=== PATIENT | male | born 1955 | race Caucasian/White ===

== ENCOUNTER 2016-08-22 00:25 | Inpatient (IN) | payer MEDICARE, OTHER, MEDICAID ==
[2016-08-22] VITALS (20 sets, daily range): BP systolic 90–149; BP diastolic 41–96; PULSE 66–118; RESP 14–16; TEMP 97.7–98.7; O2SAT 94–100
[2016-08-22] MEDS ORDERED: ETOMIDATE 20 MG/10 ML VIAL ONE (00:28)
[2016-08-22] MEDS ORDERED: PROPOFOL 1000 MG/100 ML INJ 100 ML ONE (00:33)
[2016-08-22] MEDS ORDERED: ceFAZolin 2 GM PREMIX 50 ML ONE (00:43)
--- NOTE | 2016-08-22 00:55 | RADRPT ---
EXAM DATE/TIME: 08/22/2016 00:24 [place] COMPARISON: No previous studies available for comparison. INDICATIONS : Trauma alert. Laceration to the neck. MEDICAL HISTORY : Non-responsive SURGICAL HISTORY : Non-responsive ENCOUNTER: Initial ACUITY: 1 day PAIN SCORE: Non-responsive. LOCATION: Bilateral chest FINDINGS: A single portable frontal view of the chest shows an endotracheal tube with the tip within the right mainstem bronchus. Nasogastric tube courses off the inferior margin of the film. Heart is normal in s ize. Lungs are clear. No effusions or pneumothoraces. Musculoskeletal structures are unremarkable. CONCLUSION: 1. Tip of the endotracheal tube within the right mainstem bronchus. Suggest retracting it approximate ly 2 cm. 2. Clear lungs. Juma Putnam Jr., MD on August 22, 2016 at 0:53 Board Certified Radiologist. This report was verified electronically.
[2016-08-22 01:07] LABS: AUTOMATED NEUTROPHIL # 3.2 TH/MM3 (1.8-7.7); BASOPHIL # 0.1 TH/MM3 (0-0.2); BASOPHIL % 1.4 % (0.0-2.0); EOSINOPHIL # 0.6 TH/MM3 (0-0.4); EOSINOPHIL % 10.1 % (0.0-4.0); HEMATOCRIT 39.1 % (39.0-51.0); HEMO FLAGS DIFF FINAL; I-STAT SODIUM 134 MMOL/L (138-146); LYMPH % 26.7 % (9.0-44.0); LYMPHOCYTE # 1.7 TH/MM3 (1.0-4.8); MEAN CELL VOLUME 101.9 FL (80.0-100.0); MEAN CORPUSCULAR HEMOGLOBIN 34.9 PG (27.0-34.0); MEAN CORPUSCULAR HGB CONC 34.3 % (32.0-36.0); MONO % 9.6 % (0.0-8.0); NEUT % 52.2 % (16.0-70.0); PLATELET COUNT 140 TH/MM3 (150-450); RED BLOOD COUNT 3.84 MIL/MM3 (4.50-5.90); RED CELL DISTRIBUTION WIDTH 14.5 % (11.6-17.2); WHITE BLOOD COUNT 6.2 TH/MM3 (4.0-11.0)
[2016-08-22 01:13] LABS: I-STAT POTASSIUM 7.1 MMOL/L (3.5-4.9)
[2016-08-22 01:19] LABS: APTT (PATIENT) 26.9 SEC (24.3-30.1)
[2016-08-22 01:29] LABS: BLOOD GAS BASE EXCESS -6.9 mmol/L (-2-2); BLOOD GAS CARBOXYHEMOGLOBIN 6.1 % (0-4); BLOOD GAS HCO3 19 mmol/L (22-26); BLOOD GAS METHEMOGLOBIN 1.2 % (0-2); BLOOD GAS O2 HGB SATURATION 92 % (90-100); BLOOD GAS OXYGEN CONTENT 18.6 Vol % (12.0-20.0); BLOOD GAS PCO2 49 mmHg (38-42); BLOOD GAS PO2 385 mmHg (61-120); BLOOD GAS TOTAL HGB 13.6 G/DL (12.0-16.0); TEMP CORR TO 98.6
[2016-08-22 01:30] LABS: CRITICAL VALUE YES
[2016-08-22 01:31] LABS: FIO2 100 %; STAT YES
[2016-08-22 01:32] LABS: AUTOMATED NEUTROPHIL # 3.2 TH/MM3 (1.8-7.7); BASOPHIL # 0.1 TH/MM3 (0-0.2); BASOPHIL % 0.9 % (0.0-2.0); EOSINOPHIL # 0.6 TH/MM3 (0-0.4); EOSINOPHIL % 9.5 % (0.0-4.0); HEMATOCRIT 39.2 % (39.0-51.0); HEMO FLAGS DIFF FINAL; LYMPH % 32.9 % (9.0-44.0); LYMPHOCYTE # 2.2 TH/MM3 (1.0-4.8); MEAN CELL VOLUME 99.9 FL (80.0-100.0); MEAN CORPUSCULAR HEMOGLOBIN 34.4 PG (27.0-34.0); MEAN CORPUSCULAR HGB CONC 34.4 % (32.0-36.0); MONO % 8.3 % (0.0-8.0); NEUT % 48.4 % (16.0-70.0); PLATELET COUNT 113 TH/MM3 (150-450); RED BLOOD COUNT 3.93 MIL/MM3 (4.50-5.90); RED CELL DISTRIBUTION WIDTH 16.4 % (11.6-17.2); WHITE BLOOD COUNT 6.6 TH/MM3 (4.0-11.0)
[2016-08-22 01:43] LABS: PROTHROMBIN TIME - PATIENT 11.2 SEC (9.8-11.6)
[2016-08-22 01:55] LABS: BICARBONATE 22.3 MEQ/L (21.0-32.0); POTASSIUM 3.4 MEQ/L (3.5-5.1)
[2016-08-22 02:09] LABS: CALCIUM-PROTEIN CORRECTED 7.3 MG/DL (8.5-10.1)
[2016-08-22 02:15] LABS: AUTOMATED NEUTROPHIL # 5.4 TH/MM3 (1.8-7.7); BASOPHIL # 0.1 TH/MM3 (0-0.2); BASOPHIL % 1.2 % (0.0-2.0); EOSINOPHIL # 0.5 TH/MM3 (0-0.4); EOSINOPHIL % 6.3 % (0.0-4.0); LYMPH % 14.4 % (9.0-44.0); LYMPHOCYTE # 1.1 TH/MM3 (1.0-4.8); MEAN CELL VOLUME 97.8 FL (80.0-100.0); MEAN CORPUSCULAR HGB CONC 34.7 % (32.0-36.0); MONO % 5.3 % (0.0-8.0); NEUT % 72.8 % (16.0-70.0); PLATELET COUNT 92 TH/MM3 (150-450); RED BLOOD COUNT 3.38 MIL/MM3 (4.50-5.90); RED CELL DISTRIBUTION WIDTH 17.2 % (11.6-17.2); WHITE BLOOD COUNT 7.3 TH/MM3 (4.0-11.0)
[2016-08-22 02:17] LABS: HEMO FLAGS AUTO DIFF
[2016-08-22 02:18] LABS: BLOOD GAS BASE EXCESS -6.3 mmol/L (-2-2); BLOOD GAS CARBOXYHEMOGLOBIN 5.1 % (0-4); BLOOD GAS HCO3 19 mmol/L (22-26); BLOOD GAS METHEMOGLOBIN 1.2 % (0-2); BLOOD GAS O2 HGB SATURATION 93 % (90-100); BLOOD GAS OXYGEN CONTENT 15.9 Vol % (12.0-20.0); BLOOD GAS PCO2 43 mmHg (38-42); BLOOD GAS PO2 180 mmHg (61-120); BLOOD GAS TOTAL HGB 11.9 G/DL (12.0-16.0); TEMP CORR TO 98.6
[2016-08-22 02:19] LABS: CRITICAL VALUE YES; DRAW SITE ART LINE; FIO2 77 %; OXYGEN DEVICE VENTILATOR; VENT SETTINGS OR SETTING
[2016-08-22 02:20] LABS: STAT YES
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
[2016-08-22] MEDS: SODIUM CHLOR 0.9% 1000 ML INJ 1,000 ML IV SCH ×3 (02:47→20:08)
[2016-08-22 02:52] LABS: PLATELET ESTIMATE SMEAR LOW (NORMAL); PLATELET MORPHOLOGY NORMAL (NORMAL); SCAN/DIFF AUTO DIFF CONFIRMED
[2016-08-22] MEDS ORDERED: MISCELLANEOUS NURSING INFORMATION XX SCH (03:00)
[2016-08-22] MEDS ORDERED: CHLORHEXIDINE GLUCONATE 2 % 1 PACK (2 CLOTHS) TOP PRN (03:00)
[2016-08-22] MEDS ORDERED: SODIUM CHLORIDE 0.9% FLUSH 10 ML FLUSH IV FLUSH PRN (03:00)
[2016-08-22] MEDS ORDERED: PROPOFOL 1000 MG/100 ML INJ 100 ML IV SCH (03:00)
[2016-08-22] MEDS ORDERED: fentaNYL DRIP 250 ML IV SCH (03:00)
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
[2016-08-22] MEDS: PROPOFOL 1000 MG/100 ML INJ 100 ML IV SCH ×2 (03:19→06:39)
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
[2016-08-22] MEDS ORDERED: MIDAZOLAM HCL 2 MG/2 ML VIAL ONE (03:35)
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
[2016-08-22] MEDS: CHLORHEXIDINE GLUCONATE 2 % 1 PACK (2 CLOTHS) TOP SCH (04:00)
[2016-08-22 04:10] LABS: AUTOMATED NEUTROPHIL # 7.5 TH/MM3 (1.8-7.7); BASOPHIL % 0.5 % (0.0-2.0); EOSINOPHIL # 0.1 TH/MM3 (0-0.4); EOSINOPHIL % 0.8 % (0.0-4.0); HEMATOCRIT 33.7 % (39.0-51.0); LYMPH % 8.4 % (9.0-44.0); LYMPHOCYTE # 0.7 TH/MM3 (1.0-4.8); MEAN CELL VOLUME 96.6 FL (80.0-100.0); MEAN CORPUSCULAR HEMOGLOBIN 33.7 PG (27.0-34.0); MEAN CORPUSCULAR HGB CONC 34.9 % (32.0-36.0); MONO % 4.9 % (0.0-8.0); NEUT % 85.4 % (16.0-70.0); PLATELET COUNT 84 TH/MM3 (150-450); RED BLOOD COUNT 3.49 MIL/MM3 (4.50-5.90); RED CELL DISTRIBUTION WIDTH 18.5 % (11.6-17.2); WHITE BLOOD COUNT 8.8 TH/MM3 (4.0-11.0)
[2016-08-22 04:13] LABS: HEMO FLAGS AUTO DIFF
[2016-08-22 04:35] LABS: BICARBONATE 24.8 MEQ/L (21.0-32.0); POTASSIUM 3.3 MEQ/L (3.5-5.1)
[2016-08-22 04:45] LABS: BANDS 4 % (0-6); EOSINOPHILS 1 % (0-4); NEUTROPHIL # MANUAL DIFF 7.9 TH/MM3 (1.8-7.7); PLATELET ESTIMATE SMEAR LOW (NORMAL); PLATELET MORPHOLOGY NORMAL (NORMAL); POLYS (SEG NEUTROPHILS) 86 % (16-70); SCAN/DIFF FINAL DIFF MANUAL; WBC DIFF SAMPLE 100
[2016-08-22 05:19] LABS: BLOOD GAS BASE EXCESS -2.7 mmol/L (-2-2); BLOOD GAS CARBOXYHEMOGLOBIN 2.1 % (0-4); BLOOD GAS HCO3 24 mmol/L (22-26); BLOOD GAS METHEMOGLOBIN 1.3 % (0-2); BLOOD GAS O2 HGB SATURATION 96 % (90-100); BLOOD GAS OXYGEN CONTENT 15.3 Vol % (12.0-20.0); BLOOD GAS PCO2 65 mmHg (38-42); BLOOD GAS PO2 236 mmHg (61-120); TEMP CORR TO 98.6
[2016-08-22 05:20] LABS: CRITICAL VALUE YES; DRAW SITE ART LINE; FIO2 100 %; OXYGEN DEVICE VENTILATOR; STAT NO
[2016-08-22] MEDS ORDERED: SODIUM BICARBONATE 8.4% INJ 50 ML ONE (05:57)
--- NOTE | 2016-08-22 06:12 | RADRPT ---
EXAM DATE/TIME: 08/22/2016 05:06 [facility] COMPARISON: CHEST SINGLE AP, August 22, 2016, 0:24. INDICATIONS : Shortness of breath. MEDICAL HISTORY : None. SURGICAL HISTORY : None. ENCOUNTER: Initial ACUITY: 1 day PAIN SCORE: Non-responsive. LOCATION: Bilateral chest FINDINGS: The tip of the endotracheal tube has been pulled back into the trachea. It is now 1.5 cm cephalad to the polina. Nasogastric tube courses off the inferior margin of the film. A new basilar consolidation is seen bilaterally more pronounced on the right. Small effusions. Heart is normal in size. No pneum othorax. CONCLUSION: 1. Endotracheal tube has been repositioned. 2. New bibasilar infiltrates and small effusions. Juma Putnam Jr., MD on August 22, 2016 at 6:10 Board Certified Radiologist. This report was verified electronically.
[2016-08-22] MEDS ORDERED: LACTATED RINGER'S 1000 ML INJ 1,000 ML IV ONE ×3 (06:15→12:00)
[2016-08-22] MEDS ORDERED: SODIUM BICARBONATE 8.4% INJ 50 MEQ/50 ML SYR IV ONE (06:30)
[2016-08-22] MEDS ORDERED: NOREPINEPHRINE-DEXTROSE DRIP 250 ML IV ONE (07:29)
[2016-08-22] MEDS ORDERED: POTASSIUM PHOSPHATE MONOBASIC 500 MG TAB PO PRN (07:45)
[2016-08-22] MEDS ORDERED: MAGNESIUM OXIDE 400 MG TAB PO PRN (07:45)
[2016-08-22] MEDS ORDERED: MAGNESIUM SULFATE INJ 4 GM in SODIUM CHLORIDE 0.9% INJ 92 ML IV PRN (07:45)
[2016-08-22] MEDS ORDERED: POTASSIUM PHOSPHATE MONOBASIC 500 MG TAB PO/TUBE PRN (07:45)
[2016-08-22] MEDS ORDERED: SODIUM PHOSPHATE INJ 30 MMOL in SODIUM CHLOR 0.9% 250 ML INJ 240 ML IV PRN (07:45)
[2016-08-22] MEDS ORDERED: POTASSIUM CHLOR 40 MEQ PREMIX 100 ML IV PRN (07:45)
[2016-08-22] MEDS ORDERED: POTASSIUM PHOSPHATE INJ 30 MMOL in SODIUM CHLOR 0.9% 250 ML INJ 250 ML IV PRN (07:45)
[2016-08-22] MEDS ORDERED: POTASSIUM CHLOR 20 MEQ PREMIX 100 ML IV PRN ×2 (07:45)
[2016-08-22] MEDS ORDERED: MAGNESIUM SULFATE INJ 2 GM in SODIUM CHLORIDE 0.9% INJ 96 ML IV PRN (07:45)
[2016-08-22] MEDS ORDERED: RESP: ALBUTEROL 2.5 MG/IPRATROPIUM 0.5 MG NEB (PRN) NEB (08:00)
[2016-08-22 09:01] LABS: BLOOD, URINE MOD (NEG); GLUCOSE,URINE NEG (NEG); GRANULAR CAST, URINE 1 /lpf; HYALINE CAST, URINE 5 /lpf (RARE); KETONE, URINE NEG (NEG); MUCUS URINE FEW /lpf (OCC); NITRITE,URINE NEG (NEG); PH, URINE 5.5 (5.0-8.5); SQUAMOUS EPITHELIAL CELL URINE <1 /hpf (0-5); URINE COLOR YELLOW (YELLW/STRAW)
[2016-08-22 09:03] LABS: COMMENT (UR) CATH-CULT NOT IND; CULTURE IF INDICATED CATH CULTURE NOT IND
[2016-08-22] MEDS: LACTULOSE SYRUP 20 GM/30 ML CUP PO SCH (09:20)
[2016-08-22] MEDS: FAMOTIDINE 20 MG/2 ML VIAL IV PUSH SCH ×2 (09:21→20:07)
[2016-08-22] MEDS: SODIUM CHLORIDE 0.9% FLUSH 10 ML FLUSH IV FLUSH SCH ×2 (09:21→20:08)
[2016-08-22] MEDS: CHLORHEXIDINE 0.12% (ORAL KIT) 15 ML CUP MT SCH ×2 (09:21→20:08)
[2016-08-22] MEDS ORDERED: TERBUTALINE INJ 1 MG/ML AMP SQ PRN (09:45)
[2016-08-22] MEDS: MIDAZOLAM 100 MG/NS 100 ML DRIP Premix IV SCH ×2 (11:13→20:09)
[2016-08-22] MEDS ORDERED: NORMOSOL R INJ 3,000 ML IV ONE (12:00)
[2016-08-22] MEDS ORDERED: PROPOFOL 200 MG/20 ML AMP IV ONE (12:00)
[2016-08-22] MEDS ORDERED: PHENYLEPH/NS 1000 MCG/10 ML SYR IV ONE (12:00)
[2016-08-22] MEDS: RESP: ALBUTEROL 2.5 MG/IPRATROPIUM 0.5 MG NEB (SCH) NEB ×3 (12:20→19:29)
[2016-08-22] MEDS ORDERED: EPINEPHrine HCL (1:10,000) 1 MG/10 ML SYRINGE ONE (12:49)
[2016-08-22] MEDS ORDERED: LIDOCAINE HCL 2% 100 MG/5 ML SYRINGE ONE (12:49)
[2016-08-22] MEDS ORDERED: ATROPINE SULFATE 1 MG/10 ML SYRINGE ONE (12:50)
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
[2016-08-22] MEDS: POTASSIUM CHLOR 40 MEQ PREMIX 100 ML IV PRN ×2 (16:46→18:48)
[2016-08-22] MEDS: NOREPINEPHRINE-DEXTROSE DRIP 250 ML IV SCH ×2 (18:49→23:17)
[2016-08-23] VITALS (16 sets, daily range): BP systolic 92–140; BP diastolic 59–88; PULSE 65–111; RESP 12–29; TEMP 97.7–98.9; O2SAT 92–100
[2016-08-23] MEDS: RESP: ALBUTEROL 2.5 MG/IPRATROPIUM 0.5 MG NEB (SCH) NEB ×4 (03:02→20:00)
[2016-08-23] MEDS: CHLORHEXIDINE GLUCONATE 2 % 1 PACK (2 CLOTHS) TOP SCH (04:00)
--- NOTE | 2016-08-23 04:02 | RADRPT ---
EXAM DATE/TIME: 08/23/2016 03:42 [facility] COMPARISON: CHEST SINGLE AP, August 22, 2016, 5:06. INDICATIONS : Shortness of breath MEDICAL HISTORY : None. SURGICAL HISTORY : None. ENCOUNTER: Subsequent ACUITY: 2 days PAIN SCORE: Non-responsive. LOCATION: Bilateral chest FINDINGS: A single view of the chest demonstrates the lungs to be symmetrically aerated without evidence of mas s, infiltrate or effusion. The cardiomediastinal contours are unremarkable. Osseous structures are intact. Tip of the endotracheal tube tip is 2 cm cephalad to polina. Nasogastric tube courses off the inferior margin of the film. Surgical clips at the base of the neck. CONCLUSION: No acute disease. Juma Putnam Jr., MD on August 23, 2016 at 4:01 Board Certified Radiologist. This report was verified electronically.
[2016-08-23 04:08] LABS: AUTOMATED NEUTROPHIL # 6.5 TH/MM3 (1.8-7.7); BASOPHIL % 0.5 % (0.0-2.0); EOSINOPHIL # 0.4 TH/MM3 (0-0.4); EOSINOPHIL % 4.6 % (0.0-4.0); HEMATOCRIT 33.3 % (39.0-51.0); LYMPH % 12.1 % (9.0-44.0); MEAN CELL VOLUME 96.4 FL (80.0-100.0); MEAN CORPUSCULAR HEMOGLOBIN 33.7 PG (27.0-34.0); MEAN CORPUSCULAR HGB CONC 34.9 % (32.0-36.0); MONO % 7.5 % (0.0-8.0); NEUT % 75.3 % (16.0-70.0); PLATELET COUNT 85 TH/MM3 (150-450); RED BLOOD COUNT 3.46 MIL/MM3 (4.50-5.90); RED CELL DISTRIBUTION WIDTH 18.5 % (11.6-17.2); WHITE BLOOD COUNT 8.6 TH/MM3 (4.0-11.0)
[2016-08-23 04:10] LABS: HEMO FLAGS AUTO DIFF
[2016-08-23 04:50] LABS: POTASSIUM 3.7 MEQ/L (3.5-5.1)
[2016-08-23 05:30] LABS: BLOOD GAS BASE EXCESS 3.1 mmol/L (-2-2); BLOOD GAS CARBOXYHEMOGLOBIN 1.2 % (0-4); BLOOD GAS HCO3 27 mmol/L (22-26); BLOOD GAS METHEMOGLOBIN 0.8 % (0-2); BLOOD GAS O2 HGB SATURATION 96 % (90-100); BLOOD GAS OXYGEN CONTENT 14.8 Vol % (12.0-20.0); BLOOD GAS PCO2 37 mmHg (38-42); BLOOD GAS PO2 112 mmHg (61-120); BLOOD GAS TOTAL HGB 10.8 G/DL (12.0-16.0); CRITICAL VALUE NO; DRAW SITE ART LINE; FIO2 40 %; OXYGEN DEVICE VENTILATOR; STAT NO; TEMP CORR TO 98.6; VENT SETTINGS AC 14/700/5PEEP
[2016-08-23] MEDS: MIDAZOLAM 100 MG/NS 100 ML DRIP Premix IV SCH (05:59)
[2016-08-23 06:00] LABS: SCAN/DIFF AUTO DIFF CONFIRMED
[2016-08-23 06:01] LABS: PLATELET ESTIMATE SMEAR LOW (NORMAL); PLATELET MORPHOLOGY NORMAL (NORMAL)
[2016-08-23] MEDS: LACTULOSE SYRUP 20 GM/30 ML CUP PO SCH (08:31)
[2016-08-23] MEDS: SODIUM CHLORIDE 0.9% FLUSH 10 ML FLUSH IV FLUSH SCH ×2 (08:32→19:18)
[2016-08-23] MEDS: FAMOTIDINE 20 MG/2 ML VIAL IV PUSH SCH ×2 (08:32→19:18)
[2016-08-23] MEDS: CHLORHEXIDINE 0.12% (ORAL KIT) 15 ML CUP MT SCH ×2 (08:33→19:17)
[2016-08-23] MEDS ORDERED: HALOPERIDOL LACTATE 5 MG/ML AMP IV PRN (09:30)
[2016-08-23] MEDS: BACITRACIN TOP OINT 15 GM TUBE TOPICAL SCH ×2 (09:30→19:18)
[2016-08-23] MEDS: THIAMINE HCL 100 MG TAB PO SCH (10:03)
[2016-08-23] MEDS: FOLIC ACID 1 MG TAB PO SCH (10:03)
[2016-08-23] MEDS: MULTIVITAMINS/MINERALS THERAPEUTIC TAB PO SCH (10:03)
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
[2016-08-23] MEDS: SODIUM CHLOR 0.9% 1000 ML INJ 1,000 ML IV SCH ×2 (17:00→18:47)
[2016-08-23] MEDS ORDERED: ACETAMINOPHEN 325 MG TAB PO PRN (17:45)
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
[2016-08-23] MEDS ORDERED: ACETAMINOPHEN/HYDROcodone 325 MG/5 MG TAB PO PRN (20:15)
[2016-08-23] MEDS ORDERED: ONDANSETRON HCL 4 MG/2 ML VIAL IV PUSH PRN (20:15)
[2016-08-24] VITALS (9 sets, daily range): BP systolic 101–120; BP diastolic 60–69; PULSE 64–80; RESP 12–28; TEMP 97.1–98.7; O2SAT 92–97
[2016-08-24] MEDS: CHLORHEXIDINE GLUCONATE 2 % 1 PACK (2 CLOTHS) TOP SCH (03:42)
[2016-08-24] MEDS: SODIUM CHLOR 0.9% 1000 ML INJ 1,000 ML IV SCH (03:43)
[2016-08-24] MEDS: RESP: ALBUTEROL 2.5 MG/IPRATROPIUM 0.5 MG NEB (SCH) NEB ×2 (04:00→09:30)
[2016-08-24 04:19] LABS: AUTOMATED NEUTROPHIL # 4.8 TH/MM3 (1.8-7.7); BASOPHIL % 0.4 % (0.0-2.0); EOSINOPHIL # 0.3 TH/MM3 (0-0.4); EOSINOPHIL % 4.2 % (0.0-4.0); HEMATOCRIT 29.2 % (39.0-51.0); LYMPHOCYTE # 0.7 TH/MM3 (1.0-4.8); MEAN CELL VOLUME 96.1 FL (80.0-100.0); MEAN CORPUSCULAR HEMOGLOBIN 33.7 PG (27.0-34.0); MEAN CORPUSCULAR HGB CONC 35.1 % (32.0-36.0); MONO % 6.3 % (0.0-8.0); NEUT % 77.1 % (16.0-70.0); PLATELET COUNT 70 TH/MM3 (150-450); RED BLOOD COUNT 3.03 MIL/MM3 (4.50-5.90); RED CELL DISTRIBUTION WIDTH 17.5 % (11.6-17.2); WHITE BLOOD COUNT 6.2 TH/MM3 (4.0-11.0)
[2016-08-24 04:24] LABS: HEMO FLAGS AUTO DIFF
[2016-08-24 04:45] LABS: ALT (GPT) 15 U/L (12-78); ANION GAP 7 MEQ/L (5-15); AST (GOT) 29 U/L (15-37); BLOOD UREA NITROGEN 3 MG/DL (7-18); CHLORIDE 102 MEQ/L (98-107); GLOMERULAR FILTRATION RATE 150 ML/MIN (>89); POTASSIUM 3.6 MEQ/L (3.5-5.1); SODIUM (NA) 138 MEQ/L (136-145)
[2016-08-24 04:47] LABS: ALKALINE PHOSPHATASE 76 U/L (45-117); TOTAL BILIRUBIN ADULT 0.5 MG/DL (0.2-1.0)
[2016-08-24 05:00] LABS: PLATELET ESTIMATE SMEAR LOW (NORMAL); PLATELET MORPHOLOGY NORMAL (NORMAL); SCAN/DIFF AUTO DIFF CONFIRMED
[2016-08-24] MEDS: CHLORHEXIDINE 0.12% (ORAL KIT) 15 ML CUP MT SCH (08:00)
[2016-08-24] MEDS: SODIUM CHLORIDE 0.9% FLUSH 10 ML FLUSH IV FLUSH SCH (08:02)
[2016-08-24] MEDS: FAMOTIDINE 20 MG/2 ML VIAL IV PUSH SCH (08:02)
[2016-08-24] MEDS: FOLIC ACID 1 MG TAB PO SCH (08:02)
[2016-08-24] MEDS: THIAMINE HCL 100 MG TAB PO SCH (08:02)
[2016-08-24] MEDS: MULTIVITAMINS/MINERALS THERAPEUTIC TAB PO SCH (08:02)
[2016-08-24] MEDS: BACITRACIN TOP OINT 15 GM TUBE TOPICAL SCH (08:03)
[2016-08-24] MEDS: LACTULOSE SYRUP 20 GM/30 ML CUP PO SCH (08:03)
[2016-08-24] MEDS ORDERED: QUEtiapine FUMARATE 25 MG TAB PO SCH (10:15)
[2016-08-24] MEDS ORDERED: ENOXAPARIN SODIUM 30 MG/0.3 ML SYRINGE SQ SCH (11:00)
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
[2016-08-24] MEDS ORDERED: FAMOTIDINE 20 MG TAB PO SCH (21:00)
== END 2016-08-24 15:49 | DRG 579 ==
LOC: EDBD → NEPI 00:25 → NEDA 01:50 → N03B 03:02 → N07B 08-24 12:51
PROVIDERS: ADMIT Surgery Trauma Surgery; ATTEND Surgery Trauma Surgery
PROC: 30233N1 Transfusion of Nonautologous Red Blood Cells into Peripheral Vein, Percutaneous Approach (ICD-10-PCS; 2016-08-22)
PROC: 30233K1 Transfusion of Nonautologous Frozen Plasma into Peripheral Vein, Percutaneous Approach (ICD-10-PCS; 2016-08-22)
PROC: 0BH17EZ Insertion of Endotracheal Airway into Trachea, Via Natural or Artificial Opening (ICD-10-PCS; 2016-08-22)
PROC: 0KQ30ZZ Repair Left Neck Muscle, Open Approach (ICD-10-PCS; principal; 2016-08-22 01:01)
DX: S11.81XA Laceration without foreign body of other specified part of neck, initial encounter (principal); T79.4XXA Traumatic shock, initial encounter; J96.90 Respiratory failure, unspecified, unspecified whether with hypoxia or hypercapnia; D68.9 Coagulation defect, unspecified; S11.021A Laceration without foreign body of trachea, initial encounter; C85.90 Non-Hodgkin lymphoma, unspecified, unspecified site; F10.14 Alcohol abuse with alcohol-induced mood disorder; I10 Essential (primary) hypertension; J45.909 Unspecified asthma, uncomplicated; X78.1XXA Intentional self-harm by knife, initial encounter; Y93.89 Activity, other specified; Y92.89 Other specified places as the place of occurrence of the external cause; Y99.9 Unspecified external cause status; M19.90 Unspecified osteoarthritis, unspecified site; B19.20 Unspecified viral hepatitis C without hepatic coma; F32.9 Major depressive disorder, single episode, unspecified; Z92.3 Personal history of irradiation; Z87.11 Personal history of peptic ulcer disease; Z92.21 Personal history of antineoplastic chemotherapy; Z86.73 Personal history of transient ischemic attack (TIA), and cerebral infarction without residual deficits; Z72.0 Tobacco use; M32.9 Systemic lupus erythematosus, unspecified; F41.9 Anxiety disorder, unspecified; Z59.0 Homelessness; Y90.8 Blood alcohol level of 240 mg/100 ml or more; Z21 Asymptomatic human immunodeficiency virus [HIV] infection status
CPT/HCPCS: 31500; 36430; 51702; 70450; 71010; 80048; 80053; 80307; 81001; 82435; 82565; 82805; 82947; 83735; 84100; 84132; 84155; 84295; 84520; 85007; 85025; 85027; 85384; 85610; 85730; 86850; 86900; 86901; 86920; 86927; 87641; 90471; 94002; 94003; 94640; 94664; 96374; 96375; 99291; G0390; J0171; J0461; J0690; J1650; J2250; J2370; J2405; J3010; J3480; J7030; J7120; P9016; P9017

== ENCOUNTER 2016-08-24 16:52 | Inpatient (IN) | payer MEDICARE, MEDICAID ==
[~2016-08-24] VITALS: Ht 177.8 cm; Wt 72.3 kg
[2016-08-24] MEDS ORDERED: LORazepam 2 MG TAB PO PRN (17:00)
[2016-08-24] MEDS ORDERED: MAGNESIUM HYDROXIDE SUSP 30 ML CUP PO PRN (17:00)
[2016-08-24] MEDS ORDERED: FLUMAZENIL 0.5 MG/5 ML VIAL IV PUSH PRN (17:00)
[2016-08-24] MEDS ORDERED: LORazepam 2 MG/ML VIAL IV PUSH PRN ×4 (17:00)
[2016-08-24] MEDS ORDERED: ALUMINUM/MAGNESIUM/SIMETH 30 ML CUP PO PRN (17:00)
[2016-08-24] MEDS ORDERED: ACETAMINOPHEN 325 MG TAB PO PRN (17:00)
[2016-08-24] MEDS: hydrOXYzine HCL 50 MG TAB PO PRN (18:00)
[2016-08-24 18:21] VITALS: BP 101/70; PULSE 90; RESP 18; TEMP 98.2
[2016-08-24] MEDS: QUEtiapine FUMARATE 25 MG TAB PO SCH (21:22)
[2016-08-25 05:49] VITALS: BP 100/64; PULSE 95; RESP 17; TEMP 97.4; O2SAT 98
[2016-08-25] MEDS: MULTIVITAMIN TAB PO SCH (09:00)
[2016-08-25] MEDS: QUEtiapine FUMARATE 25 MG TAB PO SCH ×2 (09:00→21:55)
[2016-08-25] MEDS: THIAMINE HCL 100 MG TAB PO SCH (09:00)
[2016-08-25] MEDS: FOLIC ACID 1 MG TAB PO SCH (09:00)
[2016-08-25] MEDS ORDERED: NICOTINE 21 MG/24 HR PATCH T-DERMAL SCH (09:00)
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
[2016-08-25] MEDS ORDERED: ALUMINUM/MAGNESIUM/SIMETH 30 ML CUP PO PRN (15:30)
[2016-08-25] MEDS ORDERED: MAGNESIUM HYDROXIDE SUSP 30 ML CUP PO PRN (15:30)
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
[2016-08-25] MEDS: FERROUS SULFATE 325 MG (65 MG ELEMENTAL IRON) TAB PO SCH (15:56)
[2016-08-25] MEDS: LORazepam 1 MG TAB PO PRN (15:56)
[2016-08-25 17:00] VITALS: BP 108/63; PULSE 98; RESP 18; TEMP 99.9
[2016-08-25] MEDS ORDERED: REMOVE OLD NICODERM (NICOTINE) PATCH T-DERMAL SCH (21:00)
[2016-08-25] MEDS: REMOVE OLD NICODERM (NICOTINE) PATCH T-DERMAL SCH (21:00)
[2016-08-25] MEDS: ACETAMINOPHEN 325 MG TAB PO PRN (22:02)
[2016-08-26 05:46] VITALS: BP 108/64; PULSE 104; RESP 17; TEMP 97.4; O2SAT 97
[2016-08-26 08:22] LABS: AUTOMATED NEUTROPHIL # 6.7 TH/MM3 (1.8-7.7); BASOPHIL # 0.1 TH/MM3 (0-0.2); BASOPHIL % 0.6 % (0.0-2.0); EOSINOPHIL # 0.3 TH/MM3 (0-0.4); EOSINOPHIL % 3.7 % (0.0-4.0); HEMATOCRIT 30.8 % (39.0-51.0); HEMO FLAGS DIFF FINAL; LYMPH % 10.1 % (9.0-44.0); LYMPHOCYTE # 0.9 TH/MM3 (1.0-4.8); MEAN CELL VOLUME 98.7 FL (80.0-100.0); MEAN CORPUSCULAR HEMOGLOBIN 33.1 PG (27.0-34.0); MEAN CORPUSCULAR HGB CONC 33.6 % (32.0-36.0); MONO % 12.4 % (0.0-8.0); NEUT % 73.2 % (16.0-70.0); PLATELET COUNT 116 TH/MM3 (150-450); RED BLOOD COUNT 3.12 MIL/MM3 (4.50-5.90); RED CELL DISTRIBUTION WIDTH 17.9 % (11.6-17.2); WHITE BLOOD COUNT 9.1 TH/MM3 (4.0-11.0)
[2016-08-26 08:46] LABS: BICARBONATE 29.4 MEQ/L (21.0-32.0)
[2016-08-26] MEDS: QUEtiapine FUMARATE 25 MG TAB PO SCH ×2 (09:07→21:16)
[2016-08-26] MEDS: FOLIC ACID 1 MG TAB PO SCH (09:07)
[2016-08-26] MEDS: THIAMINE HCL 100 MG TAB PO SCH (09:07)
[2016-08-26] MEDS: MULTIVITAMIN TAB PO SCH (09:07)
[2016-08-26] MEDS: NICOTINE 21 MG/24 HR PATCH T-DERMAL SCH (09:08)
[2016-08-26] MEDS: ONDANSETRON ODT 4 MG TAB PO PRN ×2 (09:09→15:56)
[2016-08-26] MEDS: ACETAMINOPHEN 325 MG TAB PO PRN ×2 (09:09→21:16)
[2016-08-26] MEDS: LORazepam 1 MG TAB PO PRN ×3 (09:11→21:16)
[2016-08-26] MEDS ORDERED: ACETAMINOPHEN 325 MG TAB PO PRN (10:45)
[2016-08-26] MEDS: FERROUS SULFATE 325 MG (65 MG ELEMENTAL IRON) TAB PO SCH ×2 (12:02→17:34)
[2016-08-26] MEDS: CALCIUM CARBONATE 500 MG CHEWABLE TAB CHEW SCH ×2 (12:02→21:15)
[2016-08-26] MEDS: ACETAMINOPHEN/HYDROcodone 325 MG/5 MG TAB PO PRN ×2 (15:56→23:18)
--- NOTE | 2016-08-26 18:51 | HHI.PYPN ---
Subjective Remarks Patient was seen and case discussed with nursing. Patient is pleasant and cooperative with exam. He is on the sea was scale and gets intermittent Ativan. For this interview no tremors are noted, is alert and oriented 4, no nausea or vomiting, no auditory visual hallucinations. Says he was quite drunk during his attempt. Says he is depressed and feeling hopeless and helpless and worthless. Says people he cared about it did he has nothing to live for. He does deny suicidal intent or plan. Also denies suicidal ideation. Patient was asked to speak to a staff member suicidal ideation recurs. Objective Alert: Yes [place]: Person, Place, Date, Situation Mood: Depressed Affect: Restricted Memory Intact: Immediate (intact) Hallucinations: Auditory (denies) Delusions: No Delusion Type: Other Suicidal: Ideation (denies) Homicidal: Ideation (denies) Insight/Judgment Poor Labs Test 08/26/16 07:51 White Blood Count 9.1 TH/MM3 Red Blood Count 3.12 MIL/MM3 Hemoglobin 10.3 GM/DL Hematocrit 30.8 % Mean Corpuscular Volume 98.7 FL Mean Corpuscular Hemoglobin 33.1 PG Mean Corpuscular Hemoglobin 33.6 % Concent Red Cell Distribution Width 17.9 % Platelet Count 116 TH/MM3 Mean Platelet Volume 8.0 FL Neutrophils (%) (Auto) 73.2 % Lymphocytes (%) (Auto) 10.1 % Monocytes (%) (Auto) 12.4 % Eosinophils (%) (Auto) 3.7 % Basophils (%) (Auto) 0.6 % Neutrophils # (Auto) 6.7 TH/MM3 Lymphocytes # (Auto) 0.9 TH/MM3 Monocytes # (Auto) 1.1 TH/MM3 Eosinophils # (Auto) 0.3 TH/MM3 Basophils # (Auto) 0.1 TH/MM3 CBC Comment DIFF FINAL Differential Comment Sodium Level 139 MEQ/L Potassium Level 4.0 MEQ/L Chloride Level 105 MEQ/L Carbon Dioxide Level 29.4 MEQ/L Anion Gap 5 MEQ/L Blood Urea Nitrogen 5 MG/DL Creatinine 0.52 MG/DL Estimat Glomerular Filtration 163 ML/MIN Rate Random Glucose 89 MG/DL Calcium Level 8.2 MG/DL Vitals/IOs Vital Signs Date Time Temp Pulse Resp B/P Pulse Ox O2 Delivery O2 Flow Rate FiO2 08/26/16 05:46 97.4 104 17 108/64 97 Assessment & Plan Problem List: (1) Alcohol abuse with alcohol-induced mood disorder ICD Code: F10.14 (2) Major depressive disorder, recurrent severe without psychotic features ICD Code: F33.2 Assessment & Plan Continue current treatment plan Justification for Cont. Inpt. Patient will decompensate in a less restrictive setting Request HC Surrog/Guard Advoc?: No Aston Mo DO Aug 26, 2016 18:51
[2016-08-26] MEDS: REMOVE OLD NICODERM (NICOTINE) PATCH T-DERMAL SCH (21:00)
[2016-08-26] MEDS: diphenhydrAMINE HCL 50 MG CAP PO PRN (21:16)
[2016-08-26] MEDS: hydrOXYzine HCL 50 MG TAB PO PRN (23:18)
[2016-08-27 06:15] VITALS: BP 104/72; PULSE 82; RESP 18; TEMP 99.3; O2SAT 96
[2016-08-27] MEDS: hydrOXYzine HCL 50 MG TAB PO PRN (07:02)
[2016-08-27] MEDS: ACETAMINOPHEN/HYDROcodone 325 MG/5 MG TAB PO PRN ×2 (07:02→14:36)
[2016-08-27] MEDS: FOLIC ACID 1 MG TAB PO SCH (08:33)
[2016-08-27] MEDS: MULTIVITAMIN TAB PO SCH (08:33)
[2016-08-27] MEDS: THIAMINE HCL 100 MG TAB PO SCH (08:33)
[2016-08-27] MEDS: NICOTINE 21 MG/24 HR PATCH T-DERMAL SCH (08:34)
[2016-08-27] MEDS: CALCIUM CARBONATE 500 MG CHEWABLE TAB CHEW SCH ×2 (08:34→21:01)
[2016-08-27] MEDS: QUEtiapine FUMARATE 25 MG TAB PO SCH ×2 (08:34→21:00)
[2016-08-27] MEDS: ACETAMINOPHEN 325 MG TAB PO PRN ×2 (10:15→14:36)
--- NOTE | 2016-08-27 10:44 | HHI.PYPN ---
Subjective Remarks Patient seen and examined with counselor nurse. Chart reviewed. Case discussed with nursing staff reports patient has been medication seeking for opiates. On my examination today, the patient continues to actively seek for opiate medications. Antisocial traits/manipulativeness noted. He says that he has been experiencing several psychosocial stressors including the loss of his and best friend as well as being homeless. He endorses ongoing suicidal ideation without specific plan or intent at this time and says "I wish I could' ve succeeded" in his presenting suicide attempt. The patient denies a history of psychiatric diagnosis but admits that he cut his wrists 10 or 11 years ago while he was sober. Affect is quite dysphoric. Denies side effects from medications. No other issues noted. Review of Systems Except as stated in HPI: all other systems reviewed are Neg Objective Alert: Yes [place]: Person, Place, Date, Situation Mood: Other (dysphoric) Affect: Restricted Memory Intact: Comment (seems intact on clinical exam) Hallucinations: Other (no AVH) Delusions: No Delusion Type: Other (no delusions elicited) Suicidal: Ideation (reports ongoing SI. No reported urge to hurt himself on the inpatient psychiatric unit.) Homicidal: Ideation (no homicidal ideation) Insight/Judgment Poor, particularly I suspect with respect to the substance use Remarks No hand tremor, no diaphoresis, no mydriasis, no other signs of GABAergic withdrawal noted. It appears patient has received 2 mg of oral Ativan in the last 24 hours. Thought process linear. No evidence of delirium. Speech within normal limits for rate, tone and volume. Labs Labs reviewed. Platelet count improved versus initial admission. Anemia stable. Vitals/IOs Vital Signs Date Time Temp Pulse Resp B/P Pulse Ox O2 Delivery O2 Flow Rate FiO2 08/27/16 06:15 99.3 82 18 104/72 96 Assessment & Plan Problem List: (1) Adjustment disorder Assessment & Plan: Rule out component of drug-induced mood disorder ICD Code: F43.20 (2) Alcohol abuse Assessment & Plan: Rule out dependence ICD Code: F10.10 Assessment & Plan I concur with Dr. Douglas the patient's presenting suicidal gesture was likely mediated chiefly by alcohol use and personality problems but likewise agree that psychiatric observation is warranted given the nature of the gesture. I will add Remeron for dysphoria. Continue other psychotropics as ordered. Continue CIWA with Ativan for now. Continue to monitor on the inpatient unit. Continue other medications and care as ordered. Justification for Cont. Inpt. Monitoring for impairments in safety Discharge Planning Pending outcome of observation. I anticipate discharge Saturday or perhaps . Request HC Surrog/Guard Advoc?: No Problem Qualifiers (1) Adjustment disorder: Qualified Code: F43.25 - Adjustment disorder with mixed disturbance of emotions and conduct Solitario Magana MD Aug 27, 2016 10:44
[2016-08-27] MEDS: FERROUS SULFATE 325 MG (65 MG ELEMENTAL IRON) TAB PO SCH ×2 (12:00→17:00)
[2016-08-27 17:40] VITALS: BP 81/55; PULSE 90; RESP 18; TEMP 98.5; O2SAT 97
[2016-08-27] MEDS: REMOVE OLD NICODERM (NICOTINE) PATCH T-DERMAL SCH (21:00)
[2016-08-27] MEDS: MIRTAZAPINE 15 MG TAB PO SCH (21:00)
[2016-08-28] MEDS: ACETAMINOPHEN/HYDROcodone 325 MG/5 MG TAB PO PRN ×2 (01:00→13:12)
[2016-08-28 06:13] VITALS: BP 117/69; PULSE 77; RESP 18; TEMP 97.1; O2SAT 97
[2016-08-28] MEDS: NICOTINE 21 MG/24 HR PATCH T-DERMAL SCH (09:00)
[2016-08-28] MEDS: QUEtiapine FUMARATE 25 MG TAB PO SCH (09:04)
[2016-08-28] MEDS: THIAMINE HCL 100 MG TAB PO SCH (09:04)
[2016-08-28] MEDS: CALCIUM CARBONATE 500 MG CHEWABLE TAB CHEW SCH ×2 (09:04→21:13)
[2016-08-28] MEDS: FOLIC ACID 1 MG TAB PO SCH (09:04)
[2016-08-28] MEDS: MULTIVITAMIN TAB PO SCH (09:04)
[2016-08-28] MEDS: FERROUS SULFATE 325 MG (65 MG ELEMENTAL IRON) TAB PO SCH ×2 (11:47→17:48)
--- NOTE | 2016-08-28 11:52 | HHI.PYPN ---
Subjective Remarks Patient seen and examined. Chart reviewed. Case discussed in treatment team with nurse, counselor and occupational therapist. No behavioral problems noted per nursing staff. Counselor reports that financial team from the hospital is working with patient to apply for benefits. Occupational therapist reports that the patient is attending groups. On my examination today, patient remains fairly dysphoric. He complains of poor sleep but does note that he took Remeron for many years and that it helped him with sleep in the past. He does not verbalize any suicidal ideation today. Denies side effects from medications. Review of Systems Except as stated in HPI: all other systems reviewed are Neg Objective Alert: Yes [place]: Person, Place, Date, Situation Mood: Other (remains dysphoric) Affect: Restricted Memory Intact: Comment (intact) Hallucinations: Other (no AVH) Delusions: No Delusion Type: Other (no delusions) Suicidal: Ideation (no SI voiced) Homicidal: Ideation (no HI) Insight/Judgment Fair Remarks No motor abnormalities noted. Thought process linear. Grooming and hygiene fair. No signs of withdrawal noted. Labs Labs reviewed. Vitals/IOs Vital Signs Date Time Temp Pulse Resp B/P Pulse Ox O2 Delivery O2 Flow Rate FiO2 08/28/16 06:13 97.1 77 18 117/69 97 Assessment & Plan Problem List: (1) Adjustment disorder ICD Code: F43.20 (2) Alcohol abuse ICD Code: F10.10 Assessment & Plan Consolidate Seroquel to HS to try to assist with sleep. Could consider further titration of this medication. Continue Remeron for mood/dysphoria. Discontinue CIWA as patient has no signs of withdrawal. Check an H&H in the morning as recommended by hospitalist. Continue to monitor on the inpatient unit. Continue other medications and care as ordered. Justification for Cont. Inpt. Monitoring for impairments in safety. None noted so far. Medication changes and process. Discharge Planning Pending outcome of observation. Anticipate discharge by the end of the week. Request HC Surrog/Guard Advoc?: No Problem Qualifiers (1) Adjustment disorder: Qualified Code: F43.25 - Adjustment disorder with mixed disturbance of emotions and conduct Solitario Magana MD Aug 28, 2016 11:52
[2016-08-28 18:14] VITALS: BP 102/63; PULSE 84; RESP 18; TEMP 98; O2SAT 18
[2016-08-28] MEDS: REMOVE OLD NICODERM (NICOTINE) PATCH T-DERMAL SCH (21:00)
[2016-08-28] MEDS ORDERED: QUEtiapine FUMARATE 100 MG TAB PO SCH (21:00)
[2016-08-28] MEDS: diphenhydrAMINE HCL 50 MG CAP PO PRN (21:13)
[2016-08-28] MEDS: hydrOXYzine HCL 50 MG TAB PO PRN (21:13)
[2016-08-28] MEDS: MIRTAZAPINE 15 MG TAB PO SCH (21:13)
[2016-08-28] MEDS: ACETAMINOPHEN 325 MG TAB PO PRN (21:14)
[2016-08-29 06:12] VITALS: BP 108/67; PULSE 76; RESP 18; TEMP 97.9; O2SAT 95
[2016-08-29] MEDS: MULTIVITAMIN TAB PO SCH (08:27)
[2016-08-29] MEDS: CALCIUM CARBONATE 500 MG CHEWABLE TAB CHEW SCH (08:27)
[2016-08-29] MEDS: THIAMINE HCL 100 MG TAB PO SCH (08:27)
[2016-08-29] MEDS: FOLIC ACID 1 MG TAB PO SCH (08:27)
[2016-08-29] MEDS: NICOTINE 21 MG/24 HR PATCH T-DERMAL SCH (08:28)
[2016-08-29] MEDS: ACETAMINOPHEN/HYDROcodone 325 MG/5 MG TAB PO PRN (08:28)
[2016-08-29 08:55] LABS: HEMATOCRIT 28.1 % (39.0-51.0)
[2016-08-29 08:58] LABS: REVIEW FLAG FINAL
[2016-08-29] MEDS: FERROUS SULFATE 325 MG (65 MG ELEMENTAL IRON) TAB PO SCH ×2 (12:00→17:00)
--- NOTE | 2016-08-29 12:09 | HHI.PYPN ---
Subjective Remarks Patient seen and examined with nurse. Chart reviewed. Case discussed with nursing staff. On my examination today, patient complains of poor sleep. Mood remains dysphoric. He does not describe any active suicidal or homicidal ideation but reports that he remains disappointed that his self-injurious behavior did not succeeding killing him. Denies any audiovisual hallucinations. No evidence of psychosis. Complains of some nausea but denies side effects from medications. Review of Systems Except as stated in HPI: all other systems reviewed are Neg Objective Alert: Yes [place]: Person, Place, Date, Situation Mood: Other (again dysphoric) Affect: Restricted Memory Intact: Comment (intact) Hallucinations: Other (no AVH) Delusions: No Delusion Type: Other (none elicited) Suicidal: Ideation (no active SI) Homicidal: Ideation (no HI) Insight/Judgment Fair Remarks No motor abnormalities noted. Thought process linear. Labs Test 08/29/16 07:47 Hemoglobin 9.7 GM/DL Hematocrit 28.1 % Labs reviewed. Interval worsening in patient's anemia. Vitals/IOs Vital Signs Date Time Temp Pulse Resp B/P Pulse Ox O2 Delivery O2 Flow Rate FiO2 08/29/16 06:12 97.9 76 18 108/67 95 Intake and Output 08/28/16 08/28/16 08/29/16 08:00 16:00 00:00 Intake Total 720 ml Balance 720 ml Assessment & Plan Problem List: (1) Adjustment disorder Assessment & Plan: Rule out drug-induced mood disorder ICD Code: F43.20 (2) Alcohol abuse ICD Code: F10.10 Assessment & Plan Titrate Seroquel for sleep and mood stabilization. Continue Remeron as ordered , although we could consider titrating this agent as well for mood in the next day or 2. Check iron studies given patient's anemia and consult the hospitalist for further evaluation of this problem. Continue to monitor on the inpatient psychiatric unit. Continue other medications and care as ordered. Justification for Cont. Inpt. Monitoring for impairments in safety. Medication changes and process. Risk for decompensation pending psychiatric stabilization. Discharge Planning Pending psychiatric stabilization. Given patient's progress on the unit, revised estimated discharge date probably after the weekend. Request HC Surrog/Guard Advoc?: No Problem Qualifiers (1) Adjustment disorder: Qualified Code: F43.25 - Adjustment disorder with mixed disturbance of emotions and conduct Solitario Magana MD Aug 29, 2016 12:09
[2016-08-29] MEDS ORDERED: PILL SPLITTER OTHER PRN (15:00)
[2016-08-29] MEDS: ACETAMINOPHEN 325 MG TAB PO PRN (19:46)
[2016-08-29] MEDS: QUEtiapine FUMARATE 100 MG TAB PO SCH (20:19)
[2016-08-29] MEDS: MIRTAZAPINE 15 MG TAB PO SCH (20:19)
[2016-08-29] MEDS: hydrOXYzine HCL 50 MG TAB PO PRN (20:20)
[2016-08-29] MEDS: diphenhydrAMINE HCL 50 MG CAP PO PRN (20:20)
[2016-08-29 20:24] LABS: FERRITIN 147 NG/ML (26-388); TRANSFERRIN IRON PROFILE 134 MG/DL (200-360)
[2016-08-29] MEDS: REMOVE OLD NICODERM (NICOTINE) PATCH T-DERMAL SCH (21:00)
[2016-08-29 21:52] VITALS: BP 106/56; PULSE 81; RESP 18; TEMP 98; O2SAT 98
[2016-08-30] MEDS: ACETAMINOPHEN/HYDROcodone 325 MG/5 MG TAB PO PRN ×3 (00:49→21:34)
[2016-08-30 06:16] VITALS: BP 106/63; PULSE 81; RESP 16; TEMP 97.8
[2016-08-30 08:20] LABS: HEMATOCRIT 29.5 % (39.0-51.0); MEAN CELL VOLUME 97.5 FL (80.0-100.0); MEAN CORPUSCULAR HEMOGLOBIN 33.8 PG (27.0-34.0); MEAN CORPUSCULAR HGB CONC 34.7 % (32.0-36.0); PLATELET COUNT 337 TH/MM3 (150-450); RED BLOOD COUNT 3.03 MIL/MM3 (4.50-5.90); RED CELL DISTRIBUTION WIDTH 17.8 % (11.6-17.2); REVIEW FLAG FINAL; WHITE BLOOD COUNT 6.3 TH/MM3 (4.0-11.0)
[2016-08-30] MEDS: NICOTINE 21 MG/24 HR PATCH T-DERMAL SCH (08:50)
[2016-08-30] MEDS: THIAMINE HCL 100 MG TAB PO SCH (08:50)
[2016-08-30] MEDS: FOLIC ACID 1 MG TAB PO SCH (08:50)
[2016-08-30] MEDS: MULTIVITAMIN TAB PO SCH (08:50)
--- NOTE | 2016-08-30 10:40 | HHI.PYPN ---
Subjective Remarks Patient seen and examined. Chart reviewed. Case discussed with nursing staff who reports that the patient remains somewhat angry at his situation in life. On my examination today, patient's affect actually seems a little brighter, and he seems less pessimistic. Patient feels mood is slowly improving, and he denies SI today. Patient does some bargaining for additional hospital days. He denies side effects from medications. Review of Systems Except as stated in HPI: all other systems reviewed are Neg Objective Alert: Yes [place]: Person, Place, Date, Situation Mood: Other (mood improving) Affect: Other (brighter, more reactive) Memory Intact: Comment (intact) Hallucinations: Other (None) Delusions: No Delusion Type: Other (No delusions) Suicidal: Ideation (Denies SI) Homicidal: Ideation (No HI) Insight/Judgment Fair Remarks No abnormal motor movements noted. Thought process linear. Grooming and hygiene fair. Labs Test 08/30/16 08:01 White Blood Count 6.3 TH/MM3 Red Blood Count 3.03 MIL/MM3 Hemoglobin 10.3 GM/DL Hematocrit 29.5 % Mean Corpuscular Volume 97.5 FL Mean Corpuscular Hemoglobin 33.8 PG Mean Corpuscular Hemoglobin 34.7 % Concent Red Cell Distribution Width 17.8 % Platelet Count 337 TH/MM3 Mean Platelet Volume 6.9 FL Labs reviewed. Hemoglobin improved today. Vitals/IOs Vital Signs Date Time Temp Pulse Resp B/P Pulse Ox O2 Delivery O2 Flow Rate FiO2 08/30/16 06:16 97.8 81 16 106/63 08/29/16 21:52 98 Assessment & Plan Problem List: (1) Adjustment disorder ICD Code: F43.20 (2) Alcohol abuse ICD Code: F10.10 Assessment & Plan Titrate Remeron to 30 mg at bedtime for mood. Continue Seroquel as ordered. Awaiting hospitalist fundraising consultant input, although I do note that the hemoglobin is improved today. Continue to monitor on the inpatient unit. Continue other medications and care as ordered. Counselor to help with social issues as able; I have written an Rx for a new wheelchair as he reports he now has none. Justification for Cont. Inpt. Medication changes in process. Discharge Planning Anticipate discharge Saturday barring some clinical worsening Request HC Surrog/Guard Advoc?: No Problem Qualifiers (1) Adjustment disorder: Qualified Code: F43.25 - Adjustment disorder with mixed disturbance of emotions and conduct Solitario Magana MD Aug 30, 2016 10:40
[2016-08-30] MEDS: FERROUS SULFATE 325 MG (65 MG ELEMENTAL IRON) TAB PO SCH ×2 (12:00→16:36)
[2016-08-30] MEDS ORDERED: WHEEMIS3 (13:09)
[2016-08-30] MEDS: ACETAMINOPHEN 325 MG TAB PO PRN ×2 (16:36→18:25)
[2016-08-30] MEDS: REMOVE OLD NICODERM (NICOTINE) PATCH T-DERMAL SCH (18:25)
[2016-08-30 18:44] VITALS: BP 110/53; PULSE 77; RESP 16; TEMP 98.2; O2SAT 98
[2016-08-30] MEDS: hydrOXYzine HCL 50 MG TAB PO PRN (21:35)
[2016-08-30] MEDS: MIRTAZAPINE 15 MG TAB PO SCH (21:35)
[2016-08-30] MEDS: QUEtiapine FUMARATE 100 MG TAB PO SCH (21:35)
[2016-08-31 05:54] VITALS: BP 109/57; PULSE 88; RESP 16; TEMP 98.1; O2SAT 96
[2016-08-31] MEDS: FOLIC ACID 1 MG TAB PO SCH (08:36)
[2016-08-31] MEDS: THIAMINE HCL 100 MG TAB PO SCH (08:36)
[2016-08-31] MEDS: MULTIVITAMIN TAB PO SCH (08:36)
[2016-08-31] MEDS: NICOTINE 21 MG/24 HR PATCH T-DERMAL SCH (08:37)
[2016-08-31] MEDS: ACETAMINOPHEN/HYDROcodone 325 MG/5 MG TAB PO PRN (08:37)
[2016-08-31] MEDS: REMOVE OLD NICODERM (NICOTINE) PATCH T-DERMAL SCH (08:37)
--- NOTE | 2016-08-31 11:00 | HHI.PYPN ---
Subjective Remarks Patient seen and examined with counselor and nursing staff. Chart reviewed. Case discussed with nurse who reports that the patient is somewhat rude but otherwise no real behavioral problem. On my examination today, the patient's affect seems more reactive. He says that he slept better last night. Mood is still reportedly somewhat depressed. No SI or HI. Denies side effects from medications. Review of Systems Except as stated in HPI: all other systems reviewed are Neg Objective Alert: Yes [place]: Person, Place, Date, Situation Mood: Other (mood continues to improve) Affect: Other (fairly full and reactive today) Memory Intact: Comment (intact) Hallucinations: Other (no AVH) Delusions: No Delusion Type: Other (no delusional material) Suicidal: Ideation (no SI) Homicidal: Ideation (no HI) Insight/Judgment Fair Remarks No motor abnormalities noted. Labs Labs reviewed. No new labs. Iron studies seem most consistent with anemia of chronic disease. Anemia is improved. Vitals/IOs Vital Signs Date Time Temp Pulse Resp B/P Pulse Ox O2 Delivery O2 Flow Rate FiO2 08/31/16 05:54 98.1 88 16 109/57 96 Assessment & Plan Problem List: (1) Adjustment disorder ICD Code: F43.20 (2) Alcohol abuse ICD Code: F10.10 Assessment & Plan Continue Remeron and Seroquel as ordered. Still awaiting hospitalist consult, but anemia improved. I'll cancel consult for now and check H&H in morning. Continue to monitor on inpatient unit. Justification for Cont. Inpt. Monitoring for impairments in safety. So far none noted. Discharge Planning Monitor over the weekend. Anticipate discharge Saturday. Request HC Surrog/Guard Advoc?: No Problem Qualifiers (1) Adjustment disorder: Qualified Code: F43.25 - Adjustment disorder with mixed disturbance of emotions and conduct Solitario Magana MD Aug 31, 2016 10:59
[2016-08-31] MEDS: FERROUS SULFATE 325 MG (65 MG ELEMENTAL IRON) TAB PO SCH ×2 (12:00→16:56)
[2016-08-31] MEDS: ACETAMINOPHEN 325 MG TAB PO PRN ×2 (12:21→17:41)
[2016-08-31 18:06] VITALS: BP 110/60; PULSE 72; RESP 17; TEMP 98.4; O2SAT 98
[2016-08-31] MEDS: QUEtiapine FUMARATE 100 MG TAB PO SCH (21:47)
[2016-08-31] MEDS: MIRTAZAPINE 15 MG TAB PO SCH (21:47)
[2016-09-01 06:03] VITALS: BP 108/69; PULSE 76; RESP 18; TEMP 97.9; O2SAT 97
[2016-09-01] MEDS: THIAMINE HCL 100 MG TAB PO SCH (08:30)
[2016-09-01] MEDS: FOLIC ACID 1 MG TAB PO SCH (08:30)
[2016-09-01] MEDS: MULTIVITAMIN TAB PO SCH (08:30)
[2016-09-01] MEDS: NICOTINE 21 MG/24 HR PATCH T-DERMAL SCH (08:31)
[2016-09-01] MEDS: REMOVE OLD NICODERM (NICOTINE) PATCH T-DERMAL SCH (08:31)
[2016-09-01] MEDS: ACETAMINOPHEN/HYDROcodone 325 MG/5 MG TAB PO PRN ×2 (08:34→22:05)
[2016-09-01 08:57] LABS: REVIEW FLAG FINAL
[2016-09-01] MEDS: FERROUS SULFATE 325 MG (65 MG ELEMENTAL IRON) TAB PO SCH ×2 (11:58→17:04)
[2016-09-01 20:22] VITALS: BP 107/58; PULSE 70; RESP 18; TEMP 98.5; O2SAT 97
[2016-09-01] MEDS: QUEtiapine FUMARATE 100 MG TAB PO SCH (22:04)
[2016-09-01] MEDS: MIRTAZAPINE 15 MG TAB PO SCH (22:04)
--- NOTE | 2016-09-01 22:06 | HHI.PYPN ---
Subjective Remarks Pt seen and discussed with staff. He remains depressed and expresses disappointment that suicide attempt did not work. "I hate to fail." He is compliant with medications and denies side effects. Objective Alert: Yes [place]: Person, Place, Date, Situation Mood: Depressed Affect: Restricted, Other (fairly full and reactive today) Memory Intact: Comment (intact) Hallucinations: Other (no AVH) Delusions: No Delusion Type: Other (no delusional material) Suicidal: Ideation (expresses disappointment that suicide was not completed. Denies current plan) Homicidal: Ideation (no HI) Insight/Judgment limited Labs Test 09/01/16 08:45 Hemoglobin 9.6 GM/DL Hematocrit 29.0 % Vitals/IOs Vital Signs Date Time Temp Pulse Resp B/P Pulse Ox O2 Delivery O2 Flow Rate FiO2 09/01/16 20:22 98.5 70 18 107/58 97 Assessment & Plan Problem List: (1) Adjustment disorder ICD Code: F43.20 (2) Alcohol abuse ICD Code: F10.10 Assessment & Plan Continue current tx plan. Estimated LOS: days Justification for Cont. Inpt. impairments in safety Request HC Surrog/Guard Advoc?: No Problem Qualifiers (1) Adjustment disorder: Qualified Code: F43.25 - Adjustment disorder with mixed disturbance of emotions and conduct Marie Orta MD Sep 01, 2016 22:06
[2016-09-02 06:28] VITALS: BP 107/66; PULSE 74; RESP 20; TEMP 98; O2SAT 100
[2016-09-02] MEDS: ACETAMINOPHEN/HYDROcodone 325 MG/5 MG TAB PO PRN ×2 (06:56→17:13)
[2016-09-02] MEDS: THIAMINE HCL 100 MG TAB PO SCH (08:40)
[2016-09-02] MEDS: NICOTINE 21 MG/24 HR PATCH T-DERMAL SCH (08:40)
[2016-09-02] MEDS: FOLIC ACID 1 MG TAB PO SCH (08:40)
[2016-09-02] MEDS: MULTIVITAMIN TAB PO SCH (08:40)
[2016-09-02] MEDS: FERROUS SULFATE 325 MG (65 MG ELEMENTAL IRON) TAB PO SCH ×2 (13:08→17:15)
[2016-09-02] MEDS: ACETAMINOPHEN 325 MG TAB PO PRN ×2 (13:13→21:05)
[2016-09-02] MEDS: hydrOXYzine HCL 50 MG TAB PO PRN ×2 (13:14→20:20)
--- NOTE | 2016-09-02 14:01 | HHI.PYPN ---
Subjective Remarks Pt seen and discussed with staff. He reports that mood is "terrible" and he is upset over an incident but will not divulge source of irritation. He continues to ruminate on failed suicide attempt. No medication side effects. No HI. No psychosis. He is compliant with medications. Objective Alert: Yes [place]: Person, Place, Date, Situation Mood: Depressed, Other (irritable) Affect: Restricted Memory Intact: Comment (intact) Hallucinations: Other (no AVH) Delusions: No Delusion Type: Other (no delusional material) Suicidal: Ideation (Continues to expresses disappointment that suicide was not completed. Denies current plan) Homicidal: Ideation (no HI) Insight/Judgment poor Vitals/IOs Vital Signs Date Time Temp Pulse Resp B/P Pulse Ox O2 Delivery O2 Flow Rate FiO2 09/02/16 06:28 98.0 74 20 107/66 100 Assessment & Plan Problem List: (1) Adjustment disorder ICD Code: F43.20 (2) Alcohol abuse ICD Code: F10.10 Assessment & Plan continue current tx plan. Estimated LOS: days Justification for Cont. Inpt. impairments in safety Request HC Surrog/Guard Advoc?: No Problem Qualifiers (1) Adjustment disorder: Qualified Code: F43.25 - Adjustment disorder with mixed disturbance of emotions and conduct Marie Orta MD Sep 02, 2016 14:01
[2016-09-02 15:40] VITALS: BP 98/61; PULSE 74; RESP 18; TEMP 97.8; O2SAT 98
[2016-09-02] MEDS: REMOVE OLD NICODERM (NICOTINE) PATCH T-DERMAL SCH (21:00)
[2016-09-02] MEDS: MIRTAZAPINE 15 MG TAB PO SCH (21:00)
[2016-09-02] MEDS: QUEtiapine FUMARATE 100 MG TAB PO SCH (21:01)
[2016-09-03] MEDS: ACETAMINOPHEN/HYDROcodone 325 MG/5 MG TAB PO PRN ×2 (00:16→15:07)
[2016-09-03 05:25] VITALS: BP 113/61; PULSE 83; RESP 18; TEMP 97.9; O2SAT 95
[2016-09-03] MEDS: THIAMINE HCL 100 MG TAB PO SCH (09:00)
[2016-09-03] MEDS: NICOTINE 21 MG/24 HR PATCH T-DERMAL SCH (09:00)
[2016-09-03] MEDS: FOLIC ACID 1 MG TAB PO SCH (09:00)
[2016-09-03] MEDS: MULTIVITAMIN TAB PO SCH (09:00)
[2016-09-03] MEDS: REMOVE OLD NICODERM (NICOTINE) PATCH T-DERMAL SCH (09:11)
[2016-09-03] MEDS: FERROUS SULFATE 325 MG (65 MG ELEMENTAL IRON) TAB PO SCH ×2 (11:55→17:00)
--- NOTE | 2016-09-03 12:21 | HHI.PYPN ---
Subjective Remarks Patient seen and examined with counselor. Chart reviewed. Case discussed with nursing staff who reports patient was denying suicidal ideation to nursing this morning. On my examination today, the patient presents as extremely manipulative and antisocial. He threatens suicide to me in the context of a discharge discussion. "I hope I have better luck [with his suicide attempt] next time." Affect is a little dysphoric but there is no evidence of severe mood disorder or psychosis. When observed surreptitiously from the nursing station, he appears quite calm and comfortable on the unit. He intimates that he wants us to hold him until he gets approved for disability and then place him in an [facility]. He denies side effects from medications. Review of Systems Except as stated in HPI: all other systems reviewed are Neg Objective Alert: Yes [place]: Person, Place, Date, Situation Mood: Other (Dyphoric but not severely depressed) Affect: Restricted Memory Intact: Comment (Remains intact) Hallucinations: Other (No AVH) Delusions: No Delusion Type: Other (No delusions) Suicidal: Ideation (Threatens suicide in context of discharge discussion.) Homicidal: Ideation (No HI) Insight/Judgment Fair Remarks No abnormal motor movements noted. Thought process linear. Speech within normal limits for rate, tone and volume. Grooming and hygiene fair. Labs Labs reviewed. No new labs. Hemoglobin seems to be oscillating around the high 9s/low 10s. Vitals/IOs Vital Signs Date Time Temp Pulse Resp B/P Pulse Ox O2 Delivery O2 Flow Rate FiO2 09/03/16 05:25 97.9 83 18 113/61 95 Assessment & Plan Problem List: (1) Adjustment disorder Assessment & Plan: Antisocial personality traits. Suspect malingering for fdc as he is otherwise homeless. ICD Code: F43.20 (2) Alcohol abuse ICD Code: F10.10 Assessment & Plan Patient manipulatively threatening suicide in the context of discharge discussion. It would be counter-therapeutic in my estimation to reinforce these manipulations by retaining him on the unit as he asks. We have no reasonable estimate on when patient's disability will be activated (I have asked counselor to check on this), and there is no psychiatric condition necessitating [facility] placement in this patient. I will monitor patient overnight for safety, continuing current medications as ordered, and anticipate discharge tomorrow as I do not think there are ongoing risk factors for suicide that can be ameliorated by a longer inpatient hospital stay. Justification for Cont. Inpt. We have monitored patient for safety x 10 days with no evidence of ongoing suicidality or violence. Discharge Planning Anticipate discharge tomorrow. Request HC Surrog/Guard Advoc?: No Problem Qualifiers (1) Adjustment disorder: Qualified Code: F43.25 - Adjustment disorder with mixed disturbance of emotions and conduct Solitario Magnaa MD Sep 03, 2016 12:21
[2016-09-03 16:41] VITALS: BP 100/60; PULSE 75; RESP 18; TEMP 99.4; O2SAT 98
[2016-09-03] MEDS: MIRTAZAPINE 15 MG TAB PO SCH (20:31)
[2016-09-03] MEDS: QUEtiapine FUMARATE 100 MG TAB PO SCH (20:32)
[2016-09-04] MEDS: ACETAMINOPHEN/HYDROcodone 325 MG/5 MG TAB PO PRN ×2 (07:48→16:40)
[2016-09-04] MEDS: hydrOXYzine HCL 50 MG TAB PO PRN ×2 (07:48→16:41)
[2016-09-04] MEDS: THIAMINE HCL 100 MG TAB PO SCH (09:00)
[2016-09-04] MEDS: NICOTINE 21 MG/24 HR PATCH T-DERMAL SCH (09:04)
[2016-09-04] MEDS: MULTIVITAMIN TAB PO SCH (09:04)
[2016-09-04] MEDS: FOLIC ACID 1 MG TAB PO SCH (09:04)
[2016-09-04] MEDS: FERROUS SULFATE 325 MG (65 MG ELEMENTAL IRON) TAB PO SCH ×2 (12:56→16:40)
[2016-09-04] MEDS: ACETAMINOPHEN 325 MG TAB PO PRN (13:08)
--- NOTE | 2016-09-04 16:26 | HHI.PYPN ---
Subjective Remarks Patient seen and examined. Chart reviewed. Case discussed in treatment team with nurse, counselor. Per nursing staff, patient is somewhat medication seeking but denying suicidal ideation. Nurse does note that her previous experiences with the patient, he tends to present as much more symptomatic for the doctor than for the nursing staff. On my examination today, the patient presents as somewhat dysphoric. Whereas before he was saying that his sleep was poor, now he is complaining that he is sleeping too much. He denies any active suicidal ideation but once again threatens suicide if discharged. He again relates that he expects us to hold him for the weeks or months until his disability is restarted and he can arrange senior living. Denies AVH. No evidence of psychosis. No other side effects from meds besides possibly some sedation as noted above. Review of Systems Except as stated in HPI: all other systems reviewed are Neg Objective Alert: Yes [place]: Person, Place, Date, Situation Mood: Other (Again dysphoric) Affect: Restricted Memory Intact: Comment (Intact) Hallucinations: Other (Denies AVH) Delusions: No Delusion Type: Other (No delusional material) Suicidal: Ideation (Manipulatively threatens suicide in context of a discharge discussion. Otherwise denies active SI at this time.) Homicidal: Ideation (No HI) Insight/Judgment Fair Remarks No motor abnormalities noted. Grooming and hygiene fair. Labs Labs reviewed. Vitals/IOs Vital Signs Date Time Temp Pulse Resp B/P Pulse Ox O2 Delivery O2 Flow Rate FiO2 09/03/16 16:41 99.4 75 18 100/60 98 Assessment & Plan Problem List: (1) Adjustment disorder Assessment & Plan: Antisocial personality traits. Malingering for senior living. ICD Code: F43.20 (2) Alcohol abuse ICD Code: F10.10 Assessment & Plan Patient continues to manipulatively threaten suicide if discharged but is future - and goal-oriented and denies SI now. Taper Seroquel 100 mg at bedtime in response to patient's complaints of sleeping too much. Continue Remeron as ordered. Continue other medications and care as ordered. Discharge once barriers to discharge resolved, hopefully tomorrow. Justification for Cont. Inpt. Discharge planning. Discharge Planning Main barrier to discharge at this point is that patient needs a wheelchair as he reports his other wheelchair is gone. Counselor and now counselor supervisor denture department are working on getting pt a wheelchair. Once this is done, I will plan to discharge patient. Request HC Surrog/Guard Advoc?: No Problem Qualifiers (1) Adjustment disorder: Qualified Code: F43.25 - Adjustment disorder with mixed disturbance of emotions and conduct Solitario Magana MD Sep 04, 2016 16:26
[2016-09-04 18:08] VITALS: BP 101/57; PULSE 69; RESP 18; TEMP 99; O2SAT 98
[2016-09-04] MEDS: MIRTAZAPINE 15 MG TAB PO SCH (20:42)
[2016-09-04] MEDS ORDERED: QUEtiapine FUMARATE 100 MG TAB PO SCH (21:00)
[2016-09-04] MEDS: REMOVE OLD NICODERM (NICOTINE) PATCH T-DERMAL SCH (21:00)
[2016-09-05] MEDS: ACETAMINOPHEN/HYDROcodone 325 MG/5 MG TAB PO PRN ×2 (05:16→16:34)
[2016-09-05 06:08] VITALS: BP 128/74; PULSE 83; RESP 18; TEMP 97.3; O2SAT 97
[2016-09-05] MEDS: FOLIC ACID 1 MG TAB PO SCH (09:07)
[2016-09-05] MEDS: MULTIVITAMIN TAB PO SCH (09:07)
[2016-09-05] MEDS: THIAMINE HCL 100 MG TAB PO SCH (09:07)
[2016-09-05] MEDS: NICOTINE 21 MG/24 HR PATCH T-DERMAL SCH (09:08)
--- NOTE | 2016-09-05 11:14 | HHI.PYPN ---
Objective Alert: Yes [place]: Person, Place, Date, Situation Mood: Other (Again dysphoric) Affect: Restricted Memory Intact: Comment (Intact) Hallucinations: Other (Denies AVH) Delusions: No Delusion Type: Other (No delusional material) Suicidal: Ideation (Manipulatively threatens suicide in context of a discharge discussion. Otherwise denies active SI at this time.) Homicidal: Ideation (No HI) Vitals/IOs Vital Signs Date Time Temp Pulse Resp B/P Pulse Ox O2 Delivery O2 Flow Rate FiO2 09/05/16 06:08 97.3 83 18 128/74 97 Assessment & Plan Problem List: (1) Adjustment disorder ICD Code: F43.20 (2) Alcohol abuse ICD Code: F10.10 Assessment & Plan Estimated LOS: days Request HC Surrog/Guard Advoc?: No Problem Qualifiers (1) Adjustment disorder: Qualified Code: F43.25 - Adjustment disorder with mixed disturbance of emotions and conduct Solitario Magana MD Sep 05, 2016 11:13
[2016-09-05] MEDS: FERROUS SULFATE 325 MG (65 MG ELEMENTAL IRON) TAB PO SCH ×2 (11:37→16:33)
[2016-09-05] MEDS ORDERED: QUET1TAB8 PO (13:09)
[2016-09-05] MEDS ORDERED: THERTAB15 PO (13:09)
[2016-09-05] MEDS ORDERED: VITA100T2 PO (13:09)
[2016-09-05] MEDS ORDERED: MIRTA15 PO (13:09)
[2016-09-05] MEDS ORDERED: FERR325T PO (13:09)
[2016-09-05] MEDS ORDERED: FOLI1TAB4 PO (13:09)
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
[2016-09-05] MEDS ORDERED: Vancomycin Consult Pharmacy 1 EA OTHER SCH (14:15)
--- NOTE | 2016-09-05 14:37 | HHI.PR ---
Subjective Remarks Patient seen today around noon. He states that severe constant sharp pain in the right knee has been going on since admission. Today began draining white fluid just distal to knee anteriorly, and this has been confirmed by nursing.. Patient reports fevers and chills earlier during admission, however these have improved. He feels that these were secondary to alcohol withdrawal. He denies any chest pain or shortness of breath. Neck wound healing well. Objective Vital Signs Date Time Temp Pulse Resp B/P Pulse Ox O2 Delivery O2 Flow Rate FiO2 09/05/16 06:08 97.3 83 18 128/74 97 09/04/16 18:08 99.0 69 18 101/57 98 Result Diagram: 09/01/16 0845 Objective Remarks GENERAL: Patient sitting up in wheelchair. Appears comfortable. Alert and oriented 3. SKIN: Warm and dry. HEAD: Normocephalic. EYES: No scleral icterus. No injection or drainage. NECK: Supple, trachea midline. No JVD or lymphadenopathy. Neck wound healing well. CARDIOVASCULAR: Regular rate and rhythm without murmurs, gallops, or rubs. RESPIRATORY: Breath sounds equal bilaterally. No accessory muscle use. GASTROINTESTINAL: Abdomen soft, non-tender, nondistended. MUSCULOSKELETAL: No cyanosis, or edema. Right knee with effusion. Patient states this is tender, however does not appear to be uncomfortable with palpation. Patient does have a small punctate lesion without any surrounding erythema over the right tibial tuberosity. No drainage noted at the time of exam, however this has been described by nursing as being white and voluminous. BACK: Nontender without obvious deformity. No CVA tenderness. A/P Assessment and Plan //Suspected septic arthritis right knee. -Stat blood cultures. Wound culture. -Sedimentation rate. -Orthopedic consultation. -Vancomycin. //Anemia -Thought likely secondary to bleeding from self induced neck laceration -Iron studies suggest anemia of chronic inflammation. Possibly secondary to right knee infection. No signs of bleeding. Continue to monitor. //Chronic alcoholism. -She reports withdrawal symptoms earlier during this admission, however have resolved. Continue to monitor. Patient will need safe alcohol discharge. //History of suicidal attempt. -Patient will be transferred to med psych floor. //Self-induced laceration. Suicide attempt. Appears to be healing well. Continue to monitor. //Tobaccoism. Cessation counseling provided. Cessation strongly advised. Prophylaxis. As per surgical service. Discharge Planning Transferred to med psych floor Manpreet Betancourt MD Sep 05, 2016 14:37
[2016-09-05 15:57] LABS: AUTOMATED NEUTROPHIL # 5.7 TH/MM3 (1.8-7.7); BASOPHIL # 0.1 TH/MM3 (0-0.2); BASOPHIL % 0.6 % (0.0-2.0); EOSINOPHIL # 1.7 TH/MM3 (0-0.4); EOSINOPHIL % 16.7 % (0.0-4.0); HEMO FLAGS DIFF FINAL; LYMPH % 15.7 % (9.0-44.0); LYMPHOCYTE # 1.6 TH/MM3 (1.0-4.8); MEAN CELL VOLUME 98.2 FL (80.0-100.0); MEAN CORPUSCULAR HEMOGLOBIN 32.1 PG (27.0-34.0); MEAN CORPUSCULAR HGB CONC 32.7 % (32.0-36.0); MONO % 9.4 % (0.0-8.0); NEUT % 57.6 % (16.0-70.0); PLATELET COUNT 589 TH/MM3 (150-450); RED BLOOD COUNT 2.95 MIL/MM3 (4.50-5.90); RED CELL DISTRIBUTION WIDTH 16.8 % (11.6-17.2)
[2016-09-05] MEDS ORDERED: VANCOMYCIN INJ 1,000 MG in SODIUM CHLOR 0.9% 250 ML INJ 250 ML IV SCH (16:00)
[2016-09-05 16:17] LABS: ALT (GPT) 15 U/L (12-78); ANION GAP 7 MEQ/L (5-15); AST (GOT) 16 U/L (15-37); BICARBONATE 27.6 MEQ/L (21.0-32.0); BLOOD UREA NITROGEN 19 MG/DL (7-18); CHLORIDE 102 MEQ/L (98-107); GLOMERULAR FILTRATION RATE 117 ML/MIN (>89); POTASSIUM 4.3 MEQ/L (3.5-5.1); SODIUM (NA) 137 MEQ/L (136-145)
[2016-09-05 16:19] LABS: ALKALINE PHOSPHATASE 85 U/L (45-117); TOTAL BILIRUBIN ADULT 0.2 MG/DL (0.2-1.0)
[2016-09-05] MEDS: hydrOXYzine HCL 50 MG TAB PO PRN (16:33)
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
[2016-09-05 17:02] VITALS: BP 114/66; RESP 18; TEMP 98.7; O2SAT 95
[2016-09-05 17:03] VITALS: BP 114/66; PULSE 73; RESP 18; TEMP 99; O2SAT 95
[2016-09-05 17:31] LABS: HEMOGLOBIN A1a 1.3 %; HEMOGLOBIN A1b 1.4 %; HEMOGLOBIN Ao 86.4 %; HEMOGLOBIN LA1C 1.9 %; HEMOGLOBIN P3 3.4 %
== END 2016-09-05 18:25 | disposition short-term general hospital (02) | DRG 880 ==
LOC: EDBD 16:52 → H270 16:52
PROVIDERS: ADMIT Psychiatry & Neurology Psychiatry; ATTEND Psychiatry & Neurology Psychiatry
DX: Z72.811 Adult antisocial behavior (principal); F33.2 Major depressive disorder, recurrent severe without psychotic features; F10.14 Alcohol abuse with alcohol-induced mood disorder; M25.861 Other specified joint disorders, right knee; F17.210 Nicotine dependence, cigarettes, uncomplicated; D50.0 Iron deficiency anemia secondary to blood loss (chronic); Z85.72 Personal history of non-Hodgkin lymphomas; Z59.0 Homelessness; Z91.410 Personal history of adult physical and sexual abuse; Z92.21 Personal history of antineoplastic chemotherapy; S11.91XD Laceration without foreign body of unspecified part of neck, subsequent encounter
CPT/HCPCS: 73564; 80048; 80053; 82728; 83036; 83540; 83550; 85014; 85018; 85025; 85027; 85652; 87040; 87070; 87205; Q0163

== ENCOUNTER 2016-09-05 19:50 | Inpatient (IN) | payer MEDICARE, MEDICAID ==
[~2016-09-05 19:50] MED LIST: FERR325T PO; FOLI1TAB4 PO; MIRTA15 PO; QUET1TAB8 PO; THERTAB15 PO; VITA100T2 PO; WHEEMIS3
[2016-09-05 20:30] VITALS: BP 126/70; PULSE 72; RESP 16; TEMP 98.6; O2SAT 99
[2016-09-05] MEDS ORDERED: ACETAMINOPHEN 325 MG TAB PO PRN (20:45)
[2016-09-05] MEDS ORDERED: SODIUM CHLORIDE 0.9% FLUSH 10 ML FLUSH IV FLUSH PRN (20:45)
[2016-09-05] MEDS ORDERED: ONDANSETRON HCL 4 MG/2 ML VIAL IVP PRN (20:45)
[2016-09-05] MEDS ORDERED: NALOXONE HCL 0.4 MG/ML AMP IV PRN (20:45)
[2016-09-05] MEDS ORDERED: hydrOXYzine HCL 50 MG TAB PO PRN (21:45)
[2016-09-05] MEDS: ACETAMINOPHEN/HYDROcodone 325 MG/5 MG TAB PO PRN (22:21)
[2016-09-05] MEDS: MIRTAZAPINE 15 MG TAB PO SCH (22:45)
[2016-09-05] MEDS: SODIUM CHLORIDE 0.9% FLUSH 10 ML FLUSH IV FLUSH SCH (22:45)
[2016-09-05] MEDS: VANCOMYCIN INJ 1,000 MG in SODIUM CHLOR 0.9% 250 ML INJ 250 ML IV SCH (22:45)
[2016-09-05] MEDS: QUEtiapine FUMARATE 100 MG TAB PO SCH (22:45)
[2016-09-06] MEDS ORDERED: ACETAMINOPHEN 325 MG TAB PO PRN
[2016-09-06 00:15] VITALS: BP 103/59; PULSE 82; RESP 18; TEMP 98; O2SAT 96
[2016-09-06 04:30] VITALS: BP 118/70; PULSE 69; RESP 18; TEMP 97; O2SAT 97
[2016-09-06] MEDS: ACETAMINOPHEN/HYDROcodone 325 MG/5 MG TAB PO PRN ×3 (06:25→21:17)
[2016-09-06 07:56] VITALS: BP 107/74; PULSE 75; RESP 16; TEMP 96.9; O2SAT 96
[2016-09-06 08:08] LABS: AUTOMATED NEUTROPHIL # 6.2 TH/MM3 (1.8-7.7); BASOPHIL # 0.1 TH/MM3 (0-0.2); BASOPHIL % 0.8 % (0.0-2.0); EOSINOPHIL # 1.5 TH/MM3 (0-0.4); EOSINOPHIL % 14.9 % (0.0-4.0); HEMATOCRIT 29.8 % (39.0-51.0); HEMO FLAGS DIFF FINAL; LYMPH % 13.7 % (9.0-44.0); LYMPHOCYTE # 1.4 TH/MM3 (1.0-4.8); MEAN CELL VOLUME 97.9 FL (80.0-100.0); MEAN CORPUSCULAR HEMOGLOBIN 32.5 PG (27.0-34.0); MEAN CORPUSCULAR HGB CONC 33.2 % (32.0-36.0); MONO % 10.1 % (0.0-8.0); NEUT % 60.5 % (16.0-70.0); PLATELET COUNT 608 TH/MM3 (150-450); RED BLOOD COUNT 3.04 MIL/MM3 (4.50-5.90); WHITE BLOOD COUNT 10.2 TH/MM3 (4.0-11.0)
[2016-09-06 08:32] LABS: ALKALINE PHOSPHATASE 85 U/L (45-117); ALT (GPT) 15 U/L (12-78); ANION GAP 6 MEQ/L (5-15); AST (GOT) 16 U/L (15-37); BICARBONATE 29.8 MEQ/L (21.0-32.0); BLOOD UREA NITROGEN 16 MG/DL (7-18); CHLORIDE 102 MEQ/L (98-107); GLOMERULAR FILTRATION RATE 121 ML/MIN (>89); SODIUM (NA) 138 MEQ/L (136-145); TOTAL BILIRUBIN ADULT 0.2 MG/DL (0.2-1.0)
[2016-09-06] MEDS: SODIUM CHLORIDE 0.9% FLUSH 10 ML FLUSH IV FLUSH SCH (09:00)
[2016-09-06] MEDS: HEPARIN SODIUM - SQ 10,000 UNITS/ML VIAL SQ SCH ×2 (09:00→21:18)
[2016-09-06] MEDS ORDERED: MULTIVITAMIN TAB PO SCH (09:00)
[2016-09-06] MEDS: REMOVE OLD PATCH T-DERMAL SCH (09:00)
[2016-09-06] MEDS: NICOTINE 21 MG/24 HR PATCH T-DERMAL SCH (10:14)
[2016-09-06] MEDS: FOLIC ACID 1 MG TAB PO SCH (10:15)
[2016-09-06] MEDS: THIAMINE HCL 100 MG TAB PO SCH (10:16)
[2016-09-06] MEDS: VANCOMYCIN INJ 1,000 MG in SODIUM CHLOR 0.9% 250 ML INJ 250 ML IV SCH ×2 (10:16→21:19)
[2016-09-06] MEDS: FERROUS SULFATE 325 MG (65 MG ELEMENTAL IRON) TAB PO SCH ×2 (10:16→21:17)
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
[2016-09-06 11:55] VITALS: BP 99/66; PULSE 74; RESP 20; TEMP 97.8; O2SAT 97
[2016-09-06] MEDS ORDERED: PHENYLEPH/NS 1000 MCG/10 ML SYR IV ONE (12:00)
[2016-09-06] MEDS ORDERED: PROPOFOL 200 MG/20 ML AMP IV ONE (12:00)
[2016-09-06] MEDS ORDERED: ePHEDrine/NS 25 MG/5 ML SYR IV ONE (12:00)
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
[2016-09-06] MEDS ORDERED: GENTAMICIN SULFATE 80 MG/2 ML VIAL ONE (13:38)
[2016-09-06] MEDS ORDERED: FAMOTIDINE 20 MG/2 ML VIAL ONE (14:19)
[2016-09-06] MEDS ORDERED: MIDAZOLAM HCL 5 MG/5 ML VIAL ONE (14:19)
[2016-09-06] MEDS ORDERED: fentaNYL CITRATE 250 MCG/5 ML AMP ONE (14:19)
[2016-09-06] MEDS ORDERED: DEXAMETHASONE SOD PHOS 4 MG/ML VIAL ONE (14:19)
[2016-09-06] MEDS ORDERED: Vancomycin Consult Pharmacy 1 EA OTHER SCH (15:00)
[2016-09-06] MEDS: LACTATED RINGER'S 1000 ML INJ 1,000 ML IV SCH (15:35)
[2016-09-06] MEDS ORDERED: SODIUM CHLORIDE 0.9% FLUSH 5 ML FLUSH IVF PRN (15:45)
[2016-09-06] MEDS ORDERED: ONDANSETRON HCL 4 MG/2 ML VIAL IVP PRN (15:45)
[2016-09-06] MEDS ORDERED: MAGNESIUM HYDROXIDE SUSP 30 ML CUP PO PRN (15:45)
[2016-09-06] MEDS ORDERED: *morphine SULFATE 8 MG/ML PERIprocedure ONLY ONE (16:04)
[2016-09-06] MEDS ORDERED: DO NOT ADM ANY ANTICOAGULANT DRUGS PRN (16:15)
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
[2016-09-06] MEDS: CALCIUM/VITAMIN D 250 MG/125 U TAB PO SCH (17:09)
[2016-09-06 17:17] VITALS: BP 122/77; PULSE 88; RESP 18; TEMP 96.3; O2SAT 95
[2016-09-06 20:00] VITALS: BP 95/58; PULSE 86; RESP 20; TEMP 98.4; O2SAT 96
[2016-09-06 20:56] LABS: APTT (PATIENT) 28.4 SEC (24.3-30.1); PROTHROMBIN TIME - PATIENT 11.5 SEC (9.8-11.6)
[2016-09-06] MEDS: SODIUM CHLORIDE 0.9% FLUSH 5 ML FLUSH IVF SCH (21:00)
[2016-09-06] MEDS: DOCUSATE SODIUM 50 MG/SENNA 8.6 MG TAB PO SCH (21:17)
[2016-09-06] MEDS: QUEtiapine FUMARATE 100 MG TAB PO SCH (21:18)
[2016-09-06] MEDS: MIRTAZAPINE 15 MG TAB PO SCH (21:18)
[2016-09-07] VITALS (8 sets, daily range): BP systolic 96–129; BP diastolic 59–75; PULSE 68–85; RESP 16–20; TEMP 96.7–98.7; O2SAT 94–97
[2016-09-07] MEDS: LACTATED RINGER'S 1000 ML INJ 1,000 ML IV SCH ×2 (01:35→20:03)
[2016-09-07] MEDS: ACETAMINOPHEN/HYDROcodone 325 MG/5 MG TAB PO PRN ×4 (02:41→22:13)
--- NOTE | 2016-09-07 07:50 | PD.ORT.PN ---
Subjective Subjective Remarks No complaints. Pain under control. Wound VAC in place. No drainage from intra-articular drain Objective Vitals Vital Signs Date Time Temp Pulse Resp B/P Pulse Ox O2 Delivery O2 Flow Rate FiO2 09/07/16 04:00 96.8 76 20 129/70 96 09/07/16 00:00 97.3 85 20 96/59 95 09/06/16 20:00 98.4 86 20 95/58 96 09/06/16 17:17 96.3 88 18 122/77 95 09/06/16 16:50 98.3 71 16 118/74 95 Nasal Cannula 2 09/06/16 16:45 71 16 118/74 95 Nasal Cannula 2 09/06/16 16:30 71 16 116/70 95 Nasal Cannula 2 09/06/16 16:15 71 16 109/69 92 Nasal Cannula 2 09/06/16 15:54 98.3 73 16 111/72 91 Nasal Cannula 2 09/06/16 11:55 97.8 74 20 99/66 97 09/06/16 07:56 96.9 75 16 107/74 96 I/O 09/06/16 09/06/16 09/06/16 09/07/16 09/07/16 09/07/16 07:00 15:00 23:00 07:00 15:00 23:00 Intake Total 850 ml 1810 ml 960 ml Output Total 805 ml 1315 ml Balance 850 ml 1005 ml -355 ml Intake Oral 850 ml 360 ml 960 ml IV Total 50 ml Other 1400 ml Output Urine Total 800 ml 1300 ml Drainage Total 15 ml Estimated Blood Loss 5 ml # Voids 3 2 # Bowel Movements 0 1 0 Result Diagram: 09/06/16 0643 09/06/16 0643 Other Results Laboratory Tests Test 09/06/16 20:20 Prothrombin Time 11.5 SEC (9.8-11.6) Prothromb Time International 1.0 RATIO Ratio Objective Remarks Dressing in place. Wound VAC and drain intact. No abnormal swelling Assessment & Plan Assessment and Plan Rheumatoid/inflammatory arthropathy right knee, chronic (not infected). Pes Anserene bursitis, infected, right knee. Arthrotomy of right knee with irrigation and drain (not infected), POD #1. Irrigation and debridement has and screen bursitis, infected with debridement of skin subcutaneous tissue muscle and bone, POD #1 PLAN: IV antibiotics per infection sensitivity. Continue wound VAC Pulled drain of the This did not appear to be an infected knee joint or hardware but appears to have been an infected bursitis that was likely acute on early chronic We debrided down to bone but there was no clear evidence of deep bony in involvement Thanh Rodriguez MD Sep 07, 2016 07:50
[2016-09-07] MEDS: SODIUM CHLORIDE 0.9% FLUSH 5 ML FLUSH IVF SCH ×2 (09:00→20:54)
[2016-09-07] MEDS: NICOTINE 21 MG/24 HR PATCH T-DERMAL SCH (09:36)
[2016-09-07] MEDS: MULTIVITAMINS/MINERALS THERAPEUTIC TAB PO SCH (09:36)
[2016-09-07] MEDS: THIAMINE HCL 100 MG TAB PO SCH (09:37)
[2016-09-07] MEDS: DOCUSATE SODIUM 50 MG/SENNA 8.6 MG TAB PO SCH ×2 (09:37→20:53)
[2016-09-07] MEDS: FERROUS SULFATE 325 MG (65 MG ELEMENTAL IRON) TAB PO SCH ×2 (09:37→20:53)
[2016-09-07] MEDS: CALCIUM/VITAMIN D 250 MG/125 U TAB PO SCH ×3 (09:37→17:51)
[2016-09-07] MEDS: FOLIC ACID 1 MG TAB PO SCH (09:37)
[2016-09-07] MEDS: VANCOMYCIN INJ 1,000 MG in SODIUM CHLOR 0.9% 250 ML INJ 250 ML IV SCH ×2 (09:39→20:53)
[2016-09-07] MEDS: REMOVE OLD PATCH T-DERMAL SCH (09:41)
[2016-09-07] MEDS: HEPARIN SODIUM - SQ 10,000 UNITS/ML VIAL SQ SCH ×2 (09:41→20:53)
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
--- NOTE | 2016-09-07 18:40 | EKG ---
Date Performed: 09/06/2016 Time Performed: 14:08:32 PTAGE: 61 years EKG: Sinus rhythm WITH SINUS ARRHYTHMIA NORMAL ECG NO PREVIOUS TRACING DOCTOR: Kory Hollis Interpretating Date/Time 09/07/2016 18:39:34
[2016-09-07] MEDS ORDERED: PHARMACY ORDERED LAB ONE (20:45)
[2016-09-07] MEDS: MIRTAZAPINE 15 MG TAB PO SCH (20:53)
[2016-09-07] MEDS: QUEtiapine FUMARATE 100 MG TAB PO SCH (20:54)
[2016-09-08] VITALS: BP_SYST 115; BP_SYST 143; BP_DIAS 56; BP_DIAS 68; PULSE 66; PULSE 75; RESP 18; TEMP 95.6; TEMP 97.1; O2SAT 100; O2SAT 95
[2016-09-08 04:00] VITALS: BP 108/67; PULSE 69; RESP 20; TEMP 96.4; O2SAT 95
[2016-09-08] MEDS: ACETAMINOPHEN/HYDROcodone 325 MG/5 MG TAB PO PRN ×3 (06:41→22:01)
[2016-09-08] MEDS: VANCOMYCIN INJ 1,000 MG in SODIUM CHLOR 0.9% 250 ML INJ 250 ML IV SCH ×3 (06:42→22:01)
[2016-09-08] MEDS: LACTATED RINGER'S 1000 ML INJ 1,000 ML IV SCH ×2 (06:42→17:35)
[2016-09-08 08:09] VITALS: BP 106/62; PULSE 76; RESP 19; TEMP 97.5; O2SAT 95
[2016-09-08] MEDS: SODIUM CHLORIDE 0.9% FLUSH 5 ML FLUSH IVF SCH ×2 (08:19→21:00)
--- NOTE | 2016-09-08 08:20 | PD.ORT.PN ---
Subjective Subjective Remarks No complaints. Pain under control. Wound VAC in place. Objective Vitals Vital Signs Date Time Temp Pulse Resp B/P Pulse Ox O2 Delivery O2 Flow Rate FiO2 09/08/16 08:09 97.5 76 19 106/62 95 09/08/16 04:00 96.4 69 20 108/67 95 09/08/16 00:00 97.1 66 18 143/68 100 09/07/16 20:00 98.7 80 18 114/75 95 09/07/16 18:08 97 21 09/07/16 16:14 97.4 75 16 101/65 97 09/07/16 13:27 94 09/07/16 12:44 96.7 77 17 103/59 94 I/O 09/07/16 09/07/16 09/07/16 09/08/16 09/08/16 09/08/16 07:00 15:00 23:00 07:00 15:00 23:00 Intake Total 960 ml 1240 ml 260 ml 240 ml Output Total 1315 ml 1100 ml 750 ml Balance -355 ml 140 ml -490 ml 240 ml Intake Oral 960 ml 1240 ml 240 ml IV Total 260 ml Output Urine Total 1300 ml 1100 ml 750 ml Drainage Total 15 ml # Voids 1 # Bowel Movements 0 1 0 Result Diagram: 09/06/16 0643 09/06/16 0643 Objective Remarks Dressing in place. Wound VAC and drain intact. No abnormal swelling No drainage Assessment & Plan Ortho Post Op Day #: 2 Problem List: Assessment and Plan Rheumatoid/inflammatory arthropathy right knee, chronic (not infected). Pes Anserene bursitis, infected, right knee. Arthrotomy of right knee with irrigation and drain (not infected), POD #2. Irrigation and debridement has and screen bursitis, infected with debridement of skin subcutaneous tissue muscle and bone, POD #2 PLAN: IV antibiotics per infection sensitivity. Continue wound VAC This did not appear to be an infected knee joint or hardware but appears to have been an infected bursitis that was likely acute on early chronic We debrided down to bone but there was no clear evidence of deep bony in involvement Stable orthopedically Thanh Rodriguez MD Sep 08, 2016 08:20
[2016-09-08] MEDS: MULTIVITAMINS/MINERALS THERAPEUTIC TAB PO SCH (08:22)
[2016-09-08] MEDS: THIAMINE HCL 100 MG TAB PO SCH (08:22)
[2016-09-08] MEDS: CALCIUM/VITAMIN D 250 MG/125 U TAB PO SCH ×3 (08:22→18:22)
[2016-09-08] MEDS: DOCUSATE SODIUM 50 MG/SENNA 8.6 MG TAB PO SCH ×2 (08:22→22:01)
[2016-09-08] MEDS: FERROUS SULFATE 325 MG (65 MG ELEMENTAL IRON) TAB PO SCH ×2 (08:22→22:01)
[2016-09-08] MEDS: FOLIC ACID 1 MG TAB PO SCH (08:22)
[2016-09-08] MEDS: REMOVE OLD PATCH T-DERMAL SCH (08:23)
[2016-09-08] MEDS: HEPARIN SODIUM - SQ 10,000 UNITS/ML VIAL SQ SCH ×2 (08:23→22:02)
[2016-09-08] MEDS: NICOTINE 21 MG/24 HR PATCH T-DERMAL SCH (08:23)
--- NOTE | 2016-09-08 08:48 | HHI.PR ---
Subjective Remarks Pt encountered sitting up in bed, eating breakfast and reported having no pain. Bowel movement reported last evening "at 9 o'clock". Pt stated he has requested stool softener. Pt noted his bandage was to be changed today "and they say it will hurt." Pt stated he was to be given "Dilaudid for the pain." Pt denied fever, chills, nausea, vomiting, diarrhea, cough, and shortness of breath. No other issues noted or reported. Objective Vitals Vital Signs Date Time Temp Pulse Resp B/P Pulse Ox O2 Delivery O2 Flow Rate FiO2 09/08/16 08:09 97.5 76 19 106/62 95 09/08/16 04:00 96.4 69 20 108/67 95 09/08/16 00:00 97.1 66 18 143/68 100 09/07/16 20:00 98.7 80 18 114/75 95 09/07/16 18:08 97 21 09/07/16 16:14 97.4 75 16 101/65 97 09/07/16 13:27 94 09/07/16 12:44 96.7 77 17 103/59 94 I/O 09/07/16 09/07/16 09/07/16 09/08/16 09/08/16 09/08/16 07:00 15:00 23:00 07:00 15:00 23:00 Intake Total 960 ml 1240 ml 260 ml 240 ml Output Total 1315 ml 1100 ml 750 ml Balance -355 ml 140 ml -490 ml 240 ml Intake Oral 960 ml 1240 ml 240 ml IV Total 260 ml Output Urine Total 1300 ml 1100 ml 750 ml Drainage Total 15 ml # Voids 1 # Bowel Movements 0 1 0 Result Diagram: 09/06/16 0643 09/06/16 0643 Other Results Microbiology Date/Time Procedure Status Source Growth 09/06/16 13:30 Aerobic Blood Culture Received Blood Peripheral Pending 09/06/16 13:30 Anaerobic Blood Culture Received Blood Peripheral Pending 09/06/16 15:02 Gram Stain - Final Resulted Fluid Other 09/06/16 15:02 Body Fluid Culture - Preliminary Resulted Gram Negative Raudel 09/06/16 15:02 Acid Fast Stain - Final Resulted Fluid Other NO ACID FAST BACILLI SEEN 09/06/16 15:02 Mycobacterial Culture Resulted Fluid Other Pending 09/06/16 15:02 Fungal Smear - Final Resulted Fluid Other NO FUNGAL ELEMENTS SEEN. 09/06/16 15:02 Fungal Culture Resulted Fluid Other Pending 09/06/16 20:20 Aerobic Blood Culture - Preliminary Resulted Blood Peripheral NO GROWTH IN 1 DAY 09/06/16 20:20 Anaerobic Blood Culture - Preliminary Resulted Blood Peripheral NO GROWTH IN 1 DAY 09/06/16 20:25 Aerobic Blood Culture - Preliminary Resulted Blood Peripheral NO GROWTH IN 1 DAY 09/06/16 20:25 Anaerobic Blood Culture - Preliminary Resulted Blood Peripheral NO GROWTH IN 1 DAY Imaging No imaging results within the past 24 hours. Objective Remarks GENERAL: SKIN: Warm and dry. Silas bandage wrapped around right knee. HEAD: Normocephalic. EYES: No scleral icterus. No injection or drainage. NECK: Supple, trachea midline. No JVD or lymphadenopathy. CARDIOVASCULAR: Regular rate and rhythm without murmurs, gallops, or rubs. RESPIRATORY: Breath sounds equal bilaterally. No accessory muscle use. GASTROINTESTINAL: Abdomen soft, non-tender, nondistended. MUSCULOSKELETAL: No cyanosis, or edema. Wound vac attached to right knee, blood noted in wound vac. BACK: Nontender without obvious deformity. Procedures Rheumatoid/inflammatory arthropathy right knee, chronic (not infected). Pes Anserene bursitis, infected, right knee. Arthrotomy of right knee with irrigation and drain (not infected) The above performed on 09/06/2016 Medications and IVs Current Medications Medications (Trade) Dose Ordered Sig/Arnel Route Start Time Stop Time Status Last Admin (Heparin Inj) 5,000 units Q12H SQ 09/06/16 09:00 09/08/16 08:23 (Narcan Inj) 0.4 mg UNSCH PRN IV 09/05/16 20:45 ([place] 5-325 Mg) 1 tab Q6H PRN PO 09/05/16 21:00 09/08/16 06:41 (Dilaudid Pf Inj) 1 mg Q4H PRN IV PUSH 09/05/16 21:00 (Tylenol) 650 mg Q6HR PRN PO 09/06/16 00:00 (SEROquel) 100 mg HS PO 09/05/16 21:45 09/07/16 20:54 (Remeron) 30 mg HS PO 09/05/16 21:45 09/07/16 20:53 (Habitrol 21 Mg Patch.24 Hr) 1 patch DAILY T-DERMAL 09/06/16 09:00 09/08/16 08:23 Miscellaneous Information 1 DAILY T-DERMAL 09/06/16 09:00 09/08/16 08:23 (Ferrous Sulfate) 325 mg BID PO 09/06/16 09:00 09/08/16 08:22 (Folate) 1 mg DAILY PO 09/06/16 09:00 09/08/16 08:22 (Vitamin B1) 100 mg DAILY PO 09/06/16 09:00 09/08/16 08:22 (Benadryl) 50 mg HS PRN PO 09/05/16 21:45 Hydroxyzine HCl 50 mg 50 mg Q6H PRN PO 09/05/16 21:45 Pharmacy Profile Note ml @ 0 mls/hr UNSCH OTHER 09/06/16 15:00 (Lr 1000 ml Inj) 1,000 ml @ 100 mls/hr Q10H IV 09/06/16 15:35 (NS Flush) 2 ml UNSCH PRN IVF 09/06/16 15:45 (NS Flush) 2 ml BID IVF 09/06/16 21:00 09/08/16 08:19 (Lashell-Colace) 1 tab BID PO 09/06/16 21:00 09/08/16 08:22 (Milk Of Magnesia Liq) 10 ml Q12H PRN PO 09/06/16 15:45 (Zofran Inj) 4 mg Q4H PRN IVP 09/06/16 15:45 (Oscal-D 250-125) 250 mg TID PO 09/06/16 18:00 09/08/16 08:22 (Theragran M Tab) 1 tab DAILY PO 09/07/16 09:00 09/08/16 08:22 Diphenhydramine HCl 25 mg 25 mg Q6H PRN PO 09/06/16 15:45 (Vancomycin Inj/ NS 250 ml Inj) 250 ml @ 250 mls/hr Q8H IV 09/08/16 05:00 09/08/16 06:42 Miscellaneous Information SPECIFIC LAB TO BE DRAWN:VANCO TROUGH DATE TO... ONCE ONCE .XX 09/09/16 04:45 09/09/16 04:46 Urinary Catheter: No Vascular Central Line Catheter: No A/P Assessment and Plan Right knee swelling: Likely septic joint but not systemically based on vitals and WBC. Orthopedics has been consulted, plan for surgery today PT/OT Pain control On Vancomycin IV ID consulted, appreciate recommendations 09/07/16 Per orthopedics report pt with rheumatoid/inflammatory arthroplasty of right knee as well as Pes Anserene bursitis of the right knee. Cultures were obtained and results pending. Pt received IV vancomycin before the procedure and gentamicin afterwards. Pain to be managed PRN 09/08/16 Bandage to changed today, per pt and attending. Pt is being followed by infectious disease; Vancomycin 1000 mg IV @ 250 ml/hr continues q 8H pain to be managed PRN Nicotine abuse: Pt with nicotine patch in place. He has been inpt for two weeks and has been prescribed patch while on that service. Discussed with the patient risk of slow healing/nonhealing with use of nicotine Pt stating he would like to stop smoking. 09/07/16 Unchanged. 09/08/16 Unchanged Written by Fredy Mims, acting as scribe for Dr. Rodriguez on 09/08/16 at 08:44. This note was transcribed by scribRanjan ROSALES. I, Dr. Sanjuana Rodriguez personally performed the history, physical exam, and medical decision making; and confirmed the accuracy of the information in the transcribed note. Authenticated by Dr. Sanjuana Rodriguez on 09/08/16 at 08:44. Fredy Mims Jr. Sep 08, 2016 08:48 Sanjuana Rodriguez MD Sep 08, 2016 09:12
[2016-09-08 12:24] VITALS: BP 104/55; PULSE 71; RESP 18; TEMP 98.2; O2SAT 97
[2016-09-08] MEDS: HYDROmorphone HCL PF 1 MG/ML VIAL IV PUSH PRN (12:27)
[2016-09-08 16:20] VITALS: BP 101/61; PULSE 74; RESP 17; TEMP 98.9; O2SAT 96
[2016-09-08 20:00] VITALS: BP 118/71; PULSE 77; RESP 18; TEMP 97.7; O2SAT 97
[2016-09-08] MEDS: QUEtiapine FUMARATE 100 MG TAB PO SCH (22:01)
[2016-09-08] MEDS: MIRTAZAPINE 15 MG TAB PO SCH (22:01)
[2016-09-08] MEDS: diphenhydrAMINE HCL 50 MG CAP PO PRN (22:05)
[2016-09-09] VITALS (7 sets, daily range): BP systolic 102–119; BP diastolic 63–73; PULSE 63–79; RESP 18–28; TEMP 96.9–98.5; O2SAT 93–99
[2016-09-09] MEDS: LACTATED RINGER'S 1000 ML INJ 1,000 ML IV SCH ×2 (03:35→21:58)
[2016-09-09] MEDS: ACETAMINOPHEN/HYDROcodone 325 MG/5 MG TAB PO PRN ×3 (04:10→20:19)
[2016-09-09] MEDS: diphenhydrAMINE HCL 25 MG CAP PO PRN (04:10)
[2016-09-09] MEDS ORDERED: PHARMACY ORDERED LAB ONE (04:45)
[2016-09-09] MEDS: VANCOMYCIN INJ 1,000 MG in SODIUM CHLOR 0.9% 250 ML INJ 250 ML IV SCH ×2 (05:00→13:42)
--- NOTE | 2016-09-09 08:28 | PD.ORT.PN ---
Subjective Subjective Remarks No complaints. Pain under control. Wound VAC in place. Objective Vitals Vital Signs Date Time Temp Pulse Resp B/P Pulse Ox O2 Delivery O2 Flow Rate FiO2 09/09/16 04:00 97.1 74 18 107/66 99 09/09/16 00:00 97.2 72 18 114/69 97 09/08/16 20:00 97.7 77 18 118/71 97 09/08/16 16:20 98.9 74 17 101/61 96 09/08/16 12:24 98.2 71 18 104/55 97 I/O 09/08/16 09/08/16 09/08/16 09/09/16 09/09/16 09/09/16 07:00 15:00 23:00 07:00 15:00 23:00 Intake Total 240 ml 260 ml 650 ml Balance 240 ml 260 ml 650 ml Intake Oral 240 ml 650 ml IV Total 260 ml # Voids 1 2 5 # Bowel Movements 0 Result Diagram: 09/06/16 0643 09/06/16 0643 Objective Remarks Dressing in place. Wound VAC and drain intact. No abnormal swelling No drainage Assessment & Plan Assessment and Plan Rheumatoid/inflammatory arthropathy right knee, chronic (not infected). Pes Anserene bursitis, infected, right knee. Arthrotomy of right knee with irrigation and drain (not infected), POD #3. Irrigation and debridement has and screen bursitis, infected with debridement of skin subcutaneous tissue muscle and bone, POD #3 PLAN: IV antibiotics per infection sensitivity. Culture growing Escherichia coli Continue wound VAC This did not appear to be an infected knee joint or hardware but appears to have been an infected bursitis that was likely acute on early chronic We debrided down to bone but there was no clear evidence of deep bony in involvement Stable orthopedically Thanh Rodriguez MD Sep 09, 2016 08:28
[2016-09-09] MEDS: SODIUM CHLORIDE 0.9% FLUSH 5 ML FLUSH IVF SCH ×2 (09:00→20:19)
[2016-09-09] MEDS: REMOVE OLD PATCH T-DERMAL SCH (09:00)
[2016-09-09] MEDS: HEPARIN SODIUM - SQ 10,000 UNITS/ML VIAL SQ SCH ×2 (09:52→20:18)
[2016-09-09] MEDS: NICOTINE 21 MG/24 HR PATCH T-DERMAL SCH (09:52)
[2016-09-09] MEDS: THIAMINE HCL 100 MG TAB PO SCH (09:53)
[2016-09-09] MEDS: MULTIVITAMINS/MINERALS THERAPEUTIC TAB PO SCH (09:53)
[2016-09-09] MEDS: DOCUSATE SODIUM 50 MG/SENNA 8.6 MG TAB PO SCH ×2 (09:53→20:19)
[2016-09-09] MEDS: FERROUS SULFATE 325 MG (65 MG ELEMENTAL IRON) TAB PO SCH ×2 (09:54→20:19)
[2016-09-09] MEDS: CALCIUM/VITAMIN D 250 MG/125 U TAB PO SCH ×3 (09:54→17:26)
[2016-09-09] MEDS: FOLIC ACID 1 MG TAB PO SCH (09:54)
--- NOTE | 2016-09-09 10:36 | HHI.PR ---
Subjective Remarks "my (right) knee and leg feels tingly". Pt encoutnered sitting up and on the side of his bed. Pt denied N/V/C/D, cough, shortness of breath. Pt spoke about trying to "get up and walk" and said he was told to stay abed and ask for help. Wound vac noted to be present with bloody contents noted. No issues noted or reported. Objective Vitals Vital Signs Date Time Temp Pulse Resp B/P Pulse Ox O2 Delivery O2 Flow Rate FiO2 09/09/16 09:31 97 21 09/09/16 08:39 97.8 63 18 119/73 97 09/09/16 04:00 97.1 74 18 107/66 99 09/09/16 00:00 97.2 72 18 114/69 97 09/08/16 20:00 97.7 77 18 118/71 97 09/08/16 16:20 98.9 74 17 101/61 96 09/08/16 12:24 98.2 71 18 104/55 97 I/O 09/08/16 09/08/16 09/08/16 09/09/16 09/09/16 09/09/16 07:00 15:00 23:00 07:00 15:00 23:00 Intake Total 240 ml 260 ml 650 ml Balance 240 ml 260 ml 650 ml Intake Oral 240 ml 650 ml IV Total 260 ml # Voids 1 2 5 # Bowel Movements 0 Result Diagram: 09/06/16 0643 09/06/16 0643 Other Results None Imaging No imaging studies within the past 24 hours. Objective Remarks GENERAL: 61 yo male, appearing older than the stated age, in bed, appears in nad. SKIN: Warm and dry. Silas bandage wrapped around lower right leg with small gauze bandage noted above right knee. Wound site was clean and without redness or streaking. Wound vac in place. HEAD: Normocephalic. EYES: No scleral icterus. No injection or drainage. NECK: Supple, trachea midline. No JVD or lymphadenopathy. CARDIOVASCULAR: Regular rate and rhythm without murmurs, gallops, or rubs. RESPIRATORY: Breath sounds equal bilaterally. No accessory muscle use. GASTROINTESTINAL: Abdomen soft, non-tender, nondistended. MUSCULOSKELETAL: No cyanosis, or edema. Wound vac attached to right knee, blood noted in wound vac. BACK: Nontender without obvious deformity. Procedures S/P Arthrotomy of right knee with irrigation and drain (not infected). Irrigation and debridement has and screen bursitis, infected with debridement of skin subcutaneous tissue muscle and bone on 09/06/[address] Rodriguez, ortho Medications and IVs Current Medications Medications (Trade) Dose Ordered Sig/Arnel Route Start Time Stop Time Status Last Admin (Heparin Inj) 5,000 units Q12H SQ 09/06/16 09:00 09/09/16 09:52 (Narcan Inj) 0.4 mg UNSCH PRN IV 09/05/16 20:45 ([place] 5-325 Mg) 1 tab Q6H PRN PO 09/05/16 21:00 09/09/16 10:20 (Dilaudid Pf Inj) 1 mg Q4H PRN IV PUSH 09/05/16 21:00 09/08/16 12:27 (Tylenol) 650 mg Q6HR PRN PO 09/06/16 00:00 (SEROquel) 100 mg HS PO 09/05/16 21:45 09/08/16 22:01 (Remeron) 30 mg HS PO 09/05/16 21:45 09/08/16 22:01 (Habitrol 21 Mg Patch.24 Hr) 1 patch DAILY T-DERMAL 09/06/16 09:00 09/09/16 09:52 Miscellaneous Information 1 DAILY T-DERMAL 09/06/16 09:00 09/08/16 08:23 (Ferrous Sulfate) 325 mg BID PO 09/06/16 09:00 09/09/16 09:54 (Folate) 1 mg DAILY PO 09/06/16 09:00 09/09/16 09:54 (Vitamin B1) 100 mg DAILY PO 09/06/16 09:00 09/09/16 09:53 (Benadryl) 50 mg HS PRN PO 09/05/16 21:45 09/08/16 22:05 Hydroxyzine HCl 50 mg 50 mg Q6H PRN PO 09/05/16 21:45 Pharmacy Profile Note ml @ 0 mls/hr UNSCH OTHER 09/06/16 15:00 (Lr 1000 ml Inj) 1,000 ml @ 100 mls/hr Q10H IV 09/06/16 15:35 (NS Flush) 2 ml UNSCH PRN IVF 09/06/16 15:45 (NS Flush) 2 ml BID IVF 09/06/16 21:00 09/09/16 09:00 (Lashell-Colace) 1 tab BID PO 09/06/16 21:00 09/09/16 09:53 (Milk Of Magndwaine Liq) 10 ml Q12H PRN PO 09/06/16 15:45 (Zofran Inj) 4 mg Q4H PRN IVP 09/06/16 15:45 (Oscal-D 250-125) 250 mg TID PO 09/06/16 18:00 09/09/16 09:54 (Theragran M Tab) 1 tab DAILY PO 09/07/16 09:00 09/09/16 09:53 Diphenhydramine HCl 25 mg 25 mg Q6H PRN PO 09/06/16 15:45 09/09/16 04:10 (Vancomycin Inj/ NS 250 ml Inj) 250 ml @ 250 mls/hr Q8H IV 09/08/16 05:00 09/09/16 05:00 Miscellaneous Information SPECIFIC LAB TO BE LOUIE... ONCE ONCE .XX 09/10/16 04:45 09/10/16 04:46 Urinary Catheter: No Vascular Central Line Catheter: No A/P Assessment and Plan Rheumatoid/inflammatory arthropathy right knee, chronic (not infected). Pes Anserene bursitis, infected, right knee. Cultures with E Coli. S/P Arthrotomy of right knee with irrigation and drain (not infected). Irrigation and debridement has and screen bursitis, infected with debridement of skin subcutaneous tissue muscle and bone on 09/07/[address] Rodriguez, ortho Orthopedics continues to follow, note reviewed. PT/OT Pain control Microbiology final report still pending. Continue Vancomycin IV ID following, appreciate recommendations Nicotine abuse: Pt with nicotine patch in place. Written by Fredy Mims, acting as scribe for Dr. Rodriguez on 09/09/16 at 10:31. This note was transcribed by scribRanjan ROSALES. I, Dr. Sanjuana Rodriguez personally performed the history, physical exam, and medical decision making; and confirmed the accuracy of the information in the transcribed note. Authenticated by Dr. Sanjuana Rodriguez on 09/09/16 at 10:31. Fredy Mims Jr. Sep 09, 2016 10:36 Sanjuana Rodriguez MD Sep 09, 2016 14:40
--- NOTE | 2016-09-09 14:42 | HHI.IDPN ---
Subjective Subjective Remarks ID COVERAGE Mr. Jimenez is a 61-year-old male who was admitted on August 22, 2016 for a penetrating injury to his left neck with injury to his truck muscles and superficial injury to the trachea. 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 Patient was found to have infrequent amounts of alcohol in his system on admission. On August 22, 2016 patient underwent exploration of the neck with repair and received 2 units PRBC' s as well as 2 units of FFP. Patient was evaluated and admitted to inpatient psych. While in the inpatient psych mora patient reported increased pain, swelling and discharge from the right knee. Xray with some chronic changes, screws, distal end fracture, osteoarthritis. Ortho consulted patient on schedule for OR. Patient started on Vanco IV. ID consulted for evaluation and M'ment of right knee septic arthritis/bursitis Notes reviewed Op notes reviewed Infection not in bone Has (+) C/S from OR with E coli C/O pain in his R knee Temps ok No rash No diarrhea Has wound vac in place, changed today Antibiotics Vanco IV Lines Line sites with no e.o infection Past Medical History reviewed Allergies: Coded Allergies: Cultivated Oat Pollen (Verified Allergy, Mild, 09/06/16) Objective . Vital Signs Date Time Temp Pulse Resp B/P Pulse Ox O2 Delivery O2 Flow Rate FiO2 09/09/16 12:11 97.2 78 18 108/63 93 09/09/16 09:31 97 21 09/09/16 08:39 97.8 63 18 119/73 97 09/09/16 04:00 97.1 74 18 107/66 99 09/09/16 00:00 97.2 72 18 114/69 97 09/08/16 20:00 97.7 77 18 118/71 97 09/08/16 16:20 98.9 74 17 101/61 96 09/08/16 09/08/16 09/09/16 15:00 23:00 07:00 Intake Total 260 ml 650 ml Balance 260 ml 650 ml Intake Oral 650 ml IV Total 260 ml # Voids 2 5 . Microbiology Date/Time Procedure Status Source Growth 09/06/16 15:02 Gram Stain - Final Complete Fluid Other 09/06/16 15:02 Body Fluid Culture - Final Complete Escherichia Coli 09/06/16 15:02 Acid Fast Stain - Final Resulted Fluid Other NO ACID FAST BACILLI SEEN 09/06/16 15:02 Mycobacterial Culture Resulted Fluid Other Pending 09/06/16 15:02 Fungal Smear - Final Resulted Fluid Other NO FUNGAL ELEMENTS SEEN. 09/06/16 15:02 Fungal Culture Resulted Fluid Other Pending 09/06/16 20:20 Aerobic Blood Culture - Preliminary Resulted Blood Peripheral NO GROWTH IN 3 DAYS 09/06/16 20:20 Anaerobic Blood Culture - Preliminary Resulted Blood Peripheral NO GROWTH IN 3 DAYS 09/06/16 20:25 Aerobic Blood Culture - Preliminary Resulted Blood Peripheral NO GROWTH IN 3 DAYS 09/06/16 20:25 Anaerobic Blood Culture - Preliminary Resulted Blood Peripheral NO GROWTH IN 3 DAYS Imaging none Physical Exam GENERAL: This is a well-nourished, well-developed patient, in no apparent distress. SKIN: No rashes, ecchymoses or lesions. Cool and dry. HEAD: Atraumatic. Normocephalic. No temporal or scalp tenderness. EYES: Pupils equal round and reactive. No scleral icterus. No injection or drainage. ENT: Nose without bleeding, purulent drainage. Throat without erythema, or exudate. NECK: Trachea midline.Supple, nontender, no meningeal signs. CARDIOVASCULAR: RRR RESPIRATORY: Clear to auscultation. Breath sounds equal bilaterally. No wheezes , rales, or rhonchi. GASTROINTESTINAL: Abdomen soft, non-tender, nondistended. MUSCULOSKELETAL: Right knee swollen, has wound vac in place, no redness, limited ROM. NEUROLOGICAL: Awake and alert. Grossly non focal Psych: cooperative IV line sites with no e.o infection. Assessment & Plan Remarks Right knee septic bursitis - S/P surgery - C/S E coli Per ortho no evidence of septic joint Positive Hep C. H/o RA Recs: Stop Vanco IV Start Rocephin Follow cultures Monitor progress Adriana Potter MD Sep 09, 2016 14:42
[2016-09-09] MEDS: cefTRIAXone INJ 2,000 MG in SODIUM CHLORIDE 0.9% INJ 100 ML IV SCH (15:08)
[2016-09-09] MEDS: MIRTAZAPINE 15 MG TAB PO SCH (20:18)
[2016-09-09] MEDS: QUEtiapine FUMARATE 100 MG TAB PO SCH (20:18)
[2016-09-09] MEDS: diphenhydrAMINE HCL 50 MG CAP PO PRN (20:18)
--- NOTE | 2016-09-09 20:30 | MP ---
cc: HUGO WISE DATE OF SURGERY September 06, 2016 PREOPERATIVE DIAGNOSES 1. Pyogenic arthritis of the right knee. 2. Abscess of the right leg. POSTOPERATIVE DIAGNOSES 1. Abscess of the right leg. 2. Synovitis of the right knee. SURGEON Hugo Wise MD COMMUNICATION EQUIPMENT MECHANIC LUCIEN Junior PROCEDURE 1. Arthrotomy of the right knee with irrigation, debridement and placement of drain. 2. Irrigation and debridement of skin, subcutaneous tissue, muscle and bone of the right lower leg. 3. Placement of a small wound VAC, 7 x 3 cm. INDICATION This patient is a 61-year-old male with swelling of his right leg of uncertain clinical length of time. The patient is not a very good historian. He notes that over the last week or so he has had drainage of the right leg. He denies any previous infection. He states he has rheumatoid arthritis. He had a previous fixation of right leg years ago and had done fairly well although he apparently had three or four surgeries. He presents for surgical treatment. LUCIEN Junior was present during the entire surgical procedure as my welder first class. In my medical opinion her skill and care were necessary for the proper management of this patient. PROCEDURE DETAILS The patient was brought to the operating room and anesthetized in the supine position. The right leg was scrubbed with alcohol followed by Hibiclens followed by Chloraprep and draped sterilely. The right leg was evaluated. There was a significant bogginess and synovitis. After elevation, the tourniquet inflated to 250 mmHg. An anterior medial incision was made in line with a previous incision. This was carried down to the skin and subcutaneous tissue and carried down to the joint. A small amount of fluid in the joint was seen. It had clear fluid to it. There was significant synovitis. This was irrigated copiously and then a separate drain brought out through a separate stab incision. The arthrotomy was repaired with interrupted 3-0 nylon sutures. Went down to the area where it was draining below the leg. This was opened and excised. Marked amount of purulent material was seen in the and bursa but did not appear to communicate with the joint. This was a surprise because of the significant synovitis around the knee itself and there appeared to be no communication. This was opened. Necrotic tissue was excised. Deep tissue was excised with a rongeur. This was irrigated with copious amount of antibiotic irrigation and then a wound VAC was placed. The previous other incision was closed sterilely and closed with Tegaderm to keep the two incisions . The patient was awakened and taken to recovery in satisfactory condition. Hugo MD ANGIE Alicia/KK /3:47 PM /8:12 PM
[2016-09-10] MEDS: ACETAMINOPHEN/HYDROcodone 325 MG/5 MG TAB PO PRN ×4 (03:18→21:22)
[2016-09-10] MEDS: diphenhydrAMINE HCL 25 MG CAP PO PRN (03:19)
[2016-09-10 04:00] VITALS: BP 95/60; PULSE 66; RESP 18; TEMP 96.6; O2SAT 94
[2016-09-10] MEDS ORDERED: PHARMACY ORDERED LAB ONE (04:45)
[2016-09-10 08:30] VITALS: BP 113/61; PULSE 68; RESP 20; TEMP 97.4; O2SAT 96
[2016-09-10] MEDS: REMOVE OLD PATCH T-DERMAL SCH (09:00)
[2016-09-10] MEDS: SODIUM CHLORIDE 0.9% FLUSH 5 ML FLUSH IVF SCH ×2 (09:00→21:00)
[2016-09-10] MEDS: MULTIVITAMINS/MINERALS THERAPEUTIC TAB PO SCH (09:51)
[2016-09-10] MEDS: DOCUSATE SODIUM 50 MG/SENNA 8.6 MG TAB PO SCH ×2 (09:51→21:21)
[2016-09-10] MEDS: THIAMINE HCL 100 MG TAB PO SCH (09:51)
[2016-09-10] MEDS: FOLIC ACID 1 MG TAB PO SCH (09:51)
[2016-09-10] MEDS: CALCIUM/VITAMIN D 250 MG/125 U TAB PO SCH ×2 (09:52→13:53)
[2016-09-10] MEDS: FERROUS SULFATE 325 MG (65 MG ELEMENTAL IRON) TAB PO SCH ×2 (09:52→21:21)
[2016-09-10] MEDS: NICOTINE 21 MG/24 HR PATCH T-DERMAL SCH (09:53)
[2016-09-10] MEDS: HEPARIN SODIUM - SQ 10,000 UNITS/ML VIAL SQ SCH ×2 (09:54→21:23)
[2016-09-10 12:00] VITALS: BP 95/59; PULSE 74; RESP 20; TEMP 97.8; O2SAT 97
[2016-09-10] MEDS: cefTRIAXone INJ 2,000 MG in SODIUM CHLORIDE 0.9% INJ 100 ML IV SCH (14:03)
--- NOTE | 2016-09-10 15:55 | HHI.PR ---
Subjective Remarks Pain is better controlled by meds. No fever or chills overnight. Wound vac in place. No n/v/d/c. Eating good. Objective Vitals Vital Signs Date Time Temp Pulse Resp B/P Pulse Ox O2 Delivery O2 Flow Rate FiO2 09/10/16 12:00 97.8 74 20 95/59 97 09/10/16 08:30 97.4 68 20 113/61 96 09/10/16 04:00 96.6 66 18 95/60 94 09/09/16 20:00 96.9 79 28 114/69 96 09/09/16 16:32 98.5 73 19 102/64 96 I/O 09/09/16 09/09/16 09/09/16 09/10/16 09/10/16 09/10/16 07:00 15:00 23:00 07:00 15:00 23:00 Intake Total 650 ml 480 ml Output Total 2200 ml 1000 ml Balance 650 ml 480 ml -2200 ml -1000 ml Intake Oral 650 ml 480 ml Output Urine Total 2200 ml 1000 ml # Voids 5 Result Diagram: 09/06/16 0643 09/10/16 1115 Objective Remarks GENERAL: 61 yo male, appearing older than the stated age, in bed, appears in nad. SKIN: Warm and dry. Silas bandage wrapped around lower right leg with small gauze bandage noted above right knee. Wound site was clean and without redness or streaking. Wound vac in place. HEAD: Normocephalic. EYES: No scleral icterus. No injection or drainage. NECK: Supple, trachea midline. No JVD or lymphadenopathy. CARDIOVASCULAR: Regular rate and rhythm without murmurs, gallops, or rubs. RESPIRATORY: Breath sounds equal bilaterally. No accessory muscle use. GASTROINTESTINAL: Abdomen soft, non-tender, nondistended. MUSCULOSKELETAL: No cyanosis, or edema. Wound vac attached to right knee, blood noted in wound vac. BACK: Nontender without obvious deformity. Procedures S/P Arthrotomy of right knee with irrigation and drain (not infected). Irrigation and debridement has and screen bursitis, infected with debridement of skin subcutaneous tissue muscle and bone on 09/06/[address] Rodriguez, ortho A/P Assessment and Plan Rheumatoid/inflammatory arthropathy right knee, chronic (not infected). Pes Anserene bursitis, infected, right knee. Cultures with E Coli. S/P Arthrotomy of right knee with irrigation and drain (not infected). Irrigation and debridement has and screen bursitis, infected with debridement of skin subcutaneous tissue muscle and bone on 09/07/[address] Rodriguez, ortho Orthopedics continues to follow, note reviewed. PT/OT Pain control Microbiology final report still pending. Continue Vancomycin IV ID following, appreciate recommendations Nicotine abuse: Pt with nicotine patch in place. Discussed with the patient. nurse Sanjuana Rodriguez MD Sep 10, 2016 15:54
[2016-09-10 17:02] VITALS: BP 113/71; PULSE 78; RESP 20; TEMP 99.6; O2SAT 96
[2016-09-10] MEDS: LACTATED RINGER'S 1000 ML INJ 1,000 ML IV SCH (19:35)
[2016-09-10 20:21] VITALS: BP 107/70; PULSE 75; RESP 20; TEMP 98.4; O2SAT 100
[2016-09-10] MEDS: MIRTAZAPINE 15 MG TAB PO SCH (21:21)
[2016-09-10] MEDS: QUEtiapine FUMARATE 100 MG TAB PO SCH (21:21)
[2016-09-11 01:04] VITALS: BP 115/61; PULSE 94; RESP 16; TEMP 97; O2SAT 95
[2016-09-11] MEDS: ACETAMINOPHEN/HYDROcodone 325 MG/5 MG TAB PO PRN ×4 (03:47→21:52)
[2016-09-11] MEDS: LACTATED RINGER'S 1000 ML INJ 1,000 ML IV SCH ×2 (04:52→15:20)
[2016-09-11 05:12] VITALS: BP 112/69; PULSE 76; RESP 18; TEMP 96.2; O2SAT 95
[2016-09-11 08:47] VITALS: BP_SYST 118; BP_SYST 136; BP_DIAS 71; BP_DIAS 76; PULSE 70; PULSE 74; RESP 20; TEMP 97.4; TEMP 97.7; O2SAT 96
[2016-09-11] MEDS: MULTIVITAMINS/MINERALS THERAPEUTIC TAB PO SCH (08:47)
[2016-09-11] MEDS: FOLIC ACID 1 MG TAB PO SCH (08:48)
[2016-09-11] MEDS: FERROUS SULFATE 325 MG (65 MG ELEMENTAL IRON) TAB PO SCH ×2 (08:48→21:53)
[2016-09-11] MEDS: DOCUSATE SODIUM 50 MG/SENNA 8.6 MG TAB PO SCH ×2 (08:48→21:53)
[2016-09-11] MEDS: THIAMINE HCL 100 MG TAB PO SCH (08:48)
[2016-09-11] MEDS: HEPARIN SODIUM - SQ 10,000 UNITS/ML VIAL SQ SCH ×2 (08:50→21:54)
[2016-09-11] MEDS: SODIUM CHLORIDE 0.9% FLUSH 5 ML FLUSH IVF SCH ×2 (08:51→21:00)
[2016-09-11] MEDS: CALCIUM/VITAMIN D 250 MG/125 U TAB PO SCH ×3 (08:51→18:41)
[2016-09-11] MEDS: NICOTINE 21 MG/24 HR PATCH T-DERMAL SCH (08:54)
[2016-09-11] MEDS: REMOVE OLD PATCH T-DERMAL SCH (08:54)
--- NOTE | 2016-09-11 11:18 | HHI.PR ---
Subjective Remarks Pain is controlled by meds. Says he has more pain when wound vac is changed. No fevers or chills. overnight. Says left knee is still swollen. No erythema. Otherwise no n/v/d/c/ No chest pain or sob. Objective Vitals Vital Signs Date Time Temp Pulse Resp B/P Pulse Ox O2 Delivery O2 Flow Rate FiO2 09/11/16 08:47 97.4 70 20 118/71 96 09/11/16 05:12 96.2 76 18 112/69 95 09/11/16 01:04 97.0 94 16 115/61 95 09/10/16 20:21 98.4 75 20 107/70 100 09/10/16 17:02 99.6 78 20 113/71 96 09/10/16 12:00 97.8 74 20 95/59 97 I/O 09/10/16 09/10/16 09/10/16 09/11/16 09/11/16 09/11/16 07:00 15:00 23:00 07:00 15:00 23:00 Intake Total 96 ml Output Total 1000 ml 2500 ml 1300 ml Balance -1000 ml -2404 ml -1300 ml Intake Oral 96 ml Output Urine Total 1000 ml 2500 ml 1300 ml # Bowel Movements 0 0 Result Diagram: 09/10/16 1115 Objective Remarks GENERAL: 61 yo male, appearing older than the stated age, in bed, appears in nad. SKIN: Warm and dry. Silas bandage wrapped around lower right leg with small gauze bandage noted above right knee. Wound site was clean and without redness or streaking. Wound vac in place. HEAD: Normocephalic. EYES: No scleral icterus. No injection or drainage. NECK: Supple, trachea midline. No JVD or lymphadenopathy. CARDIOVASCULAR: Regular rate and rhythm without murmurs, gallops, or rubs. RESPIRATORY: Breath sounds equal bilaterally. No accessory muscle use. GASTROINTESTINAL: Abdomen soft, non-tender, nondistended. MUSCULOSKELETAL: No cyanosis, or edema. Wound vac attached to right knee, blood noted in wound vac. BACK: Nontender without obvious deformity. Procedures S/P Arthrotomy of right knee with irrigation and drain (not infected). Irrigation and debridement has and screen bursitis, infected with debridement of skin subcutaneous tissue muscle and bone on 09/06/[address] Rodriguez, ortho A/P Assessment and Plan Rheumatoid/inflammatory arthropathy right knee, chronic (not infected). Pes Anserene bursitis, infected, right knee. Cultures with E Coli. S/P Arthrotomy of right knee with irrigation and drain (not infected). Irrigation and debridement has and screen bursitis, infected with debridement of skin subcutaneous tissue muscle and bone on 09/07/[address] Rodriguez, ortho Orthopedics continues to follow, note reviewed. PT/OT Pain control Microbiology final report still pending. Continue Vancomycin IV ID following, appreciate recommendations Nicotine abuse: Pt with nicotine patch in place. Discussed with the patient. nurse Discharge when improved and cleared by consultants. Patient with wound vac, difficult discharge. Case management consulted for DC plan. Sanjuana Rodriguez MD Sep 11, 2016 11:18
[2016-09-11 13:12] VITALS: BP 101/60; PULSE 78; RESP 20; TEMP 98.3; O2SAT 95
--- NOTE | 2016-09-11 14:41 | HHI.IDPN ---
Subjective Subjective Remarks Mr. Jimenez is a 61-year-old male who was admitted on August 22, 2016 for a penetrating injury to his left neck with injury to his truck muscles and superficial injury to the trachea. 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 Patient was found to have infrequent amounts of alcohol in his system on admission. On August 22, 2016 patient underwent exploration of the neck with repair and received 2 units PRBC' s as well as 2 units of FFP. Patient was evaluated and admitted to inpatient psych. While in the inpatient psych mora patient reported increased pain, swelling and discharge from the right knee. Xray with some chronic changes, screws, distal end fracture, osteoarthritis. Ortho consulted patient on schedule for OR. Patient started on Vanco IV. ID consulted for evaluation and M'ment of right knee septic arthritis/bursitis Notes reviewed Op notes reviewed Infection not in bone Has (+) C/S from OR with E coli C/O pain in his R knee Temps ok No rash No diarrhea Antibiotics Vanco IV Lines Line sites with no e.o infection Past Medical History reviewed Allergies: Coded Allergies: Cultivated Oat Pollen (Verified Allergy, Mild, 09/06/16) Objective . Vital Signs Date Time Temp Pulse Resp B/P Pulse Ox O2 Delivery O2 Flow Rate FiO2 09/11/16 13:12 98.3 78 20 101/60 95 09/11/16 08:47 97.4 70 20 118/71 96 09/11/16 05:12 96.2 76 18 112/69 95 09/11/16 01:04 97.0 94 16 115/61 95 09/10/16 20:21 98.4 75 20 107/70 100 09/10/16 17:02 99.6 78 20 113/71 96 09/10/16 09/10/16 09/11/16 15:00 23:00 07:00 Intake Total 96 ml Output Total 2500 ml 1300 ml Balance -2404 ml -1300 ml Intake Oral 96 ml Output Urine Total 2500 ml 1300 ml # Bowel Movements 0 0 . Laboratory Tests Test 09/10/16 11:15 Creatinine 0.65 MG/DL Estimat Glomerular Filtration 126 ML/MIN Rate Imaging none Physical Exam GENERAL: This is a well-nourished, well-developed patient, in no apparent distress. SKIN: No rashes, ecchymoses or lesions. Cool and dry. HEAD: Atraumatic. Normocephalic. No temporal or scalp tenderness. EYES: Pupils equal round and reactive. No scleral icterus. No injection or drainage. ENT: Nose without bleeding, purulent drainage. Throat without erythema, or exudate. NECK: Trachea midline.Supple, nontender, no meningeal signs. CARDIOVASCULAR: RRR RESPIRATORY: Clear to auscultation. Breath sounds equal bilaterally. No wheezes , rales, or rhonchi. GASTROINTESTINAL: Abdomen soft, non-tender, nondistended. MUSCULOSKELETAL: Right knee swollen, has wound vac in place, no redness, limited ROM. NEUROLOGICAL: Awake and alert. Grossly non focal Psych: cooperative IV line sites with no e.o infection. Assessment & Plan Remarks Right knee septic bursitis - S/P surgery - C/S E coli Per ortho no evidence of septic joint Positive Hep C. H/o RA Recs: Restart Vanco IV (Corynebacterium from intra op specimen) will treat for 2 weeks with IV Vanco. Continue Rocephin IV (2 weeks tentative) Will reassess based on clinical response. Follow cultures Monitor progress Marlee Avery MD Sep 11, 2016 14:41
[2016-09-11] MEDS ORDERED: Vancomycin Consult Pharmacy 1 EA OTHER SCH (14:45)
[2016-09-11] MEDS: cefTRIAXone INJ 2,000 MG in SODIUM CHLORIDE 0.9% INJ 100 ML IV SCH (15:19)
[2016-09-11 17:53] VITALS: BP 115/71; PULSE 75; RESP 20; TEMP 97.9; O2SAT 96
[2016-09-11] MEDS: VANCOMYCIN INJ 1,500 MG in SODIUM CHLORID 0.9% 500 ML INJ 500 ML IV SCH (18:42)
[2016-09-11 21:27] VITALS: BP 121/74; PULSE 77; RESP 20; TEMP 97.9; O2SAT 98
[2016-09-11] MEDS: MIRTAZAPINE 15 MG TAB PO SCH (21:51)
[2016-09-11] MEDS: QUEtiapine FUMARATE 100 MG TAB PO SCH (21:51)
[2016-09-12] VITALS: BP 119/82; PULSE 79; RESP 20; TEMP 96.4; O2SAT 94
[2016-09-12] MEDS: LACTATED RINGER'S 1000 ML INJ 1,000 ML IV SCH ×3 (01:35→20:35)
[2016-09-12] MEDS: ACETAMINOPHEN/HYDROcodone 325 MG/5 MG TAB PO PRN ×4 (03:55→22:07)
[2016-09-12 04:01] VITALS: BP 127/69; PULSE 72; RESP 20; TEMP 95.9; O2SAT 94
[2016-09-12] MEDS: VANCOMYCIN INJ 1,500 MG in SODIUM CHLORID 0.9% 500 ML INJ 500 ML IV SCH ×2 (05:00→17:18)
[2016-09-12 07:06] VITALS: BP 125/75; PULSE 67; RESP 18; TEMP 97.1; O2SAT 96
[2016-09-12] MEDS: REMOVE OLD PATCH T-DERMAL SCH (09:00)
[2016-09-12] MEDS: SODIUM CHLORIDE 0.9% FLUSH 5 ML FLUSH IVF SCH ×2 (09:00→20:28)
[2016-09-12] MEDS: FERROUS SULFATE 325 MG (65 MG ELEMENTAL IRON) TAB PO SCH ×2 (09:34→20:31)
[2016-09-12] MEDS: DOCUSATE SODIUM 50 MG/SENNA 8.6 MG TAB PO SCH ×2 (09:34→20:31)
[2016-09-12] MEDS: MULTIVITAMINS/MINERALS THERAPEUTIC TAB PO SCH (09:34)
[2016-09-12] MEDS: HEPARIN SODIUM - SQ 10,000 UNITS/ML VIAL SQ SCH ×2 (09:34→20:34)
[2016-09-12] MEDS: CALCIUM/VITAMIN D 250 MG/125 U TAB PO SCH ×3 (09:35→17:18)
[2016-09-12] MEDS: THIAMINE HCL 100 MG TAB PO SCH (09:35)
[2016-09-12] MEDS: FOLIC ACID 1 MG TAB PO SCH (09:35)
[2016-09-12] MEDS: NICOTINE 21 MG/24 HR PATCH T-DERMAL SCH (09:36)
--- NOTE | 2016-09-12 10:04 | HHI.PR ---
Subjective Remarks Patient in nad. Pain is controlled by meds. Denies any fevers or chills. He is eating well. No cp, sob. Discussed with the CM for DC plan. Objective Vitals Vital Signs Date Time Temp Pulse Resp B/P Pulse Ox O2 Delivery O2 Flow Rate FiO2 09/12/16 07:06 97.1 67 18 125/75 96 09/12/16 04:55 19 09/12/16 04:01 95.9 72 20 127/69 94 09/12/16 00:00 96.4 79 20 119/82 94 09/11/16 21:27 97.9 77 20 121/74 98 09/11/16 17:53 97.9 75 20 115/71 96 09/11/16 13:12 98.3 78 20 101/60 95 I/O 09/11/16 09/11/16 09/11/16 09/12/16 09/12/16 09/12/16 07:00 15:00 23:00 07:00 15:00 23:00 Intake Total 960 ml 960 ml 986 ml Output Total 1300 ml 2100 ml 1300 ml Balance -1300 ml 960 ml -1140 ml -314 ml Intake Oral 960 ml 960 ml IV Total 986 ml Output Urine Total 1300 ml 2100 ml 1300 ml # Bowel Movements 0 1 1 Result Diagram: 09/10/16 1115 Objective Remarks GENERAL: 61 yo male, appearing older than the stated age, in bed, appears in nad. SKIN: Warm and dry. Silas bandage wrapped around lower right leg with small gauze bandage noted above right knee. Wound site was clean and without redness or streaking. Wound vac in place. HEAD: Normocephalic. EYES: No scleral icterus. No injection or drainage. NECK: Supple, trachea midline. No JVD or lymphadenopathy. CARDIOVASCULAR: Regular rate and rhythm without murmurs, gallops, or rubs. RESPIRATORY: Breath sounds equal bilaterally. No accessory muscle use. GASTROINTESTINAL: Abdomen soft, non-tender, nondistended. MUSCULOSKELETAL: No cyanosis, or edema. Wound vac attached to right knee, blood noted in wound vac. BACK: Nontender without obvious deformity. Procedures S/P Arthrotomy of right knee with irrigation and drain (not infected). Irrigation and debridement has and screen bursitis, infected with debridement of skin subcutaneous tissue muscle and bone on 09/06/[address] Rodriguez, ortho A/P Assessment and Plan Rheumatoid/inflammatory arthropathy right knee, chronic (not infected). Pes Anserene bursitis, infected, right knee. Cultures with E Coli. S/P Arthrotomy of right knee with irrigation and drain (not infected). Irrigation and debridement has and screen bursitis, infected with debridement of skin subcutaneous tissue muscle and bone on 09/07/[address] Rodriguez, ortho Orthopedics continues to follow, note reviewed. PT/OT Pain control Microbiology final report still pending. Continue Vancomycin IV ID following, appreciate recommendations Nicotine abuse: Pt with nicotine patch in place. Discussed with the patient. nurse Discharge when improved and cleared by consultants. Patient with wound vac, difficult discharge. Case management consulted for DC plan. Sanjuana Rodriguez MD Sep 12, 2016 10:04
[2016-09-12] MEDS ORDERED: FERR325T PO (11:45)
[2016-09-12] MEDS ORDERED: OYST250T4 PO (11:45)
[2016-09-12] MEDS ORDERED: VITA100T2 PO (11:45)
[2016-09-12] MEDS ORDERED: NORC5TAB PO (11:45)
[2016-09-12] MEDS ORDERED: FOLI1TAB4 PO (11:45)
--- NOTE | 2016-09-12 11:49 | HHI.DCPOC ---
Discharge Care Plan Goals to Promote Your Health * To prevent worsening of your condition and complications * To maintain your health at the optimal level Directions to Meet Your Goals Take your medications as prescribed Follow your dietary instruction Follow activity as directed Keep your appointments as scheduled Take your immunizations and boosters as scheduled If your symptoms worsen call your PCP, if no PCP go to Urgent Care Center or Emergency Room Smoking is Dangerous to Your Health. Avoid second hand smoke Call the 24-hour hour crisis hotline for domestic abuse at Sanjuana Rodriguez MD Sep 12, 2016 11:49
[2016-09-12 11:53] VITALS: BP 106/69; PULSE 70; RESP 18; TEMP 96.6; O2SAT 96
[2016-09-12] MEDS: cefTRIAXone INJ 2,000 MG in SODIUM CHLORIDE 0.9% INJ 100 ML IV SCH (15:35)
[2016-09-12 15:40] VITALS: BP 106/70; PULSE 74; RESP 18; TEMP 97.7; O2SAT 97
[2016-09-12 20:29] VITALS: BP 111/70; PULSE 77; RESP 20; TEMP 98.4; O2SAT 95
[2016-09-12] MEDS: MIRTAZAPINE 15 MG TAB PO SCH (20:31)
[2016-09-12] MEDS: QUEtiapine FUMARATE 100 MG TAB PO SCH (20:31)
[2016-09-13 00:44] VITALS: BP 111/74; PULSE 78; RESP 20; TEMP 98.2; O2SAT 93
[2016-09-13] MEDS: ACETAMINOPHEN/HYDROcodone 325 MG/5 MG TAB PO PRN ×3 (04:32→17:41)
[2016-09-13] MEDS ORDERED: PHARMACY ORDERED LAB ONE (04:45)
[2016-09-13] MEDS: VANCOMYCIN INJ 1,500 MG in SODIUM CHLORID 0.9% 500 ML INJ 500 ML IV SCH (04:57)
[2016-09-13 05:11] VITALS: BP 121/70; PULSE 74; RESP 22; TEMP 97.9; O2SAT 94
[2016-09-13] MEDS: LACTATED RINGER'S 1000 ML INJ 1,000 ML IV SCH ×2 (07:35→13:50)
[2016-09-13 08:00] VITALS: BP 110/68; PULSE 70; RESP 18; TEMP 96.9; O2SAT 95
[2016-09-13] MEDS: NICOTINE 21 MG/24 HR PATCH T-DERMAL SCH (08:09)
[2016-09-13] MEDS: CALCIUM/VITAMIN D 250 MG/125 U TAB PO SCH ×3 (08:10→17:41)
[2016-09-13] MEDS: FERROUS SULFATE 325 MG (65 MG ELEMENTAL IRON) TAB PO SCH ×2 (08:10→22:09)
[2016-09-13] MEDS: SODIUM CHLORIDE 0.9% FLUSH 5 ML FLUSH IVF SCH ×2 (08:10→22:09)
[2016-09-13] MEDS: THIAMINE HCL 100 MG TAB PO SCH (08:10)
[2016-09-13] MEDS: HEPARIN SODIUM - SQ 10,000 UNITS/ML VIAL SQ SCH ×2 (08:10→22:04)
[2016-09-13] MEDS: DOCUSATE SODIUM 50 MG/SENNA 8.6 MG TAB PO SCH ×2 (08:10→22:04)
[2016-09-13] MEDS: MULTIVITAMINS/MINERALS THERAPEUTIC TAB PO SCH (08:10)
[2016-09-13] MEDS: FOLIC ACID 1 MG TAB PO SCH (08:11)
[2016-09-13] MEDS: REMOVE OLD PATCH T-DERMAL SCH (08:11)
[2016-09-13 12:01] VITALS: BP 120/72; PULSE 70; RESP 18; TEMP 95.8; O2SAT 94
[2016-09-13] MEDS: cefTRIAXone INJ 2,000 MG in SODIUM CHLORIDE 0.9% INJ 100 ML IV SCH (13:50)
--- NOTE | 2016-09-13 13:50 | HHI.PR ---
Subjective Remarks Patient appears in nad. No fevers or chills. He is eating well. Pain is controlled by meds. Wound vac in place with drainage. No n/v/d/c. Denies chest pair or sob. Objective Vitals Vital Signs Date Time Temp Pulse Resp B/P Pulse Ox O2 Delivery O2 Flow Rate FiO2 09/13/16 12:01 95.8 70 18 120/72 94 09/13/16 08:00 96.9 70 18 110/68 95 09/13/16 05:11 97.9 74 22 121/70 94 09/13/16 00:44 98.2 78 20 111/74 93 09/12/16 20:29 98.4 77 20 111/70 95 09/12/16 15:40 97.7 74 18 106/70 97 I/O 09/12/16 09/12/16 09/12/16 09/13/16 09/13/16 09/13/16 07:00 15:00 23:00 07:00 15:00 23:00 Intake Total 986 ml 1950 ml Output Total 1300 ml 2000 ml 2000 ml Balance -314 ml -2000 ml -50 ml Intake Oral 1200 ml IV Total 986 ml 750 ml Output Urine Total 1300 ml 2000 ml 2000 ml # Voids 2 # Bowel Movements 1 2 Result Diagram: 09/12/16 0835 Objective Remarks GENERAL: 61 yo male, appearing older than the stated age, in bed, appears in nad. SKIN: Warm and dry. Silas bandage wrapped around lower right leg with small gauze bandage noted above right knee. Wound site was clean and without redness or streaking. Wound vac in place. HEAD: Normocephalic. EYES: No scleral icterus. No injection or drainage. NECK: Supple, trachea midline. No JVD or lymphadenopathy. CARDIOVASCULAR: Regular rate and rhythm without murmurs, gallops, or rubs. RESPIRATORY: Breath sounds equal bilaterally. No accessory muscle use. GASTROINTESTINAL: Abdomen soft, non-tender, nondistended. MUSCULOSKELETAL: No cyanosis, or edema. Wound vac attached to right knee, blood noted in wound vac. BACK: Nontender without obvious deformity. Procedures S/P Arthrotomy of right knee with irrigation and drain (not infected). Irrigation and debridement has and screen bursitis, infected with debridement of skin subcutaneous tissue muscle and bone on 09/06/[address] Rodriguez, ortho A/P Assessment and Plan Rheumatoid/inflammatory arthropathy right knee, chronic (not infected). Pes Anserene bursitis, infected, right knee. Cultures with E Coli. S/P Arthrotomy of right knee with irrigation and drain (not infected). Irrigation and debridement has and screen bursitis, infected with debridement of skin subcutaneous tissue muscle and bone on 09/07/[address] Rodriguez, ortho Orthopedics continues to follow, note reviewed. PT/OT Pain control Blood cx NTD Continue Vancomycin IV ID following, appreciate recommendations Nicotine abuse: Pt with nicotine patch in place. Discussed with the patient. nurse Discharge when improved and cleared by consultants. ID for abx at DC. Patient with wound vac, difficult discharge... Case management following, looking for SNF placement. Case management consulted for DC plan. Sanjuana Rodriguez MD Sep 13, 2016 13:49
[2016-09-13 15:52] VITALS: BP 107/65; PULSE 71; RESP 18; TEMP 99; O2SAT 96
[2016-09-13 19:57] VITALS: BP 105/62; PULSE 76; RESP 16; TEMP 97.1; O2SAT 96
[2016-09-13] MEDS: MIRTAZAPINE 15 MG TAB PO SCH (22:03)
[2016-09-13] MEDS: QUEtiapine FUMARATE 100 MG TAB PO SCH (22:04)
[2016-09-14 00:21] VITALS: BP 118/61; PULSE 86; RESP 18; TEMP 97.9; O2SAT 95
[2016-09-14] MEDS: VANCOMYCIN INJ 1,500 MG in SODIUM CHLORID 0.9% 500 ML INJ 500 ML IV SCH ×2 (01:08→17:36)
[2016-09-14 04:00] VITALS: BP 105/69; PULSE 76; RESP 18; TEMP 97.8; O2SAT 96
[2016-09-14 07:40] VITALS: BP 119/69; PULSE 66; RESP 18; TEMP 96.7; O2SAT 96
[2016-09-14] MEDS: FOLIC ACID 1 MG TAB PO SCH (09:07)
[2016-09-14] MEDS: CALCIUM/VITAMIN D 250 MG/125 U TAB PO SCH ×3 (09:07→17:35)
[2016-09-14] MEDS: ACETAMINOPHEN/HYDROcodone 325 MG/5 MG TAB PO PRN ×2 (09:08→17:35)
[2016-09-14] MEDS: THIAMINE HCL 100 MG TAB PO SCH (09:08)
[2016-09-14] MEDS: FERROUS SULFATE 325 MG (65 MG ELEMENTAL IRON) TAB PO SCH ×2 (09:08→21:14)
[2016-09-14] MEDS: DOCUSATE SODIUM 50 MG/SENNA 8.6 MG TAB PO SCH ×2 (09:08→21:14)
[2016-09-14] MEDS: MULTIVITAMINS/MINERALS THERAPEUTIC TAB PO SCH (09:08)
[2016-09-14] MEDS: HEPARIN SODIUM - SQ 10,000 UNITS/ML VIAL SQ SCH ×2 (09:09→21:14)
[2016-09-14] MEDS: NICOTINE 21 MG/24 HR PATCH T-DERMAL SCH (09:10)
[2016-09-14] MEDS: SODIUM CHLORIDE 0.9% FLUSH 5 ML FLUSH IVF SCH ×2 (09:14→21:00)
[2016-09-14] MEDS: REMOVE OLD PATCH T-DERMAL SCH (09:15)
[2016-09-14 11:47] VITALS: BP 104/73; PULSE 74; RESP 18; TEMP 95.9; O2SAT 97
--- NOTE | 2016-09-14 11:52 | HHI.PR ---
Subjective Remarks Eating . Says she had more pain in the morning. No n/v/d/c. Denies fevers or chills. Objective Vitals Vital Signs Date Time Temp Pulse Resp B/P Pulse Ox O2 Delivery O2 Flow Rate FiO2 09/14/16 11:47 95.9 74 18 104/73 97 09/14/16 07:40 96.7 66 18 119/69 96 09/14/16 04:00 97.8 76 18 105/69 96 09/14/16 00:21 97.9 86 18 118/61 95 09/13/16 19:57 97.1 76 16 105/62 96 09/13/16 15:52 99.0 71 18 107/65 96 09/13/16 12:01 95.8 70 18 120/72 94 I/O 09/13/16 09/13/16 09/13/16 09/14/16 09/14/16 09/14/16 07:00 15:00 23:00 07:00 15:00 23:00 Intake Total 1320 ml Output Total 800 ml 1500 ml 1000 ml Balance 1320 ml -800 ml -1500 ml -1000 ml Intake Oral 1320 ml Output Urine Total 800 ml 1500 ml 1000 ml # Voids 2 # Bowel Movements 1 0 1 Result Diagram: 09/14/16 0614 Objective Remarks GENERAL: 61 yo male, appearing older than the stated age, in bed, appears in nad. SKIN: Warm and dry. Silas bandage wrapped around lower right leg with small gauze bandage noted above right knee. Wound site was clean and without redness or streaking. Wound vac in place. HEAD: Normocephalic. EYES: No scleral icterus. No injection or drainage. NECK: Supple, trachea midline. No JVD or lymphadenopathy. CARDIOVASCULAR: Regular rate and rhythm without murmurs, gallops, or rubs. RESPIRATORY: Breath sounds equal bilaterally. No accessory muscle use. GASTROINTESTINAL: Abdomen soft, non-tender, nondistended. MUSCULOSKELETAL: No cyanosis, or edema. Wound vac attached to right knee, blood noted in wound vac. BACK: Nontender without obvious deformity. Procedures S/P Arthrotomy of right knee with irrigation and drain (not infected). Irrigation and debridement has and screen bursitis, infected with debridement of skin subcutaneous tissue muscle and bone on 09/06/[address] Rodriguez, ortho A/P Assessment and Plan Rheumatoid/inflammatory arthropathy right knee, chronic (not infected). Pes Anserene bursitis, infected, right knee. Cultures with E Coli. S/P Arthrotomy of right knee with irrigation and drain (not infected). Irrigation and debridement has and screen bursitis, infected with debridement of skin subcutaneous tissue muscle and bone on 09/07/[address] Rodriguez, ortho Orthopedics continues to follow, note reviewed. PT/OT Pain control Blood cx NTD Continue Vancomycin IV ID following, appreciate recommendations Nicotine abuse: Pt with nicotine patch in place. Discussed with the patient. nurse Discharge when improved and cleared by consultants. ID for abx at DC. Patient with wound vac, difficult discharge... Case management following, looking for SNF placement. Case management consulted for DC plan. Sanjuana Rodriguez MD Sep 14, 2016 11:52
[2016-09-14] MEDS: cefTRIAXone INJ 2,000 MG in SODIUM CHLORIDE 0.9% INJ 100 ML IV SCH (14:14)
[2016-09-14 16:00] VITALS: BP 111/64; PULSE 74; RESP 18; TEMP 97.5; O2SAT 97
--- NOTE | 2016-09-14 19:08 | HHI.PR ---
Addendum to Inpatient Note Addendum Reason: Additional Documentation Additional Information mohit Aviles about DC planning issues. Patient is homeless and DME such as wound vac needed on dc. If wound vac removed or placement arranged please call me so I can help with DC planning. While in hospital please continue IV antibiotics as prescribed. Will follow next week with case management re: follow up on DC planning. Marlee Avery MD Sep 14, 2016 19:08
[2016-09-14 20:00] VITALS: BP 113/69; PULSE 75; RESP 20; TEMP 97.8; O2SAT 94
[2016-09-14] MEDS: MIRTAZAPINE 15 MG TAB PO SCH (21:14)
[2016-09-14] MEDS: QUEtiapine FUMARATE 100 MG TAB PO SCH (21:14)
[2016-09-14] MEDS: diphenhydrAMINE HCL 50 MG CAP PO PRN (21:15)
[2016-09-14] MEDS: LACTATED RINGER'S 1000 ML INJ 1,000 ML IV SCH (23:35)
[2016-09-15] VITALS: BP 118/61; PULSE 82; RESP 20; TEMP 97.1; O2SAT 94
[2016-09-15 04:00] VITALS: BP 117/63; PULSE 77; RESP 20; TEMP 97.5; O2SAT 95
[2016-09-15] MEDS: ACETAMINOPHEN/HYDROcodone 325 MG/5 MG TAB PO PRN ×3 (07:17→20:04)
[2016-09-15 07:35] VITALS: BP 111/70; PULSE 76; RESP 20; TEMP 96.2; O2SAT 96
[2016-09-15] MEDS: DOCUSATE SODIUM 50 MG/SENNA 8.6 MG TAB PO SCH ×2 (09:00→22:19)
[2016-09-15] MEDS: FOLIC ACID 1 MG TAB PO SCH (09:00)
[2016-09-15] MEDS: FERROUS SULFATE 325 MG (65 MG ELEMENTAL IRON) TAB PO SCH ×2 (09:00→22:20)
[2016-09-15] MEDS: REMOVE OLD PATCH T-DERMAL SCH (09:00)
[2016-09-15] MEDS: CALCIUM/VITAMIN D 250 MG/125 U TAB PO SCH ×3 (09:00→17:13)
[2016-09-15] MEDS: THIAMINE HCL 100 MG TAB PO SCH (09:00)
[2016-09-15] MEDS: SODIUM CHLORIDE 0.9% FLUSH 5 ML FLUSH IVF SCH ×2 (09:01→21:00)
[2016-09-15] MEDS: HEPARIN SODIUM - SQ 10,000 UNITS/ML VIAL SQ SCH ×2 (09:01→22:22)
[2016-09-15] MEDS: MULTIVITAMINS/MINERALS THERAPEUTIC TAB PO SCH (09:01)
[2016-09-15] MEDS: NICOTINE 21 MG/24 HR PATCH T-DERMAL SCH (09:01)
[2016-09-15] MEDS: VANCOMYCIN INJ 1,500 MG in SODIUM CHLORID 0.9% 500 ML INJ 500 ML IV SCH (11:29)
[2016-09-15] MEDS: LACTATED RINGER'S 1000 ML INJ 1,000 ML IV SCH ×2 (11:29→19:35)
[2016-09-15 11:55] VITALS: BP 104/61; PULSE 77; RESP 20; TEMP 97; O2SAT 94
[2016-09-15 16:01] VITALS: BP 104/67; PULSE 72; RESP 20; TEMP 96.9; O2SAT 95
[2016-09-15] MEDS: cefTRIAXone INJ 2,000 MG in SODIUM CHLORIDE 0.9% INJ 100 ML IV SCH (16:07)
[2016-09-15 20:00] VITALS: BP 118/67; PULSE 75; RESP 20; TEMP 97.8; O2SAT 97
[2016-09-15] MEDS: diphenhydrAMINE HCL 50 MG CAP PO PRN (22:20)
[2016-09-15] MEDS: MIRTAZAPINE 15 MG TAB PO SCH (22:20)
[2016-09-15] MEDS: QUEtiapine FUMARATE 100 MG TAB PO SCH (22:21)
[2016-09-15] MEDS: HYDROmorphone HCL PF 1 MG/ML VIAL IV PUSH PRN (22:23)
--- NOTE | 2016-09-15 23:51 | HHI.PR ---
Subjective Remarks Patient seen this morning. Denies any chest pain or shortness of breath. Reports that knee pain continues, currently controlled. Objective Vital Signs Date Time Temp Pulse Resp B/P Pulse Ox O2 Delivery O2 Flow Rate FiO2 09/15/16 20:00 97.8 75 20 118/67 97 09/15/16 16:01 96.9 72 20 104/67 95 09/15/16 11:55 97.0 77 20 104/61 94 09/15/16 07:35 96.2 76 20 111/70 96 09/15/16 04:00 97.5 77 20 117/63 95 09/15/16 00:00 97.1 82 20 118/61 94 I/O 09/14/16 09/14/16 09/14/16 09/15/16 09/15/16 09/15/16 07:00 15:00 23:00 07:00 15:00 23:00 Intake Total 960 ml 240 ml 1507 ml 1040 ml Output Total 1500 ml 1000 ml 1725 ml 700 ml 1350 ml 1000 ml Balance -1500 ml -1000 ml -765 ml -460 ml 157 ml 40 ml Intake Oral 960 ml 240 ml 1200 ml 1040 ml IV Total 307 ml Output Urine Total 1500 ml 1000 ml 1400 ml 700 ml 1300 ml 1000 ml Drainage Total 325 ml 50 ml # Bowel Movements 0 1 1 0 1 0 Result Diagram: 09/14/16 0614 Objective Remarks GENERAL: patient sitting up in bed. Appears comfortable. SKIN: Warm and dry. HEAD: Normocephalic. EYES: No scleral icterus. No injection or drainage. NECK: Supple, trachea midline. No JVD or lymphadenopathy. CARDIOVASCULAR: Regular rate and rhythm without murmurs, gallops, or rubs. RESPIRATORY: Breath sounds equal bilaterally. No accessory muscle use. GASTROINTESTINAL: Abdomen soft, non-tender, nondistended. MUSCULOSKELETAL: No cyanosis, or edema. right knee with slight effusion, no erythema. Wound VAC in place medial aspect of knee. BACK: Nontender without obvious deformity. No CVA tenderness. A/P Assessment and Plan //Rheumatoid/inflammatory arthropathy right knee, chronic (not infected). //Pes Anserene bursitis, infected, right knee. Cultures with E Coli. S/P Arthrotomy of right knee with irrigation and drain (not infected). Irrigation and debridement has and screen bursitis, infected with debridement of skin subcutaneous tissue muscle and bone on 09/07/[address] Rodriguez, ortho Orthopedics continues to follow, appreciate assistance. PT/OT Pain control Blood cx NTD Continue Vancomycin IV -continues with wound VAC. ID following, appreciate recommendations //Nicotine abuse: Pt with nicotine patch in place. Discharge Planning Discharge when improved and cleared by consultants. ID for abx at DC. Patient with wound vac, difficult discharge. -Case management following, looking for SNF placement. Manpreet Betancourt MD Sep 15, 2016 23:51
[2016-09-16] VITALS: BP 108/63; PULSE 77; RESP 20; TEMP 96.8; O2SAT 94
[2016-09-16] MEDS: ACETAMINOPHEN/HYDROcodone 325 MG/5 MG TAB PO PRN ×4 (02:36→22:23)
[2016-09-16 04:00] VITALS: BP 113/65; PULSE 74; RESP 20; TEMP 97.6; O2SAT 95
[2016-09-16] MEDS: LACTATED RINGER'S 1000 ML INJ 1,000 ML IV SCH ×2 (05:35→15:05)
[2016-09-16] MEDS ORDERED: PHARMACY ORDERED LAB ONE (05:45)
[2016-09-16] MEDS: VANCOMYCIN INJ 1,500 MG in SODIUM CHLORID 0.9% 500 ML INJ 500 ML IV SCH ×2 (05:46→18:15)
[2016-09-16 07:34] VITALS: BP 104/67; PULSE 68; RESP 20; TEMP 95.8; O2SAT 95
[2016-09-16] MEDS: CALCIUM/VITAMIN D 250 MG/125 U TAB PO SCH ×3 (08:25→18:15)
[2016-09-16] MEDS: MULTIVITAMINS/MINERALS THERAPEUTIC TAB PO SCH (08:25)
[2016-09-16] MEDS: DOCUSATE SODIUM 50 MG/SENNA 8.6 MG TAB PO SCH ×2 (08:25→22:17)
[2016-09-16] MEDS: FOLIC ACID 1 MG TAB PO SCH (08:25)
[2016-09-16] MEDS: THIAMINE HCL 100 MG TAB PO SCH (08:25)
[2016-09-16] MEDS: FERROUS SULFATE 325 MG (65 MG ELEMENTAL IRON) TAB PO SCH ×2 (08:25→22:17)
[2016-09-16] MEDS: REMOVE OLD PATCH T-DERMAL SCH (08:26)
[2016-09-16] MEDS: HEPARIN SODIUM - SQ 10,000 UNITS/ML VIAL SQ SCH ×2 (08:26→22:18)
[2016-09-16] MEDS: NICOTINE 21 MG/24 HR PATCH T-DERMAL SCH (08:26)
[2016-09-16] MEDS: SODIUM CHLORIDE 0.9% FLUSH 5 ML FLUSH IVF SCH ×2 (08:27→21:00)
[2016-09-16] MEDS: HYDROmorphone HCL PF 1 MG/ML VIAL IV PUSH PRN ×2 (10:28→18:15)
[2016-09-16 12:10] VITALS: BP 109/69; PULSE 74; RESP 20; TEMP 96.7; O2SAT 94
[2016-09-16] MEDS ORDERED: MORPHINE SULFATE 4 MG/ML INJ IV PUSH ONE (13:45)
[2016-09-16] MEDS ORDERED: DOCUSATE SODIUM 50 MG/SENNA 8.6 MG TAB PO ONE (13:45)
[2016-09-16] MEDS: cefTRIAXone INJ 2,000 MG in SODIUM CHLORIDE 0.9% INJ 100 ML IV SCH (14:38)
[2016-09-16 15:08] VITALS: BP 104/69; PULSE 104; RESP 20; TEMP 98.7; O2SAT 94
[2016-09-16 20:00] VITALS: BP_SYST 108; BP_SYST 143; BP_DIAS 69; BP_DIAS 70; PULSE 79; PULSE 80; RESP 20; TEMP 96.6; TEMP 96.7; O2SAT 93; O2SAT 96
[2016-09-16] MEDS: QUEtiapine FUMARATE 100 MG TAB PO SCH (22:17)
[2016-09-16] MEDS: MIRTAZAPINE 15 MG TAB PO SCH (22:17)
[2016-09-16] MEDS: DOCUSATE SODIUM 100 MG CAP PO SCH (22:17)
[2016-09-16] MEDS: diphenhydrAMINE HCL 50 MG CAP PO PRN (22:23)
--- NOTE | 2016-09-16 23:33 | HHI.PR ---
Subjective Remarks patient seen this afternoon. Reports that knee pain slightly worse. Denies any chest pain or shortness of breath patient reports effusion in right knee slightly worse than yesterday.Discussed with nursing. Nursing will notify orthopedics. Objective Vital Signs Date Time Temp Pulse Resp B/P Pulse Ox O2 Delivery O2 Flow Rate FiO2 09/16/16 20:00 96.6 80 20 108/70 93 09/16/16 15:08 98.7 104 20 104/69 94 09/16/16 12:10 96.7 74 20 109/69 94 09/16/16 07:34 95.8 68 20 104/67 95 09/16/16 04:00 97.6 74 20 113/65 95 09/16/16 00:00 96.8 77 20 108/63 94 I/O 09/15/16 09/15/16 09/15/16 09/16/16 09/16/16 09/16/16 07:00 15:00 23:00 07:00 15:00 23:00 Intake Total 240 ml 1507 ml 1040 ml 480 ml 720 ml Output Total 700 ml 1350 ml 1000 ml 1000 ml 1050 ml Balance -460 ml 157 ml 40 ml -520 ml -330 ml Intake Oral 240 ml 1200 ml 1040 ml 480 ml 720 ml IV Total 307 ml Output Urine Total 700 ml 1300 ml 1000 ml 1000 ml 1050 ml Drainage Total 50 ml # Bowel Movements 0 1 0 0 1 Result Diagram: 09/16/16 0545 A/P Assessment and Plan 09/16. patient seen and examined. Patient requesting increased pain meds. Very slight increase in right knee effusion, without any redness.. Nursing will notify orthopedics. //Rheumatoid/inflammatory arthropathy right knee, chronic (not infected). //Pes Anserene bursitis, infected, right knee. Cultures with E Coli. S/P Arthrotomy of right knee with irrigation and drain (not infected). Irrigation and debridement has and screen bursitis, infected with debridement of skin subcutaneous tissue muscle and bone on 09/07/[address] Rodriguez, ortho Orthopedics continues to follow, appreciate assistance. PT/OT Pain control Blood cx NTD Continue Vancomycin IV -continues with wound VAC. ID following, appreciate recommendations //Nicotine abuse: Pt with nicotine patch in place. Discharge Planning Discharge when improved and cleared by consultants. ID for abx at [place]. Patient with wound vac, difficult discharge. -Case management following, looking for SNF placement. Manpreet Betancourt MD Sep 16, 2016 23:33
[2016-09-17] VITALS: BP 114/73; PULSE 77; RESP 20; TEMP 96.6; O2SAT 94
[2016-09-17] MEDS: LACTATED RINGER'S 1000 ML INJ 1,000 ML IV SCH ×3 (01:35→22:37)
[2016-09-17 04:00] VITALS: BP 132/73; PULSE 82; RESP 20; TEMP 96.5; O2SAT 95
[2016-09-17] MEDS: VANCOMYCIN INJ 1,500 MG in SODIUM CHLORID 0.9% 500 ML INJ 500 ML IV SCH ×2 (05:44→16:58)
[2016-09-17] MEDS: ACETAMINOPHEN/HYDROcodone 325 MG/5 MG TAB PO PRN (05:58)
[2016-09-17 07:58] VITALS: BP 108/69; PULSE 73; RESP 20; TEMP 96.6; O2SAT 93
[2016-09-17] MEDS: NICOTINE 21 MG/24 HR PATCH T-DERMAL SCH (08:58)
[2016-09-17] MEDS: MULTIVITAMINS/MINERALS THERAPEUTIC TAB PO SCH (08:58)
[2016-09-17] MEDS: DOCUSATE SODIUM 50 MG/SENNA 8.6 MG TAB PO SCH ×2 (08:58→22:32)
[2016-09-17] MEDS: HEPARIN SODIUM - SQ 10,000 UNITS/ML VIAL SQ SCH ×2 (08:58→22:33)
[2016-09-17] MEDS: DOCUSATE SODIUM 100 MG CAP PO SCH ×2 (08:58→22:33)
[2016-09-17] MEDS: FERROUS SULFATE 325 MG (65 MG ELEMENTAL IRON) TAB PO SCH ×2 (08:58→22:33)
[2016-09-17] MEDS: THIAMINE HCL 100 MG TAB PO SCH (08:58)
[2016-09-17] MEDS: SODIUM CHLORIDE 0.9% FLUSH 5 ML FLUSH IVF SCH ×2 (08:58→21:00)
[2016-09-17] MEDS: FOLIC ACID 1 MG TAB PO SCH (08:58)
[2016-09-17] MEDS: CALCIUM/VITAMIN D 250 MG/125 U TAB PO SCH ×3 (08:58→16:58)
[2016-09-17] MEDS: REMOVE OLD PATCH T-DERMAL SCH (08:59)
[2016-09-17] MEDS: HYDROmorphone HCL PF 1 MG/ML VIAL IV PUSH PRN ×3 (09:05→22:33)
[2016-09-17 10:33] LABS: AUTOMATED NEUTROPHIL # 4.8 TH/MM3 (1.8-7.7); BASOPHIL # 0.3 TH/MM3 (0-0.2); BASOPHIL % 2.6 % (0.0-2.0); EOSINOPHIL # 3.1 TH/MM3 (0-0.4); EOSINOPHIL % 28.5 % (0.0-4.0); HEMATOCRIT 32.7 % (39.0-51.0); HEMO FLAGS DIFF FINAL; LYMPH % 14.7 % (9.0-44.0); LYMPHOCYTE # 1.6 TH/MM3 (1.0-4.8); MEAN CELL VOLUME 96.8 FL (80.0-100.0); MEAN CORPUSCULAR HEMOGLOBIN 31.5 PG (27.0-34.0); MEAN CORPUSCULAR HGB CONC 32.6 % (32.0-36.0); MONO % 10.6 % (0.0-8.0); NEUT % 43.6 % (16.0-70.0); PLATELET COUNT 391 TH/MM3 (150-450); RED BLOOD COUNT 3.38 MIL/MM3 (4.50-5.90); RED CELL DISTRIBUTION WIDTH 16.4 % (11.6-17.2)
[2016-09-17 10:52] LABS: BICARBONATE 29.4 MEQ/L (21.0-32.0); MAGNESIUM 2.1 MG/DL (1.5-2.5); POTASSIUM 4.2 MEQ/L (3.5-5.1)
[2016-09-17 11:55] VITALS: BP 122/80; PULSE 77; RESP 20; TEMP 98.4; O2SAT 96
[2016-09-17] MEDS: cefTRIAXone INJ 2,000 MG in SODIUM CHLORIDE 0.9% INJ 100 ML IV SCH (14:15)
[2016-09-17 15:47] VITALS: BP 107/70; PULSE 76; RESP 20; TEMP 96.4; O2SAT 96
--- NOTE | 2016-09-17 19:18 | HHI.PR ---
Subjective Remarks patient seen this afternoon. sleeping, wakes up for exam. says that right knee pain slightly worse again today. Denies any fevers or chills. Denies any chest pain or shortness of breath. Objective Vital Signs Date Time Temp Pulse Resp B/P Pulse Ox O2 Delivery O2 Flow Rate FiO2 09/17/16 15:47 96.4 76 20 107/70 96 09/17/16 11:55 98.4 77 20 122/80 96 09/17/16 07:58 96.6 73 20 108/69 93 09/17/16 04:00 96.5 82 20 132/73 95 09/17/16 00:00 96.6 77 20 114/73 94 09/16/16 20:00 96.6 80 20 108/70 93 I/O 09/16/16 09/16/16 09/16/16 09/17/16 09/17/16 09/17/16 07:00 15:00 23:00 07:00 15:00 23:00 Intake Total 480 ml 720 ml 960 ml 240 ml 1210 ml Output Total 1000 ml 1050 ml 1000 ml 600 ml 375 ml Balance -520 ml -330 ml -40 ml -360 ml 835 ml Intake Oral 480 ml 720 ml 960 ml 240 ml 960 ml IV Total 250 ml Output Urine Total 1000 ml 1050 ml 1000 ml 600 ml 375 ml # Voids 1 # Bowel Movements 0 1 0 0 1 Result Diagram: 09/17/16 1001 09/17/16 1001 Objective Remarks GENERAL: patient sitting up in bed. Appears comfortable. SKIN: Warm and dry. HEAD: Normocephalic. EYES: No scleral icterus. No injection or drainage. NECK: Supple, trachea midline. No JVD or lymphadenopathy. CARDIOVASCULAR: Regular rate and rhythm without murmurs, gallops, or rubs. RESPIRATORY: Breath sounds equal bilaterally. No accessory muscle use. GASTROINTESTINAL: Abdomen soft, non-tender, nondistended. MUSCULOSKELETAL: No cyanosis, or edema. right knee with slight effusion, no appreciable change.no erythema. Wound VAC in place medial aspect of knee. BACK: Nontender without obvious deformity. No CVA tenderness. A/P Assessment and Plan 09/17. Patient seen and examined. pain appears be controlled. we'll seek orthopedic input regarding need for continued wound VAC. //Rheumatoid/inflammatory arthropathy right knee, chronic (not infected). //Pes Anserene bursitis, infected, right knee. Cultures with E Coli. S/P Arthrotomy of right knee with irrigation and drain (not infected). Irrigation and debridement has and screen bursitis, infected with debridement of skin subcutaneous tissue muscle and bone on 09/07/[address] Rodriguez, ortho Orthopedics continues to follow, appreciate assistance. PT/OT Pain control Blood cx NTD Continue Vancomycin IV -continues with wound VAC. ID following, appreciate recommendations //Nicotine abuse: Pt with nicotine patch in place. Discharge Planning Discharge when improved and cleared by consultants. ID for abx at [place]. Patient with wound vac, difficult discharge. -Case management following, looking for SNF placement. Manpreet Betancourt MD September 17, 2016 19:18
[2016-09-17 19:30] VITALS: BP 123/77; PULSE 76; RESP 18; TEMP 98; O2SAT 96
[2016-09-17] MEDS: MIRTAZAPINE 15 MG TAB PO SCH (22:32)
[2016-09-17] MEDS: QUEtiapine FUMARATE 100 MG TAB PO SCH (22:33)
[2016-09-17] MEDS: diphenhydrAMINE HCL 50 MG CAP PO PRN (22:33)
[2016-09-18] VITALS: BP 107/67; PULSE 79; RESP 20; TEMP 96; O2SAT 97
[2016-09-18 04:00] VITALS: BP 134/72; PULSE 90; RESP 18; TEMP 97; O2SAT 97
[2016-09-18] MEDS: HYDROmorphone HCL PF 1 MG/ML VIAL IV PUSH PRN ×3 (04:24→19:55)
[2016-09-18] MEDS: VANCOMYCIN INJ 1,500 MG in SODIUM CHLORID 0.9% 500 ML INJ 500 ML IV SCH (05:42)
[2016-09-18] MEDS ORDERED: PHARMACY ORDERED LAB ONE (05:45)
--- NOTE | 2016-09-18 07:20 | PD.ORT.PN ---
Subjective Subjective Remarks No complaints. Pain under control. Wound VAC in place. I was asked to reevaluate for his right knee. Patient complains of increasing swelling in the region of the knee joint. Patient with known history of rheumatoid arthritis Objective Vitals Vital Signs Date Time Temp Pulse Resp B/P Pulse Ox O2 Delivery O2 Flow Rate FiO2 09/18/16 04:00 97.0 90 18 134/72 97 09/18/16 00:00 96.0 79 20 107/67 97 09/17/16 19:30 98.0 76 18 123/77 96 09/17/16 15:47 96.4 76 20 107/70 96 09/17/16 11:55 98.4 77 20 122/80 96 09/17/16 07:58 96.6 73 20 108/69 93 I/O 09/17/16 09/17/16 09/17/16 09/18/16 09/18/16 09/18/16 07:00 15:00 23:00 07:00 15:00 23:00 Intake Total 240 ml 1210 ml Output Total 600 ml 375 ml Balance -360 ml 835 ml Intake Oral 240 ml 960 ml IV Total 250 ml Output Urine Total 600 ml 375 ml # Voids 1 # Bowel Movements 0 1 Result Diagram: 09/17/16 1001 09/17/16 1001 Objective Remarks Dressing in place. Wound VAC in place. Wound VAC was taken down her Granulation tissue at base of the wound. This measures approximately 2 x 1.5 cm in a maximum depth of approximately 0.7 cm. Moderate effusion of the right knee. Not substantially change compared to previous evaluation. No redness, no warmth. Sutures 4 arthrotomy ready to be removed. They appear benign. Assessment & Plan Assessment and Plan Rheumatoid/inflammatory arthropathy right knee, chronic (not infected). Pes Anserene bursitis, infected, right knee. Arthrotomy of right knee with irrigation and drain (not infected), . Irrigation and debridement has and screen bursitis, infected with debridement of skin subcutaneous tissue muscle and bone, PLAN: IV antibiotics per ID discontinue wound VAC Moist to dry dressing change daily. There is no evidence of an intra-articular infection. This patient has very advanced rheumatoid arthritis. Likely that is causing his present effusion of the right knee which has been shown surgically to be noninfected. Consider treatment for rheumatoid arthritis per rheumatology recommendation Stable orthopedically Follow-up in 3-4 weeks. Thanh Rodriguez MD September 18, 2016 07:20
[2016-09-18 08:00] VITALS: BP 104/61; PULSE 77; RESP 20; TEMP 97.3; O2SAT 95
[2016-09-18] MEDS: SODIUM CHLORIDE 0.9% FLUSH 5 ML FLUSH IVF SCH (09:00)
[2016-09-18] MEDS: REMOVE OLD PATCH T-DERMAL SCH (09:00)
[2016-09-18] MEDS: CALCIUM/VITAMIN D 250 MG/125 U TAB PO SCH ×2 (09:03→12:38)
[2016-09-18] MEDS: FERROUS SULFATE 325 MG (65 MG ELEMENTAL IRON) TAB PO SCH ×2 (09:03→19:54)
[2016-09-18] MEDS: DOCUSATE SODIUM 50 MG/SENNA 8.6 MG TAB PO SCH (09:03)
[2016-09-18] MEDS: FOLIC ACID 1 MG TAB PO SCH (09:03)
[2016-09-18] MEDS: DOCUSATE SODIUM 100 MG CAP PO SCH ×2 (09:03→19:54)
[2016-09-18] MEDS: THIAMINE HCL 100 MG TAB PO SCH (09:03)
[2016-09-18] MEDS: HEPARIN SODIUM - SQ 10,000 UNITS/ML VIAL SQ SCH ×2 (09:04→19:54)
[2016-09-18] MEDS: MULTIVITAMINS/MINERALS THERAPEUTIC TAB PO SCH (09:07)
[2016-09-18 12:07] VITALS: BP 121/71; PULSE 85; RESP 20; TEMP 97; O2SAT 97
[2016-09-18] MEDS: cefTRIAXone INJ 2,000 MG in SODIUM CHLORIDE 0.9% INJ 100 ML IV SCH (15:06)
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
[2016-09-18 15:57] VITALS: BP 117/80; PULSE 79; RESP 20; TEMP 98.3; O2SAT 96
[2016-09-18] MEDS: QUEtiapine FUMARATE 100 MG TAB PO SCH (19:54)
[2016-09-18] MEDS: MIRTAZAPINE 15 MG TAB PO SCH (20:00)
[2016-09-18 20:24] VITALS: BP 111/69; PULSE 75; RESP 17; TEMP 97.6; O2SAT 98
--- NOTE | 2016-09-18 22:58 | HHI.PR ---
Subjective Remarks patient seen this afternoon around 1 PM. Patient says he is feeling all right. Denies any chest pain or shortness of breath. Reports pain controlled. Objective Vital Signs Date Time Temp Pulse Resp B/P Pulse Ox O2 Delivery O2 Flow Rate FiO2 09/18/16 20:24 97.6 75 17 111/69 98 09/18/16 15:57 98.3 79 20 117/80 96 09/18/16 12:07 97.0 85 20 121/71 97 09/18/16 08:00 97.3 77 20 104/61 95 09/18/16 04:00 97.0 90 18 134/72 97 09/18/16 00:00 96.0 79 20 107/67 97 I/O 09/17/16 09/17/16 09/17/16 09/18/16 09/18/16 09/18/16 07:00 15:00 23:00 07:00 15:00 23:00 Intake Total 240 ml 1210 ml 1200 ml 240 ml Output Total 600 ml 375 ml 1750 ml 500 ml Balance -360 ml 835 ml -550 ml -260 ml Intake Oral 240 ml 960 ml 1200 ml 240 ml IV Total 250 ml Output Urine Total 600 ml 375 ml 1750 ml 500 ml # Voids 1 3 # Bowel Movements 0 1 3 1 Result Diagram: 09/17/16 1001 09/18/16 1014 Objective Remarks GENERAL: patient sitting up in bed. Appears comfortable.alert and oriented 3. SKIN: Warm and dry. HEAD: Normocephalic. EYES: No scleral icterus. No injection or drainage. NECK: Supple, trachea midline. No JVD or lymphadenopathy. CARDIOVASCULAR: Regular rate and rhythm without murmurs, gallops, or rubs. RESPIRATORY: Breath sounds equal bilaterally. No accessory muscle use. GASTROINTESTINAL: Abdomen soft, non-tender, nondistended. MUSCULOSKELETAL: No cyanosis, or edema. right knee with slight effusion, no appreciable change.no erythema. Wound VAC has been removed. BACK: Nontender without obvious deformity. No CVA tenderness. A/P Assessment and Plan 09/18. Patient seen and examined. orthopedics has removed wound VAC. Discussed with infectious disease. Patient may be able to go home on by mouth antibiotics. Discussed with case management. he'll need wound care at home.He is homeless, and case management will be assisting placement. //Rheumatoid/inflammatory arthropathy right knee, chronic (not infected). //Pes Anserene bursitis, infected, right knee. Cultures with E Coli. S/P Arthrotomy of right knee with irrigation and drain (not infected). Irrigation and debridement has and screen bursitis, infected with debridement of skin subcutaneous tissue muscle and bone on 09/07/[address] Rodriguez, ortho Orthopedics continues to follow, appreciate assistance. PT/OT Pain control Blood cx NTD Continue Vancomycin IV -continues with wound VAC. ID following, appreciate recommendations //Nicotine abuse: Pt with nicotine patch in place. Discharge Planning patient will be able to go home on by mouth Cipro. We'll need to follow-up with or without as outpatient. Appreciate case management assistance. Needs safe discharge. Manpreet Betancourt MD September 18, 2016 22:58
[2016-09-19] MEDS ORDERED: VANCOMYCIN INJ 1,500 MG in SODIUM CHLORID 0.9% 500 ML INJ 500 ML IV SCH ×2
[2016-09-19 00:51] VITALS: BP 107/64; PULSE 84; RESP 16; TEMP 97.2; O2SAT 96
[2016-09-19] MEDS: HYDROmorphone HCL PF 1 MG/ML VIAL IV PUSH PRN ×3 (00:52→11:32)
[2016-09-19 05:18] VITALS: BP 103/58; PULSE 79; RESP 16; TEMP 98.2; O2SAT 96
[2016-09-19 08:00] VITALS: BP 111/63; PULSE 75; RESP 20; TEMP 97.2; O2SAT 93
[2016-09-19 08:22] LABS: AUTOMATED NEUTROPHIL # 4.2 TH/MM3 (1.8-7.7); BASOPHIL # 0.1 TH/MM3 (0-0.2); BASOPHIL % 1.2 % (0.0-2.0); EOSINOPHIL # 3.1 TH/MM3 (0-0.4); EOSINOPHIL % 29.5 % (0.0-4.0); HEMATOCRIT 29.8 % (39.0-51.0); HEMO FLAGS DIFF FINAL; LYMPH % 15.5 % (9.0-44.0); LYMPHOCYTE # 1.6 TH/MM3 (1.0-4.8); MEAN CORPUSCULAR HEMOGLOBIN 32.2 PG (27.0-34.0); MEAN CORPUSCULAR HGB CONC 33.9 % (32.0-36.0); MONO % 14.2 % (0.0-8.0); NEUT % 39.6 % (16.0-70.0); PLATELET COUNT 346 TH/MM3 (150-450); RED BLOOD COUNT 3.14 MIL/MM3 (4.50-5.90); RED CELL DISTRIBUTION WIDTH 16.3 % (11.6-17.2); WHITE BLOOD COUNT 10.6 TH/MM3 (4.0-11.0)
[2016-09-19 08:51] LABS: MAGNESIUM 2.1 MG/DL (1.5-2.5); POTASSIUM 4.2 MEQ/L (3.5-5.1)
[2016-09-19] MEDS: SODIUM CHLORIDE 0.9% FLUSH 5 ML FLUSH IVF SCH (09:00)
[2016-09-19] MEDS: REMOVE OLD PATCH T-DERMAL SCH (09:00)
[2016-09-19] MEDS: NICOTINE 21 MG/24 HR PATCH T-DERMAL SCH ×2 (09:00→09:03)
[2016-09-19] MEDS: FERROUS SULFATE 325 MG (65 MG ELEMENTAL IRON) TAB PO SCH (09:02)
[2016-09-19] MEDS: CALCIUM/VITAMIN D 250 MG/125 U TAB PO SCH ×2 (09:03→13:00)
[2016-09-19] MEDS: THIAMINE HCL 100 MG TAB PO SCH (09:03)
[2016-09-19] MEDS: DOCUSATE SODIUM 50 MG/SENNA 8.6 MG TAB PO SCH (09:04)
[2016-09-19] MEDS: DOCUSATE SODIUM 100 MG CAP PO SCH (09:04)
[2016-09-19] MEDS: FOLIC ACID 1 MG TAB PO SCH (09:05)
[2016-09-19] MEDS: MULTIVITAMINS/MINERALS THERAPEUTIC TAB PO SCH (09:05)
[2016-09-19] MEDS: HEPARIN SODIUM - SQ 10,000 UNITS/ML VIAL SQ SCH (09:06)
[2016-09-19] MEDS ORDERED: CIPR500T2 PO (09:42)
[2016-09-19 11:59] VITALS: BP 111/69; PULSE 73; RESP 19; TEMP 97; O2SAT 95
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
== END 2016-09-19 15:30 | disposition home health service (06) | DRG 581 ==
LOC: N05B 19:50
PROVIDERS: ADMIT Internal Medicine; ATTEND Internal Medicine
PROC: 3E1U38Z Irrigation of Joints using Irrigating Substance, Percutaneous Approach (ICD-10-PCS; 2016-09-06)
PROC: 0JDN0ZZ Extraction of Right Lower Leg Subcutaneous Tissue and Fascia, Open Approach (ICD-10-PCS; principal; 2016-09-06 14:37)
DX: L02.415 Cutaneous abscess of right lower limb (principal); I10 Essential (primary) hypertension; M65.9 Synovitis and tenosynovitis, unspecified; M06.9 Rheumatoid arthritis, unspecified; M17.11 Unilateral primary osteoarthritis, right knee; B19.20 Unspecified viral hepatitis C without hepatic coma; G40.909 Epilepsy, unspecified, not intractable, without status epilepticus; Z72.89 Other problems related to lifestyle; J45.909 Unspecified asthma, uncomplicated; Z85.72 Personal history of non-Hodgkin lymphomas; Z59.0 Homelessness; Z86.73 Personal history of transient ischemic attack (TIA), and cerebral infarction without residual deficits; Z87.11 Personal history of peptic ulcer disease; Z87.891 Personal history of nicotine dependence; Z92.21 Personal history of antineoplastic chemotherapy; Z92.3 Personal history of irradiation; M71.161 Other infective bursitis, right knee
CPT/HCPCS: 76937; 80053; 80069; 80074; 80202; 82565; 83735; 85025; 85610; 85730; 86140; 86703; 87015; 87040; 87070; 87077; 87102; 87116; 87186; 87205; 87206; 93005; 94150; J0696; J1100; J1170; J1580; J1644; J2250; J2270; J2370; J2405; J3010; J3370; J7040; J7050; J7120; Q0163

== ENCOUNTER 2016-09-25 12:15 | Emergency (ER) | payer MEDICARE, MEDICAID, OTHER ==
[~2016-09-25] VITALS: Ht 180.3 cm; Wt 78.0 kg
[~2016-09-25 12:15] MED LIST changes: +CIPR500T2 PO; +NORC5TAB PO; +OYST250T4 PO
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
[2016-09-25 12:52] VITALS: BP 115/70; PULSE 78; RESP 20; TEMP 98.6; O2SAT 98
[2016-09-25 12:58] VITALS: BP 115/70; PULSE 78; RESP 20; TEMP 98.6; O2SAT 98
[2016-09-25] MEDS ORDERED: SODIUM CHLOR 0.9% 1000 ML INJ 1,000 ML IV ONE (13:00)
[2016-09-25 13:40] VITALS: O2SAT 98
--- NOTE | 2016-09-25 13:43 | RADRPT ---
EXAM DATE/TIME: 09/25/2016 13:24 [place] COMPARISON: CHEST SINGLE AP, August 23, 2016, 3:42. INDICATIONS : Cough. Evaluate lung status, medical clearance. MEDICAL HISTORY : Hepatitis C. HIV. Asthma. Liver cancer. Non [place] Lymphoma. SURGICAL HISTORY : Appendectomy. Right distal femur ORIF. ENCOUNTER: Initial ACUITY: 1 day PAIN SCORE: 0/10 LOCATION: Bilateral chest FINDINGS: Single AP view of the chest. The lungs are clear. Cardiomediastinal silhouette within normal limits. No evidence of pleural effusion or pneumothorax. CONCLUSION: No acute cardiopulmonary disease identified. Shane Brooke MD on September 25, 2016 at 13:38 Board Certified Radiologist. This report was verified electronically.
--- NOTE | 2016-09-25 13:48 | RADRPT ---
EXAM DATE/TIME: 09/25/2016 13:26 [facility] COMPARISON: KNEE RIGHT COMPLETE (4VWS), September 05, 2016, 14:47. INDICATIONS : Right knee swelling for weeks. MEDICAL HISTORY : Hepatitis C. HIV. Asthma. Liver cancer. Non Hodgekins Lymphoma. SURGICAL HISTORY : Appendectomy. Right distal femur ORIF. ENCOUNTER: Initial ACUITY: 3 weeks PAIN SCORE: 7/10 LOCATION: Right anterior knee. FINDINGS: 4 views right knee. Lateral distal femoral plate and multiple transfixing screws again seen. Hardware intact. No change alignment. No new fracture. Moderate-sized osteophytes and moderate severity narro wing at the medial and lateral compartments. Moderate severity patellofemoral compartment narrowing. Moderate-sized joint effusion unchanged. CONCLUSION: 1. No significant interval change. 2. Distal femoral hardware an old fracture again seen. 3. Moderate severity osteoarthritic findings of the knee again seen. 4. Joint effusion. Shane Brooke MD on September 25, 2016 at 13:43 Board Certified Radiologist. This report was verified electronically.
[2016-09-25 14:03] LABS: AUTOMATED NEUTROPHIL # 5.2 TH/MM3 (1.8-7.7); BASOPHIL # 0.1 TH/MM3 (0-0.2); BASOPHIL % 0.9 % (0.0-2.0); EOSINOPHIL # 1.5 TH/MM3 (0-0.4); EOSINOPHIL % 16.2 % (0.0-4.0); HEMATOCRIT 32.2 % (39.0-51.0); HEMO FLAGS DIFF FINAL; LYMPH % 17.9 % (9.0-44.0); LYMPHOCYTE # 1.7 TH/MM3 (1.0-4.8); MEAN CELL VOLUME 94.9 FL (80.0-100.0); MEAN CORPUSCULAR HEMOGLOBIN 32.7 PG (27.0-34.0); MEAN CORPUSCULAR HGB CONC 34.5 % (32.0-36.0); MONO % 10.3 % (0.0-8.0); NEUT % 54.7 % (16.0-70.0); PLATELET COUNT 347 TH/MM3 (150-450); RED BLOOD COUNT 3.39 MIL/MM3 (4.50-5.90); RED CELL DISTRIBUTION WIDTH 16.1 % (11.6-17.2); WHITE BLOOD COUNT 9.5 TH/MM3 (4.0-11.0)
[2016-09-25 14:21] LABS: ANION GAP 10 MEQ/L (5-15); AST (GOT) 21 U/L (15-37); BICARBONATE 22.4 MEQ/L (21.0-32.0); BLOOD UREA NITROGEN 5 MG/DL (7-18); CHLORIDE 104 MEQ/L (98-107); GLOMERULAR FILTRATION RATE 143 ML/MIN (>89); POTASSIUM 4.1 MEQ/L (3.5-5.1); SODIUM (NA) 136 MEQ/L (136-145)
[2016-09-25 14:25] LABS: ALKALINE PHOSPHATASE 79 U/L (45-117); ALT (GPT) 19 U/L (12-78); TOTAL BILIRUBIN ADULT 0.3 MG/DL (0.2-1.0)
[2016-09-25 14:39] LABS: BLOOD, URINE NEG (NEG); COMMENT (UR) CATH-CULT NOT IND; CULTURE IF INDICATED CATH CULTURE NOT IND; GLUCOSE,URINE NEG (NEG); HYALINE CAST, URINE 3 /lpf (RARE); KETONE, URINE NEG (NEG); MUCUS URINE FEW /lpf (OCC); NITRITE,URINE NEG (NEG); PH, URINE 5.5 (5.0-8.5); SQUAMOUS EPITHELIAL CELL URINE <1 /hpf (0-5); URINE COLOR YELLOW (YELLW/STRAW)
[2016-09-25] MEDS ORDERED: BACT800T5 PO (14:57)
[2016-09-25] MEDS ORDERED: SULFAMETHOXAZOLE-TRIMETHOPRIM DS 800-160 MG TAB PO ONE (15:00)
[2016-09-25 15:33] VITALS: BP 118/72
== END 2016-09-25 15:38 | disposition home or self-care (01) ==
LOC: NEPD 12:15
DX: L97.912 Non-pressure chronic ulcer of unspecified part of right lower leg with fat layer exposed (principal); M17.9 Osteoarthritis of knee, unspecified; J45.909 Unspecified asthma, uncomplicated; B96.89 Other specified bacterial agents as the cause of diseases classified elsewhere; Z72.0 Tobacco use; Z59.0 Homelessness
CPT/HCPCS: 71010; 73564; 80053; 81001; 85025; 85652; 86140; 86403; 87040; 87070; 87077; 87186; 96360; 99284; J7030

== ENCOUNTER 2016-10-22 11:31 | Emergency (ER) | payer MEDICARE, OTHER ==
[~2016-10-22] VITALS: Ht 180.3 cm; Wt 75.0 kg
[~2016-10-22 11:31] MED LIST changes: +BACT800T5 PO; -WHEEMIS3
[2016-10-22 11:38] VITALS: BP 129/76; PULSE 98; RESP 16; TEMP 98.2; O2SAT 98
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
== END 2016-10-22 13:29 | disposition left against medical advice (07) ==
LOC: NEPK 11:31
DX: S49.92XA Unspecified injury of left shoulder and upper arm, initial encounter (principal); X58.XXXA Exposure to other specified factors, initial encounter; Z53.21 Procedure and treatment not carried out due to patient leaving prior to being seen by health care provider
CPT/HCPCS: 99281

== ENCOUNTER 2016-10-28 20:28 | Emergency (ER) | payer MEDICARE, OTHER ==
[~2016-10-28] VITALS: Ht 180.3 cm; Wt 73.0 kg
[2016-10-28 20:42] VITALS: BP 103/70; PULSE 92; RESP 16; TEMP 98.3; O2SAT 95
[2016-10-28] MEDS ORDERED: SODIUM CHLORIDE 0.9% FLUSH 10 ML FLUSH IVF PRN (21:00)
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
[2016-10-28 21:13] VITALS: RESP 16; O2SAT 97
[2016-10-28] MEDS ORDERED: MORPHINE SULFATE 4 MG/ML INJ IV PUSH ONE ×2 (21:15→22:15)
[2016-10-28 21:22] LABS: AUTOMATED NEUTROPHIL # 3.6 TH/MM3 (1.8-7.7); BASOPHIL % 0.5 % (0.0-2.0); EOSINOPHIL # 0.6 TH/MM3 (0-0.4); EOSINOPHIL % 10.1 % (0.0-4.0); HEMATOCRIT 32.6 % (39.0-51.0); HEMO FLAGS DIFF FINAL; LYMPH % 21.7 % (9.0-44.0); LYMPHOCYTE # 1.4 TH/MM3 (1.0-4.8); MEAN CELL VOLUME 90.2 FL (80.0-100.0); MEAN CORPUSCULAR HEMOGLOBIN 29.4 PG (27.0-34.0); MEAN CORPUSCULAR HGB CONC 32.7 % (32.0-36.0); MONO % 10.4 % (0.0-8.0); NEUT % 57.3 % (16.0-70.0); PLATELET COUNT 120 TH/MM3 (150-450); RED BLOOD COUNT 3.62 MIL/MM3 (4.50-5.90); RED CELL DISTRIBUTION WIDTH 16.8 % (11.6-17.2); WHITE BLOOD COUNT 6.2 TH/MM3 (4.0-11.0)
[2016-10-28 21:30] LABS: APTT (PATIENT) 26.4 SEC (24.3-30.1); PROTHROMBIN TIME - PATIENT 10.7 SEC (9.8-11.6)
[2016-10-28 21:41] LABS: POTASSIUM 3.5 MEQ/L (3.5-5.1)
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
[2016-10-28] MEDS ORDERED: IOHEXOL 350 MG/ML 10 ML VIAL (for RAD DIAG) IV ONE (21:46)
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
--- NOTE | 2016-10-28 21:49 | RADRPT ---
EXAM DATE/TIME: 10/28/2016 21:07 [facility] COMPARISON: KNEE RIGHT COMPLETE (4VWS), September 25, 2016, 13:26. INDICATIONS : Right knee pain. MEDICAL HISTORY : HIV Hepatitis C. SURGICAL HISTORY : Appendectomy. ORIF Rt Femur ENCOUNTER: Initial ACUITY: 1 day PAIN SCORE: 10/10 LOCATION: Right knee FINDINGS: There is a lateral femoral plate with multiple screws, similar appearance to prior examination 09/25/16 . The screws appear grossly intact. There is abnormal appearance to the medial and lateral joint sp chantale with multiple subchondral cysts, sclerosis, and loss of joint space height; these features are ve ry similar to the prior examination. There is distention of the suprapatellar soft tissues character istic of knee effusion, similar to prior. CONCLUSION: Overall, the appearance is very similar to 09/25/16 with intact hardware, severe joint space deformity and knee effusion. Juma Ruiz MD on October 28, 2016 at 21:45 Board Certified Radiologist. This report was verified electronically.
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
[2016-10-28] MEDS ORDERED: LIDOCAINE HCL 1% 50 ML VIAL INFIL ONE (22:00)
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
--- NOTE | 2016-10-28 22:28 | PD ---
Physical Exam Narrative I was asked by Dr. Brower to repair patient's lacerations. Please see his documentation for full H&P. Data Data Last Documented VS Vital Signs Date Time Temp Pulse Resp B/P Pulse Ox O2 Delivery O2 Flow Rate FiO2 10/28/16 21:13 97 Room Air 10/28/16 21:13 84 16 10/28/16 20:42 98.3 103/70 Orders Apply Cervical Collar (10/28/16 21:00) Ct Brain W/O Iv Contrast(Rout) (10/28/16 ) Ct Cerv Spine W/O Contrast (10/28/16 ) Cta Runoff W Iv Contrast W 3d (10/28/16 ) Ct Facial Bones W/O Iv Cont (10/28/16 ) Basic Metabolic Panel (Bmp) (10/28/16 21:00) Complete Blood Count With Diff (10/28/16 21:00) Prothrombin Time / Inr (Pt) (10/28/16 21:00) Act Partial Throm Time (Ptt) (10/28/16 21:00) Chest, Single Ap (10/28/16 21:00) Ecg Monitoring (10/28/16 21:00) Iv Access Insert/Monitor (10/28/16 21:00) Oximetry (10/28/16 21:00) Oxygen Administration (10/28/16 21:00) Sodium Chloride 0.9% Flush (Ns Flush) (10/28/16 21:00) Knee, Complete (4vws) (10/28/16 ) Pelvis, Ap Only (Routine) (10/28/16 ) Morphine Inj (Morphine Inj) (10/28/16 21:15) Collar [place] (10/28/16 ) Iohexol 350 Inj (Omnipaque 350 Inj) (10/28/16 21:46) Lidocaine 1% Inj (50 Ml) (Xylocaine 1% I (10/28/16 22:00) Morphine Inj (Morphine Inj) (10/28/16 22:15) Labs Laboratory Tests Test 10/28/16 20:45 White Blood Count 6.2 TH/MM3 Red Blood Count 3.62 MIL/MM3 Hemoglobin 10.7 GM/DL Hematocrit 32.6 % Mean Corpuscular Volume 90.2 FL Mean Corpuscular Hemoglobin 29.4 PG Mean Corpuscular Hemoglobin 32.7 % Concent Red Cell Distribution Width 16.8 % Platelet Count 120 TH/MM3 Mean Platelet Volume 8.1 FL Neutrophils (%) (Auto) 57.3 % Lymphocytes (%) (Auto) 21.7 % Monocytes (%) (Auto) 10.4 % Eosinophils (%) (Auto) 10.1 % Basophils (%) (Auto) 0.5 % Neutrophils # (Auto) 3.6 TH/MM3 Lymphocytes # (Auto) 1.4 TH/MM3 Monocytes # (Auto) 0.6 TH/MM3 Eosinophils # (Auto) 0.6 TH/MM3 Basophils # (Auto) 0.0 TH/MM3 CBC Comment DIFF FINAL Differential Comment Prothrombin Time 10.7 SEC Prothromb Time International 1.0 RATIO Ratio Activated Partial 26.4 SEC Thromboplast Time Sodium Level 135 MEQ/L Potassium Level 3.5 MEQ/L Chloride Level 101 MEQ/L Carbon Dioxide Level 20.0 MEQ/L Anion Gap 14 MEQ/L Blood Urea Nitrogen 5 MG/DL Creatinine 0.62 MG/DL Estimat Glomerular Filtration 133 ML/MIN Rate Random Glucose 74 MG/DL Calcium Level 7.5 MG/DL MDM Supervised Visit with CARLOS: No Narrative Course There was no evidence to suggest foreign bodies by history and exam. Visual and tactile exams were unremarkable. There was no evidence of neurovascular injury. The patient had a normal distal vascular exam, and had full normal motor and sensory exams. There was also no evidence or tendon injury, with normal distal full range of motions, flexion, extension, abduction, adduction and opponens. There was no evidence of local joint space involvement at this time. The patient was irrigated with copious sterile normal saline and primary repair was performed. Please see procedure note. The patient was given signs and symptom warnings for infection, such as increasing pain, redness, swelling, associated heat, pus or fever. The patient was warned of possible unseen foreign body and instructed to return immediately if signs or symptoms develop. The patient was given instructions for timely follow up and for removal. The patient agreed with plan of care. Procedures Procedure Narrative LACERATION REPAIR LOCATION: Left medial thigh LENGTH: Approximately 2.5 cm in total length NUMBER OF STITCHES/DAMIR: 4 Damir REPAIR: Verbal consent was obtained. The area of the laceration was cleaned and prepped. The laceration was infiltrated with lidocaine without epi. The wound was copiously irrigated and explored without evidence of foreign body, bony involvement, ligament injury, tendon injury, or neurovascular injury. The wound was closed using damir. This was a single layer repair. A sterile dressing was applied by nurse. The patient was advised to keep the affected area as clean and dry as possible using soap and water. There were no complications. Patient tolerated the procedure well. LACERATION REPAIR LOCATION: Left lower leg anterior medial aspect LENGTH: Approximately 7 cm in total length NUMBER OF STITCHES/DAMIR: 10 Damir REPAIR: Verbal consent was obtained. The area of the laceration was cleaned and prepped. The laceration was infiltrated with lidocaine without epi. The wound was copiously irrigated and explored without evidence of foreign body, bony involvement, ligament injury, tendon injury, or neurovascular injury. The wound was closed using damir. This was a single layer repair. A sterile dressing was applied by nurse. The patient was advised to keep the affected area as clean and dry as possible using soap and water. There were no complications. Patient tolerated the procedure well. Additional Instruction: Keep wound dry and clean as possible using soap and water. Do not soak or submerge wounds. Have damir removed in 14 days. Jose Francisco Stubbs Oct 28, 2016 22:28
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
[2016-10-28] MEDS ORDERED: DIPHTH/TETANUS/ACEL PERTUSSIS (BOOSTER) 0.5 ML VIAL/PFS IM ONE (23:15)
[2016-10-28] MEDS ORDERED: BACT800T5 PO (23:18)
[2016-10-29] MEDS ORDERED: ACETAMINOPHEN 325 MG TAB PO ONE (02:30)
== END 2016-10-29 07:00 | disposition home or self-care (01) ==
LOC: NEPC 20:28 → NEPD 10-29 07:00
DX: S02.2XXA Fracture of nasal bones, initial encounter for closed fracture (principal); S81.812A Laceration without foreign body, left lower leg, initial encounter; X99.1XXA Assault by knife, initial encounter; Y00.XXXA Assault by blunt object, initial encounter; Z72.0 Tobacco use; Z23 Encounter for immunization
CPT/HCPCS: 12004; 70450; 70486; 71010; 72125; 72170; 73564; 75635; 80048; 85025; 85610; 85730; 90471; 90715; 96374; 96376; 99285; J2270; L0150; Q9967

== ENCOUNTER 2016-11-02 10:22 | Inpatient (IN) | payer MEDICARE, OTHER ==
[2016-11-02] VITALS (11 sets, daily range): BP systolic 78–121; BP diastolic 50–69; PULSE 90–113; RESP 16–24; TEMP 96.1–99.7; O2SAT 96–100
[~2016-11-02] VITALS: Ht 180.3 cm; Wt 81.3 kg
[~2016-11-02 10:22] MED LIST changes: -CIPR500T2 PO; -FERR325T PO; -FOLI1TAB4 PO; -MIRTA15 PO; -NORC5TAB PO; -OYST250T4 PO; -QUET1TAB8 PO; -THERTAB15 PO; -VITA100T2 PO
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
[2016-11-02] MEDS ORDERED: SODIUM CHLOR 0.9% 1000 ML INJ 1,000 ML IV ONE ×3 (11:09→22:00)
[2016-11-02] MEDS ORDERED: SODIUM CHLOR 0.9% 1000 ML INJ 400 ML IV ONE (11:09)
[2016-11-02] MEDS ORDERED: PIPERACIL-TAZO 4.5 GM PREMIX 100 ML IV STA (11:09)
[2016-11-02] MEDS ORDERED: VANCOMYCIN INJ 1 MG in SODIUM CHLOR 0.9% 250 ML INJ 250 ML IV STA (11:09)
[2016-11-02 11:38] LABS: MEAN CELL VOLUME 87.6 FL (80.0-100.0); MEAN CORPUSCULAR HEMOGLOBIN 29.2 PG (27.0-34.0); MEAN CORPUSCULAR HGB CONC 33.3 % (32.0-36.0); PLATELET COUNT 279 TH/MM3 (150-450); RED BLOOD COUNT 2.63 MIL/MM3 (4.50-5.90); RED CELL DISTRIBUTION WIDTH 17.1 % (11.6-17.2); WHITE BLOOD COUNT 16.8 TH/MM3 (4.0-11.0)
[2016-11-02 11:40] LABS: HEMO FLAGS AUTO DIFF
[2016-11-02 11:44] LABS: BLOOD, URINE NEG (NEG); GLUCOSE,URINE NEG (NEG); HYALINE CAST, URINE 1 /lpf (RARE); KETONE, URINE NEG (NEG); NITRITE,URINE NEG (NEG); PH, URINE 5.5 (5.0-8.5); URINE COLOR YELLOW (YELLW/STRAW)
[2016-11-02 11:45] LABS: COMMENT (UR) CATH-CULT NOT IND; CULTURE IF INDICATED CATH CULTURE NOT IND
[2016-11-02 11:57] LABS: ALKALINE PHOSPHATASE 92 U/L (45-117); ALT (GPT) 19 U/L (12-78); ANION GAP 10 MEQ/L (5-15); AST (GOT) 36 U/L (15-37); BLOOD UREA NITROGEN 19 MG/DL (7-18); CHLORIDE 83 MEQ/L (98-107); GLOMERULAR FILTRATION RATE 98 ML/MIN (>89); POTASSIUM 3.4 MEQ/L (3.5-5.1); TOTAL BILIRUBIN ADULT 0.9 MG/DL (0.2-1.0)
[2016-11-02] MEDS ORDERED: PHENYLEPH/NS 1000 MCG/10 ML SYR IV ONE (12:00)
[2016-11-02] MEDS ORDERED: PROPOFOL 200 MG/20 ML AMP IV ONE (12:00)
[2016-11-02] MEDS ORDERED: SODIUM CHLOR 0.9% 250 ML INJ 250 ML IV ONE ×2 (12:00)
[2016-11-02] MEDS ORDERED: LACTATED RINGER'S 1000 ML INJ 1,000 ML IV ONE (12:00)
[2016-11-02] MEDS ORDERED: MORPHINE SULFATE 4 MG/ML INJ IV PUSH ONE (12:00)
[2016-11-02 12:05] LABS: SODIUM (NA) 120 MEQ/L (136-145)
[2016-11-02 12:21] LABS: BANDS 28 % (0-6); CORRECTED NUCLEATED RBC 1 /100 WBC (0-0); METAMYELOCYTES 1 % (0-1); NEUTROPHIL # MANUAL DIFF 15.1 TH/MM3 (1.8-7.7); POLYS (SEG NEUTROPHILS) 61 % (16-70); WBC DIFF SAMPLE 100
[2016-11-02 12:25] LABS: TOXIC GRANULATION 1+ (NORMAL); TOXIC VACUOLATION PRESENT (NONE SEEN)
[2016-11-02 12:26] LABS: SCAN/DIFF FINAL DIFF MANUAL
[2016-11-02] MEDS ORDERED: IOHEXOL 350 MG/ML 10 ML VIAL (for RAD DIAG) IV ONE (13:07)
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
[2016-11-02 13:29] LABS: LACTIC ACID GHOST NOT REPORTABLE
[2016-11-02] MEDS ORDERED: LIDOCAINE HCL 1% 50 ML VIAL ONE (13:52)
[2016-11-02] MEDS ORDERED: fentaNYL CITRATE 250 MCG/5 ML AMP ONE ×2 (14:06→15:49)
--- NOTE | 2016-11-02 14:39 | RADRPT ---
EXAM DATE/TIME: 11/02/2016 12:36 [facility] COMPARISON: No previous studies available for comparison. INDICATIONS : Evaluate for infection. IV CONTRAST: 93 cc Omnipaque 350 (iohexol) IV RADIATION DOSE: 8.42 CTDIvol (mGy) ; Combined studies MEDICAL HISTORY : Hepatitis C. Cardiovascular disease SURGICAL HISTORY : None. ENCOUNTER: Subsequent ACUITY: 4 - 6 days PAIN SCALE: 3/10 LOCATION: Left TECHNIQUE: Volumetric scanning of the tibia and fibula was performed. Using automated exposure control and adju stment of the mA and/or kV according to patient size, radiation dose was kept as low as reasonably ac hievable to obtain optimal diagnostic quality images. FINDINGS: There is a large open wound in the region of the left anterior tibial muscle. No underlying focal fl uid collection to suggest abscess is identified on this limited unenhanced CT scan. Diffuse cellulit is is noted throughout the entire left lower leg. There is a suprapatellar knee joint effusion. No bony abnormality is identified. CONCLUSION: 1. Large open wound in the region of the left anterior tibial muscle without definite focal fluid col lection to suggest abscess. 2. Diffuse cellulitis involving the left lower leg. 3. No focal bony abnormality identified. 4. Suprapatellar knee joint effusion. Tony Ortez MD on November 02, 2016 at 14:15 Board Certified Radiologist. This report was verified electronically.
[2016-11-02] MEDS ORDERED: GENTAMICIN SULFATE 80 MG/2 ML VIAL IRRIGATION ONE (15:40)
[2016-11-02] MEDS ORDERED: DO NOT ADM ANY ANTICOAGULANT DRUGS PRN (17:15)
--- NOTE | 2016-11-02 17:25 | HHI.PR ---
cc: Geovany Jackson MD Immediate Post Op Note Procedure Date: Nov 02, 2016 Pre Op Diagnosis: Necrotizing fasciitis LEFT thigh and lower leg Post Op Diagnosis: Same Surgeon: Geovany Jackson Police Records Clerk(s): Karen Lynn CFA Procedure: Incision and drainage with debridement 100cm 2 skin, subcutaneous tissue and muscle Complications: None Specimen(s) removed: Gram stain, C&S to microbiology Estimated blood loss: 250 ml Anesthesia: LMA Drains: None IVF (2000 ml) Patient to: PACU Patient Condition: Good Date/Time of Procedure: SEE SURGICAL CARE RECORD Geovany Jackson MD Nov 02, 2016 17:25
[2016-11-02] MEDS ORDERED: diphenhydrAMINE HCL 50 MG/ML VIAL IVP PRN (17:30)
[2016-11-02] MEDS ORDERED: ACETAMINOPHEN/HYDROcodone 325 MG/5 MG TAB PO PRN (17:30)
[2016-11-02] MEDS ORDERED: NALOXONE HCL 0.4 MG/ML AMP IV PRN (17:30)
[2016-11-02] MEDS ORDERED: Post-op Orders (for Pharmacy) MISC XX ONE (17:30)
[2016-11-02] MEDS ORDERED: SODIUM CHLORIDE 0.9% FLUSH 5 ML FLUSH IVF PRN (17:30)
[2016-11-02] MEDS: D5-NS + KCL 20 MEQ INJ 1,000 ML IV SCH ×2 (17:50→23:34)
[2016-11-02 18:10] LABS: AUTOMATED NEUTROPHIL # 13.6 TH/MM3 (1.8-7.7); BASOPHIL % 0.1 % (0.0-2.0); EOSINOPHIL # 0.1 TH/MM3 (0-0.4); EOSINOPHIL % 0.3 % (0.0-4.0); HEMATOCRIT 28.4 % (39.0-51.0); LYMPH % 1.9 % (9.0-44.0); LYMPHOCYTE # 0.3 TH/MM3 (1.0-4.8); MEAN CELL VOLUME 88.2 FL (80.0-100.0); MEAN CORPUSCULAR HEMOGLOBIN 29.5 PG (27.0-34.0); MEAN CORPUSCULAR HGB CONC 33.4 % (32.0-36.0); MONO % 4.5 % (0.0-8.0); NEUT % 93.2 % (16.0-70.0); PLATELET COUNT 208 TH/MM3 (150-450); RED BLOOD COUNT 3.22 MIL/MM3 (4.50-5.90); WHITE BLOOD COUNT 14.6 TH/MM3 (4.0-11.0)
[2016-11-02 18:12] LABS: HEMO FLAGS AUTO DIFF
[2016-11-02 19:57] LABS: BANDS 26 % (0-6); EOSINOPHILS 1 % (0-4); NEUTROPHIL # MANUAL DIFF 13.1 TH/MM3 (1.8-7.7); POLYS (SEG NEUTROPHILS) 64 % (16-70); WBC DIFF SAMPLE 100
[2016-11-02 19:58] LABS: SCAN/DIFF FINAL DIFF MANUAL
[2016-11-02 19:59] LABS: PLATELET ESTIMATE SMEAR NORMAL (NORMAL); PLATELET MORPHOLOGY CLUMPED (NORMAL)
[2016-11-02] MEDS: SODIUM CHLORIDE 0.9% FLUSH 5 ML FLUSH IVF SCH (21:00)
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
[2016-11-02] MEDS: PCA - TOTAL MG MORPHINE DELIVERED PER SHIFT SCH (22:00)
[2016-11-02] MEDS: CLINDAMYCIN INJ 600 MG in SODIUM CHLORIDE 0.9% INJ 100 ML IV SCH (22:26)
[2016-11-02] MEDS: ACETAMINOPHEN/HYDROcodone 325 MG/5 MG TAB PO PRN (23:33)
[2016-11-03] VITALS (8 sets, daily range): BP systolic 72–141; BP diastolic 42–96; PULSE 56–88; RESP 16–21; TEMP 96.5–99; O2SAT 92–100
[2016-11-03] MEDS: D5-NS + KCL 20 MEQ INJ 1,000 ML IV SCH ×4 (00:06→20:06)
[2016-11-03] MEDS ORDERED: VANCOMYCIN INJ 1,000 MG in SODIUM CHLOR 0.9% 250 ML INJ 250 ML IV SCH (01:00)
[2016-11-03] MEDS ORDERED: MIDAZOLAM HCL 5 MG/ML VIAL (1 ML) ONE (01:16)
[2016-11-03] MEDS ORDERED: LIDOCAINE HCL 1% 50 ML VIAL ONE (01:21)
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
[2016-11-03] MEDS ORDERED: SODIUM CHLOR 0.9% 1000 ML INJ 3,000 ML IV ONE (02:25)
[2016-11-03] MEDS: SODIUM CHLOR 0.9% 1000 ML INJ 1,000 ML IV SCH ×3 (02:40→04:01)
--- NOTE | 2016-11-03 02:48 | RADRPT ---
EXAM DATE/TIME: 11/03/2016 02:00 [facility] COMPARISON: CHEST SINGLE AP, October 28, 2016, 21:01. INDICATIONS : Central Line Placement. MEDICAL HISTORY : Hepatitis C. SURGICAL HISTORY : Appendectomy. ENCOUNTER: Initial ACUITY: 1 day PAIN SCORE: Non-responsive. LOCATION: Bilateral chest FINDINGS: Left central line tip is in the superior vena cava. No focal consolidation or significant effusion. N o pneumothorax. Heart size within normal limits. Minimal basal atelectasis. CONCLUSION: 1. Left central line in superior vena cava without pneumothorax. Michael Lane MD on November 03, 2016 at 2:46 Board Certified Radiologist. This report was verified electronically.
[2016-11-03] MEDS: PCA - TOTAL MG MORPHINE DELIVERED PER SHIFT SCH ×3 (03:51→22:00)
[2016-11-03] MEDS: CLINDAMYCIN INJ 600 MG in SODIUM CHLORIDE 0.9% INJ 100 ML IV SCH ×3 (03:59→20:34)
[2016-11-03] MEDS ORDERED: MIDAZOLAM HCL 2 MG/2 ML VIAL IV ONE (04:00)
[2016-11-03] MEDS ORDERED: SODIUM CHLOR 0.9% 1000 ML INJ 1,000 ML IV ONE (04:00)
[2016-11-03 04:59] LABS: HEMATOCRIT 21.4 % (39.0-51.0); MEAN CELL VOLUME 87.4 FL (80.0-100.0); MEAN CORPUSCULAR HEMOGLOBIN 28.2 PG (27.0-34.0); MEAN CORPUSCULAR HGB CONC 32.3 % (32.0-36.0); PLATELET COUNT 182 TH/MM3 (150-450); RED BLOOD COUNT 2.45 MIL/MM3 (4.50-5.90); RED CELL DISTRIBUTION WIDTH 16.6 % (11.6-17.2); WHITE BLOOD COUNT 11.5 TH/MM3 (4.0-11.0)
[2016-11-03 05:17] LABS: HEMO FLAGS AUTO DIFF
[2016-11-03 05:23] LABS: BICARBONATE 21.2 MEQ/L (21.0-32.0)
[2016-11-03 05:27] LABS: POTASSIUM 2.8 MEQ/L (3.5-5.1)
[2016-11-03] MEDS ORDERED: MAGNESIUM SULFATE INJ 4 GM in SODIUM CHLORIDE 0.9% INJ 92 ML IV PRN (05:30)
[2016-11-03] MEDS ORDERED: MAGNESIUM SULFATE INJ 2 GM in SODIUM CHLORIDE 0.9% INJ 96 ML IV PRN (05:30)
[2016-11-03] MEDS ORDERED: MAGNESIUM OXIDE 400 MG TAB PO PRN (05:30)
[2016-11-03] MEDS ORDERED: POTASSIUM PHOSPHATE MONOBASIC 500 MG TAB PO/TUBE PRN (05:30)
[2016-11-03] MEDS ORDERED: POTASSIUM CHLOR 40 MEQ PREMIX 100 ML IV PRN (05:30)
[2016-11-03] MEDS ORDERED: POTASSIUM CHLOR 20 MEQ PREMIX 100 ML IV PRN (05:30)
[2016-11-03] MEDS ORDERED: Vancomycin Consult Pharmacy 1 EA OTHER SCH (05:30)
[2016-11-03] MEDS ORDERED: POTASSIUM PHOSPHATE MONOBASIC 500 MG TAB PO PRN (05:30)
[2016-11-03] MEDS ORDERED: POTASSIUM PHOSPHATE INJ 30 MMOL in SODIUM CHLOR 0.9% 250 ML INJ 250 ML IV PRN (05:30)
[2016-11-03] MEDS ORDERED: SODIUM PHOSPHATE INJ 30 MMOL in SODIUM CHLOR 0.9% 250 ML INJ 240 ML IV PRN (05:30)
[2016-11-03] MEDS ORDERED: POTASSIUM CHLORIDE 25 MEQ EFFERVESCENT TAB PO PRN (05:30)
[2016-11-03] MEDS ORDERED: CALCIUM GLUCONATE INJ 2 GM in SODIUM CHLORIDE 0.9% INJ 100 ML IV ONE (05:45)
[2016-11-03] MEDS: POTASSIUM CHLOR 40 MEQ PREMIX 100 ML IV PRN ×2 (05:46→05:50)
[2016-11-03] MEDS: PIPERACIL-TAZO 4.5 GM PREMIX 100 ML IV SCH ×3 (05:46→17:50)
[2016-11-03 06:06] LABS: CALCIUM-PROTEIN CORRECTED 7.3 MG/DL (8.5-10.1)
[2016-11-03] MEDS: ACETAMINOPHEN/HYDROcodone 325 MG/5 MG TAB PO PRN ×3 (06:22→16:37)
[2016-11-03] MEDS ORDERED: SODIUM CHLOR 0.9% 250 ML INJ 250 ML IV ONE (06:30)
[2016-11-03 07:44] LABS: BANDS 22 % (0-6); EOSINOPHILS 4 % (0-4); METAMYELOCYTES 1 % (0-1); NEUTROPHIL # MANUAL DIFF 10.6 TH/MM3 (1.8-7.7); POLYS (SEG NEUTROPHILS) 69 % (16-70); TOXIC GRANULATION 1+ (NORMAL); TOXIC VACUOLATION PRESENT (NONE SEEN); WBC DIFF SAMPLE 100
[2016-11-03 07:45] LABS: SCAN/DIFF FINAL DIFF MANUAL
[2016-11-03] MEDS: NOREPINEPHRINE 4 MG/D5W 250 ML IV SCH ×3 (08:43→20:34)
[2016-11-03] MEDS: VASOPRESSIN INJ 40 UNITS in DEXTROSE 5% IN WATER 100ML INJ 98 ML IV SCH ×2 (09:41)
[2016-11-03] MEDS: SODIUM CHLORIDE 0.9% FLUSH 5 ML FLUSH IVF SCH ×2 (09:42→21:00)
[2016-11-03 10:50] LABS: PROTHROMBIN TIME - PATIENT 11.1 SEC (9.8-11.6)
[2016-11-03 11:05] LABS: CREATINE KINASE 55 U/L (39-308)
[2016-11-03] MEDS: VANCOMYCIN INJ 1,250 MG in SODIUM CHLOR 0.9% 250 ML INJ 250 ML IV SCH (12:06)
--- NOTE | 2016-11-03 13:01 | EKG ---
Date Performed: 11/03/2016 Time Performed: 08:52:53 PTAGE: 61 years EKG: Sinus rhythm MODERATE INTRAVENTRICULAR CONDUCTION DELAY BORDERLINE ECG PREVIOUS TRACING : 09/06/2016 14.08 Compared to prior tracing no significant change DOCTOR: Omar Isaac Interpretating Date/Time 11/03/2016 12:59:28
[2016-11-03] MEDS: MORPHINE SULFATE 8 MG/ML INJ IV PUSH PRN ×2 (13:10→22:38)
[2016-11-03 13:43] LABS: HEMATOCRIT 30.7 % (39.0-51.0); MEAN CELL VOLUME 88.1 FL (80.0-100.0); MEAN CORPUSCULAR HEMOGLOBIN 28.3 PG (27.0-34.0); MEAN CORPUSCULAR HGB CONC 32.1 % (32.0-36.0); PLATELET COUNT 214 TH/MM3 (150-450); RED BLOOD COUNT 3.49 MIL/MM3 (4.50-5.90); RED CELL DISTRIBUTION WIDTH 16.5 % (11.6-17.2); WHITE BLOOD COUNT 20.6 TH/MM3 (4.0-11.0)
[2016-11-03 13:49] LABS: REVIEW FLAG FINAL
[2016-11-03] MEDS ORDERED: LORazepam 2 MG/ML VIAL IV PUSH PRN (14:00)
[2016-11-03] MEDS ORDERED: LORazepam 1 MG TAB PO PRN (14:00)
[2016-11-03] MEDS ORDERED: FLUMAZENIL 0.5 MG/5 ML VIAL IV PUSH PRN (14:00)
[2016-11-03] MEDS ORDERED: LORazepam 2 MG TAB PO PRN (14:00)
[2016-11-03 14:09] LABS: BICARBONATE 17.7 MEQ/L (21.0-32.0); CALCIUM-PROTEIN CORRECTED 7.9 MG/DL (8.5-10.1); MAGNESIUM 1.7 MG/DL (1.5-2.5); POTASSIUM 3.6 MEQ/L (3.5-5.1); TOTAL BILIRUBIN ADULT 0.6 MG/DL (0.2-1.0)
[2016-11-03] MEDS ORDERED: CHLORHEXIDINE GLUCONATE 2 % 1 PACK (2 CLOTHS)(extra cloths) TOPICAL PRN (17:00)
[2016-11-03] MEDS: MUPIROCIN 2% OINT 1 APPLIC/GM SYR NASAL SCH (21:00)
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
[2016-11-04] VITALS (7 sets, daily range): BP systolic 91–152; BP diastolic 60–94; PULSE 74–96; RESP 14–21; TEMP 97.4–99; O2SAT 93–100
[2016-11-04] MEDS: AMPICILLIN-SULBACTAM INJ 3 GM in SODIUM CHLORIDE 0.9% INJ 100 ML IV SCH ×4 (00:30→13:02)
[2016-11-04] MEDS: MORPHINE SULFATE 8 MG/ML INJ IV PUSH PRN (01:35)
[2016-11-04] MEDS: VANCOMYCIN INJ 1,250 MG in SODIUM CHLOR 0.9% 250 ML INJ 250 ML IV SCH ×2 (01:35→13:00)
[2016-11-04] MEDS: ACETAMINOPHEN/HYDROcodone 325 MG/5 MG TAB PO PRN ×2 (01:35→21:58)
[2016-11-04] MEDS: VASOPRESSIN INJ 40 UNITS in DEXTROSE 5% IN WATER 100ML INJ 98 ML IV SCH ×6 (02:17→21:59)
[2016-11-04] MEDS: D5-NS + KCL 20 MEQ INJ 1,000 ML IV SCH ×2 (02:46→17:13)
[2016-11-04] MEDS: NOREPINEPHRINE 4 MG/D5W 250 ML IV SCH ×3 (02:50→21:15)
[2016-11-04] MEDS: CHLORHEXIDINE GLUCONATE 2 % 1 PACK (2 CLOTHS)(taper/protocol) TOPICAL SCH (04:00)
[2016-11-04] MEDS: CLINDAMYCIN INJ 900 MG in SODIUM CHLORIDE 0.9% INJ 100 ML IV SCH ×3 (05:00→21:15)
[2016-11-04] MEDS: PCA - TOTAL MG MORPHINE DELIVERED PER SHIFT SCH ×3 (05:17→20:58)
[2016-11-04 05:52] LABS: AUTOMATED NEUTROPHIL # 24.7 TH/MM3 (1.8-7.7); BASOPHIL # 0.2 TH/MM3 (0-0.2); BASOPHIL % 0.9 % (0.0-2.0); EOSINOPHIL # 0.7 TH/MM3 (0-0.4); EOSINOPHIL % 2.6 % (0.0-4.0); HEMATOCRIT 28.3 % (39.0-51.0); LYMPH % 2.4 % (9.0-44.0); LYMPHOCYTE # 0.6 TH/MM3 (1.0-4.8); MEAN CELL VOLUME 87.7 FL (80.0-100.0); MEAN CORPUSCULAR HEMOGLOBIN 28.6 PG (27.0-34.0); MEAN CORPUSCULAR HGB CONC 32.6 % (32.0-36.0); MONO % 2.9 % (0.0-8.0); NEUT % 91.2 % (16.0-70.0); PLATELET COUNT 204 TH/MM3 (150-450); RED BLOOD COUNT 3.22 MIL/MM3 (4.50-5.90); RED CELL DISTRIBUTION WIDTH 16.4 % (11.6-17.2)
[2016-11-04 05:59] LABS: HEMO FLAGS AUTO DIFF
[2016-11-04 06:34] LABS: BICARBONATE 19.9 MEQ/L (21.0-32.0); CALCIUM-PROTEIN CORRECTED 8.6 MG/DL (8.5-10.1); POTASSIUM 3.5 MEQ/L (3.5-5.1); TOTAL BILIRUBIN ADULT 0.4 MG/DL (0.2-1.0)
[2016-11-04] MEDS ORDERED: ceFAZolin INJ 1,000 MG VIAL ONE (07:13)
[2016-11-04] MEDS ORDERED: LIDOCAINE HCL 1% 50 ML VIAL ONE (07:14)
[2016-11-04 07:43] LABS: BANDS 28 % (0-6); METAMYELOCYTES 1 % (0-1); NEUTROPHIL # MANUAL DIFF 25.4 TH/MM3 (1.8-7.7); PLATELET ESTIMATE SMEAR NORMAL (NORMAL); PLATELET MORPHOLOGY NORMAL (NORMAL); POLYS (SEG NEUTROPHILS) 65 % (16-70); SCAN/DIFF FINAL DIFF MANUAL; WBC DIFF SAMPLE 100
[2016-11-04 07:44] LABS: TOXIC GRANULATION 1+ (NORMAL); TOXIC VACUOLATION PRESENT (NONE SEEN)
[2016-11-04] MEDS: FOLIC ACID 1 MG TAB PO SCH (09:00)
[2016-11-04] MEDS: MULTIVITAMINS/MINERALS THERAPEUTIC TAB PO SCH (09:00)
[2016-11-04] MEDS: THIAMINE HCL 100 MG TAB PO SCH (09:00)
[2016-11-04] MEDS: SODIUM CHLORIDE 0.9% FLUSH 5 ML FLUSH IVF SCH ×2 (09:46→20:58)
[2016-11-04] MEDS: MUPIROCIN 2% OINT 1 APPLIC/GM SYR NASAL SCH ×2 (09:46→20:58)
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
[2016-11-04] MEDS ORDERED: NEOSTIGMINE 3 MG/3 ML SYR IV ONE (12:00)
[2016-11-04] MEDS ORDERED: ONDANSETRON HCL 4 MG/2 ML VIAL IV PUSH ONE (12:00)
[2016-11-04] MEDS ORDERED: VASOPRESSIN INJ 20 UNITS/ML VIAL IV ONE (12:00)
[2016-11-04] MEDS ORDERED: LACTATED RINGER'S 1000 ML INJ 1,000 ML IV ONE (12:00)
[2016-11-04] MEDS ORDERED: NOREPINEPHRINE-DEXTROSE DRIP 4 MG/250 ML BAG IV ONE (12:00)
[2016-11-04] MEDS ORDERED: PHENYLEPHRINE HCL 10 MG/ML VIAL IV ONE (12:00)
[2016-11-04] MEDS ORDERED: PROPOFOL 200 MG/20 ML AMP IV ONE (12:00)
[2016-11-04] MEDS ORDERED: SUGAMMADEX SODIUM 200 MG/2 ML VIAL IV PUSH ONE ×2 (12:00)
[2016-11-04] MEDS ORDERED: PHARMACY ORDERED LAB ONE (12:45)
[2016-11-04] MEDS ORDERED: VANCOMYCIN HCL 1000 MG VIAL ONE (13:18)
[2016-11-04] MEDS ORDERED: CLINDAMYCIN PHOS 900 MG/6 ML VIAL ONE (13:19)
[2016-11-04] MEDS ORDERED: VANCOMYCIN 500 MG VIAL ONE (13:19)
--- NOTE | 2016-11-04 15:01 | HHI.PR ---
cc: Geovany Jackson MD Immediate Post Op Note Procedure Date: Nov 04, 2016 Pre Op Diagnosis: Necrotizing Fasciitis LEFT leg Post Op Diagnosis: Same Surgeon: Geovany Jackson Rn Clinical Review(s): Miri Cárdenas MS3 Procedure: Irrigation and debridement LEFT leg with 50 cm 2 excision skin, subcutaneous tissue and muscle VAC placement Complications: None Specimen(s) removed: None Estimated blood loss: Less than 20 ml Anesthesia: General Drains: None IVF (600 ml) Patient to: PACU Patient Condition: Fair Date/Time of Procedure: SEE SURGICAL CARE RECORD Geovany Jackson MD Nov 04, 2016 15:01
[2016-11-04] MEDS: LORazepam 2 MG/ML VIAL IV PUSH PRN ×2 (16:35→21:58)
--- NOTE | 2016-11-04 18:01 | HHI.IDPN ---
Subjective Subjective Remarks sp another debridement Less pressors , Levaphewd 6 No fever Antibiotics Unasyn, vanco, clinda Allergies: Coded Allergies: Cultivated Oat Pollen (Verified Allergy, Mild, 11/02/16) Objective . Vital Signs Date Time Temp Pulse Resp B/P Pulse Ox O2 Delivery O2 Flow Rate FiO2 11/04/16 15:15 98.1 104 15 144/79 95 Blow By Simple Mask 11/04/16 08:00 98.6 76 14 109/69 93 Arterial Line 11/04/16 07:46 95 21 11/04/16 07:00 95 Room Air 21 11/04/16 04:00 99.0 86 14 106/60 95 11/04/16 00:00 99.0 80 21 118/68 94 11/03/16 20:51 94 21 11/03/16 20:00 99.0 88 21 118/96 95 11/03/16 19:00 96 Room Air 11/03/16 11/03/16 11/04/16 15:00 23:00 07:00 Intake Total 3744 ml 2227 ml 1868 ml Output Total 800 ml 575 ml 700 ml Balance 2944 ml 1652 ml 1168 ml Intake Oral 1400 ml 650 ml 400 ml IV Total 1844 ml 1577 ml 1468 ml Packed Cells 500 ml Output Urine Total 500 ml 375 ml 425 ml Drainage Total 300 ml 200 ml 275 ml # Bowel Movements 0 0 0 . Laboratory Tests Test 11/03/16 11/03/16 11/04/16 04:40 13:30 05:30 White Blood Count 11.5 TH/MM3 20.6 TH/MM3 27.0 TH/MM3 Red Blood Count 2.45 MIL/MM3 3.49 MIL/MM3 3.22 MIL/MM3 Hemoglobin 6.9 GM/DL 9.9 GM/DL 9.2 GM/DL Hematocrit 21.4 % 30.7 % 28.3 % Mean Corpuscular Volume 87.4 FL 88.1 FL 87.7 FL Mean Corpuscular Hemoglobin 28.2 PG 28.3 PG 28.6 PG Mean Corpuscular Hemoglobin 32.3 % 32.1 % 32.6 % Concent Red Cell Distribution Width 16.6 % 16.5 % 16.4 % Platelet Count 182 TH/MM3 214 TH/MM3 204 TH/MM3 Mean Platelet Volume 7.4 FL 7.2 FL 7.2 FL Neutrophils (%) (Auto) % 91.2 % Lymphocytes (%) (Auto) % 2.4 % Monocytes (%) (Auto) % 2.9 % Eosinophils (%) (Auto) % 2.6 % Basophils (%) (Auto) % 0.9 % Neutrophils # (Auto) TH/MM3 24.7 TH/MM3 Lymphocytes # (Auto) TH/MM3 0.6 TH/MM3 Monocytes # (Auto) TH/MM3 0.8 TH/MM3 Eosinophils # (Auto) TH/MM3 0.7 TH/MM3 Basophils # (Auto) TH/MM3 0.2 TH/MM3 CBC Comment AUTO DIFF AUTO DIFF Differential Total Cells 100 100 Counted Neutrophils % (Manual) 69 % 65 % Band Neutrophils % 22 % 28 % Lymphocytes % 1 % 1 % Monocytes % 3 % 5 % Eosinophils % 4 % Neutrophils # (Manual) 10.6 TH/MM3 25.4 TH/MM3 Metamyelocytes 1 % 1 % Differential Comment FINAL DIFF FINAL DIFF MANUAL MANUAL Toxic Granulation 1+ 1+ Toxic Vacuolation PRESENT PRESENT Platelet Estimate NORMAL Platelet Morphology Comment NORMAL Laboratory Tests Test 11/02/16 11/03/16 11/03/16 11/03/16 21:40 04:40 10:13 13:30 Lactic Acid Level 1.7 mmol/L Sodium Level 134 MEQ/L 133 MEQ/L Potassium Level 2.8 MEQ/L 3.6 MEQ/L Chloride Level 105 MEQ/L 104 MEQ/L Carbon Dioxide Level 21.2 MEQ/L 17.7 MEQ/L Anion Gap 8 MEQ/L 11 MEQ/L Blood Urea Nitrogen 9 MG/DL 8 MG/DL Creatinine 0.46 MG/DL 0.54 MG/DL Estimat Glomerular Filtration 187 ML/MIN 156 ML/MIN Rate Random Glucose 119 MG/DL 183 MG/DL Calcium Level 5.8 MG/DL 6.7 MG/DL Protein Corrected Calcium 7.3 MG/DL 7.9 MG/DL Phosphorus Level 2.4 MG/DL Total Protein 4.0 GM/DL 4.8 GM/DL Total Creatine Kinase 55 U/L Troponin I LESS THAN 0.02 NG/ML Magnesium Level 1.7 MG/DL Total Bilirubin 0.6 MG/DL Aspartate Amino Transf 33 U/L (AST/SGOT) Alanine Aminotransferase 16 U/L (ALT/SGPT) Alkaline Phosphatase 76 U/L Albumin 1.2 GM/DL Test 11/04/16 05:30 Sodium Level 133 MEQ/L Potassium Level 3.5 MEQ/L Chloride Level 104 MEQ/L Carbon Dioxide Level 19.9 MEQ/L Anion Gap 9 MEQ/L Blood Urea Nitrogen 5 MG/DL Creatinine 0.56 MG/DL Estimat Glomerular Filtration 149 ML/MIN Rate Random Glucose 129 MG/DL Calcium Level 7.4 MG/DL Protein Corrected Calcium 8.6 MG/DL Total Bilirubin 0.4 MG/DL Aspartate Amino Transf 39 U/L (AST/SGOT) Alanine Aminotransferase 18 U/L (ALT/SGPT) Alkaline Phosphatase 101 U/L Total Protein 5.0 GM/DL Albumin 1.4 GM/DL Microbiology Date/Time Procedure Status Source Growth 11/02/16 00:00 Gram Stain - Final Complete Wound Thigh 11/02/16 00:00 Wound Culture - Final Complete Group A Beta Strep S. Aureus Mrsa 11/02/16 11:15 Aerobic Blood Culture - Preliminary Resulted Blood Peripheral NO GROWTH IN 2 DAYS 11/02/16 11:15 Anaerobic Blood Culture - Preliminary Resulted Blood Peripheral NO GROWTH IN 2 DAYS 11/02/16 11:20 Aerobic Blood Culture - Preliminary Resulted Blood Peripheral NO GROWTH IN 2 DAYS 11/02/16 11:20 Anaerobic Blood Culture - Preliminary Resulted Blood Peripheral NO GROWTH IN 2 DAYS 11/02/16 11:30 Gram Stain - Final Resulted Wound Leg 11/02/16 11:30 Wound Culture - Preliminary Resulted Group A Beta Strep S. Aureus Mrsa 11/03/16 10:13 Aerobic Blood Culture - Preliminary Resulted Blood Peripheral NO GROWTH IN 1 DAY 11/03/16 10:13 Anaerobic Blood Culture - Preliminary Resulted Blood Peripheral NO GROWTH IN 1 DAY 11/03/16 10:17 Aerobic Blood Culture - Preliminary Resulted Blood Peripheral NO GROWTH IN 1 DAY 11/03/16 10:17 Anaerobic Blood Culture - Preliminary Resulted Blood Peripheral NO GROWTH IN 1 DAY Imaging Last Impressions Chest X-Ray 11/03/16 0000 Signed Impressions: Service Date/Time: Thursday, November 03, 2016 02:00 - CONCLUSION: 1. Left central line in superior vena cava without pneumothorax. Michael Lane MD Lower Extremity CT 11/02/16 0000 Signed Impressions: Service Date/Time: Wednesday, November 02, 2016 12:36 - CONCLUSION: Cellulitis without defined abscess. Small joint effusion. Doug Palmer MD FACR Physical Exam CONSTITUTIONAL/GENERAL: This is an adequately nourished patient, in no apparent distress. TUBES/LINES/DRAINS: SKIN: No jaundice, rashes, or lesions. Skin temperature appropriate. Not diaphoretic. Multiple scars on b/l upper extremieties CARDIOVASCULAR: Regular rate and rhythm without murmurs, gallops, or rubs. RESPIRATORY/CHEST: Symmetric, unlabored respirations. Clear to auscultation. Breath sounds equal bilaterally. No wheezes, rales, or rhonchi. GASTROINTESTINAL: Abdomen soft, non-tender, nondistended. No hepato-splenomegaly , or palpable masses. No guarding. Bowel sounds present. GENITOURINARY: Without palpable bladder distension. Martin catheter in place. MUSCULOSKELETAL: Extremities without clubbing, cyanosis, LLE with non pitting edema from foot to the thigh VACin place x 2 on thigh and lower leg with serosang d/c LLE is tender to palpation + dusky discoloration and erythema present on calf, lateral aspect; clear fluid fille dblister present on the medial aspec of the thigh L inner thigh is erythemaout, edemaous LYMPHATICS: No palpable cervical or supraclavicular adenopathy. NEUROLOGICAL: Groggy. Arousable, noon focal. Speech incoherent (just after gen anesthesiA) Assessment & Plan Remarks LLE nec fasc, GAS sp debridment, fascitomies, VAC placemnet - prelim clx with group A strep and MRSA Hemodynamically unstable, on pressors: more stable today, improving Leukocytosis; worse today -leukemoid reaction ETOH abuse, withdrawl risk - cont vancomycin - change unasyn to ampicillin - cont clindamycin - fu clx untill final anticipate eventual transition to oral abx Maria Teresa Greenwood MD Nov 04, 2016 18:01
[2016-11-04] MEDS ORDERED: AMPICILLIN INJ 2,000 MG in SODIUM CHLORIDE 0.9% INJ 100 ML IV SCH (20:00)
[2016-11-04] MEDS: AMPICILLIN 2 GM/NS 100 ML IV SCH ×4 (20:58→23:45)
[2016-11-05] VITALS: BP 98/66; PULSE 76; RESP 20; TEMP 98; O2SAT 96
[2016-11-05] MEDS: VANCOMYCIN INJ 1,250 MG in SODIUM CHLOR 0.9% 250 ML INJ 250 ML IV SCH ×2 (01:05→14:06)
[2016-11-05] MEDS: LORazepam 2 MG/ML VIAL IV PUSH PRN ×4 (02:33→13:53)
[2016-11-05] MEDS: NOREPINEPHRINE 4 MG/D5W 250 ML IV SCH ×2 (02:43→17:35)
[2016-11-05] MEDS: D5-NS + KCL 20 MEQ INJ 1,000 ML IV SCH ×3 (02:52→18:32)
--- NOTE | 2016-11-05 03:44 | RADRPT ---
EXAM DATE/TIME: 11/05/2016 02:59 [facility] COMPARISON: No previous studies available for comparison. INDICATIONS : Short of breath. MEDICAL HISTORY : Hepatitis C. SURGICAL HISTORY : Appendectomy. ENCOUNTER: Subsequent ACUITY: 2 weeks PAIN SCORE: 0/10 LOCATION: Bilateral chest FINDINGS: Mild, mainly interstitial opacities are again seen in both lungs. No lobar consolidation. No pleural effusion or pneumothorax. Heart size stable, within normal limits. Again seen is a left internal jugular central venous catheter with tip in the superior vena cava. CONCLUSION: No significant change. Cesario Rodriguez MD on November 05, 2016 at 3:41 Board Certified Radiologist. This report was verified electronically.
[2016-11-05 04:00] VITALS: BP 111/66; PULSE 84; RESP 20; TEMP 97.9; O2SAT 100
[2016-11-05] MEDS: CHLORHEXIDINE GLUCONATE 2 % 1 PACK (2 CLOTHS)(taper/protocol) TOPICAL SCH (04:00)
[2016-11-05] MEDS: AMPICILLIN 2 GM/NS 100 ML IV SCH ×8 (04:31→19:54)
[2016-11-05 05:13] LABS: AUTOMATED NEUTROPHIL # 23.4 TH/MM3 (1.8-7.7); BASOPHIL % 0.1 % (0.0-2.0); EOSINOPHIL # 0.3 TH/MM3 (0-0.4); EOSINOPHIL % 1.4 % (0.0-4.0); HEMATOCRIT 29.3 % (39.0-51.0); LYMPHOCYTE # 0.8 TH/MM3 (1.0-4.8); MEAN CORPUSCULAR HGB CONC 31.4 % (32.0-36.0); MONO % 4.5 % (0.0-8.0); PLATELET COUNT 253 TH/MM3 (150-450); RED CELL DISTRIBUTION WIDTH 16.6 % (11.6-17.2); WHITE BLOOD COUNT 25.7 TH/MM3 (4.0-11.0)
[2016-11-05 05:46] LABS: BICARBONATE 23.3 MEQ/L (21.0-32.0); CALCIUM-PROTEIN CORRECTED 7.8 MG/DL (8.5-10.1); POTASSIUM 3.4 MEQ/L (3.5-5.1); TOTAL BILIRUBIN ADULT 0.3 MG/DL (0.2-1.0)
[2016-11-05 05:53] LABS: HEMO FLAGS AUTO DIFF
[2016-11-05] MEDS: PCA - TOTAL MG MORPHINE DELIVERED PER SHIFT SCH (06:00)
[2016-11-05] MEDS: CLINDAMYCIN INJ 900 MG in SODIUM CHLORIDE 0.9% INJ 100 ML IV SCH ×3 (06:36→19:55)
[2016-11-05 07:40] LABS: BANDS 7 % (0-6); METAMYELOCYTES 2 % (0-1); NEUTROPHIL # MANUAL DIFF 24.7 TH/MM3 (1.8-7.7); PLATELET ESTIMATE SMEAR NORMAL (NORMAL); PLATELET MORPHOLOGY NORMAL (NORMAL); POLYS (SEG NEUTROPHILS) 87 % (16-70); SCAN/DIFF FINAL DIFF MANUAL; WBC DIFF SAMPLE 100
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
[2016-11-05 08:00] VITALS: BP 118/81; PULSE 78; RESP 16; TEMP 98.6; O2SAT 95
[2016-11-05] MEDS: THIAMINE HCL 100 MG TAB PO SCH (09:00)
[2016-11-05] MEDS: FOLIC ACID 1 MG TAB PO SCH (09:00)
[2016-11-05] MEDS: SODIUM CHLORIDE 0.9% FLUSH 5 ML FLUSH IVF SCH ×2 (09:00→19:55)
[2016-11-05] MEDS: MULTIVITAMINS/MINERALS THERAPEUTIC TAB PO SCH (09:00)
[2016-11-05] MEDS: MORPHINE SULFATE 8 MG/ML INJ IV PUSH PRN (11:30)
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
[2016-11-05 12:00] VITALS: BP 110/73; PULSE 92; RESP 16; TEMP 98.8; O2SAT 96
[2016-11-05] MEDS ORDERED: DEXMEDETOMIDINE INJ 50 ML IV SCH (12:00)
[2016-11-05] MEDS: MUPIROCIN 2% OINT 1 APPLIC/GM SYR NASAL SCH ×2 (12:09→19:55)
[2016-11-05] MEDS: HALOPERIDOL LACTATE 5 MG/ML AMP IV PRN (12:29)
[2016-11-05] MEDS ORDERED: PHARMACY ORDERED LAB ONE (12:45)
[2016-11-05] MEDS: DEXMEDETOMIDINE 200 MCG in NS 50 ML IV SCH ×2 (13:19→20:23)
--- NOTE | 2016-11-05 13:28 | MP ---
cc: AUSTIN JACKSON M.D. DATE OF SURGERY: 11/04/2016 PROCEDURE Irrigation and debridement 50 square centimeter subcutaneous tissue and skin with VAC replacement. PREOPERATIVE DIAGNOSIS Necrotizing fasciitis of the left leg. POSTOPERATIVE DIAGNOSIS Necrotizing fasciitis of the left leg. ANESTHESIA General endotracheal. SURGEON Dr. Jackson. ESTIMATED BLOOD LOSS Less than 20 mL. FLUIDS 600 mL crystalloid. COMPLICATIONS None. DRAINS None. SPECIMEN None. PROCEDURE IN DETAIL The patient was taken to the operating room after marking the correct site and placed on the operating table in the supine position. After an adequate level of general endotracheal anesthesia was achieved, the left leg had dressings removed. He was prepped and draped. Time-out was taken confirming the correct patient, site and procedures to be performed. Skin and subcutaneous tissue was first examined in the upper thigh and debridement of approximately 25 cm2 of subcutaneous tissue and a small amount of muscle was debrided as well. This was made hemostatic with electrocautery and then following this attention was turned to the left lower leg. An area of 25 cm2 of skin and subcutaneous tissue was excised as the skin was no longer viable. The remaining tissue was scrubbed with a Betadine sponge and then pulse lavage irrigation was taken to the entire open wound in the upper and lower leg. When this was completed the leg was dried off and VAC sponge was re-applied to the lower leg and then the upper leg. Two separate VAC dressings were applied. Good suction was obtained. There were no leaks noted. When this had been completed, the patient was extubated and taken back to the recovery room in stable condition. Sponge and needle counts were reported to be correct. The patient tolerated the procedure well. This is a stage two of a planned procedure 11/04/2016. MD CONSTANTIN Christina/DEMETRIS /2:39 PM /1:27 PM
--- NOTE | 2016-11-05 14:09 | RADRPT ---
EXAM DATE/TIME: 11/05/2016 12:19 [facility] COMPARISON: CHEST SINGLE AP, November 05, 2016, 2:59. INDICATIONS : Evaluate central line placement. MEDICAL HISTORY : Hepatitis C. SURGICAL HISTORY : Appendectomy. ENCOUNTER: Subsequent ACUITY: 1 week PAIN SCORE: 0/10 LOCATION: Bilateral chest FINDINGS: The patient is rotated towards the right. The heart size appears normal. There is a left internal c entral line in place with tip overlying the SVC. There is fairly diffuse prominence to the interstit ial markings the most prominent to the perihilar and upper lobe regions. This appearance is unchange d. Focal consolidation is not clearly seen. A significant effusion is not seen. CONCLUSION: Persistent diffuse interstitial consolidation likely representing diffuse processes s uch as pulmonary edema or pulmonary venous hypertension versus underlying chronic interstitial diseas eKristine Muhammad MD on November 05, 2016 at 13:52 Board Certified Radiologist. This report was verified electronically.
[2016-11-05] MEDS: THIAMINE HCL 200 MG/2 ML VIAL IM SCH (14:19)
[2016-11-05] MEDS: NICOTINE 21 MG/24 HR PATCH T-DERMAL SCH (14:19)
[2016-11-05] MEDS: HEPARIN SODIUM - SQ 10,000 UNITS/ML VIAL SQ SCH (14:20)
--- NOTE | 2016-11-05 14:36 | HHI.PR ---
Subjective Subjective Notes Resting Patient was combative this morning; started on CIWA protocol and Precedex MILES Matthew at bedside Objective Vitals/I&O Vital Signs Date Time Temp Pulse Resp B/P Pulse Ox O2 Delivery O2 Flow Rate FiO2 11/05/16 07:00 94 Room Air 11/05/16 04:00 97.9 84 20 111/66 11/04/16 20:38 2.00 11/04/16 07:46 21 Labs Laboratory Tests Test 11/05/16 11/05/16 04:45 13:15 White Blood Count 25.7 Red Blood Count 3.30 Hemoglobin 9.2 Hematocrit 29.3 Mean Corpuscular Volume 89.0 Mean Corpuscular Hemoglobin 28.0 Mean Corpuscular Hemoglobin 31.4 Concent Red Cell Distribution Width 16.6 Platelet Count 253 Mean Platelet Volume 7.2 Neutrophils (%) (Auto) 91.0 Lymphocytes (%) (Auto) 3.0 Monocytes (%) (Auto) 4.5 Eosinophils (%) (Auto) 1.4 Basophils (%) (Auto) 0.1 Neutrophils # (Auto) 23.4 Lymphocytes # (Auto) 0.8 Monocytes # (Auto) 1.2 Eosinophils # (Auto) 0.3 Basophils # (Auto) 0.0 CBC Comment AUTO DIFF Differential Total Cells 100 Counted Neutrophils % (Manual) 87 Band Neutrophils % 7 Lymphocytes % 1 Monocytes % 3 Neutrophils # (Manual) 24.7 Metamyelocytes 2 Differential Comment FINAL DIFF MANUAL Platelet Estimate NORMAL Platelet Morphology Comment NORMAL Red Cell Morphology Comment NORMAL Sodium Level 134 Potassium Level 3.4 Chloride Level 103 Carbon Dioxide Level 23.3 Anion Gap 8 Blood Urea Nitrogen 4 Creatinine 0.52 Estimat Glomerular Filtration 163 Rate Random Glucose 107 Lactic Acid Level 1.3 Calcium Level 6.8 Protein Corrected Calcium 7.8 Total Bilirubin 0.3 Aspartate Amino Transf 26 (AST/SGOT) Alanine Aminotransferase 20 (ALT/SGPT) Alkaline Phosphatase 96 Total Protein 5.2 Albumin 1.3 Vancomycin Level Trough 13.2 Date/Time Procedure Status Source Growth 11/03/16 10:17 Aerobic Blood Culture - Preliminary Resulted Blood Peripheral NO GROWTH IN 2 DAYS 11/03/16 10:17 Anaerobic Blood Culture - Preliminary Resulted Blood Peripheral NO GROWTH IN 2 DAYS 11/02/16 11:30 Gram Stain - Final Resulted Wound Leg 11/02/16 11:30 Wound Culture - Preliminary Resulted Group A Beta Strep S. Aureus Mrsa Cardiovascular: Regular Lungs: Clear Abdomen: Non-distended, Non-tender Narrative Exam LEFT thigh---Wound vac in place with good seal LEFT lower leg--- Wound Vac in place with good seal; leaking A/P Assessment and Plan 61 year old male POD1 Irrigation and debridement LEFT leg with 50 cm 2 excision skin, subcutaneous tissue and muscle and Wound Vac placement -ISIDORO; NPO after midnight -CIWA protocol initiated -Plan for OR tomorrow -Obtain consents -[facility] following Attending Note - Dr. Jackson Leg without erythema WBC's decreasing For repeat I&D, washout/debridement 11/06 The exam, history, and the medical decision-making described in the above note were completed with the assistance of the mid-level provider. I reviewed and agree with the findings presented. I attest that I had a [id number] encounter with the patient on the same day, and personally performed and documented my assessment and findings in the medical record. Brittny Strickland Nov 05, 2016 14:36 Geovany Jackson MD Nov 06, 2016 12:39
--- NOTE | 2016-11-05 15:48 | HHI.IDPN ---
Subjective Subjective Remarks improved no fever WBC slightly improved afebrile Antibiotics ampicillin, vanco, clinda Allergies: Coded Allergies: Cultivated Oat Pollen (Verified Allergy, Mild, 11/02/16) *MDRO Multi-Drug Resistant Organism (Verified Allergy, Unknown, 11/05/16) MRSA PCR screen POSITIVE-11/03/16 MRSA (leg)-11/02/16 Objective . Vital Signs Date Time Temp Pulse Resp B/P Pulse Ox O2 Delivery O2 Flow Rate FiO2 11/05/16 12:00 98.8 92 16 110/73 96 11/05/16 08:00 98.6 78 16 118/81 95 11/05/16 07:00 94 Room Air 11/05/16 04:00 97.9 84 20 111/66 100 11/05/16 00:00 96 Room Air 11/05/16 00:00 98.0 76 20 98/66 96 11/04/16 20:38 100 Nasal Cannula 2.00 11/04/16 20:00 96 Room Air 11/04/16 20:00 97.4 74 21 91/61 100 11/04/16 16:00 98.6 96 17 152/94 98 11/04/16 11/04/16 11/05/16 15:00 23:00 07:00 Intake Total 2913 ml 1539 ml Output Total 990 ml 790 ml Balance 1923 ml 749 ml Intake Oral 0 ml IV Total 1973 ml 1539 ml Other 940 ml Output Urine Total 850 ml 400 ml Drainage Total 120 ml 390 ml Estimated Blood Loss 20 ml # Bowel Movements 0 0 . Laboratory Tests Test 11/04/16 11/05/16 05:30 04:45 White Blood Count 27.0 TH/MM3 25.7 TH/MM3 Red Blood Count 3.22 MIL/MM3 3.30 MIL/MM3 Hemoglobin 9.2 GM/DL 9.2 GM/DL Hematocrit 28.3 % 29.3 % Mean Corpuscular Volume 87.7 FL 89.0 FL Mean Corpuscular Hemoglobin 28.6 PG 28.0 PG Mean Corpuscular Hemoglobin 32.6 % 31.4 % Concent Red Cell Distribution Width 16.4 % 16.6 % Platelet Count 204 TH/MM3 253 TH/MM3 Mean Platelet Volume 7.2 FL 7.2 FL Neutrophils (%) (Auto) 91.2 % 91.0 % Lymphocytes (%) (Auto) 2.4 % 3.0 % Monocytes (%) (Auto) 2.9 % 4.5 % Eosinophils (%) (Auto) 2.6 % 1.4 % Basophils (%) (Auto) 0.9 % 0.1 % Neutrophils # (Auto) 24.7 TH/MM3 23.4 TH/MM3 Lymphocytes # (Auto) 0.6 TH/MM3 0.8 TH/MM3 Monocytes # (Auto) 0.8 TH/MM3 1.2 TH/MM3 Eosinophils # (Auto) 0.7 TH/MM3 0.3 TH/MM3 Basophils # (Auto) 0.2 TH/MM3 0.0 TH/MM3 CBC Comment AUTO DIFF AUTO DIFF Differential Total Cells 100 100 Counted Neutrophils % (Manual) 65 % 87 % Band Neutrophils % 28 % 7 % Lymphocytes % 1 % 1 % Monocytes % 5 % 3 % Neutrophils # (Manual) 25.4 TH/MM3 24.7 TH/MM3 Metamyelocytes 1 % 2 % Differential Comment FINAL DIFF FINAL DIFF MANUAL MANUAL Toxic Granulation 1+ Toxic Vacuolation PRESENT Platelet Estimate NORMAL NORMAL Platelet Morphology Comment NORMAL NORMAL Red Cell Morphology Comment NORMAL Laboratory Tests Test 11/04/16 11/05/16 11/05/16 05:30 04:45 13:15 Sodium Level 133 MEQ/L 134 MEQ/L Potassium Level 3.5 MEQ/L 3.4 MEQ/L Chloride Level 104 MEQ/L 103 MEQ/L Carbon Dioxide Level 19.9 MEQ/L 23.3 MEQ/L Anion Gap 9 MEQ/L 8 MEQ/L Blood Urea Nitrogen 5 MG/DL 4 MG/DL Creatinine 0.56 MG/DL 0.52 MG/DL Estimat Glomerular Filtration 149 ML/MIN 163 ML/MIN Rate Random Glucose 129 MG/DL 107 MG/DL Calcium Level 7.4 MG/DL 6.8 MG/DL Protein Corrected Calcium 8.6 MG/DL 7.8 MG/DL Total Bilirubin 0.4 MG/DL 0.3 MG/DL Aspartate Amino Transf 39 U/L 26 U/L (AST/SGOT) Alanine Aminotransferase 18 U/L 20 U/L (ALT/SGPT) Alkaline Phosphatase 101 U/L 96 U/L Total Protein 5.0 GM/DL 5.2 GM/DL Albumin 1.4 GM/DL 1.3 GM/DL Lactic Acid Level 1.3 mmol/L Random Cortisol 26.8 MCG/DL Microbiology Date/Time Procedure Status Source Growth 11/03/16 10:13 Aerobic Blood Culture - Preliminary Resulted Blood Peripheral NO GROWTH IN 2 DAYS 11/03/16 10:13 Anaerobic Blood Culture - Preliminary Resulted Blood Peripheral NO GROWTH IN 2 DAYS 11/03/16 10:17 Aerobic Blood Culture - Preliminary Resulted Blood Peripheral NO GROWTH IN 2 DAYS 11/03/16 10:17 Anaerobic Blood Culture - Preliminary Resulted Blood Peripheral NO GROWTH IN 2 DAYS Imaging Last Impressions Chest X-Ray 11/05/16 0600 Signed Impressions: Service Date/Time: Saturday, November 05, 2016 02:59 - CONCLUSION: No significant change. Cesario Rodriguez MD Lower Extremity CT 11/02/16 0000 Signed Impressions: Service Date/Time: Wednesday, November 02, 2016 12:36 - CONCLUSION: Cellulitis without defined abscess. Small joint effusion. Doug Palmer MD FACR Physical Exam CONSTITUTIONAL/GENERAL: This is an adequately nourished patient, in no apparent distress. TUBES/LINES/DRAINS: SKIN: No jaundice, rashes, or lesions. Skin temperature appropriate. Not diaphoretic. Multiple scars on b/l upper extremieties CARDIOVASCULAR: Regular rate and rhythm without murmurs, gallops, or rubs. RESPIRATORY/CHEST: Symmetric, unlabored respirations. Clear to auscultation. Breath sounds equal bilaterally. No wheezes, rales, or rhonchi. GASTROINTESTINAL: Abdomen soft, non-tender, nondistended. No hepato-splenomegaly , or palpable masses. No guarding. Bowel sounds present. GENITOURINARY: Without palpable bladder distension. Martin catheter in place. MUSCULOSKELETAL: Extremities without clubbing, cyanosis, LLE with non pitting edema from foot to the thigh VACin place x 2 on thigh and lower leg with serosang d/c LLE is tender to palpation + dusky discoloration and erythema present on calf, lateral aspect; clear fluid fille dblister present on the medial aspec of the thigh L inner thigh is less erythematous, edematous NEUROLOGICAL: Speech incoherent , lethargic, but arousable Assessment & Plan Remarks LLE nec fasc, GAS sp debridment, fascitomies, VAC placemnet - prelim clx with group A strep and MRSA - still P sensitivities on MRSA Hemodynamically unstable, on pressors: more stable today, improving Leukocytosis; worse today -leukemoid reaction, improved - bandemia definetely improved ETOH abuse, withdrawl risk - cont vancomycin - cont ampicillin - cont clindamycin - fu clx untill final anticipate eventual transition to oral abx dw Maria Teresa Taylor MD Nov 05, 2016 15:48
[2016-11-05 16:00] VITALS: BP 88/54; PULSE 76; RESP 20; TEMP 98.6; O2SAT 100
[2016-11-05 20:00] VITALS: BP 101/67; PULSE 70; RESP 20; TEMP 98.2; O2SAT 98
[2016-11-06] VITALS (7 sets, daily range): BP systolic 97–139; BP diastolic 57–78; PULSE 72–88; RESP 16–23; TEMP 97.4–98.6; O2SAT 95–100
[2016-11-06] MEDS: AMPICILLIN 2 GM/NS 100 ML IV SCH ×12 (00:07→21:12)
[2016-11-06] MEDS: LORazepam 2 MG/ML VIAL IV PUSH PRN ×2 (00:07→09:59)
[2016-11-06] MEDS: VANCOMYCIN 1,500 MG/NS 500 ML IV SCH ×4 (00:47→13:01)
[2016-11-06] MEDS: D5-NS + KCL 20 MEQ INJ 1,000 ML IV SCH ×2 (02:08→15:28)
[2016-11-06] MEDS: NOREPINEPHRINE 4 MG/D5W 250 ML IV SCH (03:37)
[2016-11-06] MEDS: CHLORHEXIDINE GLUCONATE 2 % 1 PACK (2 CLOTHS)(taper/protocol) TOPICAL SCH (04:00)
[2016-11-06 05:15] LABS: BICARBONATE 26.7 MEQ/L (21.0-32.0); POTASSIUM 3.2 MEQ/L (3.5-5.1)
[2016-11-06] MEDS: CLINDAMYCIN INJ 900 MG in SODIUM CHLORIDE 0.9% INJ 100 ML IV SCH ×3 (06:09→22:28)
[2016-11-06 06:21] LABS: HEMATOCRIT 29.6 % (39.0-51.0); MEAN CELL VOLUME 86.9 FL (80.0-100.0); MEAN CORPUSCULAR HEMOGLOBIN 28.8 PG (27.0-34.0); MEAN CORPUSCULAR HGB CONC 33.1 % (32.0-36.0); PLATELET COUNT 355 TH/MM3 (150-450); RED CELL DISTRIBUTION WIDTH 16.6 % (11.6-17.2); REVIEW FLAG FINAL; WHITE BLOOD COUNT 19.5 TH/MM3 (4.0-11.0)
[2016-11-06] MEDS: HALOPERIDOL LACTATE 5 MG/ML AMP IV PRN (08:46)
[2016-11-06] MEDS: THIAMINE HCL 200 MG/2 ML VIAL IM SCH (08:46)
[2016-11-06] MEDS: NICOTINE 21 MG/24 HR PATCH T-DERMAL SCH (08:46)
[2016-11-06] MEDS: MUPIROCIN 2% OINT 1 APPLIC/GM SYR NASAL SCH ×2 (08:46→22:28)
[2016-11-06] MEDS: SODIUM CHLORIDE 0.9% FLUSH 5 ML FLUSH IVF SCH ×2 (08:47→21:00)
[2016-11-06] MEDS: FOLIC ACID 1 MG TAB PO SCH (08:47)
[2016-11-06] MEDS: REMOVE OLD PATCH T-DERMAL SCH (08:47)
[2016-11-06] MEDS ORDERED: PROPOFOL 200 MG/20 ML AMP IV ONE (12:00)
[2016-11-06] MEDS ORDERED: PHENYLEPH/NS 1000 MCG/10 ML SYR IV ONE (12:00)
[2016-11-06] MEDS ORDERED: LACTATED RINGER'S 1,000 ML BAG IV ONE (12:00)
[2016-11-06] MEDS ORDERED: NEOSTIGMINE 3 MG/3 ML SYR IV ONE (12:00)
[2016-11-06] MEDS ORDERED: ONDANSETRON HCL 4 MG/2 ML VIAL IV PUSH ONE (12:00)
[2016-11-06] MEDS ORDERED: SUGAMMADEX SODIUM 200 MG/2 ML VIAL IV PUSH ONE ×2 (12:00)
[2016-11-06] MEDS ORDERED: ceFAZolin INJ 1,000 MG VIAL ONE (16:35)
[2016-11-06] MEDS ORDERED: LIDOCAINE HCL 1% 50 ML VIAL ONE (16:35)
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
[2016-11-06] MEDS ORDERED: fentaNYL CITRATE 250 MCG/5 ML AMP ONE (19:31)
[2016-11-06] MEDS: DEXMEDETOMIDINE 200 MCG in NS 50 ML IV SCH (19:49)
[2016-11-07] VITALS (8 sets, daily range): BP systolic 96–136; BP diastolic 63–83; PULSE 98–116; RESP 13–27; TEMP 98.4–100.4; O2SAT 94–100
[2016-11-07] MEDS: HALOPERIDOL LACTATE 5 MG/ML AMP IV PRN (00:13)
[2016-11-07] MEDS: AMPICILLIN 2 GM/NS 100 ML IV SCH ×12 (00:13→20:23)
[2016-11-07] MEDS ORDERED: PHARMACY ORDERED LAB ONE (00:45)
[2016-11-07] MEDS: VANCOMYCIN 1,500 MG/NS 500 ML IV SCH ×4 (01:32→13:00)
[2016-11-07] MEDS: CHLORHEXIDINE GLUCONATE 2 % 1 PACK (2 CLOTHS)(taper/protocol) TOPICAL SCH (03:36)
[2016-11-07 04:49] LABS: HEMATOCRIT 28.2 % (39.0-51.0); MEAN CELL VOLUME 86.9 FL (80.0-100.0); MEAN CORPUSCULAR HEMOGLOBIN 29.3 PG (27.0-34.0); MEAN CORPUSCULAR HGB CONC 33.8 % (32.0-36.0); PLATELET COUNT 429 TH/MM3 (150-450); RED BLOOD COUNT 3.25 MIL/MM3 (4.50-5.90); RED CELL DISTRIBUTION WIDTH 16.5 % (11.6-17.2); REVIEW FLAG FINAL; WHITE BLOOD COUNT 17.9 TH/MM3 (4.0-11.0)
[2016-11-07 05:04] LABS: BICARBONATE 26.3 MEQ/L (21.0-32.0); POTASSIUM 3.2 MEQ/L (3.5-5.1)
[2016-11-07] MEDS: CLINDAMYCIN INJ 900 MG in SODIUM CHLORIDE 0.9% INJ 100 ML IV SCH ×3 (05:15→20:25)
[2016-11-07] MEDS: POTASSIUM CHLOR 40 MEQ PREMIX 100 ML IV PRN (05:16)
[2016-11-07] MEDS: D5-NS + KCL 20 MEQ INJ 1,000 ML IV SCH ×2 (05:16→20:23)
[2016-11-07 05:23] LABS: CALCIUM-PROTEIN CORRECTED 8.2 MG/DL (8.5-10.1)
[2016-11-07] MEDS: DEXMEDETOMIDINE 200 MCG in NS 50 ML IV SCH (06:53)
[2016-11-07] MEDS: SODIUM CHLORIDE 0.9% FLUSH 5 ML FLUSH IVF SCH ×2 (09:00→20:24)
[2016-11-07] MEDS: REMOVE OLD PATCH T-DERMAL SCH (09:00)
[2016-11-07] MEDS: MUPIROCIN 2% OINT 1 APPLIC/GM SYR NASAL SCH ×2 (10:39→20:24)
[2016-11-07] MEDS: THIAMINE HCL 200 MG/2 ML VIAL IM SCH (10:39)
[2016-11-07] MEDS: FOLIC ACID 1 MG TAB PO SCH (10:40)
[2016-11-07] MEDS: NICOTINE 21 MG/24 HR PATCH T-DERMAL SCH (10:40)
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
[2016-11-07] MEDS: QUEtiapine FUMARATE 25 MG TAB PO SCH ×2 (12:12→20:23)
[2016-11-07] MEDS: DIAZEPAM 10 MG TAB PO SCH ×2 (12:12→20:24)
--- NOTE | 2016-11-07 12:20 | HHI.PR ---
Subjective Subjective Notes Sleeping Objective Vitals/I&O Vital Signs Date Time Temp Pulse Resp B/P Pulse Ox O2 Delivery O2 Flow Rate FiO2 11/07/16 10:20 100 Nasal Cannula 2.00 11/07/16 08:00 98.9 98 17 98/63 11/06/16 08:20 21 Labs Laboratory Tests Test 11/07/16 11/07/16 00:20 04:00 Vancomycin Level Trough 14.5 White Blood Count 17.9 Red Blood Count 3.25 Hemoglobin 9.5 Hematocrit 28.2 Mean Corpuscular Volume 86.9 Mean Corpuscular Hemoglobin 29.3 Mean Corpuscular Hemoglobin 33.8 Concent Red Cell Distribution Width 16.5 Platelet Count 429 Mean Platelet Volume 6.8 Sodium Level 146 Potassium Level 3.2 Chloride Level 110 Carbon Dioxide Level 26.3 Anion Gap 10 Blood Urea Nitrogen 3 Creatinine 0.50 Estimat Glomerular Filtration 170 Rate Random Glucose 80 Calcium Level 7.2 Protein Corrected Calcium 8.2 Total Protein 5.2 Date/Time Procedure Status Source Growth 11/03/16 10:17 Aerobic Blood Culture - Preliminary Resulted Blood Peripheral NO GROWTH IN 4 DAYS 11/03/16 10:17 Anaerobic Blood Culture - Preliminary Resulted Blood Peripheral NO GROWTH IN 4 DAYS Cardiovascular: Regular Lungs: Clear Abdomen: Non-distended, Non-tender Narrative Exam LEFT thigh---Wound vac in place with good seal LEFT lower leg--- Wound Vac in place with good seal A/P Assessment and Plan 61 year old male POD1 Irrigation and debridement LEFT leg with 50 cm 2 excision skin, subcutaneous tissue and muscle and Wound Vac placement -Diet as tolerated; NPO after MN -CIWA protocol initiated -Plan for OR tomorrow afternoon -Obtain consents -CCM following Brittny Strickland Nov 07, 2016 12:20
[2016-11-07] MEDS: ONDANSETRON HCL 4 MG/2 ML VIAL IV PRN (19:30)
[2016-11-07] MEDS: PANTOPRAZOLE SODIUM 40 MG VIAL IV PUSH SCH (20:23)
[2016-11-08] VITALS (11 sets, daily range): BP systolic 80–113; BP diastolic 56–74; PULSE 92–104; RESP 16–33; TEMP 97.9–99.7; O2SAT 95–100
[2016-11-08] MEDS: AMPICILLIN 2 GM/NS 100 ML IV SCH ×14 (00:03→23:53)
[2016-11-08] MEDS: VANCOMYCIN 1,500 MG/NS 500 ML IV SCH ×4 (00:03→14:02)
[2016-11-08] MEDS: RESP: ALBUTEROL 2.5 MG/IPRATROPIUM 0.5 MG NEB (PRN) NEB (01:47)
[2016-11-08] MEDS: CHLORHEXIDINE GLUCONATE 2 % 1 PACK (2 CLOTHS)(taper/protocol) TOPICAL SCH (04:00)
[2016-11-08] MEDS: DIAZEPAM 10 MG TAB PO SCH ×3 (05:27→20:15)
[2016-11-08] MEDS: QUEtiapine FUMARATE 25 MG TAB PO SCH ×3 (05:27→20:15)
[2016-11-08] MEDS: CLINDAMYCIN INJ 900 MG in SODIUM CHLORIDE 0.9% INJ 100 ML IV SCH ×3 (05:28→20:14)
[2016-11-08 06:05] LABS: HEMATOCRIT 24.5 % (39.0-51.0); MEAN CELL VOLUME 86.2 FL (80.0-100.0); MEAN CORPUSCULAR HEMOGLOBIN 28.9 PG (27.0-34.0); MEAN CORPUSCULAR HGB CONC 33.6 % (32.0-36.0); PLATELET COUNT 422 TH/MM3 (150-450); RED BLOOD COUNT 2.84 MIL/MM3 (4.50-5.90); RED CELL DISTRIBUTION WIDTH 16.6 % (11.6-17.2); REVIEW FLAG FINAL; WHITE BLOOD COUNT 15.9 TH/MM3 (4.0-11.0)
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
[2016-11-08 07:02] LABS: BICARBONATE 28.6 MEQ/L (21.0-32.0)
[2016-11-08 07:09] LABS: POTASSIUM 2.9 MEQ/L (3.5-5.1)
[2016-11-08 07:24] LABS: CALCIUM-PROTEIN CORRECTED 8.1 MG/DL (8.5-10.1)
[2016-11-08] MEDS: POTASSIUM CHLOR 40 MEQ PREMIX 100 ML IV PRN (08:46)
[2016-11-08] MEDS: THIAMINE HCL 100 MG TAB PO SCH (08:47)
[2016-11-08] MEDS: FOLIC ACID 1 MG TAB PO SCH (08:47)
[2016-11-08] MEDS: PANTOPRAZOLE SODIUM 40 MG VIAL IV PUSH SCH ×2 (08:47→20:14)
[2016-11-08] MEDS: SODIUM CHLORIDE 0.9% FLUSH 5 ML FLUSH IVF SCH ×2 (08:48→20:34)
[2016-11-08] MEDS: D5-NS + KCL 20 MEQ INJ 1,000 ML IV SCH ×3 (08:48→20:34)
[2016-11-08] MEDS: MUPIROCIN 2% OINT 1 APPLIC/GM SYR NASAL SCH ×2 (08:49→20:14)
[2016-11-08] MEDS: REMOVE OLD PATCH T-DERMAL SCH (08:49)
[2016-11-08] MEDS: NICOTINE 21 MG/24 HR PATCH T-DERMAL SCH (08:49)
[2016-11-08] MEDS ORDERED: ONDANSETRON HCL 4 MG/2 ML VIAL IV PUSH ONE (12:00)
[2016-11-08] MEDS ORDERED: LACTATED RINGER'S 1000 ML INJ 1,000 ML IV ONE (12:00)
[2016-11-08] MEDS ORDERED: PHENYLEPH/NS 1000 MCG/10 ML SYR IV ONE (12:00)
[2016-11-08] MEDS ORDERED: PROPOFOL 200 MG/20 ML AMP IV ONE (12:00)
[2016-11-08 12:09] LABS: HEMATOCRIT 22.7 % (39.0-51.0); REVIEW FLAG FINAL
[2016-11-08] MEDS ORDERED: ceFAZolin INJ 1,000 MG VIAL ONE (16:28)
[2016-11-08] MEDS ORDERED: SUGAMMADEX SODIUM 200 MG/2 ML VIAL IV PUSH ONE ×2 (16:56)
[2016-11-08] MEDS ORDERED: KETAMINE HCL 500 MG/5 ML VIAL ONE (17:12)
[2016-11-08] MEDS ORDERED: DO NOT ADM ANY ANTICOAGULANT DRUGS PRN (18:40)
[2016-11-08] MEDS ORDERED: *MEPERIDINE 25 MG INJ VIAL PERIprocedural Use ONLY ONE (18:46)
[2016-11-08] MEDS ORDERED: fentaNYL CITRATE 250 MCG/5 ML AMP ONE ×2 (18:48→18:50)
--- NOTE | 2016-11-08 19:14 | HHI.PR ---
cc: Geovany Jackson MD Immediate Post Op Note Procedure Date: Nov 08, 2016 Pre Op Diagnosis: Necrotizing fasciitis LEFT leg Post Op Diagnosis: Same Surgeon: Geovany Jackson Manager Of Disaster Recovery(s): Karen Jimenez CFA Procedure: Irrigation and debridement 50 cm2 skin, subq tissue and fascia LEFT leg Replacement VAC dressing LEFT upper leg Findings: Some necrotic skin posterior calf Complications: None Specimen(s) removed: None submitted Estimated blood loss: 75 ml Anesthesia: General Drains: None IVF (800 ml) Patient to: PACU Patient Condition: Good Date/Time of Procedure: SEE SURGICAL CARE RECORD Geovany Jackson MD Nov 08, 2016 19:14
[2016-11-08] MEDS: HALOPERIDOL LACTATE 5 MG/ML AMP IV PRN (23:53)
[2016-11-09] VITALS (12 sets, daily range): BP systolic 95–130; BP diastolic 53–66; PULSE 81–98; RESP 15–25; TEMP 97–98.6; O2SAT 97–100
[2016-11-09] MEDS ORDERED: PHARMACY ORDERED LAB ONE (00:45)
[2016-11-09] MEDS: VANCOMYCIN 1,500 MG/NS 500 ML IV SCH ×4 (00:49→13:34)
[2016-11-09] MEDS: AMPICILLIN 2 GM/NS 100 ML IV SCH ×10 (03:59→20:02)
[2016-11-09] MEDS: CLINDAMYCIN INJ 900 MG in SODIUM CHLORIDE 0.9% INJ 100 ML IV SCH ×2 (03:59→13:34)
[2016-11-09 04:13] LABS: MEAN CELL VOLUME 87.7 FL (80.0-100.0); MEAN CORPUSCULAR HEMOGLOBIN 28.8 PG (27.0-34.0); MEAN CORPUSCULAR HGB CONC 32.8 % (32.0-36.0); PLATELET COUNT 361 TH/MM3 (150-450); RED CELL DISTRIBUTION WIDTH 16.5 % (11.6-17.2); WHITE BLOOD COUNT 17.6 TH/MM3 (4.0-11.0)
[2016-11-09 04:15] LABS: REVIEW FLAG FINAL
[2016-11-09 04:36] LABS: BICARBONATE 28.4 MEQ/L (21.0-32.0); POTASSIUM 3.2 MEQ/L (3.5-5.1)
[2016-11-09 04:49] LABS: CALCIUM-PROTEIN CORRECTED 8.3 MG/DL (8.5-10.1)
[2016-11-09] MEDS: POTASSIUM CHLOR 40 MEQ PREMIX 100 ML IV PRN (05:14)
[2016-11-09] MEDS: DIAZEPAM 10 MG TAB PO SCH ×3 (05:26→20:03)
[2016-11-09] MEDS: QUEtiapine FUMARATE 25 MG TAB PO SCH ×3 (05:26→20:03)
[2016-11-09] MEDS: THIAMINE HCL 100 MG TAB PO SCH (08:21)
[2016-11-09] MEDS: NICOTINE 21 MG/24 HR PATCH T-DERMAL SCH (08:21)
[2016-11-09] MEDS: REMOVE OLD PATCH T-DERMAL SCH (08:21)
[2016-11-09] MEDS: MUPIROCIN 2% OINT 1 APPLIC/GM SYR NASAL SCH ×2 (08:22→20:02)
[2016-11-09] MEDS: PANTOPRAZOLE SODIUM 40 MG VIAL IV PUSH SCH ×2 (08:22→20:02)
[2016-11-09] MEDS: SODIUM CHLORIDE 0.9% FLUSH 5 ML FLUSH IVF SCH ×2 (08:23→20:03)
[2016-11-09] MEDS: D5-NS + KCL 20 MEQ INJ 1,000 ML IV SCH ×2 (08:23→19:28)
[2016-11-09] MEDS: HYDROmorphone HCL PF 1 MG/ML VIAL IV PUSH PRN (08:40)
[2016-11-09] MEDS ORDERED: POTASSIUM CHLORIDE 25 MEQ EFFERVESCENT TAB PO ONE (09:30)
--- NOTE | 2016-11-09 13:31 | HHI.PR ---
Subjective Subjective Notes Resting in bed "I'm thirsty!" Objective Vitals/I&O Vital Signs Date Time Temp Pulse Resp B/P Pulse Ox O2 Delivery O2 Flow Rate FiO2 11/09/16 09:10 20 11/09/16 08:00 97.6 85 98/53 100 11/09/16 07:25 21 11/09/16 07:00 Nasal Cannula 2.00 Labs Laboratory Tests Test 11/08/16 11/09/16 11/09/16 11/09/16 18:58 00:00 04:00 10:37 Potassium Level 3.6 3.2 Vancomycin Level Trough 16.0 White Blood Count 17.6 Red Blood Count 2.40 Hemoglobin 6.9 Hematocrit 21.0 Mean Corpuscular Volume 87.7 Mean Corpuscular Hemoglobin 28.8 Mean Corpuscular Hemoglobin 32.8 Concent Red Cell Distribution Width 16.5 Platelet Count 361 Mean Platelet Volume 6.6 Sodium Level 149 Chloride Level 115 Carbon Dioxide Level 28.4 Anion Gap 6 Blood Urea Nitrogen 6 Creatinine 0.41 Estimat Glomerular Filtration 214 Rate Random Glucose 95 Calcium Level 7.0 Protein Corrected Calcium 8.3 Total Protein 4.7 Blood Type O POSITIVE Antibody Screen NEGATIVE Crossmatch Leukocyte-Reduced Red Blood Cells Blood Bank Comment Date/Time Procedure Status Source Growth 11/08/16 21:45 Stool Occult Blood ([place]) - Final Complete Stool Stool HEMOCCULT POSITIVE Cardiovascular: Regular Lungs: Clear Abdomen: Non-distended, Non-tender Narrative Exam LEFT thigh---Wound vac in place with good seal LEFT lower leg--- Dressing saturated---- removed; wound bed with minimal output ; secured with chantale A/P Assessment and Plan 61 year old male POD1 Irrigation and debridement LEFT leg with 50 cm 2 excision skin, subcutaneous tissue and muscle and Wound Vac placement -Regular diet -CIWA protocol initiated -Dressing change LEFT lower ext: wet to dry kerlix over wound; wrap with soft wrap and chantale; change BID and PRN -Plan to keep Wound Vac overnight; will evaluate Saturday for replacing Wound Vac vs wet to dry dressing to LEFT lower leg wound -CCM following; currently on Precedex Brittny Strickland Nov 09, 2016 13:31
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
--- NOTE | 2016-11-09 16:49 | HHI.IDPN ---
Subjective Subjective Remarks pt developped diarrhea he has no fever WBC is increasing co abd pain Antibiotics ampicillin, clinda Allergies: Coded Allergies: Cultivated Oat Pollen (Verified Allergy, Mild, 11/02/16) *MDRO Multi-Drug Resistant Organism (Verified Allergy, Unknown, 11/05/16) MRSA PCR screen POSITIVE-11/03/16 MRSA (leg)-11/02/16 Objective . Vital Signs Date Time Temp Pulse Resp B/P Pulse Ox O2 Delivery O2 Flow Rate FiO2 11/09/16 16:00 98.6 81 15 102/66 97 11/09/16 15:00 87 11/09/16 12:00 97.6 91 24 130/61 100 11/09/16 09:10 20 11/09/16 08:00 97.6 85 17 98/53 100 11/09/16 07:25 98 21 11/09/16 07:00 95 Nasal Cannula 2.00 11/09/16 07:00 87 11/09/16 04:00 97.0 86 25 96/63 100 11/09/16 00:00 98.6 98 21 98/56 100 11/08/16 23:00 96 11/08/16 20:00 97.9 98 16 80/74 100 11/08/16 19:15 104 20 119/70 96 Nasal Cannula 2 11/08/16 19:00 103 18 129/59 95 Nasal Cannula 2 11/08/16 19:00 97 Nasal Cannula 2.00 11/08/16 18:45 105 16 158/79 94 Nasal Cannula 2 11/08/16 18:40 97.6 102 22 137/84 100 Simple Mask 11/08/16 11/08/16 11/09/16 15:00 23:00 07:00 Intake Total 1488 ml 489 ml 1421 ml Output Total 1100 ml 900 ml 800 ml Balance 388 ml -411 ml 621 ml Intake Oral 0 ml 250 ml 250 ml IV Total 1488 ml 239 ml 1171 ml Output Urine Total 925 ml 900 ml 700 ml Drainage Total 175 ml 100 ml # Bowel Movements 1 1 . Laboratory Tests Test 11/08/16 11/08/16 11/09/16 05:30 11:45 04:00 White Blood Count 15.9 TH/MM3 17.6 TH/MM3 Red Blood Count 2.84 MIL/MM3 2.40 MIL/MM3 Hemoglobin 8.2 GM/DL 7.5 GM/DL 6.9 GM/DL Hematocrit 24.5 % 22.7 % 21.0 % Mean Corpuscular Volume 86.2 FL 87.7 FL Mean Corpuscular Hemoglobin 28.9 PG 28.8 PG Mean Corpuscular Hemoglobin 33.6 % 32.8 % Concent Red Cell Distribution Width 16.6 % 16.5 % Platelet Count 422 TH/MM3 361 TH/MM3 Mean Platelet Volume 6.8 FL 6.6 FL Laboratory Tests Test 11/08/16 11/08/16 11/09/16 05:30 18:58 04:00 Sodium Level 147 MEQ/L 149 MEQ/L Potassium Level 2.9 MEQ/L 3.6 MEQ/L 3.2 MEQ/L Chloride Level 112 MEQ/L 115 MEQ/L Carbon Dioxide Level 28.6 MEQ/L 28.4 MEQ/L Anion Gap 6 MEQ/L 6 MEQ/L Blood Urea Nitrogen 7 MG/DL 6 MG/DL Creatinine 0.57 MG/DL 0.41 MG/DL Estimat Glomerular Filtration 146 ML/MIN 214 ML/MIN Rate Random Glucose 128 MG/DL 95 MG/DL Calcium Level 7.0 MG/DL 7.0 MG/DL Protein Corrected Calcium 8.1 MG/DL 8.3 MG/DL Total Protein 5.1 GM/DL 4.7 GM/DL Microbiology Date/Time Procedure Status Source Growth 11/08/16 21:45 Stool Occult Blood ([place]) - Final Complete Stool Stool HEMOCCULT POSITIVE Imaging Last Impressions Chest X-Ray 11/05/16 0600 Signed Impressions: Service Date/Time: Saturday, November 05, 2016 02:59 - CONCLUSION: No significant change. Cesario Rodriguez MD Lower Extremity CT 11/02/16 0000 Signed Impressions: Service Date/Time: Wednesday, November 02, 2016 12:36 - CONCLUSION: Cellulitis without defined abscess. Small joint effusion. Doug Palmer MD FACR Physical Exam CONSTITUTIONAL/GENERAL: This is an adequately nourished patient, in no apparent distress. TUBES/LINES/DRAINS: SKIN: No jaundice, rashes, or lesions. Skin temperature appropriate. Not diaphoretic. Multiple scars on b/l upper extremieties CARDIOVASCULAR: Regular rate and rhythm without murmurs, gallops, or rubs. RESPIRATORY/CHEST: Symmetric, unlabored respirations. Clear to auscultation. Breath sounds equal bilaterally. No wheezes, rales, or rhonchi. GASTROINTESTINAL: Abdomen soft, moderately tender to palpation and is distended. No hepato-splenomegaly, or palpable masses. Incontinnent of liquid dark brown stool GENITOURINARY: Without palpable bladder distension. Martin catheter in place. MUSCULOSKELETAL: Extremities without clubbing, cyanosis, LLE with less edema from foot to the thigh VACin place x 2 on thigh and lower leg with serosang d/c LLE is tender to palpation L inner thigh is less erythematous, edematous NEUROLOGICAL: awake, alert, not as confused, speech is clear follows commands Assessment & Plan Remarks LLE nec fasc, GAS sp debridment, fascitomies, VAC placemnet - prelim clx with group A strep and MRSA - still P sensitivities on MRSA Hemodynamically unstable, on pressors: more stable today, improving Leukocytosis; worse today -leukemoid reaction, improved - bandemia definetely improved ETOH abuse, withdrawl risk Diarrhea, abx- associated, worsening leukocytosis - cont vancomycin - cont ampicillin - dc clindamycin - chk stooll for C.diff anticipate eventual transition to oral abx dw Kamari Pacheco and Manuel Greenwood,Maria Teresa Nelson MD Nov 09, 2016 16:49
[2016-11-09 17:10] LABS: C. DIFF EPI 027 PRESUMPTIVE NEGATIVE (NEGATIVE); C. DIFF TOXIN PCR NEGATIVE (NEGATIVE)
[2016-11-09 18:40] LABS: HEMATOCRIT 27.9 % (39.0-51.0); REVIEW FLAG FINAL
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
--- NOTE | 2016-11-09 19:08 | PD.WCN.NOT ---
Wound Consult Description: Received call on wound VAC malfunctioning from [address] [place] [address] clerk. VAC machine is alarming with blockage alert. Assessed wound VAC canister, noticed gel in wound VAC canister seems to be blocking tubing. Changed Canister. VAC machine still alarming with blockage alert. All tubing checked for kinks. Removed Sensi trac pad. VAC drape is blocking sensors on track pad. Removed excess VAC drape. Applied new Sensi trac pad. Wound VAC suctioning at 125 mm/hg without leaks or blockage alarm upon leaving patient's room Communicated with: Sonali Llanes [facility] Nov 09, 2016 19:08
[2016-11-10] VITALS (9 sets, daily range): BP systolic 92–121; BP diastolic 51–73; PULSE 77–90; RESP 15–23; TEMP 97.2–98.6; O2SAT 95–100
[2016-11-10] MEDS: AMPICILLIN 2 GM/NS 100 ML IV SCH ×12 (00:20→20:39)
[2016-11-10] MEDS: VANCOMYCIN 1,500 MG/NS 500 ML IV SCH ×4 (00:31→13:06)
[2016-11-10] MEDS: DIAZEPAM 10 MG TAB PO SCH ×3 (03:34→20:43)
[2016-11-10] MEDS: QUEtiapine FUMARATE 25 MG TAB PO SCH ×3 (03:34→20:43)
[2016-11-10 04:39] LABS: HEMATOCRIT 26.2 % (39.0-51.0); MEAN CELL VOLUME 87.4 FL (80.0-100.0); MEAN CORPUSCULAR HEMOGLOBIN 29.2 PG (27.0-34.0); MEAN CORPUSCULAR HGB CONC 33.4 % (32.0-36.0); PLATELET COUNT 424 TH/MM3 (150-450); REVIEW FLAG FINAL; WHITE BLOOD COUNT 13.4 TH/MM3 (4.0-11.0)
[2016-11-10 04:54] LABS: BICARBONATE 25.7 MEQ/L (21.0-32.0); POTASSIUM 3.2 MEQ/L (3.5-5.1)
[2016-11-10] MEDS: HYDROmorphone HCL PF 1 MG/ML VIAL IV PUSH PRN ×5 (05:18→21:32)
[2016-11-10 05:58] LABS: CALCIUM-PROTEIN CORRECTED 7.9 MG/DL (8.5-10.1)
[2016-11-10] MEDS: D5-NS + KCL 20 MEQ INJ 1,000 ML IV SCH ×2 (06:27→20:39)
[2016-11-10] MEDS: PANTOPRAZOLE SODIUM 40 MG VIAL IV PUSH SCH ×2 (07:59→20:42)
[2016-11-10] MEDS: REMOVE OLD PATCH T-DERMAL SCH (08:00)
[2016-11-10] MEDS: MUPIROCIN 2% OINT 1 APPLIC/GM SYR NASAL SCH ×2 (08:00→20:43)
[2016-11-10] MEDS: NICOTINE 21 MG/24 HR PATCH T-DERMAL SCH (08:00)
[2016-11-10] MEDS: SODIUM CHLORIDE 0.9% FLUSH 5 ML FLUSH IVF SCH ×2 (08:00→20:43)
[2016-11-10] MEDS: THIAMINE HCL 100 MG TAB PO SCH (08:00)
[2016-11-10] MEDS: POTASSIUM CHLOR 20 MEQ PREMIX 100 ML IV PRN ×4 (08:03→14:33)
[2016-11-10] MEDS ORDERED: PROPOFOL 200 MG/20 ML AMP IV ONE (11:26)
--- NOTE | 2016-11-10 11:29 | GIPROC ---
[facility] [address] [facility]. [facility], [address] EGD PROCEDURE REPORT EXAM DATE: 11/10/2016 PATIENT NAME: Doug Jimenez MR #: [id number] BIRTHDATE: 1955 ATTENDING: Nahid Mtz MD ORDER #: [id number] ALTERATIONS WORKROOM CLERK: Inna Lara and Kristie Harley STATUS: inpatient INDICATIONS: The patient is a 61 yr old male here for an EGD due to anemia PROCEDURE PERFORMED: EGD w/ biopsy MEDICATIONS: Per Anesthesia and None. TOPICAL ANESTHETIC: none CONSENT: The patient understands the risks and benefits of the procedure and understands that these risks include, but are not limited to: sedation, allergic reaction, infection, perforation and/or bleeding. Alternative means of evaluation and treatment include, among others: physical exam, x-rays, and/or surgical intervention. The patient elects to proceed with this endoscopic procedure. medical equipment was checked for proper function. Hand hygiene and appropriate measures for infection prevention was taken. After the risks, benefits and alternatives of the procedure were thoroughly explained, Informed consent was verified, confirmed and timeout was successfully executed by the treatment team. The patient was anesthetized with topical anesthesia and the Pentax EG-[id number] endoscope was introduced through the mouth and advanced to the second portion of the duodenum. Retroflexed views revealed no abnormalities The gastroscope was then slowly withdrawn and removed. Sever grade esophagitis Bx done. Sever duodenitis with small ulcer in the bulb Bx from antrum to r/O H pylori. The endoscopy was otherwise normal. ADVERSE EVENTS: There were no complications. IMPRESSIONS: 1. Sever grade esophagitis Bx done 2. Sever duodenitis with small ulcer in the bulb Bx from antrum to r/O H pylori 3. Normal endoscopy otherwise 4. Retroflexed views revealed no abnormalities RECOMMENDATIONS: 1. Await biopsy results. Biopsy results will not be ready for 7-10 days. If you don't hear from us in two weeks, call our office for biopsy results. 2. Anti-reflux regimen 3. Avoid NSAIDS 4. Protonix 40mg Q AM PATIENT CONDITION: stable DISPOSITION: Inpatient REPEAT EXAM: Return as needed for EGD Nahid Mtz MD eSigned: Nahid Mtz MD 11/10/2016 11:29 AM cc:
--- NOTE | 2016-11-10 15:13 | HHI.PR ---
Subjective Remarks pt seen around 2pm s/p EGD. says he is feeling okay. no Cp or sob. some neause earlier, resolved. Objective Vital Signs Date Time Temp Pulse Resp B/P Pulse Ox O2 Delivery O2 Flow Rate FiO2 11/10/16 15:00 77 11/10/16 12:00 98.0 90 23 92/52 100 11/10/16 08:00 98.6 84 15 92/51 98 11/10/16 07:00 87 11/10/16 07:00 94 Room Air 11/10/16 05:48 17 11/10/16 04:00 97.6 90 21 103/60 97 11/10/16 00:00 98.1 86 22 121/73 100 11/10/16 00:00 86 11/09/16 22:00 90 11/09/16 20:06 99 11/09/16 20:00 97.6 86 20 104/59 98 11/09/16 20:00 86 11/09/16 19:00 99 Room Air 11/09/16 16:00 98.6 81 15 102/66 97 I/O 11/09/16 11/09/16 11/09/16 11/10/16 11/10/16 11/10/16 07:00 15:00 23:00 07:00 15:00 23:00 Intake Total 1421 ml 1722 ml 1533 ml 882 ml 1571 ml Output Total 800 ml 900 ml 575 ml 575 ml 750 ml Balance 621 ml 822 ml 958 ml 307 ml 821 ml Intake Oral 250 ml 480 ml 360 ml 300 ml IV Total 1171 ml 1242 ml 923 ml 882 ml 1271 ml Packed Cells 250 ml Output Urine Total 700 ml 800 ml 500 ml 475 ml 550 ml Drainage Total 100 ml 100 ml 75 ml 100 ml 200 ml # Bowel Movements 3 3 0 0 Result Diagram: 11/10/169 11/10/16418 Imaging Last Impressions Chest X-Ray 11/05/16 0600 Signed Impressions: Service Date/Time: Saturday, November 05, 2016 02:59 - CONCLUSION: No significant change. Cesario Rodriguez MD Lower Extremity CT 11/02/16 0000 Signed Impressions: Service Date/Time: Wednesday, November 02, 2016 12:36 - CONCLUSION: Cellulitis without defined abscess. Small joint effusion. Doug Palmer MD FACR Objective Remarks GENERAL: pt sitting up in bed. somnolent, wakes up for exam. oriented to place and year. SKIN: Warm and dry. HEAD: Normocephalic. EYES: No scleral icterus. No injection or drainage. NECK: Supple, trachea midline. No JVD. CARDIOVASCULAR: Regular rate and rhythm without murmurs, gallops, or rubs. RESPIRATORY: Breath sounds equal bilaterally. No accessory muscle use. GASTROINTESTINAL: Abdomen soft, non-tender, nondistended. wound vac to left medial thigh,. left lower leg dressed. MUSCULOSKELETAL: No cyanosis, or edema. BACK: Nontender without obvious deformity. No CVA tenderness. A/P Assessment and Plan Assessment: 61yM with Group A strep and MRSA necrotizing fasciitis s/p multiple debridements and s/p septic shock. Clinically improving, and his etoh withdraw appears to be subsiding. Anemia persists. no overt bleeding identified. recheck of hgb > 7. will not transfuse. patient currently asymptomatic. continue IV PPI. will transition to hospitalist service. will need frequent dressing changes, and may need LTAC vs. SNF stay before he re-presents for skin grafting. //Anemia secondary to acute blood loss //New emesis, possibly coffee grounds- resolved. -- iv bid ppi -- trend h&h -- -s/p EGD. cont PPI. appreciate GI FF. //Necrotizing fasciitis - Status post debridement - s/p re-exploration 11/04 and wound vac change 11/06, 11/08 - cont wound management per surgeon. //Septic shock- resolved //still with sepsis - leukocytisos imrpoving, tachypnea. - Zosyn switched to Unasyn by ID on 11/03, continue vancomycin - cultures: GAS and MRSA. -appreciate ID ff Anemia secondary to chronic illness and chronic malnutrition - 6.9 hemoglobin on admission. - Transfused 2 units of PRBCs on 11/03 - daily cbc. - hemoglobin > 8. no signs of acute bleed. peptic ulcer per report. gi ff. -cont daily monitoring, //Pain associated with necrotizing soft tissue infection - oxycodone 5mg po q4h prn pain. - cont dilaudid 0.5mg iv q3h prn breakthrough pain //Alcohol Withdraw //Alcohol dependence Acute Agitated Delirium- stable, persistent. - valium 10mg po q8h with a valium taper - continue seroquel 50mg po q8h - unable to tolerate clonidine from hemodynamic standpoint - continue CIWA with prn ativan - haldol 5mg iv q4h prn for breakthrough agitation. - cont PO thiamine. 11/10 - appears to be doing well. cont to monitor //Atelectasis - wean o2 by nc for spo2 > 90% //Tobacco Withdraw - nicotine patch 21mg daily //Acute protein calorie malnutrition- moderate - back on full liq diet s.p EGD 11/10. //Hypokalemia - 3.2 o 11/10 replaced -cont to monitor DVT GI prophylaxis - Teds SCDs - SQH - iv bid ppi. Discharge Planning homeless currently requiring wound vac -will be difficult Manpreet Gage MD Nov 10, 2016 15:13
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
[2016-11-11] VITALS (8 sets, daily range): BP systolic 92–112; BP diastolic 53–70; PULSE 71–84; RESP 17–20; TEMP 96.3–98.7; O2SAT 92–99
[2016-11-11] MEDS: AMPICILLIN 2 GM/NS 100 ML IV SCH ×12 (00:25→21:42)
[2016-11-11] MEDS: VANCOMYCIN 1,500 MG/NS 500 ML IV SCH ×4 (01:08→13:42)
[2016-11-11] MEDS: QUEtiapine FUMARATE 25 MG TAB PO SCH ×3 (03:57→21:41)
[2016-11-11] MEDS: DIAZEPAM 10 MG TAB PO SCH ×2 (03:58→10:41)
[2016-11-11 05:06] LABS: HEMATOCRIT 24.3 % (39.0-51.0); MEAN CELL VOLUME 87.9 FL (80.0-100.0); MEAN CORPUSCULAR HEMOGLOBIN 29.1 PG (27.0-34.0); MEAN CORPUSCULAR HGB CONC 33.1 % (32.0-36.0); PLATELET COUNT 407 TH/MM3 (150-450); RED BLOOD COUNT 2.76 MIL/MM3 (4.50-5.90); REVIEW FLAG FINAL; WHITE BLOOD COUNT 12.2 TH/MM3 (4.0-11.0)
[2016-11-11] MEDS: HYDROmorphone HCL PF 1 MG/ML VIAL IV PUSH PRN ×4 (05:13→21:51)
[2016-11-11 05:41] LABS: BICARBONATE 27.5 MEQ/L (21.0-32.0); MAGNESIUM 1.6 MG/DL (1.5-2.5); POTASSIUM 3.6 MEQ/L (3.5-5.1)
[2016-11-11] MEDS: D5-NS + KCL 20 MEQ INJ 1,000 ML IV SCH (06:07)
[2016-11-11 06:12] LABS: CALCIUM-PROTEIN CORRECTED 8.3 MG/DL (8.5-10.1)
[2016-11-11] MEDS: PANTOPRAZOLE SODIUM 40 MG VIAL IV PUSH SCH ×2 (08:57→21:41)
[2016-11-11] MEDS: MUPIROCIN 2% OINT 1 APPLIC/GM SYR NASAL SCH ×2 (08:58→21:41)
[2016-11-11] MEDS: SODIUM CHLORIDE 0.9% FLUSH 5 ML FLUSH IVF SCH ×2 (08:58→21:40)
[2016-11-11] MEDS: NICOTINE 21 MG/24 HR PATCH T-DERMAL SCH (08:59)
[2016-11-11] MEDS: REMOVE OLD PATCH T-DERMAL SCH (08:59)
[2016-11-11] MEDS: THIAMINE HCL 100 MG TAB PO SCH (08:59)
[2016-11-11] MEDS ORDERED: POTASSIUM CHLORIDE 10 MEQ CONTROLLED RELEASE TAB PO ONE (10:15)
[2016-11-11] MEDS ORDERED: FUROSEMIDE 40 MG TAB PO ONE (10:15)
[2016-11-11] MEDS: ALBUMIN HUMAN 25% 12.5 GM/50 ML BAGP IV SCH ×2 (10:43→21:42)
[2016-11-11] MEDS ORDERED: MAGNESIUM SULFATE 1 GM PREMIX 100 ML IV ONE (11:00)
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
--- NOTE | 2016-11-11 23:49 | HHI.PR ---
Subjective Remarks patient seen today around noon. Says he is feeling all right. Denies any chest pain progressive breath. Reports pain is controlled. Objective Vital Signs Date Time Temp Pulse Resp B/P Pulse Ox O2 Delivery O2 Flow Rate FiO2 11/11/16 20:00 97.1 82 18 95/53 94 11/11/16 16:00 98.7 84 17 104/67 92 11/11/16 12:00 97.6 71 19 106/63 95 11/11/16 08:00 96.3 73 20 112/70 97 11/11/16 04:00 104/66 11/11/16 03:47 97.4 80 18 97/63 99 11/11/16 01:12 81 18 103/58 96 11/11/16 00:00 97.1 82 18 92/54 94 I/O 11/10/16 11/10/16 11/10/16 11/11/16 11/11/16 11/11/16 07:00 15:00 23:00 07:00 15:00 23:00 Intake Total 882 ml 1571 ml 360 ml 480 ml 1062 ml Output Total 575 ml 750 ml 1300 ml 750 ml 2225 ml Balance 307 ml 821 ml -940 ml -270 ml -1163 ml Intake Oral 300 ml 360 ml 480 ml 720 ml IV Total 882 ml 1271 ml 342 ml Output Urine Total 475 ml 550 ml 1300 ml 750 ml 2225 ml Stool Total 0 ml Drainage Total 100 ml 200 ml # Bowel Movements 0 0 0 0 Result Diagram: 11/11/16 0413 11/11/16 041 Objective Remarks GENERAL: pt sitting up in bed.awake. oriented to place and year. SKIN: Warm and dry. HEAD: Normocephalic. EYES: No scleral icterus. No injection or drainage. NECK: Supple, trachea midline. No JVD. CARDIOVASCULAR: Regular rate and rhythm without murmurs, gallops, or rubs. RESPIRATORY: Breath sounds equal bilaterally. No accessory muscle use. GASTROINTESTINAL: Abdomen soft, non-tender, nondistended. wound vac to left medial thigh,. left lower leg dressed. MUSCULOSKELETAL: No cyanosis. patient does have anasarca as he did yesterday. BACK: Nontender without obvious deformity. No CVA tenderness. A/P Assessment and Plan Assessment: 61yM with Group A strep and MRSA necrotizing fasciitis s/p multiple debridements and s/p septic shock. Clinically improving, and his etoh withdraw appears to be subsiding. Anemia persists. no overt bleeding identified. recheck of hgb > 7. will not transfuse. patient currently asymptomatic. continue IV PPI. will transition to hospitalist service. will need frequent dressing changes, and may need LTAC vs. SNF stay before he re-presents for skin grafting. //Anemia secondary to acute blood loss //New emesis, possibly coffee grounds- resolved. -- iv bid ppi -- trend h&h -- -s/p EGD. cont PPI. appreciate GI FF. //Necrotizing fasciitis - Status post debridement - s/p re-exploration 11/04 and wound vac change 11/06, 11/08 - cont wound management per surgeon. //Septic shock- resolved //still with sepsis - leukocytisos imrpoving, tachypnea. - Zosyn switched to Unasyn by ID on 11/03, continue vancomycin - cultures: GAS and MRSA. -appreciate ID ff Anemia secondary to chronic illness and chronic malnutrition - 6.9 hemoglobin on admission. - Transfused 2 units of PRBCs on 11/03 - daily cbc. - hemoglobin > 8. no signs of acute bleed. peptic ulcer per report. gi ff. -cont daily monitoring, //Pain associated with necrotizing soft tissue infection - oxycodone 5mg po q4h prn pain. - cont dilaudid 0.5mg iv q3h prn breakthrough pain //Alcohol Withdraw //Alcohol dependence Acute Agitated Delirium- stable, persistent. - valium 10mg po q8h with a valium taper - continue seroquel 50mg po q8h - unable to tolerate clonidine from hemodynamic standpoint - continue CIWA with prn ativan - haldol 5mg iv q4h prn for breakthrough agitation. - cont PO thiamine. 11/10 - appears to be doing well. cont to monitor //Atelectasis - wean o2 by nc for spo2 > 90% //Tobacco Withdraw - nicotine patch 21mg daily //Acute protein calorie malnutrition- moderate - back on full liq diet s.p EGD 11/10. //Hypokalemia - 3.2 o 11/10 replaced -cont to monitor //anasarca. -Lasix, albumin ordered. Add Ensure supplements DVT GI prophylaxis - Teds SCDs - SQH - iv bid ppi. Discharge Planning homeless currently requiring wound vac -will be difficult Manpreet Gage MD Nov 11, 2016 23:49
[2016-11-12] VITALS (7 sets, daily range): BP systolic 97–128; BP diastolic 57–69; PULSE 79–111; RESP 16–20; TEMP 95.8–99; O2SAT 94–100
[2016-11-12] MEDS: AMPICILLIN 2 GM/NS 100 ML IV SCH ×8 (00:13→11:05)
[2016-11-12] MEDS: DIAZEPAM 10 MG TAB PO SCH ×3 (00:13→23:16)
[2016-11-12] MEDS: VANCOMYCIN 1,500 MG/NS 500 ML IV SCH ×6 (00:13→23:17)
[2016-11-12] MEDS: HYDROmorphone HCL PF 1 MG/ML VIAL IV PUSH PRN ×5 (01:22→20:39)
[2016-11-12] MEDS: QUEtiapine FUMARATE 25 MG TAB PO SCH ×3 (04:17→20:40)
[2016-11-12 06:06] LABS: HEMATOCRIT 26.5 % (39.0-51.0); MEAN CELL VOLUME 88.3 FL (80.0-100.0); MEAN CORPUSCULAR HEMOGLOBIN 29.4 PG (27.0-34.0); MEAN CORPUSCULAR HGB CONC 33.3 % (32.0-36.0); PLATELET COUNT 404 TH/MM3 (150-450); RED CELL DISTRIBUTION WIDTH 16.4 % (11.6-17.2); REVIEW FLAG FINAL; WHITE BLOOD COUNT 13.4 TH/MM3 (4.0-11.0)
[2016-11-12 06:59] LABS: BICARBONATE 29.1 MEQ/L (21.0-32.0); POTASSIUM 3.7 MEQ/L (3.5-5.1)
[2016-11-12 07:24] LABS: CALCIUM-PROTEIN CORRECTED 7.9 MG/DL (8.5-10.1)
[2016-11-12] MEDS: REMOVE OLD PATCH T-DERMAL SCH (08:47)
[2016-11-12] MEDS: NICOTINE 21 MG/24 HR PATCH T-DERMAL SCH (08:47)
[2016-11-12] MEDS: THIAMINE HCL 100 MG TAB PO SCH (08:47)
[2016-11-12] MEDS: PANTOPRAZOLE SODIUM 40 MG VIAL IV PUSH SCH ×2 (08:48→20:40)
[2016-11-12] MEDS: SODIUM CHLORIDE 0.9% FLUSH 5 ML FLUSH IVF SCH ×2 (08:48→20:48)
[2016-11-12] MEDS: MUPIROCIN 2% OINT 1 APPLIC/GM SYR NASAL SCH ×2 (08:48→20:40)
[2016-11-12] MEDS: ALBUMIN HUMAN 25% 12.5 GM/50 ML BAGP IV SCH ×2 (11:05→20:39)
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
--- NOTE | 2016-11-12 13:19 | HHI.IDPN ---
Subjective Subjective Remarks no diarrhea no fever WBC is persisting co some abd pain Antibiotics ampicillin, clinda Allergies: Coded Allergies: Cultivated Oat Pollen (Verified Allergy, Mild, 11/02/16) *MDRO Multi-Drug Resistant Organism (Verified Allergy, Unknown, 11/05/16) MRSA PCR screen POSITIVE-11/03/16 MRSA (leg)-11/02/16 Objective . Vital Signs Date Time Temp Pulse Resp B/P Pulse Ox O2 Delivery O2 Flow Rate FiO2 11/12/16 12:00 97.8 110 16 115/69 100 11/12/16 08:00 95.8 88 16 100/58 96 11/12/16 06:45 96.8 89 16 102/58 97 11/12/16 05:45 99.0 96 18 103/63 94 11/12/16 04:00 Room Air 11/12/16 00:00 Room Air 11/12/16 00:00 98.9 88 16 102/61 95 11/11/16 20:00 Room Air 11/11/16 20:00 97.1 82 18 95/53 94 11/11/16 16:00 98.7 84 17 104/67 92 11/11/16 11/11/16 11/12/16 15:00 23:00 07:00 Intake Total 1062 ml 1084 ml 940 ml Output Total 2225 ml 1975 ml 3325 ml Balance -1163 ml -891 ml -2385 ml Intake Oral 720 ml 240 ml 240 ml IV Total 342 ml 844 ml 700 ml Output Urine Total 2225 ml 1900 ml 3200 ml Drainage Total 75 ml 125 ml # Bowel Movements 0 0 0 . Laboratory Tests Test 11/11/16 11/12/16 04:13 05:10 White Blood Count 12.2 TH/MM3 13.4 TH/MM3 Red Blood Count 2.76 MIL/MM3 3.00 MIL/MM3 Hemoglobin 8.0 GM/DL 8.8 GM/DL Hematocrit 24.3 % 26.5 % Mean Corpuscular Volume 87.9 FL 88.3 FL Mean Corpuscular Hemoglobin 29.1 PG 29.4 PG Mean Corpuscular Hemoglobin 33.1 % 33.3 % Concent Red Cell Distribution Width 16.0 % 16.4 % Platelet Count 407 TH/MM3 404 TH/MM3 Mean Platelet Volume 7.2 FL 7.4 FL Laboratory Tests Test 11/11/16 11/11/16 11/12/16 04:13 11:22 05:10 Sodium Level 143 MEQ/L 138 MEQ/L Potassium Level 3.6 MEQ/L 3.7 MEQ/L Chloride Level 109 MEQ/L 102 MEQ/L Carbon Dioxide Level 27.5 MEQ/L 29.1 MEQ/L Anion Gap 7 MEQ/L 7 MEQ/L Blood Urea Nitrogen 4 MG/DL 7 MG/DL Creatinine 0.53 MG/DL 0.74 MG/DL Estimat Glomerular Filtration 159 ML/MIN 108 ML/MIN Rate Random Glucose 76 MG/DL 89 MG/DL Calcium Level 7.2 MG/DL 7.2 MG/DL Protein Corrected Calcium 8.3 MG/DL 7.9 MG/DL Magnesium Level 1.6 MG/DL Total Protein 5.0 GM/DL 5.7 GM/DL Albumin 1.0 GM/DL Imaging Last Impressions Chest X-Ray 11/05/16 0600 Signed Impressions: Service Date/Time: Saturday, November 05, 2016 02:59 - CONCLUSION: No significant change. Cesario Rodriguez MD Lower Extremity CT 11/02/16 0000 Signed Impressions: Service Date/Time: Wednesday, November 02, 2016 12:36 - CONCLUSION: Cellulitis without defined abscess. Small joint effusion. Doug Palmer MD FACR Physical Exam CONSTITUTIONAL/GENERAL: This is an adequately nourished patient, in no apparent distress. TUBES/LINES/DRAINS: SKIN: No jaundice, rashes, or lesions. Skin temperature appropriate. Not diaphoretic. Multiple scars on b/l upper extremieties CARDIOVASCULAR: Regular rate and rhythm without murmurs, gallops, or rubs. RESPIRATORY/CHEST: Symmetric, unlabored respirations. Clear to auscultation. Breath sounds equal bilaterally. No wheezes, rales, or rhonchi. GASTROINTESTINAL: Abdomen soft, moderately tender to palpation and is distended. No hepato-splenomegaly, or palpable masses. Incontinnent of liquid dark brown stool GENITOURINARY: Without palpable bladder distension. Martin catheter in place. MUSCULOSKELETAL: Extremities without clubbing, cyanosis, LLE edema improved significanrly thigh less edematous, soft, wound is packed with mild serosang dc L inner thigh is monimally erythematous, almost not edematous NEUROLOGICAL: awake, alert, not as confused, speech is clear follows commands Assessment & Plan Remarks LLE nec fasc, GAS sp debridment, fascitomies, VAC placemnet - prelim clx with group A strep MSSA and MRSA Hemodynamically unstable, on pressors: more stable today, improving Leukocytosis; worse today -leukemoid reaction, improved - bandemia definetely improved ETOH abuse, withdrawl risk Diarrhea, abx- associated, worsening leukocytosis - cont vancomycin -change ampicillin to cefazoline - dc clindamycin - will cont abx for few more days (2-5) monitor wbc Maria Teresa Greenwood MD Nov 12, 2016 13:19
--- NOTE | 2016-11-12 16:05 | PD.WCN.NOT ---
Wound Consult Description: Patient seen on 7 north for wound VAC dressing application. Neg Pressure Wound Therapy Wound Location Wound Location: L thigh Wound Description Length: 10.6 cm Width: 6cm Depth: 4.4 cm Underminin.6 cm from 11 to 1 o'clock Wound bed appearance: Wound bed presents with 20% yellow slough and 70% muscle tissue and 10% pale red granulation tissue Periwound appearance: Other ( Patient noted with intact sutures at 6 o'clock and at 12 o'clock periwound with erythema and edema and full thickness skin loss between 9 and 10 o'clock) Settings Suction: 125 mmHg, Continuous Intensity: Low Other Information: Bridged, Windowpaned Foam type: Black Number of pieces: 1 Additonal Information Patient seen on 7 north for wound VAC dressing application. Removed wet to dry dressing in place to reveal surgical wound to L medial thigh. Patient noted with intact sutures at 6 o'clock and at 12 o'clock to periwound with erythema and edema . Wound measures 10.6cm x 6 cm x 4.4cm. Wound has undermining from 6 to 1 o'clock at ~9.6 cm at the deepest. Wound Cleansed wound with wound cleanser.Wound bed presents with 20% yellow slough, 70% muscle tissue and 10% pale red granulation tissue. Periwound noted with some full thickness skin loss between 9 and 10 o'clock Skin prep applied to periwound before applying Xeroform to sutures noted at wound margins at 6 and 12 o'clock.Applied Xeroform in single layer just over full thickness skin loss to periwound between 9 to 10 o'clock before window paning wound with VAC drape.Cut black granufoam in to long strip and coiled into wound bed to reach undermined areas. Covered exposed granufoam with VAC drape.Bridged drape and granufoam to anterior aspect of L medial thigh. Applied trac pad to bridged site. Secured dressing with additional VAC drape.Wound VAC suctioning at 125 mm/hg continuous low suction without leaks upon leaving patient's room.Patient tolerated procedure well. Sonali Rodriguez [facility] Nov 12, 2016 16:05
[2016-11-12] MEDS: ceFAZolin 2 GM PREMIX 50 ML IV SCH ×2 (16:35→20:40)
--- NOTE | 2016-11-12 23:35 | HHI.PR ---
Subjective Remarks Patient seen today around noon. Denies any chest pain or shortness of breath. Has been enjoying Ensure supplements. Objective Vital Signs Date Time Temp Pulse Resp B/P Pulse Ox O2 Delivery O2 Flow Rate FiO2 11/12/16 20:00 97.7 79 18 99/57 94 11/12/16 16:00 97.3 84 16 97/60 97 11/12/16 12:00 97.8 110 16 115/69 100 11/12/16 08:00 95.8 88 16 100/58 96 11/12/16 06:45 96.8 89 16 102/58 97 11/12/16 05:45 99.0 96 18 103/63 94 11/12/16 04:00 Room Air 11/12/16 00:00 Room Air 11/12/16 00:00 98.9 88 16 102/61 95 I/O 11/11/16 11/11/16 11/11/16 11/12/16 11/12/16 11/12/16 07:00 15:00 23:00 07:00 15:00 23:00 Intake Total 480 ml 1062 ml 1084 ml 940 ml 900 ml Output Total 750 ml 2225 ml 1975 ml 3325 ml 4800 ml Balance -270 ml -1163 ml -891 ml -2385 ml -3900 ml Intake Oral 480 ml 720 ml 240 ml 240 ml 300 ml IV Total 342 ml 844 ml 700 ml 600 ml Output Urine Total 750 ml 2225 ml 1900 ml 3200 ml 4800 ml Drainage Total 75 ml 125 ml # Bowel Movements 0 0 0 0 1 Result Diagram: 11/12/16 0510 11/12/16 0510 Objective Remarks GENERAL: pt sitting up in bed.awake. oriented to place and year. SKIN: Warm and dry. HEAD: Normocephalic. EYES: No scleral icterus. No injection or drainage. NECK: Supple, trachea midline. No JVD. CARDIOVASCULAR: Regular rate and rhythm without murmurs, gallops, or rubs. RESPIRATORY: Breath sounds equal bilaterally. No accessory muscle use. GASTROINTESTINAL: Abdomen soft, non-tender, nondistended. wound vac to left medial thigh,. left lower leg dressed. MUSCULOSKELETAL: No cyanosis. patient does have anasarca, which is improved from yesterday. BACK: Nontender without obvious deformity. No CVA tenderness. A/P Assessment and Plan 11/12/16. Leukocytosis 13.4, slight increase requested. Change antibiotics as per infectious disease.anasarca improving.albumin twice daily for now Continue to encourage appetite Assessment: 61yM with Group A strep and MRSA necrotizing fasciitis s/p multiple debridements and s/p septic shock. Clinically improving, and his etoh withdraw appears to be subsiding. Anemia persists. no overt bleeding identified. recheck of hgb > 7. will not transfuse. patient currently asymptomatic. continue IV PPI. will transition to hospitalist service. will need frequent dressing changes, and may need LTAC vs. SNF stay before he re-presents for skin grafting. //Anemia secondary to acute blood loss //New emesis, possibly coffee grounds- resolved. -- iv bid ppi -- trend h&h -- -s/p EGD. cont PPI. appreciate GI FF. //Necrotizing fasciitis - Status post debridement - s/p re-exploration 11/04 and wound vac change 11/06, 11/08 - cont wound management per surgeon. Antibiotics as per infectious disease. //Septic shock- resolved //still with sepsis - leukocytisos imrpoving, tachypnea. - Zosyn switched to Unasyn by ID on 11/03, continue vancomycin - cultures: GAS and MRSA. -appreciate ID ff Anemia secondary to chronic illness and chronic malnutrition - 6.9 hemoglobin on admission. - Transfused 2 units of PRBCs on 11/03 - daily cbc. - hemoglobin > 8. no signs of acute bleed. peptic ulcer per report. gi ff. -cont daily monitoring, //Pain associated with necrotizing soft tissue infection - oxycodone 5mg po q4h prn pain. - cont dilaudid 0.5mg iv q3h prn breakthrough pain //Alcohol Withdraw //Alcohol dependence Acute Agitated Delirium- stable, persistent. - valium 10mg po q8h with a valium taper - continue seroquel 50mg po q8h - unable to tolerate clonidine from hemodynamic standpoint - continue CIWA with prn ativan - haldol 5mg iv q4h prn for breakthrough agitation. - cont PO thiamine. 11/10 - appears to be doing well. cont to monitor //Atelectasis - wean o2 by nc for spo2 > 90% //Tobacco Withdraw - nicotine patch 21mg daily //Acute protein calorie malnutrition- moderate - back on full liq diet s.p EGD 11/10. //Hypokalemia - 3.2 o 11/10 replaced -cont to monitor //anasarca. -Lasix, albumin ordered. Continue Ensure supplements DVT GI prophylaxis - Teds SCDs - SQH - iv bid ppi. Discharge Planning homeless currently requiring wound vac -will be difficult Manpreet Gage MD Nov 12, 2016 23:35
[2016-11-13] VITALS: BP 101/59; PULSE 86; RESP 18; TEMP 97.8; O2SAT 92
[2016-11-13] MEDS: HYDROmorphone HCL PF 1 MG/ML VIAL IV PUSH PRN ×6 (01:33→18:29)
[2016-11-13] MEDS: ceFAZolin 2 GM PREMIX 50 ML IV SCH ×3 (05:24→21:31)
[2016-11-13] MEDS: QUEtiapine FUMARATE 25 MG TAB PO SCH ×3 (05:25→21:31)
[2016-11-13 07:13] LABS: AUTOMATED NEUTROPHIL # 8.6 TH/MM3 (1.8-7.7); BASOPHIL # 0.1 TH/MM3 (0-0.2); BASOPHIL % 0.7 % (0.0-2.0); EOSINOPHIL # 0.2 TH/MM3 (0-0.4); EOSINOPHIL % 1.7 % (0.0-4.0); HEMATOCRIT 22.7 % (39.0-51.0); HEMO FLAGS DIFF FINAL; LYMPH % 10.6 % (9.0-44.0); LYMPHOCYTE # 1.2 TH/MM3 (1.0-4.8); MEAN CELL VOLUME 86.9 FL (80.0-100.0); MEAN CORPUSCULAR HEMOGLOBIN 29.6 PG (27.0-34.0); MONO % 7.9 % (0.0-8.0); NEUT % 79.1 % (16.0-70.0); PLATELET COUNT 368 TH/MM3 (150-450); RED BLOOD COUNT 2.61 MIL/MM3 (4.50-5.90); RED CELL DISTRIBUTION WIDTH 15.7 % (11.6-17.2); WHITE BLOOD COUNT 10.9 TH/MM3 (4.0-11.0)
[2016-11-13 07:53] LABS: BICARBONATE 32.9 MEQ/L (21.0-32.0); MAGNESIUM 1.9 MG/DL (1.5-2.5); POTASSIUM 3.5 MEQ/L (3.5-5.1)
[2016-11-13 08:00] VITALS: BP 103/61; PULSE 81; RESP 16; TEMP 96.1; O2SAT 96
[2016-11-13] MEDS: THIAMINE HCL 100 MG TAB PO SCH (08:52)
[2016-11-13] MEDS: MUPIROCIN 2% OINT 1 APPLIC/GM SYR NASAL SCH ×2 (08:52→21:41)
[2016-11-13] MEDS: REMOVE OLD PATCH T-DERMAL SCH (08:53)
[2016-11-13] MEDS: NICOTINE 21 MG/24 HR PATCH T-DERMAL SCH (08:53)
[2016-11-13] MEDS: SODIUM CHLORIDE 0.9% FLUSH 5 ML FLUSH IVF SCH ×2 (08:53→21:00)
[2016-11-13] MEDS: PANTOPRAZOLE SODIUM 40 MG VIAL IV PUSH SCH ×2 (08:53→21:39)
[2016-11-13] MEDS: ALBUMIN HUMAN 25% 12.5 GM/50 ML BAGP IV SCH ×2 (10:07→21:34)
[2016-11-13] MEDS: VANCOMYCIN 1,500 MG/NS 500 ML IV SCH ×2 (11:38)
[2016-11-13 12:00] VITALS: BP 95/52; PULSE 89; RESP 16; TEMP 97.9; O2SAT 97
--- NOTE | 2016-11-13 13:30 | HHI.PR ---
Subjective Subjective Notes Upset because he could not order two milks cartons with breakfast Objective Vitals/I&O Vital Signs Date Time Temp Pulse Resp B/P Pulse Ox O2 Delivery O2 Flow Rate FiO2 11/13/16 12:00 97.9 89 16 95/52 97 11/12/16 20:00 Room Air 11/10/16 21:05 21 11/09/16 07:00 2.00 Labs Laboratory Tests Test 11/13/16 11/13/16 05:56 05:57 Sodium Level 141 Potassium Level 3.5 Chloride Level 103 Carbon Dioxide Level 32.9 Anion Gap 5 Blood Urea Nitrogen 6 Creatinine 0.63 Estimat Glomerular Filtration 130 Rate Random Glucose 90 Calcium Level 7.4 Phosphorus Level 4.0 Magnesium Level 1.9 Albumin 1.3 White Blood Count 10.9 Red Blood Count 2.61 Hemoglobin 7.7 Hematocrit 22.7 Mean Corpuscular Volume 86.9 Mean Corpuscular Hemoglobin 29.6 Mean Corpuscular Hemoglobin 34.0 Concent Red Cell Distribution Width 15.7 Platelet Count 368 Mean Platelet Volume 7.5 Neutrophils (%) (Auto) 79.1 Lymphocytes (%) (Auto) 10.6 Monocytes (%) (Auto) 7.9 Eosinophils (%) (Auto) 1.7 Basophils (%) (Auto) 0.7 Neutrophils # (Auto) 8.6 Lymphocytes # (Auto) 1.2 Monocytes # (Auto) 0.9 Eosinophils # (Auto) 0.2 Basophils # (Auto) 0.1 CBC Comment DIFF FINAL Differential Comment Date/Time Procedure Status Source Growth 11/08/16 21:45 Stool Occult Blood ([place]) - Final Complete Stool Stool HEMOCCULT POSITIVE Cardiovascular: Regular Lungs: Clear Abdomen: Non-distended, Non-tender Extremities: Other (see below) Narrative Exam LEFT thigh---Wound vac in place with good seal LEFT lower leg--- Dressing done this morning; c/d/i with chantale around A/P Assessment and Plan 61 year old male s/p Irrigation and debridement LEFT leg with 50 cm 2 excision skin, subcutaneous tissue and muscle and Wound Vac placement -Wound Vac in place -Regular diet -Dressing change LEFT lower ext: wet to dry kerlix over wound; wrap with soft wrap and chantale; change BID and PRN -Appreciate Wound Team Attending Statement patient seen at bedside agree with above wound continues to heal well no undrained fluid, will transition to wet to dryThe exam, history, and the medical decision-making described in the above note were completed with the assistance of the mid-level provider. I reviewed and agree with the findings presented. I attest that I had a [id number] encounter with the patient on the same day, and personally performed and documented my assessment and findings in the medical record.The exam, history, and the medical decision- making described in the above note were completed with the assistance of the mid -level provider. I reviewed and agree with the findings presented. I attest that I had a [id number] encounter with the patient on the same day, and personally performed and documented my assessment and findings in the medical record. Brittny Strickland Nov 13, 2016 13:30 J Luis Armijo MD Nov 24, 2016 21:28
[2016-11-13 16:00] VITALS: BP 96/62; PULSE 90; RESP 16; TEMP 98; O2SAT 96
[2016-11-13 20:20] VITALS: BP 95/51; PULSE 85; RESP 18; TEMP 97.3; O2SAT 94
--- NOTE | 2016-11-13 22:38 | HHI.PR ---
Subjective Remarks Patient seen today around noon. He reports that pain is controlled. Denies any chest pain or shortness of breath. Denies any nausea or vomiting. Good appetite. Objective Vital Signs Date Time Temp Pulse Resp B/P Pulse Ox O2 Delivery O2 Flow Rate FiO2 11/13/16 20:20 97.3 85 18 95/51 94 11/13/16 16:00 98.0 90 16 96/62 96 11/13/16 12:00 97.9 89 16 95/52 97 11/13/16 08:00 96.1 81 16 103/61 96 11/13/16 02:03 18 11/13/16 00:00 97.8 86 18 101/59 92 I/O 11/12/16 11/12/16 11/12/16 11/13/16 11/13/16 11/13/16 07:00 15:00 23:00 07:00 15:00 23:00 Intake Total 940 ml 900 ml 1130 ml 620 ml 740 ml 480 ml Output Total 3325 ml 4800 ml 1300 ml 1150 ml 3100 ml 1500 ml Balance -2385 ml -3900 ml -170 ml -530 ml -2360 ml -1020 ml Intake Oral 240 ml 300 ml 480 ml 620 ml 340 ml 480 ml IV Total 700 ml 600 ml 650 ml 400 ml Output Urine Total 3200 ml 4800 ml 1300 ml 1150 ml 3000 ml 1500 ml Drainage Total 125 ml 100 ml # Bowel Movements 0 1 0 0 1 Result Diagram: 11/13/16 0557 11/13/16 0556 Objective Remarks GENERAL: pt sitting up in bed.awake. oriented to place and year. SKIN: Warm and dry. HEAD: Normocephalic. EYES: No scleral icterus. No injection or drainage. NECK: Supple, trachea midline. No JVD. CARDIOVASCULAR: Regular rate and rhythm without murmurs, gallops, or rubs. RESPIRATORY: Breath sounds equal bilaterally. No accessory muscle use. GASTROINTESTINAL: Abdomen soft, non-tender, nondistended. wound vac to left medial thigh,. left lower leg dressed. MUSCULOSKELETAL: No cyanosis. patient does have anasarca, which is again improved from yesterday. BACK: Nontender without obvious deformity. No CVA tenderness. A/P Assessment and Plan 11/13/16. Leukocytosis resolved. 10.9. Hemoglobin also down 7.7 from 8.8. This could be dilutional. We'll repeat tomorrow. Continues with wound VAC to right hip wound, with antibiotics as per infectious disease. Assessment: 61yM with Group A strep and MRSA necrotizing fasciitis s/p multiple debridements and s/p septic shock. Clinically improving, and his etoh withdraw appears to be subsiding. Anemia persists. no overt bleeding identified. recheck of hgb > 7. will not transfuse. patient currently asymptomatic. continue IV PPI. will transition to hospitalist service. will need frequent dressing changes, and may need LTAC vs. SNF stay before he re-presents for skin grafting. //Anemia secondary to acute blood loss //New emesis, possibly coffee grounds- resolved. -- iv bid ppi -- trend h&h -- -s/p EGD. cont PPI. appreciate GI FF. //Necrotizing fasciitis - Status post debridement - s/p re-exploration 11/04 and wound vac change 11/06, 11/08 - cont wound management per surgeon. Antibiotics as per infectious disease. //Septic shock- resolved //still with sepsis - leukocytisos imrpoving, tachypnea. - Zosyn switched to Unasyn by ID on 11/03, continue vancomycin - cultures: GAS and MRSA. -appreciate ID ff Anemia secondary to chronic illness and chronic malnutrition - 6.9 hemoglobin on admission. - Transfused 2 units of PRBCs on 11/03 - daily cbc. - hemoglobin > 8. no signs of acute bleed. peptic ulcer per report. gi ff. -cont daily monitoring, //Pain associated with necrotizing soft tissue infection - oxycodone 5mg po q4h prn pain. - cont dilaudid 0.5mg iv q3h prn breakthrough pain //Alcohol Withdraw //Alcohol dependence Acute Agitated Delirium- stable, persistent. - valium 10mg po q8h with a valium taper - continue seroquel 50mg po q8h - unable to tolerate clonidine from hemodynamic standpoint - continue CIWA with prn ativan - haldol 5mg iv q4h prn for breakthrough agitation. - cont PO thiamine. 11/10 - appears to be doing well. cont to monitor //Atelectasis - wean o2 by nc for spo2 > 90% //Tobacco Withdraw - nicotine patch 21mg daily //Acute protein calorie malnutrition- moderate - back on full liq diet s.p EGD 11/10. //Hypokalemia - 3.2 o 11/10 replaced -cont to monitor //anasarca. -Lasix, albumin ordered. Continue Ensure supplements DVT GI prophylaxis - Teds SCDs - SQH - iv bid ppi. Discharge Planning homeless currently requiring wound vac -will be difficult Manpreet Gage MD Nov 13, 2016 22:38
[2016-11-14 00:15] VITALS: BP 108/60; PULSE 87; RESP 18; TEMP 99; O2SAT 98
[2016-11-14] MEDS: VANCOMYCIN 1,500 MG/NS 500 ML IV SCH ×4 (01:11→13:00)
[2016-11-14] MEDS: HYDROmorphone HCL PF 1 MG/ML VIAL IV PUSH PRN ×6 (01:13→23:22)
[2016-11-14 05:41] LABS: AUTOMATED NEUTROPHIL # 7.1 TH/MM3 (1.8-7.7); BASOPHIL # 0.1 TH/MM3 (0-0.2); BASOPHIL % 1.2 % (0.0-2.0); EOSINOPHIL # 0.2 TH/MM3 (0-0.4); EOSINOPHIL % 2.4 % (0.0-4.0); HEMATOCRIT 21.7 % (39.0-51.0); HEMO FLAGS DIFF FINAL; LYMPH % 11.5 % (9.0-44.0); LYMPHOCYTE # 1.1 TH/MM3 (1.0-4.8); MEAN CELL VOLUME 88.2 FL (80.0-100.0); MEAN CORPUSCULAR HEMOGLOBIN 29.2 PG (27.0-34.0); MEAN CORPUSCULAR HGB CONC 33.1 % (32.0-36.0); MONO % 10.8 % (0.0-8.0); NEUT % 74.1 % (16.0-70.0); PLATELET COUNT 336 TH/MM3 (150-450); RED BLOOD COUNT 2.46 MIL/MM3 (4.50-5.90); WHITE BLOOD COUNT 9.5 TH/MM3 (4.0-11.0)
[2016-11-14] MEDS: ceFAZolin 2 GM PREMIX 50 ML IV SCH ×3 (06:03→21:37)
[2016-11-14] MEDS: QUEtiapine FUMARATE 25 MG TAB PO SCH ×3 (06:04→21:34)
--- NOTE | 2016-11-14 07:07 | MP ---
cc: AUSTIN JACKSON M.D. DATE OF SURGERY 11/08/2016 PROCEDURE Irrigation and debridement of 50 cm2 of skin, subcutaneous tissue and fascia with replacement of Vac dressing. PREOPERATIVE DIAGNOSIS Necrotizing fasciitis left leg. POSTOPERATIVE DIAGNOSIS Necrotizing fasciitis left leg. ANESTHESIA General endotracheal SURGEON Austin Jackson MD ESTIMATED BLOOD LOSS 75 mL FLUIDS 800 mL crystalloid COMPLICATIONS None DRAINS None SPECIMEN None PROCEDURE IN DETAIL The patient was taken to the operating room after marking the leg. He was placed on the operating table in the supine position. After an adequate level of general endotracheal anesthesia was achieved, the left leg was prepped and draped in usual fashion. Time-out was taken confirming the correct patient, site, and procedure to be performed. The Vac dressing was removed from both legs prior to prepping. Both wounds were prepped. The Vac sponge was replaced on the upper leg after irrigation with antibiotic irrigation. Sponge was applied and Vac dressing easily reapplied. No debridement was done on this part of the leg as all tissue appeared viable. Attention was then turned to the lower leg. Multiple areas of skin appeared to be necrotic and have inadequate blood flow. These were sharply debrided back. The subcutaneous tissue was taken along with this. Necrotic fascial tissue was also debrided back as well. Thus skin, subcutaneous tissue, and fascia were all debrided in this individual. A total of 50 cm2 of tissue was debrided. This wound was then irrigated with antibiotic irrigation using pulse lavage. When this was completed, the patient was best felt to be served by a wet-to-dry dressings on this area and going forward as the wound could be inspected daily and there was circumferential debridement and there was concern that this would lead to possible compartment syndrome by placing a Vac dressing. This wound was dressed with saline soaked gauze, fluffs, and Sof-Rol. An Silas wrap was applied around this. The patient was extubated and taken back to the recovery room in stable condition. He tolerated the procedure well. MD CONSTANTIN Christina/DJL /9:27 AM /7:07 AM
--- NOTE | 2016-11-14 07:49 | MP ---
cc: AUSTIN JACKSON M.D. DATE OF SURGERY 11/06/2016 PROCEDURE Irrigation and debridement 150 cm2 subcutaneous tissue, skin and fascia, replacement of Vac dressing. PREOPERATIVE DIAGNOSIS Necrotizing fasciitis left leg. POSTOPERATIVE DIAGNOSIS Necrotizing fasciitis left leg. ANESTHESIA General endotracheal SURGEON Austin Jackson MD ESTIMATED BLOOD LOSS 100 mL FLUIDS 1200 mL Crystalloid COMPLICATIONS None DRAINS None SPECIMEN None FINDINGS Necrotic skin, fascia and subcutaneous tissue of the lower leg requiring substantial debridement. PROCEDURE IN DETAIL The patient was taken to the operating room and placed on the operating table in the supine position. After an adequate level of general endotracheal anesthesia had been achieved, the left leg had previous dressings removed. The leg was prepped and draped. Time-out was taken confirming the correct patient, site, and procedures to be performed. The thigh was first examined and this had some fascia debrided from the tissues. This was then irrigated with pulse lavage irrigation. The wound then had a partial closure with 2-0 Prolene sutures. A Vac sponge was applied and with Ioban dressings the suction was achieved with no problem. Attention was then turned to the lower leg which was in much worse condition. Multiple areas of skin were nonviable and these were sharply debrided. A total of 150 cm2 of skin, subcutaneous tissue and fascia required sharp debridement back to viable tissue. When this had been completed, the entire wound was then pulse lavage irrigated. When this was completed, a Vac dressing was reapplied with aleta to achieve coverage. The patient still had a skin bridge posteriorly. The Vac was reapplied. Ioban was applied over the sponge to achieve good suction. When this was completed, two separate Vac dressings had been applied. The patient was taken back to the recovery room in stable condition. Sponge, needle and instrument counts were reported to be correct. MD CONSTANTIN Christina/DJL /9:46 AM /7:39 AM
[2016-11-14 08:00] VITALS: BP 98/53; PULSE 84; RESP 17; TEMP 97.2; O2SAT 92
[2016-11-14] MEDS: REMOVE OLD PATCH T-DERMAL SCH (09:00)
[2016-11-14] MEDS: SODIUM CHLORIDE 0.9% FLUSH 5 ML FLUSH IVF SCH ×2 (09:00→21:00)
[2016-11-14] MEDS: THIAMINE HCL 100 MG TAB PO SCH (09:03)
[2016-11-14] MEDS: MUPIROCIN 2% OINT 1 APPLIC/GM SYR NASAL SCH ×2 (09:03→21:39)
[2016-11-14] MEDS: DIAZEPAM 10 MG TAB PO SCH (09:04)
[2016-11-14] MEDS: PANTOPRAZOLE SODIUM 40 MG VIAL IV PUSH SCH ×2 (09:04→21:35)
[2016-11-14] MEDS: NICOTINE 21 MG/24 HR PATCH T-DERMAL SCH (09:04)
[2016-11-14] MEDS: ALBUMIN HUMAN 25% 12.5 GM/50 ML BAGP IV SCH ×2 (10:37→21:38)
--- NOTE | 2016-11-14 10:57 | HHI.PR ---
Subjective Remarks Follow-up anemia, leg wound. Patient states that he had an episode of vomiting this morning. He has had loose stools and reports that there was red blood in his stool overnight. Objective Vitals Vital Signs Date Time Temp Pulse Resp B/P Pulse Ox O2 Delivery O2 Flow Rate FiO2 11/14/16 08:00 97.2 84 17 98/53 92 11/14/16 00:15 99.0 87 18 108/60 98 11/13/16 20:20 97.3 85 18 95/51 94 11/13/16 16:00 98.0 90 16 96/62 96 11/13/16 12:00 97.9 89 16 95/52 97 I/O 11/13/16 11/13/16 11/13/16 11/14/16 11/14/16 11/14/16 07:00 15:00 23:00 07:00 15:00 23:00 Intake Total 620 ml 740 ml 1714 ml 855 ml Output Total 1150 ml 3100 ml 1550 ml 2050 ml Balance -530 ml -2360 ml 164 ml -1195 ml Intake Oral 620 ml 340 ml 480 ml 240 ml IV Total 400 ml 1234 ml 615 ml Output Urine Total 1150 ml 3000 ml 1500 ml 2000 ml Drainage Total 100 ml 50 ml 50 ml # Bowel Movements 0 1 1 Result Diagram: 11/14/16 0506 11/13/16 0556 Imaging Last Impressions Chest X-Ray 11/05/16 0600 Signed Impressions: Service Date/Time: Saturday, November 05, 2016 02:59 - CONCLUSION: No significant change. Cesario Rodriguez MD Lower Extremity CT 11/02/16 0000 Signed Impressions: Service Date/Time: Wednesday, November 02, 2016 12:36 - CONCLUSION: Cellulitis without defined abscess. Small joint effusion. Doug Palmer MD FACR Objective Remarks General: No acute distress. Heart: Regular rate and rhythm. No murmur. Lungs: Clear to auscultation bilaterally. No wheezes, rales, or rhonchi. Breathing is nonlabored. Abdomen: Soft, mild tenderness on the right, nondistended. Extremities: No lower extremity edema. Left lower leg wound bandaged. Wound VAC left medial thigh. Psych: Alert and oriented. Urinary Catheter: Yes Assessment to: Continue Martin insert reason: Surgical/Invasive Proced Vascular Central Line Catheter: No A/P Problem List: (1) Sepsis ICD Code: A41.9 Status: Resolved (2) Necrotizing fasciitis ICD Code: M72.6 Status: Acute (3) Hyponatremia ICD Code: E87.1 Status: Acute (4) Iron deficiency anemia ICD Code: D50.9 Status: Acute (5) Blood in stool ICD Code: K92.1 Status: Acute (6) Hypokalemia ICD Code: E87.6 Status: Acute (7) Alcohol withdrawal ICD Code: F10.239 Status: Acute Assessment and Plan 1. Necrotizing fasciitis: Status post septic shock. Clinically improving. Continue wound care, antibiotics. Appreciate infectious disease recommendations. Cultures growing group A strep and MRSA. Status post debridement with wound VAC placement. Management per general surgery. 2. Anemia: Secondary to chronic illness, malnutrition, GI bleeding. Monitor H& H. Hemoglobin decreasing. Will recheck this afternoon and transfuse if less than 7. Appreciate GI recommendations. Patient received 2 units PRBCs on . 3. Alcohol dependence/withdrawal, acute delirium/agitation: On Valium taper. Continue Seroquel. On CIWA protocol. Haldol as needed. Continue thiamine. 4. Hypokalemia: 5. GI prophylaxis: PPI. 6. DVT prophylaxis: SCDs. Heparin on hold secondary to anemia. Problem Qualifiers (1) Sepsis: Qualified Code: A41.9 - Sepsis, due to unspecified organism Pacheco Espino MD Nov 14, 2016 10:57
[2016-11-14 12:00] VITALS: BP 96/54; PULSE 87; RESP 16; TEMP 97.8; O2SAT 98
--- NOTE | 2016-11-14 14:14 | HHI.IDPN ---
Subjective Subjective Remarks no diarrhea today, but had it yday states he had blood per rectum improved abd pain no fever WBC is normal co LLE pain 9/ Antibiotics ancef vanco Allergies: Coded Allergies: Cultivated Oat Pollen (Verified Allergy, Mild, 11/02/16) *MDRO Multi-Drug Resistant Organism (Verified Allergy, Unknown, 11/05/16) MRSA PCR screen POSITIVE-11/03/16 MRSA (leg)-11/02/16 Objective . Vital Signs Date Time Temp Pulse Resp B/P Pulse Ox O2 Delivery O2 Flow Rate FiO2 11/14/16 12:00 97.8 87 16 96/54 98 11/14/16 08:00 97.2 84 17 98/53 92 11/14/16 00:15 99.0 87 18 108/60 98 11/13/16 20:20 97.3 85 18 95/51 94 11/13/16 16:00 98.0 90 16 96/62 96 11/13/16 11/13/16 11/14/16 15:00 23:00 07:00 Intake Total 740 ml 1714 ml 855 ml Output Total 3100 ml 1550 ml 2050 ml Balance -2360 ml 164 ml -1195 ml Intake Oral 340 ml 480 ml 240 ml IV Total 400 ml 1234 ml 615 ml Output Urine Total 3000 ml 1500 ml 2000 ml Drainage Total 100 ml 50 ml 50 ml # Bowel Movements 1 1 . Laboratory Tests Test 11/13/16 11/14/16 05:57 05:06 White Blood Count 10.9 TH/MM3 9.5 TH/MM3 Red Blood Count 2.61 MIL/MM3 2.46 MIL/MM3 Hemoglobin 7.7 GM/DL 7.2 GM/DL Hematocrit 22.7 % 21.7 % Mean Corpuscular Volume 86.9 FL 88.2 FL Mean Corpuscular Hemoglobin 29.6 PG 29.2 PG Mean Corpuscular Hemoglobin 34.0 % 33.1 % Concent Red Cell Distribution Width 15.7 % 16.0 % Platelet Count 368 TH/MM3 336 TH/MM3 Mean Platelet Volume 7.5 FL 7.5 FL Neutrophils (%) (Auto) 79.1 % 74.1 % Lymphocytes (%) (Auto) 10.6 % 11.5 % Monocytes (%) (Auto) 7.9 % 10.8 % Eosinophils (%) (Auto) 1.7 % 2.4 % Basophils (%) (Auto) 0.7 % 1.2 % Neutrophils # (Auto) 8.6 TH/MM3 7.1 TH/MM3 Lymphocytes # (Auto) 1.2 TH/MM3 1.1 TH/MM3 Monocytes # (Auto) 0.9 TH/MM3 1.0 TH/MM3 Eosinophils # (Auto) 0.2 TH/MM3 0.2 TH/MM3 Basophils # (Auto) 0.1 TH/MM3 0.1 TH/MM3 CBC Comment DIFF FINAL DIFF FINAL Differential Comment Laboratory Tests Test 11/13/16 05:56 Sodium Level 141 MEQ/L Potassium Level 3.5 MEQ/L Chloride Level 103 MEQ/L Carbon Dioxide Level 32.9 MEQ/L Anion Gap 5 MEQ/L Blood Urea Nitrogen 6 MG/DL Creatinine 0.63 MG/DL Estimat Glomerular Filtration 130 ML/MIN Rate Random Glucose 90 MG/DL Calcium Level 7.4 MG/DL Phosphorus Level 4.0 MG/DL Magnesium Level 1.9 MG/DL Albumin 1.3 GM/DL Imaging Last Impressions Chest X-Ray 11/05/16 0600 Signed Impressions: Service Date/Time: Saturday, November 05, 2016 02:59 - CONCLUSION: No significant change. Cesario Rodriguez MD Lower Extremity CT 11/02/16 0000 Signed Impressions: Service Date/Time: Wednesday, November 02, 2016 12:36 - CONCLUSION: Cellulitis without defined abscess. Small joint effusion. Doug Palmer MD FACR Physical Exam CONSTITUTIONAL/GENERAL: This is an adequately nourished patient, in no apparent distress. TUBES/LINES/DRAINS: SKIN: No jaundice, rashes, or lesions. Skin temperature appropriate. Not diaphoretic. Multiple scars on b/l upper extremieties CARDIOVASCULAR: Regular rate and rhythm without murmurs, gallops, or rubs. RESPIRATORY/CHEST: Symmetric, unlabored respirations. Clear to auscultation. Breath sounds equal bilaterally. No wheezes, rales, or rhonchi. GASTROINTESTINAL: Abdomen soft, mildly tender to palpation and is not distended. No hepato-splenomegaly, or palpable masses. GENITOURINARY: Without palpable bladder distension. Martin catheter in place. MUSCULOSKELETAL: Extremities without clubbing, cyanosis, LLE edema improved significanrly thigh mildly edematous, soft, wound with VAC in place with serous dc Lower leg with large woulns, full thickness ; the look clean and granulating NEUROLOGICAL: awake, alert, not as confused, speech is clear follows commands Assessment & Plan Remarks LLE nec fasc, GAS sp debridment, fascitomies, VAC placemnet - group A strep MSSA and MRSA - infection appear to resolve Hemodynamically unstable, on pressors: more stable today, improving Leukocytosis; resolved ETOH abuse, sp withdrawl Diarrhea, abx- associated, C,diff negative; diarrhea stopped - cont vancomycin and cefazoline thru tomorrow Maria Teresa Greenwood MD Nov 14, 2016 14:14
[2016-11-14 16:00] VITALS: BP 103/60; PULSE 88; RESP 17; TEMP 97.8; O2SAT 95
[2016-11-14 16:42] LABS: HEMATOCRIT 22.2 % (39.0-51.0); REVIEW FLAG FINAL
[2016-11-14 20:31] VITALS: BP 96/54; PULSE 90; RESP 17; TEMP 98.6; O2SAT 96
[2016-11-15 00:31] VITALS: BP 98/57; PULSE 89; RESP 17; TEMP 99; O2SAT 98
[2016-11-15] MEDS ORDERED: PHARMACY ORDERED LAB ONE (00:45)
[2016-11-15] MEDS: VANCOMYCIN 1,500 MG/NS 500 ML IV SCH ×4 (01:00→11:37)
[2016-11-15] MEDS: QUEtiapine FUMARATE 25 MG TAB PO SCH ×3 (02:27→21:11)
[2016-11-15] MEDS: ceFAZolin 2 GM PREMIX 50 ML IV SCH ×3 (05:01→21:12)
[2016-11-15 06:35] LABS: AUTOMATED NEUTROPHIL # 4.7 TH/MM3 (1.8-7.7); BASOPHIL # 0.2 TH/MM3 (0-0.2); BASOPHIL % 2.5 % (0.0-2.0); EOSINOPHIL # 0.2 TH/MM3 (0-0.4); EOSINOPHIL % 2.7 % (0.0-4.0); HEMATOCRIT 22.6 % (39.0-51.0); HEMO FLAGS DIFF FINAL; LYMPH % 14.8 % (9.0-44.0); LYMPHOCYTE # 1.1 TH/MM3 (1.0-4.8); MEAN CELL VOLUME 87.6 FL (80.0-100.0); MEAN CORPUSCULAR HEMOGLOBIN 29.7 PG (27.0-34.0); MEAN CORPUSCULAR HGB CONC 33.9 % (32.0-36.0); MONO % 14.8 % (0.0-8.0); NEUT % 65.2 % (16.0-70.0); PLATELET COUNT 386 TH/MM3 (150-450); RED BLOOD COUNT 2.58 MIL/MM3 (4.50-5.90); WHITE BLOOD COUNT 7.2 TH/MM3 (4.0-11.0)
[2016-11-15] MEDS: HYDROmorphone HCL PF 1 MG/ML VIAL IV PUSH PRN ×4 (06:38→22:48)
[2016-11-15 07:02] LABS: BICARBONATE 34.1 MEQ/L (21.0-32.0); POTASSIUM 3.9 MEQ/L (3.5-5.1)
[2016-11-15 08:00] VITALS: BP 95/55; PULSE 86; RESP 16; TEMP 96.3; O2SAT 95
[2016-11-15] MEDS: PANTOPRAZOLE SODIUM 40 MG VIAL IV PUSH SCH ×2 (08:00→21:11)
--- NOTE | 2016-11-15 08:15 | HHI.PR ---
Subjective Subjective Notes no acute issues, HH stable 7.7 stable, vomited yesterday no vomiting blood this am, c/o pain but controlled with meds Objective Vitals/I&O Vital Signs Date Time Temp Pulse Resp B/P Pulse Ox O2 Delivery O2 Flow Rate FiO2 11/15/16 00:31 99.0 89 17 98/57 98 11/12/16 20:00 Room Air Labs Laboratory Tests Test 11/14/16 11/15/16 11/15/16 15:48 00:47 05:36 Hemoglobin 7.5 7.7 Hematocrit 22.2 22.6 Vancomycin Level Trough 23.6 White Blood Count 7.2 Red Blood Count 2.58 Mean Corpuscular Volume 87.6 Mean Corpuscular Hemoglobin 29.7 Mean Corpuscular Hemoglobin 33.9 Concent Red Cell Distribution Width 16.0 Platelet Count 386 Mean Platelet Volume 7.7 Neutrophils (%) (Auto) 65.2 Lymphocytes (%) (Auto) 14.8 Monocytes (%) (Auto) 14.8 Eosinophils (%) (Auto) 2.7 Basophils (%) (Auto) 2.5 Neutrophils # (Auto) 4.7 Lymphocytes # (Auto) 1.1 Monocytes # (Auto) 1.1 Eosinophils # (Auto) 0.2 Basophils # (Auto) 0.2 CBC Comment DIFF FINAL Differential Comment Sodium Level 139 Potassium Level 3.9 Chloride Level 101 Carbon Dioxide Level 34.1 Anion Gap 4 Blood Urea Nitrogen 10 Creatinine 0.68 Estimat Glomerular Filtration 119 Rate Random Glucose 93 Calcium Level 7.9 Cardiovascular: Regular Lungs: Clear Narrative Exam LLE vac in place no leak, +edema, leg with chantale wrap c/d/i A/P Assessment and Plan 61 year old male s/p Irrigation and debridement LEFT leg with 50 cm 2 excision skin, subcutaneous tissue and muscle and Wound Vac placement -Wound Vac in place, will change at bedside today -Regular diet -Dressing change LEFT lower ext: wet to dry kerlix over wound; wrap with soft wrap and chantale; change BID and PRN -Appreciate Wound Team - c/w abx per id - monitor HH, will check coags J Luis Armijo MD Nov 15, 2016 08:15
[2016-11-15] MEDS: SODIUM CHLORIDE 0.9% FLUSH 5 ML FLUSH IVF SCH ×2 (09:00→21:00)
[2016-11-15] MEDS: REMOVE OLD PATCH T-DERMAL SCH (09:00)
--- NOTE | 2016-11-15 11:32 | PD.WCN.NOT ---
Wound Consult Description: L thigh Communicated with: MILES Ojeda ARNP Recommendation: Change wound VAC as ordered with settings @125mmHg low cont Additional Information: Patient seen on for wound VAC dressing change. Removed 1 piece black granufoam dressing in place to reveal surgical wound to L medial thigh. Patient noted with intact sutures at 6 o'clock and at 12 o'clock to periwound with slight erythema and minimal edema . Wound measures 10.2cm x 5.3 cm x 1.5cm. Wound has undermining @ 6 o'clock of 9 cm and @12 o'clock of 8.3cm underneath intact sutures in place. Wound and periwound where sutures are located was cleansed with wound cleanser and gauze. Wound bed presents with ~50% muscle tissue, ~40% granulation tissue, and ~10% slough. Periwound is moist where sutures are located and minimally draining a clear fluid. Skin prep applied to periwound before window paning with VAC drape.1 piece of black granufoam was cut into a cinnamon roll shape and coiled into wound bed to reach undermined areas @6 & 12 o'clock. Black granufoam was bridged to anterior L medial thigh where sensitrac pad was placed. Wound VAC started with settings @ 125 mmHg low continuous suction without leaks upon leaving patient's room. Patient tolerated procedure well. Neg Pressure Wound Therapy Wound Location Wound Location: L medial thigh Wound Description Length: 10.2 cm Width: 5.3 cm Depth: 1.5 cm Underminin.3 cm noted at 12 o'clock directly underneath intact sutures with approximated wound edges 9 cm noted at 6 o'clock directly underneath intact sutures with approximated wound edges Wound bed appearance: Wound bed presents with ~50% muscle tissue, ~40% granulation tissue, and ~10% slough Periwound appearance: Other (sutures noted intact with approximated wound edges at 6 o'clock and 12 o'clock with slight erythema and minimal edema) Settings Suction: 125 mmHg, Continuous Intensity: Low Other Information: Bridged, Windowpaned Foam type: Black Number of pieces: 1 Additonal Information Patient seen on for wound VAC dressing change. Removed 1 piece black granufoam dressing in place to reveal surgical wound to L medial thigh. Patient noted with intact sutures at 6 o'clock and at 12 o'clock to periwound with slight erythema and minimal edema . Wound measures 10.2cm x 5.3 cm x 1.5cm. Wound has undermining @ 6 o'clock of 9 cm and @12 o'clock of 8.3cm underneath intact sutures in place. Wound and periwound where sutures are located was cleansed with wound cleanser and gauze. Wound bed presents with ~50% muscle tissue, ~40% granulation tissue, and ~10% slough. Periwound is moist where sutures are located and minimally draining a clear fluid. Skin prep applied to periwound before window paning with VAC drape.1 piece of black granufoam was cut into a cinnamon roll shape and coiled into wound bed to reach undermined areas @6 & 12 o'clock. Black granufoam was bridged to anterior L medial thigh where sensitrac pad was placed. Wound VAC started with settings @ 125 mmHg low continuous suction without leaks upon leaving patient's room. Patient tolerated procedure well. Pretty Martinez [facility] Nov 15, 2016 11:32
[2016-11-15] MEDS: DIAZEPAM 10 MG TAB PO SCH (11:37)
[2016-11-15] MEDS: MUPIROCIN 2% OINT 1 APPLIC/GM SYR NASAL SCH ×2 (11:38→21:11)
[2016-11-15] MEDS: THIAMINE HCL 100 MG TAB PO SCH (11:38)
[2016-11-15] MEDS: NICOTINE 21 MG/24 HR PATCH T-DERMAL SCH (11:39)
[2016-11-15] MEDS: ALBUMIN HUMAN 25% 12.5 GM/50 ML BAGP IV SCH ×2 (11:40→21:12)
[2016-11-15 12:00] VITALS: BP 95/52; PULSE 93; RESP 17; TEMP 99.3; O2SAT 96
[2016-11-15 12:06] LABS: APTT (PATIENT) 27.8 SEC (24.3-30.1); PROTHROMBIN TIME - PATIENT 11.3 SEC (9.8-11.6)
--- NOTE | 2016-11-15 14:56 | HHI.PR ---
Subjective Remarks Follow-up anemia, leg wound. Patient reports that he is in "constant pain". He feels that the Dilaudid helps, but not quite enough. The oxycodone is also helping somewhat. Objective Vitals Vital Signs Date Time Temp Pulse Resp B/P Pulse Ox O2 Delivery O2 Flow Rate FiO2 11/15/16 12:00 99.3 93 17 95/52 96 11/15/16 08:00 96.3 86 16 95/55 95 11/15/16 00:31 99.0 89 17 98/57 98 11/14/16 20:31 98.6 90 17 96/54 96 11/14/16 16:00 97.8 88 17 103/60 95 I/O 11/14/16 11/14/16 11/14/16 11/15/16 11/15/16 11/15/16 07:00 15:00 23:00 07:00 15:00 23:00 Intake Total 855 ml 1800 ml 979 ml 360 ml 1920 ml Output Total 2050 ml 2000 ml 2110 ml 1840 ml 1400 ml Balance -1195 ml -200 ml -1131 ml -1480 ml 520 ml Intake Oral 240 ml 1800 ml 360 ml 360 ml 1920 ml IV Total 615 ml 619 ml Output Urine Total 2000 ml 2000 ml 2000 ml 1800 ml 1400 ml Drainage Total 50 ml 110 ml 40 ml # Bowel Movements 1 1 2 2 Result Diagram: 11/15/16 0536 11/15/16 0536 Imaging Last Impressions Chest X-Ray 11/05/16 0600 Signed Impressions: Service Date/Time: Saturday, November 05, 2016 02:59 - CONCLUSION: No significant change. Cesario Rodriguez MD Lower Extremity CT 11/02/16 0000 Signed Impressions: Service Date/Time: Wednesday, November 02, 2016 12:36 - CONCLUSION: Cellulitis without defined abscess. Small joint effusion. Doug Palmer MD FACR Objective Remarks General: No acute distress. Heart: Regular rate and rhythm. No murmur. Lungs: Clear to auscultation bilaterally. No wheezes, rales, or rhonchi. Breathing is nonlabored. Abdomen: Soft, mild tenderness on the right, nondistended. Extremities: No lower extremity edema. Left lower leg wound bandaged. Wound VAC left medial thigh. Psych: Alert and oriented. Urinary Catheter: Yes Assessment to: Continue Martin insert reason: Surgical/Invasive Proced Vascular Central Line Catheter: No A/P Problem List: (1) Sepsis ICD Code: A41.9 Status: Resolved (2) Necrotizing fasciitis ICD Code: M72.6 Status: Acute (3) Hyponatremia ICD Code: E87.1 Status: Acute (4) Iron deficiency anemia ICD Code: D50.9 Status: Acute (5) Blood in stool ICD Code: K92.1 Status: Acute (6) Hypokalemia ICD Code: E87.6 Status: Acute (7) Alcohol withdrawal ICD Code: F10.239 Status: Acute Assessment and Plan 1. Necrotizing fasciitis: Status post septic shock. Clinically improving. Continue wound care, antibiotics. Appreciate infectious disease recommendations. Cultures growing group A strep and MRSA. Status post debridement with wound VAC placement. Management per general surgery. 2. Anemia: Secondary to chronic illness, malnutrition, GI bleeding. Monitor H& H. Hemoglobin stable overnight. Appreciate GI recommendations. Patient received 2 units PRBCs on 11/03/16. 3. Alcohol dependence/withdrawal, acute delirium/agitation: On Valium taper. Continue Seroquel. On CIWA protocol. Haldol as needed. Continue thiamine. 4. Hypokalemia: Improved. 5. GI prophylaxis: PPI. 6. DVT prophylaxis: SCDs. Heparin on hold secondary to anemia. Problem Qualifiers (1) Sepsis: Qualified Code: A41.9 - Sepsis, due to unspecified organism Pacheco Espino MD Nov 15, 2016 14:55
[2016-11-15 16:00] VITALS: BP 98/58; PULSE 87; RESP 18; TEMP 101.5; O2SAT 92
[2016-11-15] MEDS: ACETAMINOPHEN 325 MG TAB PO PRN (17:24)
[2016-11-15 20:00] VITALS: BP 94/54; PULSE 78; RESP 18; TEMP 99.4; O2SAT 95
[2016-11-16 00:30] VITALS: BP 92/50; PULSE 85; RESP 17; TEMP 96.1; O2SAT 93
[2016-11-16] MEDS: QUEtiapine FUMARATE 25 MG TAB PO SCH ×3 (04:42→21:24)
[2016-11-16] MEDS ORDERED: VANCOMYCIN 1,500 MG/NS 500 ML IV SCH ×2 (05:00)
[2016-11-16 06:08] LABS: AUTOMATED NEUTROPHIL # 5.9 TH/MM3 (1.8-7.7); BASOPHIL # 0.1 TH/MM3 (0-0.2); EOSINOPHIL # 0.2 TH/MM3 (0-0.4); EOSINOPHIL % 2.6 % (0.0-4.0); HEMATOCRIT 22.8 % (39.0-51.0); HEMO FLAGS DIFF FINAL; LYMPH % 11.8 % (9.0-44.0); MEAN CELL VOLUME 88.3 FL (80.0-100.0); MEAN CORPUSCULAR HEMOGLOBIN 29.2 PG (27.0-34.0); MONO % 14.1 % (0.0-8.0); NEUT % 70.5 % (16.0-70.0); PLATELET COUNT 374 TH/MM3 (150-450); RED BLOOD COUNT 2.59 MIL/MM3 (4.50-5.90); WHITE BLOOD COUNT 8.4 TH/MM3 (4.0-11.0)
[2016-11-16 06:37] LABS: BICARBONATE 34.1 MEQ/L (21.0-32.0); POTASSIUM 4.2 MEQ/L (3.5-5.1)
[2016-11-16 08:00] VITALS: BP 95/55; PULSE 96; RESP 17; TEMP 100; O2SAT 94
[2016-11-16] MEDS: REMOVE OLD PATCH T-DERMAL SCH (09:00)
[2016-11-16] MEDS: SODIUM CHLORIDE 0.9% FLUSH 5 ML FLUSH IVF SCH ×2 (09:00→21:00)
[2016-11-16] MEDS: THIAMINE HCL 100 MG TAB PO SCH (10:17)
[2016-11-16] MEDS: PANTOPRAZOLE SODIUM 40 MG VIAL IV PUSH SCH ×2 (10:17→21:24)
[2016-11-16] MEDS: HYDROmorphone HCL PF 1 MG/ML VIAL IV PUSH PRN ×3 (10:18→21:33)
[2016-11-16] MEDS: MUPIROCIN 2% OINT 1 APPLIC/GM SYR NASAL SCH ×2 (10:19→21:30)
[2016-11-16] MEDS: NICOTINE 21 MG/24 HR PATCH T-DERMAL SCH (10:19)
[2016-11-16] MEDS: ALBUMIN HUMAN 25% 12.5 GM/50 ML BAGP IV SCH ×2 (10:20→21:49)
[2016-11-16 12:00] VITALS: BP 100/57; PULSE 94; RESP 16; TEMP 100.2; O2SAT 92
--- NOTE | 2016-11-16 14:58 | HHI.PR ---
Subjective Remarks Follow up leg wound. Patient still reporting pain in the leg. He is requesting more pain medication. The patient's nurse notified me that the patient has been resting comfortably, but asks for pain medication whenever anyone goes in to the room. She feels that he is displaying drug-seeking behavior. Objective Vitals Vital Signs Date Time Temp Pulse Resp B/P Pulse Ox O2 Delivery O2 Flow Rate FiO2 11/16/16 08:00 100.0 96 17 95/55 94 11/16/16 00:30 96.1 85 17 92/50 93 11/15/16 20:00 99.4 78 18 94/54 95 11/15/16 16:00 101.5 87 18 98/58 92 I/O 11/15/16 11/15/16 11/15/16 11/16/16 11/16/16 11/16/16 07:00 15:00 23:00 07:00 15:00 23:00 Intake Total 360 ml 1920 ml 647 ml 643 ml Output Total 1840 ml 1400 ml 2000 ml 1500 ml 250 ml Balance -1480 ml 520 ml -1353 ml -857 ml -250 ml Intake Oral 360 ml 1920 ml 480 ml 380 ml IV Total 117 ml 263 ml Albumin 50 ml Output Urine Total 1800 ml 1400 ml 2000 ml 1500 ml Drainage Total 40 ml 250 ml # Bowel Movements 2 1 0 Result Diagram: 11/16/16 0505 11/16/16 0505 Imaging Last Impressions Chest X-Ray 11/05/16 0600 Signed Impressions: Service Date/Time: Saturday, November 05, 2016 02:59 - CONCLUSION: No significant change. Cesario Rodriguez MD Lower Extremity CT 11/02/16 0000 Signed Impressions: Service Date/Time: Wednesday, November 02, 2016 12:36 - CONCLUSION: Cellulitis without defined abscess. Small joint effusion. Doug Palmer MD FACR Objective Remarks General: No acute distress. Heart: Regular rate and rhythm. No murmur. Lungs: Clear to auscultation bilaterally. No wheezes, rales, or rhonchi. Breathing is nonlabored. Abdomen: Soft, mild tenderness on the right, nondistended. Extremities: No lower extremity edema. Left lower leg wound bandaged. Wound VAC left medial thigh. Psych: Alert and oriented. Urinary Catheter: No Vascular Central Line Catheter: No A/P Problem List: (1) Sepsis ICD Code: A41.9 Status: Resolved (2) Necrotizing fasciitis ICD Code: M72.6 Status: Acute (3) Hyponatremia ICD Code: E87.1 Status: Acute (4) Iron deficiency anemia ICD Code: D50.9 Status: Acute (5) Blood in stool ICD Code: K92.1 Status: Acute (6) Hypokalemia ICD Code: E87.6 Status: Acute (7) Alcohol withdrawal ICD Code: F10.239 Status: Acute Assessment and Plan 1. Necrotizing fasciitis: Status post septic shock. Clinically improving. Continue wound care, antibiotics. Appreciate infectious disease recommendations. Cultures growing group A strep and MRSA. Status post debridement with wound VAC placement. Management per general surgery. Discussed with AMISH Chang. 2. Anemia: Secondary to chronic illness, malnutrition, GI bleeding. Monitor H& H. Hemoglobin stable. Appreciate GI recommendations. Patient received 2 units PRBCs on 11/03/16. 3. Alcohol dependence/withdrawal, acute delirium/agitation: On Valium taper. Continue Seroquel. On CIWA protocol. Haldol as needed. Continue thiamine. 4. Hypokalemia: Improved. 5. GI prophylaxis: PPI. 6. DVT prophylaxis: SCDs. Heparin on hold secondary to anemia. Problem Qualifiers (1) Sepsis: Qualified Code: A41.9 - Sepsis, due to unspecified organism Pacheco Espino MD Nov 16, 2016 14:58
[2016-11-16] MEDS: SODIUM HYPOCHLORITE 0.25% 500 ML BTL TOPICAL SCH (15:29)
[2016-11-16 16:00] VITALS: BP 107/55; PULSE 100; RESP 16; TEMP 101.2; O2SAT 95
--- NOTE | 2016-11-16 16:14 | HHI.IDPN ---
Subjective Subjective Remarks co fever since yday up to 101 co cough , no produvtive + soft BNM surgical team concerned regarging greeenish d/c on the dressings from lower L leg pt co L leg isaac Antibiotics ancef vanco Allergies: Coded Allergies: Cultivated Oat Pollen (Verified Allergy, Mild, 11/02/16) *MDRO Multi-Drug Resistant Organism (Verified Allergy, Unknown, 11/05/16) MRSA PCR screen POSITIVE-11/03/16 MRSA (leg)-11/02/16 Objective . Vital Signs Date Time Temp Pulse Resp B/P Pulse Ox O2 Delivery O2 Flow Rate FiO2 11/16/16 08:00 100.0 96 17 95/55 94 11/16/16 00:30 96.1 85 17 92/50 93 11/15/16 20:00 99.4 78 18 94/54 95 11/15/16 11/15/16 11/16/16 15:00 23:00 07:00 Intake Total 1920 ml 647 ml 643 ml Output Total 1400 ml 2000 ml 1500 ml Balance 520 ml -1353 ml -857 ml Intake Oral 1920 ml 480 ml 380 ml IV Total 117 ml 263 ml Albumin 50 ml Output Urine Total 1400 ml 2000 ml 1500 ml # Bowel Movements 2 1 0 . Laboratory Tests Test 11/15/16 11/16/16 05:36 05:05 White Blood Count 7.2 TH/MM3 8.4 TH/MM3 Red Blood Count 2.58 MIL/MM3 2.59 MIL/MM3 Hemoglobin 7.7 GM/DL 7.5 GM/DL Hematocrit 22.6 % 22.8 % Mean Corpuscular Volume 87.6 FL 88.3 FL Mean Corpuscular Hemoglobin 29.7 PG 29.2 PG Mean Corpuscular Hemoglobin 33.9 % 33.0 % Concent Red Cell Distribution Width 16.0 % 16.0 % Platelet Count 386 TH/MM3 374 TH/MM3 Mean Platelet Volume 7.7 FL 7.5 FL Neutrophils (%) (Auto) 65.2 % 70.5 % Lymphocytes (%) (Auto) 14.8 % 11.8 % Monocytes (%) (Auto) 14.8 % 14.1 % Eosinophils (%) (Auto) 2.7 % 2.6 % Basophils (%) (Auto) 2.5 % 1.0 % Neutrophils # (Auto) 4.7 TH/MM3 5.9 TH/MM3 Lymphocytes # (Auto) 1.1 TH/MM3 1.0 TH/MM3 Monocytes # (Auto) 1.1 TH/MM3 1.2 TH/MM3 Eosinophils # (Auto) 0.2 TH/MM3 0.2 TH/MM3 Basophils # (Auto) 0.2 TH/MM3 0.1 TH/MM3 CBC Comment DIFF FINAL DIFF FINAL Differential Comment Laboratory Tests Test 11/15/16 11/15/16 11/16/16 05:36 11:04 05:05 Sodium Level 139 MEQ/L 138 MEQ/L Potassium Level 3.9 MEQ/L 4.2 MEQ/L Chloride Level 101 MEQ/L 98 MEQ/L Carbon Dioxide Level 34.1 MEQ/L 34.1 MEQ/L Anion Gap 4 MEQ/L 6 MEQ/L Blood Urea Nitrogen 10 MG/DL 11 MG/DL Creatinine 0.68 MG/DL 0.64 MG/DL Estimat Glomerular Filtration 119 ML/MIN 128 ML/MIN Rate Random Glucose 93 MG/DL 61 MG/DL Calcium Level 7.9 MG/DL 8.1 MG/DL Prealbumin 6 MG/DL Imaging Last Impressions Chest X-Ray 11/05/16 0600 Signed Impressions: Service Date/Time: Saturday, November 05, 2016 02:59 - CONCLUSION: No significant change. Cesario Rodriguez MD Lower Extremity CT 11/02/16 0000 Signed Impressions: Service Date/Time: Wednesday, November 02, 2016 12:36 - CONCLUSION: Cellulitis without defined abscess. Small joint effusion. Doug Palmer MD FACR Physical Exam CONSTITUTIONAL/GENERAL: This is an adequately nourished patient, in no apparent distress. TUBES/LINES/DRAINS: SKIN: No jaundice, rashes, or lesions. Skin temperature appropriate. Not diaphoretic. Multiple scars on b/l upper extremieties CARDIOVASCULAR: Regular rate and rhythm without murmurs, gallops, or rubs. RESPIRATORY/CHEST: Symmetric, unlabored respirations. Clear to auscultation. Breath sounds equal bilaterally. No wheezes, rales, or rhonchi. GASTROINTESTINAL: Abdomen soft, mildly tender to palpation and is not distended. No hepato-splenomegaly, or palpable masses. GENITOURINARY: Without palpable bladder distension. Martin catheter in place. MUSCULOSKELETAL: Extremities without clubbing, cyanosis, STATUS LOCALIS: LLE edema resolved thigh with VAC in place with serous dc Lower leg with large woulns, full thickness ; the look clean and granulating, no necrotic tissue, no edema no erytehma of ajacent skin some ananya are with mild bleeding he has greenish - bluish discoloration on the the dressings NEUROLOGICAL: awake, alert, not as confused, speech is clear follows commands Assessment & Plan Remarks LLE nec fasc, GAS sp debridment, fascitomies, VAC placemnet - group A strep MSSA and MRSA - infection appear to resolve green discoloration is 2/2 pseudomonas wound colonisation, no e/o active infection however Leukocytosis; resolved ETOH abuse, sp withdrawl Diarrhea, abx- associated, C,diff negative Fever, dry cough ? PNA vs atelectasis also will need to evaluate top CAUTI and r/o bacteremia Profound protein malnourishjemnt -will start cefepime and restart vancomycin - rechk blood clx - CXR dw Dr Armijo and Merlene Strickland, Maria Teresa Vu MD Nov 16, 2016 16:14
[2016-11-16] MEDS ORDERED: Vancomycin Consult Pharmacy 1 EA OTHER SCH (16:15)
--- NOTE | 2016-11-16 17:45 | RADRPT ---
EXAM DATE/TIME: 11/16/2016 17:13 [facility] COMPARISON: CHEST SINGLE AP, November 05, 2016, 12:19. INDICATIONS : Cough MEDICAL HISTORY : Hepatitis C. Cardiovascular disease SURGICAL HISTORY : None. ENCOUNTER: Subsequent ACUITY: 3 days PAIN SCORE: 0/10 LOCATION: Bilateral chest FINDINGS: There is an apparent cavitary lesion in the left midlung. The right lung is clear. The heart and pul monary vascularity are normal. The portion of the bony skeleton visualized is unremarkable. CONCLUSION: Apparent new cavitary lesion right midlung when compared to 11/05/16. Doug Palmer MD FACR on November 16, 2016 at 17:41 Board Certified Radiologist. This report was verified electronically.
[2016-11-16] MEDS: CEFEPIME INJ 2,000 MG in SODIUM CHLORIDE 0.9% INJ 100 ML IV SCH (19:19)
[2016-11-16 20:00] VITALS: BP 99/58; PULSE 92; RESP 18; TEMP 100.8; O2SAT 94
[2016-11-16] MEDS: LORazepam 2 MG/ML VIAL IV PUSH PRN (21:50)
[2016-11-16] MEDS: VANCOMYCIN 1,500 MG/NS 500 ML IV SCH ×2 (23:32)
[2016-11-16] MEDS: ONDANSETRON HCL 4 MG/2 ML VIAL IV PRN (23:41)
[2016-11-17] VITALS (9 sets, daily range): BP systolic 82–102; BP diastolic 48–65; PULSE 84–104; RESP 14–18; TEMP 97.8–101.2; O2SAT 81–95
[2016-11-17] MEDS: HYDROmorphone HCL PF 1 MG/ML VIAL IV PUSH PRN (02:35)
[2016-11-17] MEDS: CEFEPIME INJ 2,000 MG in SODIUM CHLORIDE 0.9% INJ 100 ML IV SCH ×3 (02:36→17:39)
[2016-11-17] MEDS: ACETAMINOPHEN 325 MG TAB PO PRN ×2 (02:45→16:16)
[2016-11-17] MEDS: LORazepam 2 MG/ML VIAL IV PUSH PRN (02:47)
[2016-11-17 03:25] LABS: BLOOD, URINE SMALL (NEG); GLUCOSE,URINE NEG (NEG); KETONE, URINE NEG (NEG); MUCUS URINE FEW /lpf (OCC); NITRITE,URINE NEG (NEG); URINE COLOR YELLOW (YELLW/STRAW)
[2016-11-17 03:27] LABS: COMMENT (UR) CATH-CULT NOT IND; CULTURE IF INDICATED CATH CULTURE NOT IND
[2016-11-17] MEDS: QUEtiapine FUMARATE 25 MG TAB PO SCH ×3 (04:00→20:49)
[2016-11-17 06:28] LABS: AUTOMATED NEUTROPHIL # 5.5 TH/MM3 (1.8-7.7); BASOPHIL # 0.1 TH/MM3 (0-0.2); BASOPHIL % 1.2 % (0.0-2.0); EOSINOPHIL # 0.1 TH/MM3 (0-0.4); EOSINOPHIL % 1.6 % (0.0-4.0); HEMO FLAGS DIFF FINAL; LYMPHOCYTE # 1.3 TH/MM3 (1.0-4.8); MEAN CELL VOLUME 88.7 FL (80.0-100.0); MEAN CORPUSCULAR HEMOGLOBIN 29.3 PG (27.0-34.0); MONO % 18.3 % (0.0-8.0); NEUT % 63.9 % (16.0-70.0); PLATELET COUNT 368 TH/MM3 (150-450); RED BLOOD COUNT 2.71 MIL/MM3 (4.50-5.90); RED CELL DISTRIBUTION WIDTH 15.9 % (11.6-17.2); WHITE BLOOD COUNT 8.6 TH/MM3 (4.0-11.0)
[2016-11-17] MEDS: RESP: ALBUTEROL 2.5 MG/IPRATROPIUM 0.5 MG NEB (PRN) NEB (08:00)
[2016-11-17] MEDS: THIAMINE HCL 100 MG TAB PO SCH (08:17)
[2016-11-17] MEDS: PANTOPRAZOLE SODIUM 40 MG VIAL IV PUSH SCH ×2 (08:17→20:49)
[2016-11-17] MEDS: REMOVE OLD PATCH T-DERMAL SCH (08:17)
[2016-11-17] MEDS: MUPIROCIN 2% OINT 1 APPLIC/GM SYR NASAL SCH ×2 (08:17→20:49)
[2016-11-17] MEDS: NICOTINE 21 MG/24 HR PATCH T-DERMAL SCH (08:17)
[2016-11-17] MEDS: SODIUM CHLORIDE 0.9% FLUSH 5 ML FLUSH IVF SCH ×2 (08:17→20:49)
[2016-11-17] MEDS: SODIUM HYPOCHLORITE 0.25% 500 ML BTL TOPICAL SCH ×2 (08:18→20:50)
--- NOTE | 2016-11-17 09:15 | RADRPT ---
EXAM DATE/TIME: 11/17/2016 08:52 [facility] COMPARISON: CHEST SINGLE AP, November 16, 2016, 17:13. INDICATIONS : Shortness of breath, cough. RADIATION DOSE: 9.55 CTDIvol (mGy) MEDICAL HISTORY : Carcinoma, hepatocellular. Hepatitis C. Cardiovascular disease SURGICAL HISTORY : Appendectomy. ENCOUNTER: Initial ACUITY: 1 day PAIN SCALE: 0/10 LOCATION: Bilateral chest TECHNIQUE: Volumetric scanning of the chest was performed. Using automated exposure control and adjustment of t he mA and/or kV according to patient size, radiation dose was kept as low as reasonably achievable to obtain optimal diagnostic quality images. DICOM format image data is available electronically for r eview and comparison. FINDINGS: No adenopathy is seen. There is mild atelectasis and patchy basilar air space disease and peribronchi al thickening in the lower lobes. There is bandlike atelectasis in the superior left lower lobe. No l obar consolidation. Osseous structures are intact. Small right effusion. CONCLUSION: Patchy basilar airspace disease and atelectasis. Coronary artery calcification. Small right pleural effusion. Saeed Daniels MD on November 17, 2016 at 9:10 Board Certified Radiologist. This report was verified electronically.
[2016-11-17] MEDS ORDERED: LORazepam 2 MG/ML VIAL IV PUSH PRN (10:15)
[2016-11-17] MEDS: ALBUMIN HUMAN 25% 12.5 GM/50 ML BAGP IV SCH ×2 (10:27→20:50)
--- NOTE | 2016-11-17 15:05 | HHI.PR ---
Subjective Remarks Follow up leg wounds. Patient still reporting pain in his left leg. He had low BP and hypoxia this morning. Objective Vitals Vital Signs Date Time Temp Pulse Resp B/P Pulse Ox O2 Delivery O2 Flow Rate FiO2 11/17/16 09:59 97.8 84 14 92/59 92 11/17/16 08:42 82/48 11/17/16 08:00 99.8 95 16 82/54 81 86/58 11/17/16 08:00 92 Nasal Cannula 6.00 11/17/16 00:00 99.2 104 18 99/55 94 11/16/16 20:00 100.8 92 18 99/58 94 11/16/16 16:00 101.2 100 16 107/55 95 I/O 11/16/16 11/16/16 11/16/16 11/17/16 11/17/16 11/17/16 07:00 15:00 23:00 07:00 15:00 23:00 Intake Total 643 ml 720 ml 1316 ml 817 ml 200 ml Output Total 1500 ml 800 ml 1400 ml 550 ml Balance -857 ml -80 ml -84 ml 267 ml 200 ml Intake Oral 380 ml 720 ml 240 ml 240 ml IV Total 263 ml 1076 ml 577 ml 200 ml Output Urine Total 1500 ml 550 ml 1350 ml 550 ml Drainage Total 250 ml 50 ml 0 ml # Bowel Movements 0 3 2 0 Result Diagram: 11/17/16 0440 11/16/16 0505 Imaging Last Impressions Chest CT 11/17/16 0000 Signed Impressions: Service Date/Time: Thursday, November 17, 2016 08:52 - CONCLUSION: Patchy basilar airspace disease and atelectasis. Coronary artery calcification. Small right pleural effusion. Saeed Daniels MD Chest X-Ray 11/16/16 0000 Signed Impressions: Service Date/Time: Wednesday, November 16, 2016 17:13 - CONCLUSION: Apparent new cavitary lesion right midlung when compared to 11/05/16. Doug Palmer MD FACR Lower Extremity CT 11/02/16 0000 Signed Impressions: Service Date/Time: Wednesday, November 02, 2016 12:36 - CONCLUSION: Cellulitis without defined abscess. Small joint effusion. Doug Palmer MD FACR Objective Remarks General: No acute distress. Heart: Regular rate and rhythm. No murmur. Lungs: Clear to auscultation bilaterally. No wheezes, rales, or rhonchi. Breathing is nonlabored. Abdomen: Soft, mild tenderness on the right, nondistended. Extremities: No lower extremity edema. Left lower leg wounds with granulation tissue. Wound VAC left medial thigh. Psych: Alert and oriented. Procedures Last Impressions Chest CT 11/17/16 0000 Signed Impressions: Service Date/Time: Thursday, November 17, 2016 08:52 - CONCLUSION: Patchy basilar airspace disease and atelectasis. Coronary artery calcification. Small right pleural effusion. Saeed Daniels MD Chest X-Ray 11/16/16 0000 Signed Impressions: Service Date/Time: Wednesday, November 16, 2016 17:13 - CONCLUSION: Apparent new cavitary lesion right midlung when compared to 11/05/16. Doug Palmer MD FACR Lower Extremity CT 11/02/16 0000 Signed Impressions: Service Date/Time: Wednesday, November 02, 2016 12:36 - CONCLUSION: Cellulitis without defined abscess. Small joint effusion. Doug Palmer MD FACR Urinary Catheter: Yes Martin insert reason: Surgical/Invasive Proced Vascular Central Line Catheter: No A/P Problem List: (1) Sepsis ICD Code: A41.9 Status: Resolved (2) Necrotizing fasciitis ICD Code: M72.6 Status: Acute (3) Hyponatremia ICD Code: E87.1 Status: Acute (4) Iron deficiency anemia ICD Code: D50.9 Status: Acute (5) Blood in stool ICD Code: K92.1 Status: Acute (6) Hypokalemia ICD Code: E87.6 Status: Acute (7) Alcohol withdrawal ICD Code: F10.239 Status: Acute Assessment and Plan 1. Necrotizing fasciitis: Status post septic shock. Clinically improving. Continue wound care, antibiotics. Appreciate infectious disease recommendations. Cultures growing group A strep and MRSA. Status post debridement with wound VAC placement. Management per general surgery. 2. Anemia: Secondary to chronic illness, malnutrition, GI bleeding. Monitor H& H. Hemoglobin stable. Appreciate GI recommendations. Patient received 2 units PRBCs on 11/03/16. 3. Alcohol dependence/withdrawal, acute delirium/agitation: On Valium taper. Continue Seroquel. On CIWA protocol. Haldol as needed. Continue thiamine. 4. Hypokalemia: Improved. 5. GI prophylaxis: PPI. 6. DVT prophylaxis: SCDs. Heparin on hold secondary to anemia. 7. Hypotension, hypoxia: Likely related to medication. Patient had received Ativan IV this morning. Will discontinue CIWA protocol. BP parameters given for pain medication administration. Problem Qualifiers (1) Sepsis: Qualified Code: A41.9 - Sepsis, due to unspecified organism Pacheco Espino MD Nov 17, 2016 15:05
[2016-11-17] MEDS ORDERED: PHARMACY ORDERED LAB ONE (16:45)
--- NOTE | 2016-11-17 16:56 | HHI.IDPN ---
Subjective Subjective Remarks co fever 101.2, BP low 80/40s and improved to 90s diarrhea (reports 2 liquid BMs today) co cough , intermittently produvtive, feels like havingf a cold pt co L leg isaac CT chest showed patchy basilar airspace disease and atelectasis, no cavitary lesion Antibiotics cefepime vanco Allergies: Coded Allergies: Cultivated Oat Pollen (Verified Allergy, Mild, 11/02/16) *MDRO Multi-Drug Resistant Organism (Verified Allergy, Unknown, 11/05/16) MRSA PCR screen POSITIVE-11/03/16 MRSA (leg)-11/02/16 Objective . Vital Signs Date Time Temp Pulse Resp B/P Pulse Ox O2 Delivery O2 Flow Rate FiO2 11/17/16 16:00 101.2 93 15 97/58 93 11/17/16 12:00 100.6 96 15 101/60 85 11/17/16 09:59 97.8 84 14 92/59 92 11/17/16 08:42 82/48 11/17/16 08:00 99.8 95 16 82/54 81 86/58 11/17/16 08:00 92 Nasal Cannula 6.00 11/17/16 00:00 99.2 104 18 99/55 94 11/16/16 20:00 100.8 92 18 99/58 94 11/16/16 11/16/16 11/17/16 15:00 23:00 07:00 Intake Total 720 ml 1316 ml 817 ml Output Total 800 ml 1400 ml 550 ml Balance -80 ml -84 ml 267 ml Intake Oral 720 ml 240 ml 240 ml IV Total 1076 ml 577 ml Output Urine Total 550 ml 1350 ml 550 ml Drainage Total 250 ml 50 ml 0 ml # Bowel Movements 3 2 0 . Laboratory Tests Test 11/16/16 11/17/16 05:05 04:40 White Blood Count 8.4 TH/MM3 8.6 TH/MM3 Red Blood Count 2.59 MIL/MM3 2.71 MIL/MM3 Hemoglobin 7.5 GM/DL 7.9 GM/DL Hematocrit 22.8 % 24.0 % Mean Corpuscular Volume 88.3 FL 88.7 FL Mean Corpuscular Hemoglobin 29.2 PG 29.3 PG Mean Corpuscular Hemoglobin 33.0 % 33.0 % Concent Red Cell Distribution Width 16.0 % 15.9 % Platelet Count 374 TH/MM3 368 TH/MM3 Mean Platelet Volume 7.5 FL 7.8 FL Neutrophils (%) (Auto) 70.5 % 63.9 % Lymphocytes (%) (Auto) 11.8 % 15.0 % Monocytes (%) (Auto) 14.1 % 18.3 % Eosinophils (%) (Auto) 2.6 % 1.6 % Basophils (%) (Auto) 1.0 % 1.2 % Neutrophils # (Auto) 5.9 TH/MM3 5.5 TH/MM3 Lymphocytes # (Auto) 1.0 TH/MM3 1.3 TH/MM3 Monocytes # (Auto) 1.2 TH/MM3 1.6 TH/MM3 Eosinophils # (Auto) 0.2 TH/MM3 0.1 TH/MM3 Basophils # (Auto) 0.1 TH/MM3 0.1 TH/MM3 CBC Comment DIFF FINAL DIFF FINAL Differential Comment Laboratory Tests Test 11/16/16 05:05 Sodium Level 138 MEQ/L Potassium Level 4.2 MEQ/L Chloride Level 98 MEQ/L Carbon Dioxide Level 34.1 MEQ/L Anion Gap 6 MEQ/L Blood Urea Nitrogen 11 MG/DL Creatinine 0.64 MG/DL Estimat Glomerular Filtration 128 ML/MIN Rate Random Glucose 61 MG/DL Calcium Level 8.1 MG/DL Microbiology Date/Time Procedure Status Source Growth 11/16/16 23:15 Aerobic Blood Culture - Preliminary Resulted Blood Peripheral NO GROWTH IN 1 DAY 11/16/16 23:15 Anaerobic Blood Culture - Preliminary Resulted Blood Peripheral NO GROWTH IN 1 DAY 11/16/16 23:21 Aerobic Blood Culture - Preliminary Resulted Blood Peripheral NO GROWTH IN 1 DAY 11/16/16 23:21 Anaerobic Blood Culture - Preliminary Resulted Blood Peripheral NO GROWTH IN 1 DAY 11/17/16 16:35 Gram Stain Received Sputum Expectorated Sputum Pending 11/17/16 16:35 Sputum Culture Received Sputum Expectorated Sputum Pending Imaging Last Impressions Chest CT 11/17/16 0000 Signed Impressions: Service Date/Time: Thursday, November 17, 2016 08:52 - CONCLUSION: Patchy basilar airspace disease and atelectasis. Coronary artery calcification. Small right pleural effusion. Saeed Daniels MD Chest X-Ray 11/16/16 0000 Signed Impressions: Service Date/Time: Wednesday, November 16, 2016 17:13 - CONCLUSION: Apparent new cavitary lesion right midlung when compared to 11/05/16. Doug Palmer MD FACR Lower Extremity CT 11/02/16 0000 Signed Impressions: Service Date/Time: Wednesday, November 02, 2016 12:36 - CONCLUSION: Cellulitis without defined abscess. Small joint effusion. Doug Palmer MD FACR Physical Exam CONSTITUTIONAL/GENERAL: This is an adequately nourished patient, in no apparent distress. TUBES/LINES/DRAINS: SKIN: No jaundice, rashes, or lesions. Skin temperature appropriate. Not diaphoretic. Multiple scars on b/l upper extremieties CARDIOVASCULAR: Regular rate and rhythm without murmurs, gallops, or rubs. RESPIRATORY/CHEST: Symmetric, unlabored respirations. Clear to auscultation. Breath sounds equal bilaterally. No wheezes, rales, or rhonchi. GASTROINTESTINAL: Abdomen soft, mildly tender to palpation RLQ wo guarding or rebound and is not distended. No hepato-splenomegaly, or palpable masses. GENITOURINARY: Without palpable bladder distension. Martin catheter in place. MUSCULOSKELETAL: Extremities without clubbing, cyanosis, LLE dressing in place NEUROLOGICAL: awake, alert, not as confused, speech is clear follows commands Assessment & Plan Remarks LLE nec fasc, GAS sp debridment, fascitomies, VAC placemnet - group A strep MSSA and MRSA - infection appear to resolve green discoloration is 2/2 pseudomonas wound colonisation, no e/o active infection however Leukocytosis; resolved ETOH abuse, sp withdrawl Diarrhea, abx- associated, C,diff negative Fever, dry cough ? PNA vs atelectasis also will need to evaluate top CAUTI and r/o bacteremia Profound protein malnourishjemnt -cont cefepime and restart vancomycin -fu blood clx -sputum clx - rechk stool for C.diff Maria Teresa Greenwood MD Nov 17, 2016 16:56
[2016-11-17] MEDS: VANCOMYCIN 1,500 MG/NS 500 ML IV SCH ×2 (17:39)
[2016-11-18] VITALS: BP 109/52; PULSE 85; RESP 17; TEMP 97; O2SAT 91
[2016-11-18 00:27] VITALS: BP 109/52; PULSE 85; RESP 17; TEMP 97; O2SAT 91
[2016-11-18] MEDS: CEFEPIME INJ 2,000 MG in SODIUM CHLORIDE 0.9% INJ 100 ML IV SCH ×4 (00:46→23:02)
[2016-11-18] MEDS: QUEtiapine FUMARATE 25 MG TAB PO SCH ×3 (02:34→20:00)
[2016-11-18] MEDS: HYDROmorphone HCL PF 1 MG/ML VIAL IV PUSH PRN ×2 (02:35→13:24)
[2016-11-18 08:00] VITALS: BP 113/65; PULSE 83; RESP 16; TEMP 96.5; O2SAT 99
[2016-11-18] MEDS: REMOVE OLD PATCH T-DERMAL SCH (09:00)
[2016-11-18] MEDS: SODIUM CHLORIDE 0.9% FLUSH 5 ML FLUSH IVF SCH ×2 (09:00→21:00)
[2016-11-18] MEDS: THIAMINE HCL 100 MG TAB PO SCH (09:00)
[2016-11-18] MEDS: PANTOPRAZOLE SOD 40 MG DELAYED RELEASE TAB PO SCH ×2 (09:00→21:35)
--- NOTE | 2016-11-18 09:12 | HHI.PR ---
Subjective Remarks Follow-up hypoxia and hypotension. States he is doing better improving cough and loose stools. States he had Martin catheter placed because he had nocturia and frequency. Aware risk of infection he agrees to have the Martin catheter discontinued several days after starting Flomax. Currently on room air Objective Vitals Vital Signs Date Time Temp Pulse Resp B/P Pulse Ox O2 Delivery O2 Flow Rate FiO2 11/18/16 00:27 97.0 85 17 109/52 91 11/18/16 00:00 97.0 85 17 109/52 91 11/17/16 23:59 94/62 11/17/16 22:31 85 16 102/65 95 11/17/16 20:44 99.1 92 16 97/64 95 11/17/16 16:00 101.2 93 15 97/58 93 11/17/16 12:00 100.6 96 15 101/60 85 11/17/16 09:59 97.8 84 14 92/59 92 I/O 11/17/16 11/17/16 11/17/16 11/18/16 11/18/16 11/18/16 07:00 15:00 23:00 07:00 15:00 23:00 Intake Total 817 ml 920 ml 1066 ml 480 ml Output Total 550 ml 865 ml 1475 ml 1900 ml Balance 267 ml 55 ml -409 ml -1420 ml Intake Oral 240 ml 720 ml 480 ml 480 ml IV Total 577 ml 200 ml 586 ml Output Urine Total 550 ml 825 ml 1475 ml 1900 ml Drainage Total 0 ml 40 ml # Bowel Movements 0 2 0 1 Result Diagram: 11/17/16 0440 11/16/16 0505 Imaging Last Impressions Chest CT 11/17/16 0000 Signed Impressions: Service Date/Time: Thursday, November 17, 2016 08:52 - CONCLUSION: Patchy basilar airspace disease and atelectasis. Coronary artery calcification. Small right pleural effusion. Saeed Daniels MD Chest X-Ray 11/16/16 0000 Signed Impressions: Service Date/Time: Wednesday, November 16, 2016 17:13 - CONCLUSION: Apparent new cavitary lesion right midlung when compared to 11/05/16. Doug Palmer MD FACR Lower Extremity CT 11/02/16 0000 Signed Impressions: Service Date/Time: Wednesday, November 02, 2016 12:36 - CONCLUSION: Cellulitis without defined abscess. Small joint effusion. Doug Palmer MD FACR Objective Remarks General: No acute distress. Heart: Regular rate and rhythm. No murmur. Lungs: Clear to auscultation bilaterally. No wheezes, rales, or rhonchi. Breathing is nonlabored. Abdomen: Soft, nontender, nondistended. Extremities: No lower extremity edema. Left lower leg wounds with granulation tissue. Wound VAC in place Psych: Alert and oriented. Procedures Incision and debridement of left lower extremity wound November 02, November 04, November 06 in November 08 EGD November 10 A/P Problem List: (1) Sepsis ICD Code: A41.9 Status: Resolved (2) Necrotizing fasciitis ICD Code: M72.6 Status: Acute (3) Hyponatremia ICD Code: E87.1 Status: Resolved (4) Blood in stool ICD Code: K92.1 Status: Acute (5) Hypokalemia ICD Code: E87.6 Status: Resolved (6) Alcohol withdrawal ICD Code: F10.239 Status: Resolved Assessment and Plan Necrotizing fasciitis: Status post septic shock. Clinically improving. Cultures growing group A strep and MRSA. Status post debridement with wound VAC placement. Continue wound care, antibiotics with cefepime and IV vancomycin. Fever and cough. Possible pneumonia versus atelectasis. Nebulizations. Incentive spirometry. Patient on above antibiotics. Stable Diarrhea previously C. difficile negative. Repeat C. difficile ordered. Start Lactinex . Improving Anemia: Secondary to chronic illness, malnutrition, GI bleeding. Hemoglobin stable. Patient received 2 units PRBCs on 11/03/16. Monitor H&H. Esophagitis and duodenitis with small ulcer. Pathology shows gastric chronic inflammation and acute inflammatory exudate in the esophagus. Continue PPI switch to by mouth. Antireflux mechanisms discussed with the patient. Avoid NSAIDs Alcohol dependence/withdrawal, acute delirium/agitation: Improved. Status post CIWA protocol. Continue Seroquel. Haldol as needed. Continue thiamine. Hypokalemia: Improved. Repeat BMP in the morning GI prophylaxis: PPI. DVT prophylaxis: SCDs. Heparin on hold secondary to anemia. Repeat CBC in the morning Consult physical therapy. Activity status to be clarified with general surgery Discharge Planning Not ready for discharge. Specialty select following Problem Qualifiers (1) Sepsis: Qualified Code: A41.9 - Sepsis, due to unspecified organism Clay Mobley MD Nov 18, 2016 09:12
--- NOTE | 2016-11-18 09:52 | HHI.PR ---
Subjective Subjective Notes wbc normal yesterday, low grade fever, low bp improved once pain meds d/billy, tolerating diet, pain controlled Objective Vitals/I&O Vital Signs Date Time Temp Pulse Resp B/P Pulse Ox O2 Delivery O2 Flow Rate FiO2 11/18/16 08:00 96.5 83 16 113/65 99 11/17/16 08:00 Nasal Cannula 6.00 Labs Laboratory Tests Test 11/17/16 11/17/16 16:45 19:18 Vancomycin Level Trough 17.0 Lactic Acid Level 1.9 Date/Time Procedure Status Source Growth 11/17/16 16:35 Gram Stain - Final Resulted Sputum Expectorated Sputum 11/17/16 16:35 Sputum Culture Resulted Sputum Expectorated Sputum Pending 11/16/16 23:21 Aerobic Blood Culture - Preliminary Resulted Blood Peripheral NO GROWTH IN 1 DAY 11/16/16 23:21 Anaerobic Blood Culture - Preliminary Resulted Blood Peripheral NO GROWTH IN 1 DAY Cardiovascular: Regular Lungs: Clear Narrative Exam LLE vac in place no leak, +edema, leg with chantale wrap c/d/i A/P Assessment and Plan 61 year old male s/p Irrigation and debridement LEFT leg with 50 cm 2 excision skin, subcutaneous tissue and muscle and Wound Vac placement -Wound Vac in place, changed at bedside today, good granulation no undrained areas -Regular diet -Dressing change LEFT lower ext: wet to dry kerlix over wound; wrap with soft wrap and chantale; change BID and PRN -Appreciate Wound Team - c/w abx per id - monitor HH, will check coags - hold iv pain meds, ok for po - fever w/u if spikes again J Luis Armijo MD Nov 18, 2016 09:52
[2016-11-18 12:00] VITALS: BP 109/69; PULSE 80; RESP 15; TEMP 98; O2SAT 98
[2016-11-18] MEDS: LACTOBACILLUS ACIDOPHILUS TAB PO SCH ×2 (12:12→17:54)
[2016-11-18] MEDS: ALBUMIN HUMAN 25% 12.5 GM/50 ML BAGP IV SCH ×2 (12:14→21:36)
[2016-11-18] MEDS: SODIUM HYPOCHLORITE 0.25% 500 ML BTL TOPICAL SCH ×2 (12:31→21:00)
[2016-11-18] MEDS: NICOTINE 14 MG/24 HR PATCH T-DERMAL SCH (12:47)
--- NOTE | 2016-11-18 13:08 | HHI.PR ---
Subjective Remarks Follow-up necrotizing fasciitis, fever and cough. States he is doing better improving cough and loose stools. States he had Martin catheter placed because he had nocturia and frequency. Aware risk of infection he agrees to have the Martin catheter discontinued several days after starting Flomax Objective Vitals Vital Signs Date Time Temp Pulse Resp B/P Pulse Ox O2 Delivery O2 Flow Rate FiO2 11/18/16 00:27 97.0 85 17 109/52 91 11/18/16 00:00 97.0 85 17 109/52 91 11/17/16 23:59 94/62 11/17/16 22:31 85 16 102/65 95 11/17/16 20:44 99.1 92 16 97/64 95 11/17/16 16:00 101.2 93 15 97/58 93 11/17/16 12:00 100.6 96 15 101/60 85 11/17/16 09:59 97.8 84 14 92/59 92 I/O 11/17/16 11/17/16 11/17/16 11/18/16 11/18/16 11/18/16 07:00 15:00 23:00 07:00 15:00 23:00 Intake Total 817 ml 920 ml 1066 ml 480 ml Output Total 550 ml 865 ml 1475 ml 1900 ml Balance 267 ml 55 ml -409 ml -1420 ml Intake Oral 240 ml 720 ml 480 ml 480 ml IV Total 577 ml 200 ml 586 ml Output Urine Total 550 ml 825 ml 1475 ml 1900 ml Drainage Total 0 ml 40 ml # Bowel Movements 0 2 0 1 Result Diagram: 11/17/16 0440 11/16/16 0505 Imaging Last Impressions Chest CT 11/17/16 0000 Signed Impressions: Service Date/Time: Thursday, November 17, 2016 08:52 - CONCLUSION: Patchy basilar airspace disease and atelectasis. Coronary artery calcification. Small right pleural effusion. Saeed Daniels MD Chest X-Ray 11/16/16 0000 Signed Impressions: Service Date/Time: Wednesday, November 16, 2016 17:13 - CONCLUSION: Apparent new cavitary lesion right midlung when compared to 11/05/16. Doug Palmer MD FACR Lower Extremity CT 11/02/16 0000 Signed Impressions: Service Date/Time: Wednesday, November 02, 2016 12:36 - CONCLUSION: Cellulitis without defined abscess. Small joint effusion. Doug Palmer MD FACR A/P Problem List: (1) Sepsis ICD Code: A41.9 Status: Resolved (2) Necrotizing fasciitis ICD Code: M72.6 Status: Acute (3) Hyponatremia ICD Code: E87.1 Status: Resolved (4) Iron deficiency anemia ICD Code: D50.9 Status: Acute (5) Blood in stool ICD Code: K92.1 Status: Acute (6) Hypokalemia ICD Code: E87.6 Status: Resolved (7) Alcohol withdrawal ICD Code: F10.239 Status: Resolved Problem Qualifiers (1) Sepsis: Qualified Code: A41.9 - Sepsis, due to unspecified organism Clay Mobley MD Nov 18, 2016 10:05
[2016-11-18] MEDS: VANCOMYCIN 1,500 MG/NS 500 ML IV SCH ×2 (14:16)
[2016-11-18 16:00] VITALS: BP 114/67; PULSE 87; RESP 15; TEMP 98; O2SAT 98
[2016-11-18 20:00] VITALS: BP 106/66; PULSE 87; RESP 18; TEMP 96.6; O2SAT 95
[2016-11-18] MEDS ORDERED: HYDROmorphone HCL PF 1 MG/ML VIAL IV PUSH PRN (21:00)
[2016-11-18] MEDS: TAMSULOSIN HCL 0.4 MG CAP PO SCH (21:00)
[2016-11-19] VITALS (11 sets, daily range): BP systolic 104–113; BP diastolic 62–71; PULSE 77–84; RESP 17–18; TEMP 96–98.2; O2SAT 93–97
[2016-11-19] MEDS: CEFEPIME INJ 2,000 MG in SODIUM CHLORIDE 0.9% INJ 100 ML IV SCH ×3 (02:43→18:00)
[2016-11-19] MEDS: HYDROmorphone HCL PF 1 MG/ML VIAL IV PUSH PRN ×2 (02:52→17:00)
[2016-11-19] MEDS: QUEtiapine FUMARATE 25 MG TAB PO SCH ×3 (04:00→21:53)
[2016-11-19] MEDS: VANCOMYCIN 1,500 MG/NS 500 ML IV SCH ×2 (04:36)
[2016-11-19] MEDS ORDERED: PHARMACY ORDERED LAB ONE (04:45)
[2016-11-19 06:05] LABS: AUTOMATED NEUTROPHIL # 2.7 TH/MM3 (1.8-7.7); BASOPHIL # 0.1 TH/MM3 (0-0.2); BASOPHIL % 1.2 % (0.0-2.0); EOSINOPHIL # 0.5 TH/MM3 (0-0.4); EOSINOPHIL % 8.8 % (0.0-4.0); HEMATOCRIT 21.2 % (39.0-51.0); HEMO FLAGS DIFF FINAL; LYMPH % 18.8 % (9.0-44.0); MEAN CELL VOLUME 86.7 FL (80.0-100.0); MEAN CORPUSCULAR HEMOGLOBIN 29.1 PG (27.0-34.0); MEAN CORPUSCULAR HGB CONC 33.6 % (32.0-36.0); MONO % 20.9 % (0.0-8.0); NEUT % 50.3 % (16.0-70.0); PLATELET COUNT 328 TH/MM3 (150-450); RED BLOOD COUNT 2.44 MIL/MM3 (4.50-5.90); RED CELL DISTRIBUTION WIDTH 16.4 % (11.6-17.2); WHITE BLOOD COUNT 5.3 TH/MM3 (4.0-11.0)
[2016-11-19 06:33] LABS: ANION GAP 6 MEQ/L (5-15); AST (GOT) 23 U/L (15-37); BICARBONATE 30.5 MEQ/L (21.0-32.0); BLOOD UREA NITROGEN 16 MG/DL (7-18); CHLORIDE 100 MEQ/L (98-107); GLOMERULAR FILTRATION RATE 119 ML/MIN (>89); MAGNESIUM 1.9 MG/DL (1.5-2.5); POTASSIUM 4.5 MEQ/L (3.5-5.1); SODIUM (NA) 136 MEQ/L (136-145)
[2016-11-19 06:34] LABS: ALT (GPT) 19 U/L (12-78)
[2016-11-19 06:36] LABS: ALKALINE PHOSPHATASE 76 U/L (45-117); TOTAL BILIRUBIN ADULT 0.2 MG/DL (0.2-1.0)
[2016-11-19] MEDS: SODIUM CHLORIDE 0.9% FLUSH 5 ML FLUSH IVF SCH ×2 (09:00→21:00)
[2016-11-19] MEDS: REMOVE OLD PATCH T-DERMAL SCH (09:00)
[2016-11-19] MEDS: PANTOPRAZOLE SOD 40 MG DELAYED RELEASE TAB PO SCH ×2 (10:05→21:54)
[2016-11-19] MEDS: ALBUMIN HUMAN 25% 12.5 GM/50 ML BAGP IV SCH ×2 (10:05→21:52)
[2016-11-19] MEDS: LACTOBACILLUS ACIDOPHILUS TAB PO SCH ×3 (10:06→16:48)
[2016-11-19] MEDS: NICOTINE 14 MG/24 HR PATCH T-DERMAL SCH (10:06)
[2016-11-19] MEDS: THIAMINE HCL 100 MG TAB PO SCH (10:06)
--- NOTE | 2016-11-19 10:14 | HHI.PR ---
Subjective Subjective Notes no issues, VAC changed yesterday Objective Vitals/I&O Vital Signs Date Time Temp Pulse Resp B/P Pulse Ox O2 Delivery O2 Flow Rate FiO2 11/19/16 08:00 96.9 82 18 110/66 97 11/17/16 08:00 Nasal Cannula 6.00 Labs Laboratory Tests Test 11/19/16 11/19/16 04:10 05:27 Vancomycin Level Trough 20.9 White Blood Count 5.3 Red Blood Count 2.44 Hemoglobin 7.1 Hematocrit 21.2 Mean Corpuscular Volume 86.7 Mean Corpuscular Hemoglobin 29.1 Mean Corpuscular Hemoglobin 33.6 Concent Red Cell Distribution Width 16.4 Platelet Count 328 Mean Platelet Volume 7.3 Neutrophils (%) (Auto) 50.3 Lymphocytes (%) (Auto) 18.8 Monocytes (%) (Auto) 20.9 Eosinophils (%) (Auto) 8.8 Basophils (%) (Auto) 1.2 Neutrophils # (Auto) 2.7 Lymphocytes # (Auto) 1.0 Monocytes # (Auto) 1.1 Eosinophils # (Auto) 0.5 Basophils # (Auto) 0.1 CBC Comment DIFF FINAL Differential Comment Sodium Level 136 Potassium Level 4.5 Chloride Level 100 Carbon Dioxide Level 30.5 Anion Gap 6 Blood Urea Nitrogen 16 Creatinine 0.68 Estimat Glomerular Filtration 119 Rate Random Glucose 93 Calcium Level 8.0 Magnesium Level 1.9 Total Bilirubin 0.2 Aspartate Amino Transf 23 (AST/SGOT) Alanine Aminotransferase 19 (ALT/SGPT) Alkaline Phosphatase 76 Total Protein 6.4 Albumin 1.9 Date/Time Procedure Status Source Growth 11/17/16 16:35 Gram Stain - Final Resulted Sputum Expectorated Sputum 11/17/16 16:35 Sputum Culture - Preliminary Resulted Sputum Expectorated Sputum HEAVY GROWTH NORMAL RESPIRATORY INNA... 11/16/16 23:21 Aerobic Blood Culture - Preliminary Resulted Blood Peripheral NO GROWTH IN 2 DAYS 11/16/16 23:21 Anaerobic Blood Culture - Preliminary Resulted Blood Peripheral NO GROWTH IN 2 DAYS Extremities: No edema, Perfused Wound Wound : Wound Location: Left leg Dressing: NS - Wet to Dry, VAC A/P Assessment and Plan s/p ID LLE for nec fas continue VAC q 3 days, will likely switch to wet to dry soon continue daily wet to dry ABX per ID will follow peripherally, please call with any concerns Thanh Garces MD Nov 19, 2016 10:14
[2016-11-19] MEDS ORDERED: SODIUM CHLOR 0.9% 250 ML INJ 250 ML IV ONE (10:15)
[2016-11-19] MEDS ORDERED: FUROSEMIDE 20 MG/2 ML VIAL IV PUSH ONE (10:15)
--- NOTE | 2016-11-19 10:22 | HHI.PR ---
Subjective Remarks Follow-up anemia. States he does not want to get out of bed and feels he is going to pass out. Agrees with blood transfusion. No stools today. States he has chronic cough. Discussed with RN, out of bed to chair if okay with general surgery and after blood transfusion. Objective Vitals Vital Signs Date Time Temp Pulse Resp B/P Pulse Ox O2 Delivery O2 Flow Rate FiO2 11/19/16 08:00 96.9 82 18 110/66 97 11/19/16 04:00 97.9 80 17 106/65 96 11/19/16 00:00 96.0 80 17 104/62 96 11/18/16 20:00 96.6 87 18 106/66 95 11/18/16 18:54 20 11/18/16 16:00 98.0 87 15 114/67 98 11/18/16 12:00 98.0 80 15 109/69 98 I/O 11/18/16 11/18/16 11/18/16 11/19/16 11/19/16 11/19/16 07:00 15:00 23:00 07:00 15:00 23:00 Intake Total 480 ml 960 ml 1040 ml 1672 ml Output Total 1900 ml 1600 ml 800 ml 2350 ml Balance -1420 ml -640 ml 240 ml -678 ml Intake Oral 480 ml 960 ml 240 ml 240 ml IV Total 800 ml 1432 ml Output Urine Total 1900 ml 1600 ml 800 ml 2350 ml Drainage Total 0 ml # Bowel Movements 1 0 1 Result Diagram: 11/19/16 0527 11/19/16 0527 Imaging Last Impressions Chest CT 11/17/16 0000 Signed Impressions: Service Date/Time: Thursday, November 17, 2016 08:52 - CONCLUSION: Patchy basilar airspace disease and atelectasis. Coronary artery calcification. Small right pleural effusion. Saeed Daniels MD Chest X-Ray 11/16/16 0000 Signed Impressions: Service Date/Time: Wednesday, November 16, 2016 17:13 - CONCLUSION: Apparent new cavitary lesion right midlung when compared to 11/05/16. Doug Palmer MD FACR Lower Extremity CT 11/02/16 0000 Signed Impressions: Service Date/Time: Wednesday, November 02, 2016 12:36 - CONCLUSION: Cellulitis without defined abscess. Small joint effusion. Doug Palmer MD FACR Objective Remarks General: No acute distress. Skin: No rashes and lesions HEENT: NCAT, pupils reactive to light Heart: Regular rate and rhythm. No murmur. Lungs: Clear to auscultation bilaterally. No wheezes, rales, or rhonchi. Breathing is nonlabored. Abdomen: Soft, nontender, nondistended. Extremities: No lower extremity edema. Left lower leg wounds with granulation tissue. Wound VAC in place Psych: Alert and oriented. Procedures Multiple incision and debridement of left lower extremity wound EGD A/P Problem List: (1) Sepsis ICD Code: A41.9 Status: Resolved (2) Necrotizing fasciitis ICD Code: M72.6 Status: Acute (3) Hyponatremia ICD Code: E87.1 Status: Resolved (4) Iron deficiency anemia ICD Code: D50.9 Status: Acute (5) Blood in stool ICD Code: K92.1 Status: Acute (6) Hypokalemia ICD Code: E87.6 Status: Resolved (7) Alcohol withdrawal ICD Code: F10.239 Status: Resolved Assessment and Plan Necrotizing fasciitis: Status post septic shock. Clinically improving. Cultures growing group A strep and MRSA. Status post debridement with wound VAC placement. Continue wound care, antibiotics with cefepime and IV vancomycin. Fever and cough. Possible pneumonia versus atelectasis. Culture with normal blu. Nebulizations. Incentive spirometry. Patient on above antibiotics. Stable Diarrhea previously C. difficile negative. Improving. Repeat C. difficile ordered. Tinea Lactinex Anemia: Secondary to chronic illness, malnutrition, GI bleeding. Worse hemoglobin is 7.1 and patient feels he is going to pass out. He has symptomatic anemia. Patient received 2 units PRBCs on 11/03/16. We will transfuse 2 more units patient agrees. Monitor H&H. Repeat Hemoccult Esophagitis and duodenitis with small ulcer. Pathology shows gastric chronic inflammation and acute inflammatory exudate in the esophagus. Continue PPI. Antireflux mechanisms discussed with the patient. Avoid NSAIDs Alcohol dependence/withdrawal, acute delirium/agitation: Improved. Status post CIWA protocol. Continue Seroquel. Haldol as needed. Continue thiamine. Hypokalemia: Improved. Improved GI prophylaxis: PPI. DVT prophylaxis: SCDs. Heparin on hold secondary to anemia pending repeat Hemoccult. We will discuss with GI Consulted physical therapy. Activity status to be clarified with general surgery Discharge Planning Not ready for discharge. Specialty select following Problem Qualifiers (1) Sepsis: Qualified Code: A41.9 - Sepsis, due to unspecified organism Clay Mobley MD Nov 19, 2016 10:22
[2016-11-19 16:02] LABS: C. DIFF EPI 027 PRESUMPTIVE NEGATIVE (NEGATIVE)
[2016-11-19 16:08] LABS: C. DIFF TOXIN PCR POSITIVE (NEGATIVE)
--- NOTE | 2016-11-19 16:35 | HHI.IDPN ---
Subjective Subjective Remarks co LLE pain co abd pain co liquid diarrhea + cough C.diff is positive Antibiotics cefepime vanco Allergies: Coded Allergies: Cultivated Oat Pollen (Verified Allergy, Mild, 11/02/16) *MDRO Multi-Drug Resistant Organism (Verified Allergy, Unknown, 11/05/16) MRSA PCR screen POSITIVE-11/03/16 MRSA (leg)-11/02/16 Objective . Vital Signs Date Time Temp Pulse Resp B/P Pulse Ox O2 Delivery O2 Flow Rate FiO2 11/19/16 15:30 97.7 84 18 105/68 11/19/16 15:25 97.7 84 18 105/68 97 11/19/16 14:52 98.2 81 18 107/65 96 11/19/16 14:30 98.2 81 18 107/65 96 11/19/16 12:00 97.5 77 18 111/66 93 11/19/16 08:00 96.9 82 18 110/66 97 11/19/16 04:00 97.9 80 17 106/65 96 11/19/16 00:00 96.0 80 17 104/62 96 11/18/16 20:00 96.6 87 18 106/66 95 11/18/16 18:54 20 11/18/16 11/18/16 11/19/16 15:00 23:00 07:00 Intake Total 960 ml 1040 ml 1672 ml Output Total 1600 ml 800 ml 2350 ml Balance -640 ml 240 ml -678 ml Intake Oral 960 ml 240 ml 240 ml IV Total 800 ml 1432 ml Output Urine Total 1600 ml 800 ml 2350 ml Drainage Total 0 ml # Bowel Movements 0 1 . Laboratory Tests Test 11/19/16 05:27 White Blood Count 5.3 TH/MM3 Red Blood Count 2.44 MIL/MM3 Hemoglobin 7.1 GM/DL Hematocrit 21.2 % Mean Corpuscular Volume 86.7 FL Mean Corpuscular Hemoglobin 29.1 PG Mean Corpuscular Hemoglobin 33.6 % Concent Red Cell Distribution Width 16.4 % Platelet Count 328 TH/MM3 Mean Platelet Volume 7.3 FL Neutrophils (%) (Auto) 50.3 % Lymphocytes (%) (Auto) 18.8 % Monocytes (%) (Auto) 20.9 % Eosinophils (%) (Auto) 8.8 % Basophils (%) (Auto) 1.2 % Neutrophils # (Auto) 2.7 TH/MM3 Lymphocytes # (Auto) 1.0 TH/MM3 Monocytes # (Auto) 1.1 TH/MM3 Eosinophils # (Auto) 0.5 TH/MM3 Basophils # (Auto) 0.1 TH/MM3 CBC Comment DIFF FINAL Differential Comment Laboratory Tests Test 11/17/16 11/19/16 19:18 05:27 Lactic Acid Level 1.9 mmol/L Sodium Level 136 MEQ/L Potassium Level 4.5 MEQ/L Chloride Level 100 MEQ/L Carbon Dioxide Level 30.5 MEQ/L Anion Gap 6 MEQ/L Blood Urea Nitrogen 16 MG/DL Creatinine 0.68 MG/DL Estimat Glomerular Filtration 119 ML/MIN Rate Random Glucose 93 MG/DL Calcium Level 8.0 MG/DL Magnesium Level 1.9 MG/DL Total Bilirubin 0.2 MG/DL Aspartate Amino Transf 23 U/L (AST/SGOT) Alanine Aminotransferase 19 U/L (ALT/SGPT) Alkaline Phosphatase 76 U/L Total Protein 6.4 GM/DL Albumin 1.9 GM/DL Microbiology Date/Time Procedure Status Source Growth 11/16/16 23:15 Aerobic Blood Culture - Preliminary Resulted Blood Peripheral NO GROWTH IN 3 DAYS 11/16/16 23:15 Anaerobic Blood Culture - Preliminary Resulted Blood Peripheral NO GROWTH IN 3 DAYS 11/16/16 23:21 Aerobic Blood Culture - Preliminary Resulted Blood Peripheral NO GROWTH IN 3 DAYS 11/16/16 23:21 Anaerobic Blood Culture - Preliminary Resulted Blood Peripheral NO GROWTH IN 3 DAYS 11/17/16 16:35 Gram Stain - Final Complete Sputum Expectorated Sputum 11/17/16 16:35 Sputum Culture - Final Complete Sputum Expectorated Sputum HEAVY GROWTH NORMAL RESPIRATORY INNA 11/19/16 14:15 Stool Occult Blood ([place]) - Final Complete Stool Stool HEMOCCULT NEGATIVE Imaging Last Impressions Chest CT 11/17/16 0000 Signed Impressions: Service Date/Time: Thursday, November 17, 2016 08:52 - CONCLUSION: Patchy basilar airspace disease and atelectasis. Coronary artery calcification. Small right pleural effusion. Saeed Daniels MD Chest X-Ray 11/16/16 0000 Signed Impressions: Service Date/Time: Wednesday, November 16, 2016 17:13 - CONCLUSION: Apparent new cavitary lesion right midlung when compared to 11/05/16. Doug Palmer MD FACR Lower Extremity CT 11/02/16 0000 Signed Impressions: Service Date/Time: Wednesday, November 02, 2016 12:36 - CONCLUSION: Cellulitis without defined abscess. Small joint effusion. Doug Palmer MD FACR Physical Exam CONSTITUTIONAL/GENERAL: This is an adequately nourished patient, in no apparent distress. TUBES/LINES/DRAINS: SKIN: No jaundice, rashes, or lesions. Skin temperature appropriate. Not diaphoretic. Multiple scars on b/l upper extremieties CARDIOVASCULAR: Regular rate and rhythm without murmurs, gallops, or rubs. RESPIRATORY/CHEST: Symmetric, unlabored respirations. Clear to auscultation. Breath sounds equal bilaterally. No wheezes, rales, or rhonchi. GASTROINTESTINAL: Abdomen soft, remains mildly tender to palpation RLQ wo guarding or rebound and is not distended. No hepato-splenomegaly, or palpable masses. GENITOURINARY: Without palpable bladder distension. MUSCULOSKELETAL: Extremities without clubbing, cyanosis, LLE dressing in place L thigh VAC in place with serous dc NEUROLOGICAL: awake, alert, not as confused, speech is clear follows commands Assessment & Plan Remarks LLE nec fasc, GAS sp debridment, fascitomies, VAC placemnet - group A strep MSSA and MRSA - infection appear to resolve green discoloration is 2/2 pseudomonas wound colonisation, no e/o active infection however Leukocytosis; resolved ETOH abuse, sp withdrawl Diarrhea, abx- associated, C,diff negative Fever, dry cough ? PNA vs atelectasis also will need to evaluate top CAUTI and r/o bacteremia Profound protein malnourishjemnt C.diff , mild case -cont cefepime and dc vancomycin -fu blood clx -sputum clx start oral flagyl for C.diff Maria Teresa Greenwood MD Nov 19, 2016 16:35
[2016-11-19] MEDS: metroNIDAZOLE 500 MG TAB PO SCH (17:01)
[2016-11-19] MEDS: SODIUM HYPOCHLORITE 0.25% 500 ML BTL TOPICAL SCH ×2 (18:23→21:00)
[2016-11-19] MEDS: TAMSULOSIN HCL 0.4 MG CAP PO SCH (21:53)
[2016-11-19] MEDS ORDERED: VANCOMYCIN INJ 1,250 MG in SODIUM CHLOR 0.9% 250 ML INJ 250 ML IV SCH (23:00)
[2016-11-20] VITALS: BP 108/65; PULSE 78; RESP 17; TEMP 96.2; O2SAT 95
[2016-11-20] MEDS: metroNIDAZOLE 500 MG TAB PO SCH ×3 (01:29→17:55)
[2016-11-20] MEDS: CEFEPIME INJ 2,000 MG in SODIUM CHLORIDE 0.9% INJ 100 ML IV SCH ×3 (01:30→17:55)
[2016-11-20] MEDS: QUEtiapine FUMARATE 25 MG TAB PO SCH ×3 (04:00→21:40)
[2016-11-20 06:48] LABS: AUTOMATED NEUTROPHIL # 3.3 TH/MM3 (1.8-7.7); BASOPHIL # 0.1 TH/MM3 (0-0.2); EOSINOPHIL # 0.6 TH/MM3 (0-0.4); EOSINOPHIL % 9.3 % (0.0-4.0); HEMATOCRIT 27.5 % (39.0-51.0); HEMO FLAGS DIFF FINAL; LYMPH % 17.2 % (9.0-44.0); LYMPHOCYTE # 1.1 TH/MM3 (1.0-4.8); MEAN CELL VOLUME 85.1 FL (80.0-100.0); MEAN CORPUSCULAR HEMOGLOBIN 28.8 PG (27.0-34.0); MEAN CORPUSCULAR HGB CONC 33.8 % (32.0-36.0); MONO % 20.4 % (0.0-8.0); NEUT % 52.1 % (16.0-70.0); PLATELET COUNT 345 TH/MM3 (150-450); RED BLOOD COUNT 3.23 MIL/MM3 (4.50-5.90); RED CELL DISTRIBUTION WIDTH 15.6 % (11.6-17.2); WHITE BLOOD COUNT 6.3 TH/MM3 (4.0-11.0)
[2016-11-20 06:57] LABS: BICARBONATE 31.5 MEQ/L (21.0-32.0); MAGNESIUM 1.8 MG/DL (1.5-2.5); POTASSIUM 3.9 MEQ/L (3.5-5.1)
[2016-11-20 08:00] VITALS: BP 110/69; PULSE 80; RESP 17; TEMP 97; O2SAT 98
[2016-11-20] MEDS: SODIUM HYPOCHLORITE 0.25% 500 ML BTL TOPICAL SCH ×2 (09:00→21:44)
[2016-11-20] MEDS: SODIUM CHLORIDE 0.9% FLUSH 5 ML FLUSH IVF SCH ×2 (09:00→21:00)
[2016-11-20] MEDS: REMOVE OLD PATCH T-DERMAL SCH (09:00)
--- NOTE | 2016-11-20 09:12 | HHI.PR ---
Subjective Remarks Follow-up C. difficile. Patient states he had loose stool today. Also had a fall but did not sustain any injuries. Patient advised to ask for help when he is out of bed. Discussed with RN Objective Vitals Vital Signs Date Time Temp Pulse Resp B/P Pulse Ox O2 Delivery O2 Flow Rate FiO2 11/20/16 08:00 97.0 80 17 110/69 98 11/20/16 00:00 96.2 78 17 108/65 95 11/19/16 20:00 96.9 82 17 113/71 94 11/19/16 17:31 97.3 81 18 112/68 96 11/19/16 16:00 97.3 81 18 112/65 96 11/19/16 15:30 97.7 84 18 105/68 11/19/16 15:25 97.7 84 18 105/68 97 11/19/16 14:52 98.2 81 18 107/65 96 11/19/16 14:30 98.2 81 18 107/65 96 11/19/16 12:00 97.5 77 18 111/66 93 I/O 11/19/16 11/19/16 11/19/16 11/20/16 11/20/16 11/20/16 07:00 15:00 23:00 07:00 15:00 23:00 Intake Total 1672 ml 400 ml 480 ml 590 ml Output Total 2350 ml 2800 ml 4100 ml 1750 ml Balance -678 ml -2400 ml -3620 ml -1160 ml Intake Oral 240 ml 400 ml 480 ml 240 ml IV Total 1432 ml 350 ml Output Urine Total 2350 ml 2800 ml 4100 ml 1750 ml Drainage Total 0 ml # Bowel Movements 1 Result Diagram: 11/20/16 0546 11/20/16 0546 Imaging Last Impressions Chest CT 11/17/16 0000 Signed Impressions: Service Date/Time: Thursday, November 17, 2016 08:52 - CONCLUSION: Patchy basilar airspace disease and atelectasis. Coronary artery calcification. Small right pleural effusion. Saeed Daniels MD Chest X-Ray 11/16/16 0000 Signed Impressions: Service Date/Time: Wednesday, November 16, 2016 17:13 - CONCLUSION: Apparent new cavitary lesion right midlung when compared to 11/05/16. Doug Palmer MD FACR Lower Extremity CT 11/02/16 0000 Signed Impressions: Service Date/Time: Wednesday, November 02, 2016 12:36 - CONCLUSION: Cellulitis without defined abscess. Small joint effusion. Doug Palmer MD FACR Objective Remarks General: No acute distress. Well-developed and well-nourished Skin: No rashes and lesions HEENT: NCAT, pupils reactive to light Heart: Regular rate and rhythm. No murmur. Lungs: Clear to auscultation bilaterally. No wheezes, rales, or rhonchi. Breathing is nonlabored. Abdomen: Soft, nontender, nondistended. Extremities: No lower extremity edema. Left lower leg wounds with granulation tissue. Wound VAC in place Psych: Alert and oriented. Procedures Multiple incision and debridement of left lower extremity wound EGD A/P Problem List: (1) Sepsis ICD Code: A41.9 Status: Resolved (2) Necrotizing fasciitis ICD Code: M72.6 Status: Acute (3) Hyponatremia ICD Code: E87.1 Status: Resolved (4) Iron deficiency anemia ICD Code: D50.9 Status: Acute (5) Blood in stool ICD Code: K92.1 Status: Acute (6) Hypokalemia ICD Code: E87.6 Status: Resolved (7) Alcohol withdrawal ICD Code: F10.239 Status: Resolved Assessment and Plan Necrotizing fasciitis: Status post septic shock. Clinically improving. Cultures growing group A strep and MRSA. Status post debridement with wound VAC placement , neurosurgery plans to switch to wet-to-dry dressing. Continue wound care, antibiotics with cefepime. Fever and cough. Possible pneumonia versus atelectasis. Culture with normal blu. Nebulizations. Incentive spirometry. Patient on above antibiotics. Stable C. difficile. Started on Flagyl 11/19/16 and continue Lactinex. Monitor Anemia: Secondary to chronic illness, malnutrition, GI bleeding. Status post 2 units PRBCs on 11/03/16 and 11/19/16. Improved. Monitor H&H. Repeat Hemoccult 1 negative Esophagitis and duodenitis with small ulcer. Pathology shows gastric chronic inflammation and acute inflammatory exudate in the esophagus. Continue PPI. Antireflux mechanisms discussed with the patient. Avoid NSAIDs Alcohol dependence/withdrawal, acute delirium/agitation: Improved. Status post CIWA protocol. Continue Seroquel. Haldol as needed. Continue thiamine. Hypokalemia: Improved. Improved GI prophylaxis: PPI. DVT prophylaxis: SCDs. Discussed with GI, okay to restart subcutaneous heparin and monitor Consulted physical therapy. Activity status to be clarified with general surgery Discharge Planning Not ready for discharge. Specialty select following Problem Qualifiers (1) Sepsis: Qualified Code: A41.9 - Sepsis, due to unspecified organism Clay Mobley MD Nov 20, 2016 09:12
[2016-11-20] MEDS: PANTOPRAZOLE SOD 40 MG DELAYED RELEASE TAB PO SCH ×2 (09:33→21:40)
[2016-11-20] MEDS: THIAMINE HCL 100 MG TAB PO SCH (09:33)
[2016-11-20] MEDS: LACTOBACILLUS ACIDOPHILUS TAB PO SCH ×3 (09:33→17:55)
[2016-11-20] MEDS: NICOTINE 14 MG/24 HR PATCH T-DERMAL SCH (09:33)
[2016-11-20] MEDS: ALBUMIN HUMAN 25% 12.5 GM/50 ML BAGP IV SCH ×2 (09:49→21:44)
[2016-11-20] MEDS: HYDROmorphone HCL PF 1 MG/ML VIAL IV PUSH PRN ×2 (11:02→21:41)
[2016-11-20 12:00] VITALS: BP 112/64; PULSE 83; RESP 16; TEMP 97.9; O2SAT 96
[2016-11-20] MEDS: ACETAMINOPHEN 325 MG TAB PO PRN (13:10)
[2016-11-20] MEDS: HEPARIN SODIUM - SQ 10,000 UNITS/ML VIAL SQ SCH ×2 (13:11→21:39)
[2016-11-20] MEDS: ONDANSETRON HCL 4 MG/2 ML VIAL IV PRN (13:51)
[2016-11-20 16:00] VITALS: BP 99/57; PULSE 84; RESP 16; TEMP 98.3; O2SAT 97
[2016-11-20 20:00] VITALS: BP 99/50; PULSE 80; RESP 20; TEMP 97; O2SAT 94
[2016-11-20 21:28] VITALS: BP 116/62
[2016-11-20] MEDS: TAMSULOSIN HCL 0.4 MG CAP PO SCH (21:40)
[2016-11-21] VITALS: BP 105/68; PULSE 82; RESP 20; TEMP 97.9; O2SAT 93
[2016-11-21] MEDS: metroNIDAZOLE 500 MG TAB PO SCH ×3 (00:12→16:55)
[2016-11-21] MEDS: CEFEPIME INJ 2,000 MG in SODIUM CHLORIDE 0.9% INJ 100 ML IV SCH ×3 (01:50→16:55)
[2016-11-21] MEDS: QUEtiapine FUMARATE 25 MG TAB PO SCH ×3 (04:37→21:03)
[2016-11-21] MEDS: HEPARIN SODIUM - SQ 10,000 UNITS/ML VIAL SQ SCH ×3 (05:17→21:05)
[2016-11-21 06:48] LABS: AUTOMATED NEUTROPHIL # 2.7 TH/MM3 (1.8-7.7); BASOPHIL # 0.1 TH/MM3 (0-0.2); EOSINOPHIL # 0.9 TH/MM3 (0-0.4); EOSINOPHIL % 14.9 % (0.0-4.0); HEMATOCRIT 27.4 % (39.0-51.0); HEMO FLAGS DIFF FINAL; LYMPHOCYTE # 1.3 TH/MM3 (1.0-4.8); MEAN CELL VOLUME 87.7 FL (80.0-100.0); MEAN CORPUSCULAR HEMOGLOBIN 28.5 PG (27.0-34.0); MEAN CORPUSCULAR HGB CONC 32.5 % (32.0-36.0); MONO % 18.8 % (0.0-8.0); NEUT % 44.3 % (16.0-70.0); PLATELET COUNT 324 TH/MM3 (150-450); RED BLOOD COUNT 3.12 MIL/MM3 (4.50-5.90); RED CELL DISTRIBUTION WIDTH 15.9 % (11.6-17.2); WHITE BLOOD COUNT 6.2 TH/MM3 (4.0-11.0)
[2016-11-21 07:13] LABS: BICARBONATE 33.4 MEQ/L (21.0-32.0); MAGNESIUM 1.9 MG/DL (1.5-2.5); POTASSIUM 4.5 MEQ/L (3.5-5.1)
[2016-11-21 08:00] VITALS: BP 106/65; PULSE 78; RESP 17; TEMP 96.3; O2SAT 95
[2016-11-21] MEDS: REMOVE OLD PATCH T-DERMAL SCH (09:00)
[2016-11-21] MEDS: SODIUM CHLORIDE 0.9% FLUSH 5 ML FLUSH IVF SCH ×2 (09:00→21:00)
[2016-11-21] MEDS: PANTOPRAZOLE SOD 40 MG DELAYED RELEASE TAB PO SCH ×2 (09:00→21:05)
--- NOTE | 2016-11-21 09:15 | HHI.PR ---
Subjective Remarks Follow-up necrotizing fasciitis left leg and C. difficile. States not good today his hurting. No BM. Discussed with general surgery who cleared patient to be out of bed. Discussed with RN Objective Vitals Vital Signs Date Time Temp Pulse Resp B/P Pulse Ox O2 Delivery O2 Flow Rate FiO2 11/21/16 08:00 96.3 78 17 106/65 95 11/21/16 04:10 18 11/21/16 00:00 97.9 82 20 105/68 93 11/20/16 21:28 116/62 11/20/16 20:00 97.0 80 20 99/50 94 11/20/16 16:00 98.3 84 16 99/57 97 11/20/16 12:00 97.9 83 16 112/64 96 I/O 11/20/16 11/20/16 11/20/16 11/21/16 11/21/16 11/21/16 07:00 15:00 23:00 07:00 15:00 23:00 Intake Total 590 ml 1500 ml 440 ml 100 ml 360 ml Output Total 1750 ml 1725 ml 450 ml 25 ml 1175 ml Balance -1160 ml -225 ml -10 ml 75 ml -815 ml Intake Oral 240 ml 1200 ml 240 ml 360 ml IV Total 350 ml 300 ml 100 ml 100 ml Albumin 100 ml Output Urine Total 1750 ml 1725 ml 450 ml 1175 ml Stool Total 0 ml Drainage Total 25 ml # Bowel Movements 2 Result Diagram: 11/21/16 0434 11/21/16 0434 Imaging Last Impressions Chest CT 11/17/16 0000 Signed Impressions: Service Date/Time: Thursday, November 17, 2016 08:52 - CONCLUSION: Patchy basilar airspace disease and atelectasis. Coronary artery calcification. Small right pleural effusion. Saeed Daniels MD Chest X-Ray 11/16/16 0000 Signed Impressions: Service Date/Time: Wednesday, November 16, 2016 17:13 - CONCLUSION: Apparent new cavitary lesion right midlung when compared to 11/05/16. Doug Palmer MD FACR Lower Extremity CT 11/02/16 0000 Signed Impressions: Service Date/Time: Wednesday, November 02, 2016 12:36 - CONCLUSION: Cellulitis without defined abscess. Small joint effusion. Doug Palmer MD FACR Objective Remarks General: No acute distress. Well-developed and well-nourished Skin: No rashes and lesions HEENT: NCAT, pupils reactive to light Heart: Regular rate and rhythm. No murmur. Lungs: Clear to auscultation bilaterally. No wheezes, rales, or rhonchi. Breathing is nonlabored. Abdomen: Soft, slightly tender lower quadrants, nondistended. Extremities: No lower extremity edema. Left lower leg wounds with granulation tissue. Wound VAC in place Psych: Alert and oriented. Nonfocal Procedures Multiple incision and debridement of left lower extremity wound EGD A/P Problem List: (1) Sepsis ICD Code: A41.9 Status: Resolved (2) Necrotizing fasciitis ICD Code: M72.6 Status: Acute (3) Hyponatremia ICD Code: E87.1 Status: Resolved (4) Iron deficiency anemia ICD Code: D50.9 Status: Acute (5) Blood in stool ICD Code: K92.1 Status: Acute (6) Hypokalemia ICD Code: E87.6 Status: Resolved (7) Alcohol withdrawal ICD Code: F10.239 Status: Resolved Assessment and Plan Necrotizing fasciitis: Status post septic shock. Clinically improving. Cultures growing group A strep and MRSA. Status post debridement with wound VAC placement , general surgery plans to switch to wet-to-dry dressing. Continue wound care, antibiotics with cefepime. Fever and cough. Possible pneumonia versus atelectasis. Culture with normal blu. Nebulizations. Incentive spirometry. Patient on above antibiotics. Stable C. difficile. Started on Flagyl 11/19/16 and continue Lactinex. Patient has lower quadrant tenderness but abdomen is soft and nondistended. There is no leukocytosis and acidosis. Monitor repeat CBC in the morning. Consider CT scan of the abdomen pelvis Anemia: Secondary to chronic illness, malnutrition, GI bleeding. Status post 2 units PRBCs on 11/03/16 and 11/19/16. Improved. Monitor H&H. Repeat Hemoccult 1 negative Esophagitis and duodenitis with small ulcer. Pathology shows gastric chronic inflammation and acute inflammatory exudate in the esophagus. Continue PPI. Antireflux mechanisms discussed with the patient. Avoid NSAIDs Alcohol dependence/withdrawal, acute delirium/agitation: Improved. Status post CIWA protocol. Continue Seroquel. Haldol as needed. Continue thiamine. Hypokalemia: Improved. Improved Possible BPH. Tolerating flomax dc funes and monitor with bladder scan GI prophylaxis: PPI. DVT prophylaxis: SCDs. Discussed with GI, okay to restart subcutaneous heparin and monitor Discharge Planning Discharge when cleared by ID on IV cefepime for necrotizing fasciitis and by mouth Flagyl for C. difficile. Specialty select following Problem Qualifiers (1) Sepsis: Qualified Code: A41.9 - Sepsis, due to unspecified organism Clay Mobley MD Nov 21, 2016 09:15
[2016-11-21] MEDS ORDERED: OXYC-395 PO (09:21)
[2016-11-21] MEDS ORDERED: LACT PO (09:21)
[2016-11-21] MEDS ORDERED: PANT40TA3 PO (09:21)
[2016-11-21] MEDS ORDERED: QUET1TAB7 PO (09:21)
[2016-11-21] MEDS ORDERED: TAMS5CAP PO (09:21)
[2016-11-21] MEDS ORDERED: GNP100TA3 PO (09:21)
[2016-11-21] MEDS ORDERED: METR-1 PO (09:21)
--- NOTE | 2016-11-21 09:22 | HHI.DCPOC ---
Discharge Care Plan Your Health Problems Are: Difficulty with ADL Exercise Tolerance Goals to Promote Your Health * To prevent worsening of your condition and complications * To maintain your health at the optimal level Directions to Meet Your Goals Take your medications as prescribed Follow your dietary instruction Follow activity as directed Keep your appointments as scheduled Take your immunizations and boosters as scheduled If your symptoms worsen call your PCP, if no PCP go to Urgent Care Center or Emergency Room Smoking is Dangerous to Your Health. Avoid second hand smoke Call the 24-hour hour crisis hotline for domestic abuse at Clay Mobley MD Nov 21, 2016 09:22
[2016-11-21] MEDS: THIAMINE HCL 100 MG TAB PO SCH (09:31)
[2016-11-21] MEDS: LACTOBACILLUS ACIDOPHILUS TAB PO SCH ×3 (09:31→16:55)
[2016-11-21] MEDS: NICOTINE 14 MG/24 HR PATCH T-DERMAL SCH (09:31)
[2016-11-21] MEDS: SODIUM HYPOCHLORITE 0.25% 500 ML BTL TOPICAL SCH (09:33)
[2016-11-21 12:00] VITALS: BP 109/60; PULSE 78; RESP 16; TEMP 98.3; O2SAT 95
[2016-11-21] MEDS: HYDROmorphone HCL PF 1 MG/ML VIAL IV PUSH PRN (14:24)
--- NOTE | 2016-11-21 14:52 | HHI.IDPN ---
Subjective Subjective Remarks co LLE pain co abd pain co liquid diarrhea, buty no BMs today + cough says its "OK" C.diff is positive Pt got upset and stated to rip off his bandages when he wsa told that he will be discharged soon Antibiotics cefepime flagyl Allergies: Coded Allergies: Cultivated Oat Pollen (Verified Allergy, Mild, 11/02/16) *MDRO Multi-Drug Resistant Organism (Verified Allergy, Unknown, 11/05/16) MRSA PCR screen POSITIVE-11/03/16 MRSA (leg)-11/02/16 Objective . Vital Signs Date Time Temp Pulse Resp B/P Pulse Ox O2 Delivery O2 Flow Rate FiO2 11/21/16 12:00 98.3 78 16 109/60 95 11/21/16 08:00 96.3 78 17 106/65 95 11/21/16 04:10 18 11/21/16 00:00 97.9 82 20 105/68 93 11/20/16 21:28 116/62 11/20/16 20:00 97.0 80 20 99/50 94 11/20/16 16:00 98.3 84 16 99/57 97 11/20/16 11/20/16 11/21/16 15:00 23:00 07:00 Intake Total 1500 ml 440 ml 100 ml Output Total 1725 ml 450 ml 25 ml Balance -225 ml -10 ml 75 ml Intake Oral 1200 ml 240 ml IV Total 300 ml 100 ml 100 ml Albumin 100 ml Output Urine Total 1725 ml 450 ml Stool Total 0 ml Drainage Total 25 ml # Bowel Movements 2 . Laboratory Tests Test 11/20/16 11/21/16 05:46 04:34 White Blood Count 6.3 TH/MM3 6.2 TH/MM3 Red Blood Count 3.23 MIL/MM3 3.12 MIL/MM3 Hemoglobin 9.3 GM/DL 8.9 GM/DL Hematocrit 27.5 % 27.4 % Mean Corpuscular Volume 85.1 FL 87.7 FL Mean Corpuscular Hemoglobin 28.8 PG 28.5 PG Mean Corpuscular Hemoglobin 33.8 % 32.5 % Concent Red Cell Distribution Width 15.6 % 15.9 % Platelet Count 345 TH/MM3 324 TH/MM3 Mean Platelet Volume 7.4 FL 7.3 FL Neutrophils (%) (Auto) 52.1 % 44.3 % Lymphocytes (%) (Auto) 17.2 % 21.0 % Monocytes (%) (Auto) 20.4 % 18.8 % Eosinophils (%) (Auto) 9.3 % 14.9 % Basophils (%) (Auto) 1.0 % 1.0 % Neutrophils # (Auto) 3.3 TH/MM3 2.7 TH/MM3 Lymphocytes # (Auto) 1.1 TH/MM3 1.3 TH/MM3 Monocytes # (Auto) 1.3 TH/MM3 1.2 TH/MM3 Eosinophils # (Auto) 0.6 TH/MM3 0.9 TH/MM3 Basophils # (Auto) 0.1 TH/MM3 0.1 TH/MM3 CBC Comment DIFF FINAL DIFF FINAL Differential Comment Laboratory Tests Test 11/20/16 11/21/16 05:46 04:34 Sodium Level 138 MEQ/L 138 MEQ/L Potassium Level 3.9 MEQ/L 4.5 MEQ/L Chloride Level 100 MEQ/L 101 MEQ/L Carbon Dioxide Level 31.5 MEQ/L 33.4 MEQ/L Anion Gap 7 MEQ/L 4 MEQ/L Blood Urea Nitrogen 15 MG/DL 19 MG/DL Creatinine 0.70 MG/DL 0.66 MG/DL Estimat Glomerular Filtration 115 ML/MIN 124 ML/MIN Rate Random Glucose 90 MG/DL 81 MG/DL Calcium Level 8.6 MG/DL 8.1 MG/DL Magnesium Level 1.8 MG/DL 1.9 MG/DL Albumin 2.2 GM/DL Microbiology Date/Time Procedure Status Source Growth 11/19/16 14:15 Stool Occult Blood ([place]) - Final Complete Stool Stool HEMOCCULT NEGATIVE Imaging Last Impressions Chest CT 11/17/16 0000 Signed Impressions: Service Date/Time: Thursday, November 17, 2016 08:52 - CONCLUSION: Patchy basilar airspace disease and atelectasis. Coronary artery calcification. Small right pleural effusion. Saeed Daniels MD Chest X-Ray 11/16/16 0000 Signed Impressions: Service Date/Time: Wednesday, November 16, 2016 17:13 - CONCLUSION: Apparent new cavitary lesion right midlung when compared to 11/05/16. Doug Palmer MD FACR Lower Extremity CT 11/02/16 0000 Signed Impressions: Service Date/Time: Wednesday, November 02, 2016 12:36 - CONCLUSION: Cellulitis without defined abscess. Small joint effusion. Doug Palmer MD FACR Physical Exam CONSTITUTIONAL/GENERAL: This is an adequately nourished patient, in no apparent distress. TUBES/LINES/DRAINS: SKIN: No jaundice, rashes, or lesions. Skin temperature appropriate. Not diaphoretic. CARDIOVASCULAR: Regular rate and rhythm without murmurs, gallops, or rubs. RESPIRATORY/CHEST: Symmetric, unlabored respirations. Clear to auscultation. Breath sounds equal bilaterally. No wheezes, rales, or rhonchi. GASTROINTESTINAL: Abdomen soft, RUQ tender to palpation RLQ wo guarding or rebound and is moderately distended. No hepato-splenomegaly, or palpable masses. GENITOURINARY: Without palpable bladder distension. MUSCULOSKELETAL: Extremities without clubbing, cyanosis, LLE dressing in place with serosang drainage L thigh VAC in place with serous dc NEUROLOGICAL: awake, alert, speech is clear follows commands; yelling, upset Assessment & Plan Remarks LLE nec fasc, GAS sp debridment, fascitomies, VAC placemnet - group A strep MSSA and MRSA - infection appear to resolve green discoloration is 2/2 pseudomonas wound colonisation, no e/o active infection however Leukocytosis; resolved ETOH abuse, sp withdrawl Diarrhea, abx- associated, C,diff negative Fever, dry cough ? PNA vs atelectasis also will need to evaluate top CAUTI and r/o bacteremia Profound protein malnourishjemnt C.diff , mild case - seem improving -complete cefepime today cont oral flagyl for C.diff x 14 days total (stop date 12/02) OK to dc to rehab will sign off, pelase reconsult if needed dw case mngr dw nursing staff Maria Teresa Greenwood MD Nov 21, 2016 14:52
[2016-11-21 16:00] VITALS: BP 128/71; PULSE 82; RESP 17; TEMP 98.5; O2SAT 96
[2016-11-21 20:00] VITALS: BP 120/72; PULSE 82; RESP 20; TEMP 98.6; O2SAT 96
[2016-11-21] MEDS: TAMSULOSIN HCL 0.4 MG CAP PO SCH (21:05)
[2016-11-22] VITALS: BP 110/64; PULSE 84; RESP 20; TEMP 97.6; O2SAT 95
[2016-11-22] MEDS: metroNIDAZOLE 500 MG TAB PO SCH ×3 (00:52→17:07)
[2016-11-22] MEDS: CEFEPIME INJ 2,000 MG in SODIUM CHLORIDE 0.9% INJ 100 ML IV SCH (00:53)
[2016-11-22] MEDS: HYDROmorphone HCL PF 1 MG/ML VIAL IV PUSH PRN (03:31)
[2016-11-22] MEDS: SODIUM HYPOCHLORITE 0.25% 500 ML BTL TOPICAL SCH ×3 (03:32→20:30)
[2016-11-22] MEDS: QUEtiapine FUMARATE 25 MG TAB PO SCH ×3 (03:51→20:28)
[2016-11-22 04:09] VITALS: BP 111/63; PULSE 81
[2016-11-22] MEDS ORDERED: PHARMACY ORDERED LAB ONE (04:45)
[2016-11-22 05:43] LABS: AUTOMATED NEUTROPHIL # 3.5 TH/MM3 (1.8-7.7); BASOPHIL # 0.1 TH/MM3 (0-0.2); BASOPHIL % 1.1 % (0.0-2.0); EOSINOPHIL # 1.3 TH/MM3 (0-0.4); EOSINOPHIL % 17.1 % (0.0-4.0); HEMATOCRIT 28.2 % (39.0-51.0); HEMO FLAGS DIFF FINAL; LYMPH % 17.2 % (9.0-44.0); LYMPHOCYTE # 1.3 TH/MM3 (1.0-4.8); MEAN CELL VOLUME 86.6 FL (80.0-100.0); MEAN CORPUSCULAR HEMOGLOBIN 28.9 PG (27.0-34.0); MEAN CORPUSCULAR HGB CONC 33.4 % (32.0-36.0); MONO % 17.8 % (0.0-8.0); NEUT % 46.8 % (16.0-70.0); PLATELET COUNT 413 TH/MM3 (150-450); RED BLOOD COUNT 3.26 MIL/MM3 (4.50-5.90); RED CELL DISTRIBUTION WIDTH 16.1 % (11.6-17.2); WHITE BLOOD COUNT 7.4 TH/MM3 (4.0-11.0)
[2016-11-22] MEDS: HEPARIN SODIUM - SQ 10,000 UNITS/ML VIAL SQ SCH ×3 (05:54→20:30)
[2016-11-22 08:00] VITALS: BP 117/69; PULSE 86; RESP 18; TEMP 97.5; O2SAT 98
[2016-11-22] MEDS: PANTOPRAZOLE SOD 40 MG DELAYED RELEASE TAB PO SCH ×2 (08:59→20:29)
[2016-11-22] MEDS: THIAMINE HCL 100 MG TAB PO SCH (08:59)
[2016-11-22] MEDS: LACTOBACILLUS ACIDOPHILUS TAB PO SCH ×3 (09:00→17:07)
[2016-11-22] MEDS: REMOVE OLD PATCH T-DERMAL SCH (09:00)
[2016-11-22] MEDS: SODIUM CHLORIDE 0.9% FLUSH 5 ML FLUSH IVF SCH ×2 (09:00→20:29)
[2016-11-22] MEDS: NICOTINE 14 MG/24 HR PATCH T-DERMAL SCH (09:01)
[2016-11-22] MEDS ORDERED: DAKINSHST TOPICAL (11:34)
--- NOTE | 2016-11-22 11:45 | HHI.PR ---
Subjective Subjective Notes Resting in bed Requesting pain meds Objective Vitals/I&O Vital Signs Date Time Temp Pulse Resp B/P Pulse Ox O2 Delivery O2 Flow Rate FiO2 11/22/16 08:00 97.5 86 18 117/69 98 Labs Laboratory Tests Test 11/22/16 04:41 White Blood Count 7.4 Red Blood Count 3.26 Hemoglobin 9.4 Hematocrit 28.2 Mean Corpuscular Volume 86.6 Mean Corpuscular Hemoglobin 28.9 Mean Corpuscular Hemoglobin 33.4 Concent Red Cell Distribution Width 16.1 Platelet Count 413 Mean Platelet Volume 7.2 Neutrophils (%) (Auto) 46.8 Lymphocytes (%) (Auto) 17.2 Monocytes (%) (Auto) 17.8 Eosinophils (%) (Auto) 17.1 Basophils (%) (Auto) 1.1 Neutrophils # (Auto) 3.5 Lymphocytes # (Auto) 1.3 Monocytes # (Auto) 1.3 Eosinophils # (Auto) 1.3 Basophils # (Auto) 0.1 CBC Comment DIFF FINAL Differential Comment Date/Time Procedure Status Source Growth 11/19/16 14:15 Stool Occult Blood ([place]) - Final Complete Stool Stool HEMOCCULT NEGATIVE 11/17/16 16:35 Gram Stain - Final Complete Sputum Expectorated Sputum 11/17/16 16:35 Sputum Culture - Final Complete Sputum Expectorated Sputum HEAVY GROWTH NORMAL RESPIRATORY INNA Cardiovascular: Regular Lungs: Clear Abdomen: Non-distended, Non-tender Extremities: Other (see below ) Narrative Exam LEFT thigh---Wound vac removed; wound bed is beefy red; no exudate; no drainage ; wet to dry applied ; secured with cling wrap LEFT lower leg--- Wound bed is without exudate; clear beefy red; wet to dry Dakin dressing applied; secured with ALISSA A/P Assessment and Plan 61 year old male s/p Irrigation and debridement LEFT leg with 50 cm 2 excision skin, subcutaneous tissue and muscle and Wound Vac placement -LEFT thigh: Wound Vac removed---transition to wet to dry dressing; change BID and PRN -Dressing change LEFT lower ext: wet to dry kerlix over wound; wrap with soft wrap and alissa; change BID and PRN -Regular diet -GS clear for DC to SNF -Dakin rx on chart -Follow up with Dr. Jackson next week Brittny Strickland Nov 22, 2016 11:45
[2016-11-22 12:00] VITALS: BP 108/72; PULSE 82; RESP 18; TEMP 97.2; O2SAT 95
[2016-11-22] MEDS ORDERED: OXYC1CAP PO (13:29)
[2016-11-22 16:00] VITALS: BP 116/74; PULSE 81; RESP 16; TEMP 96.7; O2SAT 93
--- NOTE | 2016-11-22 17:25 | HHI.PR ---
Subjective Remarks Follow-up for left lower extremity wound Patient complaining about not getting enough pain medication, although he's appears very comfortable in bed. He has no other complaints. He remains afebrile. Per case management patient has been very unpleasant multiple snf representatives in which he has been refused placement. Objective Vitals Vital Signs Date Time Temp Pulse Resp B/P Pulse Ox O2 Delivery O2 Flow Rate FiO2 11/22/16 16:00 96.7 81 16 116/74 93 11/22/16 12:00 97.2 82 18 108/72 95 11/22/16 08:00 97.5 86 18 117/69 98 11/22/16 04:09 81 111/63 11/22/16 00:00 97.6 84 20 110/64 95 11/21/16 20:00 98.6 82 20 120/72 96 I/O 11/21/16 11/21/16 11/21/16 11/22/16 11/22/16 11/22/16 07:00 15:00 23:00 07:00 15:00 23:00 Intake Total 100 ml 1560 ml 460 ml 100 ml 1800 ml Output Total 25 ml 3375 ml 1275 ml 3225 ml Balance 75 ml -1815 ml -815 ml 100 ml -1425 ml Intake Oral 1560 ml 360 ml 1800 ml IV Total 100 ml 100 ml 100 ml 0 ml Output Urine Total 3375 ml 1275 ml 3225 ml Drainage Total 25 ml # Bowel Movements 1 1 Result Diagram: 11/22/16 0441 11/21/16 0434 Objective Remarks GENERAL: in NAD SKIN: Warm and dry. Left flexion medically bandage in place. CARDIOVASCULAR: Regular rate and rhythm without murmurs, gallops, or rubs. RESPIRATORY: Breath sounds equal bilaterally. No accessory muscle use. GASTROINTESTINAL: Abdomen soft, non-tender, nondistended. MUSCULOSKELETAL: No cyanosis, or edema. BACK: Nontender without obvious deformity. No CVA tenderness. Procedures Multiple incision and debridement of left lower extremity wound EGD Medications and IVs Current Medications Vancomycin HCl 1 mg/Sodium Chloride 250 ml @ 250 mls/hr ONCE STAT IV Last administered on 11/02/16t 12:40; Start 11/02/16 at 11:09; Stop 11/02/16 at 13:45 ; Status DC Piperacillin Sod/ Tazobactam Sod 100 ml @ 200 mls/hr ONCE STAT IV Last administered on 11/02/16 11:22; Start 11/02/16 at 11:09; Stop 11/02/16 at 13:45 ; Status DC Sodium Chloride 1,000 ml @ 1,000 mls/hr Q1H ONCE IV Last administered on 11:22; Start 11/02/16 at 11:09; Stop 11/02/16 at 13:45; Status DC Sodium Chloride 1,000 ml @ 1,000 mls/hr Q1H ONCE IV Last administered on 12:02; Start 11/02/16 at 11:09; Stop 11/02/16 at 13:45; Status DC Sodium Chloride 400 ml @ 1,000 mls/hr Q24M ONCE IV Last administered on 12:40; Start 11/02/16 at 11:09; Stop 11/02/16 at 13:45; Status DC Sodium Chloride (NS 250 ml Inj) 250 ml @ 15 mls/hr ONCE ONCE IV Last administered on 11/02/16 14:50; Start 11/02/16 at 12:00; Stop 11/03/16 at 04:39 ; Status DC Morphine Sulfate (Morphine Inj) 4 mg ONCE ONCE IV PUSH Last administered on 12:03; Start 11/02/16 at 12:00; Stop 11/02/16 at 13:45; Status DC Iohexol (Omnipaque 350 Inj) 93 ml STK-MED ONCE IV Last administered on 13:07; Start 11/02/16 at 13:07; Stop 11/02/16 at 13:08; Status DC Lidocaine HCl (Xylocaine 1% Inj (50 ml)) 50 ml STK-MED ONCE .ROUTE ; Start 11/02 at 13:52; Stop 11/02/16 at 13:53; Status DC Fentanyl Citrate (fentaNYL INJ) 250 mcg STK-MED ONCE .ROUTE ; Start 11/02/16 at 14:06; Stop 11/02/16 at 14:07; Status DC Fentanyl Citrate 250 mcg 250 mcg STK-MED ONCE .ROUTE ; Start 11/02/16 at 15:49; Stop 11/02/16 at 15:50; Status DC Potassium Chloride/Dextrose/ Sod Cl (D5-NS + KCl 20 Meq Inj) 1,000 ml @ 75 mls/ hr [id number] IV Last administered on 11/07/16 05:16; Start 11/02/16 at 17:26; Stop 11/07/16 at 11:34; Status DC IV Flush (NS Flush) 2 ml UNSCH PRN IVF FLUSH AFTER USING IV ACCESS; Start 11/02 at 17:30 IV Flush (NS Flush) 2 ml BID IVF Last administered on 11/22/16 09:00; Start at 21:00 Acetaminophen/ Hydrocodone Bitart ([place] 5-325 Mg) 1 tab Q4H PRN PO PAIN SCALE 1 TO 5; Start 11/02/16 at 17:30; Stop 11/05/16 at 11:35; Status DC Acetaminophen/ Hydrocodone Bitart ([place] 5-325 Mg) 2 tab Q4H PRN PO PAIN SCALE 6 TO 10 Last administered on 11/04/16 21:58; Start 11/02/16 at 17:30; Stop 11/05/16 at 11:34; Status DC Morphine Sulfate (Morphine Inj) 5 mg Q2H PRN IV PUSH BREAKTHROUGH PAIN Last administered on 11/05/16 11:30; Start 11/02/16 at 17:30; Stop 11/05/16 at 11:34 ; Status DC Ondansetron HCl (Zofran Inj) 4 mg Q4H PRN IV NAUSEA OR VOMITING Last administered on 11/20/16 13:51; Start 11/02/16 at 17:30 Diphenhydramine HCl 50 mg 50 mg Q6H PRN IVP ITCHING Last administered on 22:38; Start 11/02/16 at 17:30; Stop 11/05/16 at 11:34; Status DC Vancomycin HCl 1000 mg/Sodium Chloride 250 ml @ 250 mls/hr Q12H IV Last administered on 11/03/16 00:59; Start 11/03/16 at 01:00; Stop 11/03/16 at 05:34 ; Status DC Clindamycin Phosphate/Sodium Chloride (Cleocin Inj/NS Inj) 104 ml @ 200 mls/hr Q8H IV Last administered on 11/03/16 03:59; Start 11/02/16 at 20:00; Stop at 05:33; Status DC Miscellaneous Information (Post-op Orders (for Pharmacy)) STAT ONCE XX ; Start 11/02/16 at 17:30; Stop 11/02/16 at 18:51; Status DC Miscellaneous Information 1 ONCE ONCE XX ; Start 11/02/16 at 17:30; Stop at 17:42; Status DC Naloxone HCl (Narcan Inj) 0.4 mg UNSCH PRN IV RESPIRATORY RATE LESS THAN 10; Start 11/02/16 at 17:30 PHARMACOGNOSY TEACHER Dosage Infused (Pha) 1 Q8HR .XX ; Start 11/02/16 at 22:00; Stop 11/05/16 at 11:38; Status DC Miscellaneous Information ALL NURSING DEPARTME... UNSCH PRN .XX SEE LABEL COMMENTS; Start 11/02/16 at 17:15; Stop 11/03/16 at 17:14; Status DC Sodium Chloride (NS 1000 ml Inj) 1,000 ml @ 0 mls/hr BOLUS ONCE IV Last administered on 11/02/16 22:26; Start 11/02/16 at 22:00; Stop 11/02/16 at 22:01 ; Status DC Fentanyl Citrate (fentaNYL INJ) 100 mcg STK-MED ONCE .ROUTE Last administered on 11/03/16 01:16; Start 11/03/16 at 01:16; Stop 11/03/16 at 01:17; Status DC Midazolam HCl (Versed Inj) 5 mg STK-MED ONCE .ROUTE Last administered on 01:16; Start 11/03/16 at 01:16; Stop 11/03/16 at 01:17; Status DC Lidocaine HCl 50 ml 50 ml STK-MED ONCE .ROUTE Last administered on 11/03/16 01 :21; Start 11/03/16 at 01:21; Stop 11/03/16 at 01:22; Status DC Sodium Chloride 1,000 ml @ 999 mls/hr Q1H1M IV Last administered on 11/03/16 04:01; Start 11/03/16 at 03:00; Stop 11/03/16 at 06:00; Status DC Sodium Chloride 3,000 ml @ 0 mls/hr BOLUS ONCE IV Last administered on 02:25; Start 11/03/16 at 02:25; Stop 11/03/16 at 05:27; Status DC Sodium Chloride 1,000 ml @ 0 mls/hr BOLUS ONCE IV Last administered on 04:00; Start 11/03/16 at 04:00; Stop 11/03/16 at 05:27; Status DC Piperacillin Sod/ Tazobactam Sod 100 ml @ 200 mls/hr Q6HR IV Last administered on 11/03/16 17:50; Start 11/03/16 at 06:00; Stop 11/03/16 at 23:27 ; Status DC Clindamycin Phosphate 600 mg/ Sodium Chloride 104 ml @ 208 mls/hr Q8H IV Last administered on 11/03/16 20:34; Start 11/03/16 at 12:00; Stop 11/03/16 at 23:27 ; Status DC Pharmacy Profile Note (Vancomycin Consult Pharmacy) 0 ml @ 0 mls/hr UNSCH OTHER ; Start 11/03/16 at 05:30; Stop 11/15/16 at 23:55; Status DC Fentanyl Citrate (fentaNYL INJ) 50 mcg NOW ONCE IV ; Start 11/03/16 at 04:00; Stop 11/03/16 at 05:27; Status DC Midazolam HCl 2 mg 2 mg NOW ONCE IV ; Start 11/03/16 at 04:00; Stop 11/03/16 at 05:27; Status DC Norepinephrine Bitartrate 250 ml @ 0 mls/hr TITRATE IV Last administered on 03:37; Start 11/03/16 at 05:30; Stop 11/08/16 at 06:56; Status DC Potassium Chloride 100 ml @ 50 mls/hr Q2H PRN IV For Potassium 2.8 - 3.2 mEq/ L Last administered on 11/09/16 05:14; Start 11/03/16 at 05:30; Stop 11/10/16 at 15:16; Status DC Potassium Chloride (KCl 20 Meq Premix Inj) 100 ml @ 50 mls/hr Q2H PRN IV For Potassium 2.8 - 3.2 mEq/L Last administered on 11/10/16 14:33; Start 11/03/16 at 05:30; Stop 11/10/16 at 15:16; Status DC Potassium Bicarb/ Potassium Chloride 50 meq 50 meq UNSCH PRN PO For Potassium 3.3 - 3.5 mEq/L; Start 11/03/16 at 05:30; Stop 11/10/16 at 15:16; Status DC Potassium Chloride 100 ml @ 25 mls/hr UNSCH PRN IV For Potassium 3.3 - 3.5 mEq /L; Start 11/03/16 at 05:30; Stop 11/10/16 at 15:16; Status DC Potassium Chloride 100 ml @ 50 mls/hr Q2H PRN IV For Potassium 3.3 - 3.5 mEq/L ; Start 11/03/16 at 05:30; Stop 11/10/16 at 15:16; Status DC Magnesium Sulfate/ Sodium Chloride (Magnesium Sulfate Inj/NS Inj) 100 ml @ 50 mls/hr UNSCH PRN IV For Magnesium 0.9 - 1.1 mg/dL; Start 11/03/16 at 05:30; Stop 11/10/16 at 15:16; Status DC Magnesium Oxide 800 mg 800 mg UNSCH PRN PO For Magnesium 1.2 - 1.6 mg/dL; Start 11/03/16 at 05:30; Stop 11/10/16 at 15:17; Status DC Magnesium Sulfate/ Sodium Chloride (Magnesium Sulfate Inj/NS Inj) 100 ml @ 50 mls/hr UNSCH PRN IV For Magnesium 1.2 - 1.6 mg/dL; Start 11/03/16 at 05:30; Stop 11/10/16 at 15:17; Status DC Potassium Phosphate 2000 mg 2,000 mg Q4H PRN PO For Phosphorus < 2.5 mg/dL; Start 11/03/16 at 05:30; Stop 11/10/16 at 15:17; Status DC Sodium Phosphate/ Sodium Chloride (Sodium Phosphate Inj/NS 250 ml Inj) 250 ml @ 42 mls/hr UNSCH PRN IV For Phosphorus < 2.5 mg/dL; Start 11/03/16 at 05:30; Stop 11/10/16 at 15:17; Status DC Potassium Phosphate 2000 mg 2,000 mg UNSCH PRN PO/TUBE SEE LABEL COMMENTS; Start 11/03/16 at 05:30; Stop 11/10/16 at 15:17; Status DC Potassium Phosphate 30 mmol/ Sodium Chloride 260 ml @ 42 mls/hr UNSCH PRN IV SEE LABEL COMMENTS; Start 11/03/16 at 05:30; Stop 11/10/16 at 15:17; Status DC Calcium Gluconate 2 gm/Sodium Chloride 120 ml @ 120 mls/hr ONCE ONCE IV Last administered on 11/03/16 06:08; Start 11/03/16 at 05:45; Stop 11/03/16 at 06:44 ; Status DC Sodium Chloride 250 ml @ 15 mls/hr ONCE ONCE IV Last administered on 06:30; Start 11/03/16 at 06:30; Stop 11/03/16 at 23:09; Status DC Vasopressin 40 units/Dextrose 100 ml @ 4.5 mls/hr [id number] IV Last administered on 11/04/16 21:59; Start 11/03/16 at 08:00; Stop 11/05/16 at 11:24 ; Status DC Vancomycin HCl/ Sodium Chloride (Vancomycin Inj/ NS 250 ml Inj) 262.5 ml @ 250 mls/hr Q12H IV Last administered on 11/05/16 14:06; Start 11/03/16 at 13:00; Stop 11/05/16 at 14:18; Status DC Miscellaneous Information SPECIFIC LAB TO BE DRAWN:VANCO TROUGH DATE TO... ONCE ONCE .XX ; Start 11/04/16 at 12:45; Stop 11/04/16 at 12:46; Status DC Folic Acid (Folate) 1 mg DAILY PO Last administered on 11/08/16 08:47; Start 11/04/16 at 09:00; Stop 11/09/16 at 08:59; Status DC Thiamine HCl (Vitamin B1) 100 mg DAILY PO ; Start 11/04/16 at 09:00; Stop at 11:34; Status DC Multivitamins/ Minerals Therapeutic (Theragran M Tab) 1 tab DAILY PO ; Start at 09:00; Stop 11/05/16 at 11:34; Status DC Flumazenil (Romazicon Inj) 0.2 mg Q1M PRN IV PUSH SEE LABEL COMMENTS; Start at 14:00; Stop 11/17/16 at 10:04; Status DC Lorazepam (Ativan) 1 mg Q4H PRN PO CIWA 8 - 10; Start 11/03/16 at 14:00; Stop 11/17/16 at 10:03; Status DC Lorazepam (Ativan Inj) 1 mg Q4H PRN IV PUSH CIWA 8 - 10 Last administered on 02:47; Start 11/03/16 at 14:00; Stop 11/17/16 at 10:03; Status DC Lorazepam (Ativan) 2 mg Q2H PRN PO CIWA 11-14; Start 11/03/16 at 14:00; Stop at 10:03; Status DC Lorazepam (Ativan Inj) 2 mg Q2H PRN IV PUSH CIWA 11-14 Last administered on 09:59; Start 11/03/16 at 14:00; Stop 11/17/16 at 10:03; Status DC Lorazepam (Ativan Inj) 2 mg Q1H PRN IV PUSH CIWA 15-20 Last administered on 00:07; Start 11/03/16 at 14:00; Stop 11/17/16 at 10:03; Status DC Lorazepam (Ativan Inj) 2 mg Q15M PRN IV PUSH CIWA > 20 Last administered on 15:25; Start 11/03/16 at 14:00; Stop 11/17/16 at 10:03; Status DC Miscellaneous Information Patient in critical care unit? Ass... [id number] .XX ; Start 11/03/16 at 16:45 Mupirocin (Bactroban Nasal 2% Oint) 1 applic BID NASAL Last administered on 11/17 20:49; Start 11/03/16 at 21:00; Stop 11/18/16 at 09:05; Status DC Chlorhexidine Gluconate (Chlorhexidine 2% Cloth) 3 pack DAILY@04 TOPICAL Last administered on 11/08/16 04:00; Start 11/04/16 at 04:00; Stop 11/08/16 at 04:01 ; Status DC Chlorhexidine Gluconate 3 pack 3 pack UNSCH PRN TOPICAL HYGIENIC CARE; Start at 17:00; Stop 11/08/16 at 16:45; Status DC Ampicillin Sodium/ Sulbactam Sodium 3 gm/Sodium Chloride 100 ml @ 200 mls/hr Q6H IV Last administered on 11/04/16 13:02; Start 11/04/16 at 00:00; Stop at 18:02; Status DC Clindamycin Phosphate/Sodium Chloride (Cleocin Inj/NS Inj) 106 ml @ 212 mls/hr Q8H IV Last administered on 11/09/16 13:34; Start 11/04/16 at 05:00; Stop at 16:49; Status DC Cefazolin Sodium (Ancef Inj) 3,000 mg STK-MED ONCE .ROUTE ; Start 11/04/16 at 07 :13; Stop 11/04/16 at 07:14; Status DC Lidocaine HCl (Xylocaine 1% Inj (50 ml)) 50 ml STK-MED ONCE .ROUTE ; Start 11/04 at 07:14; Stop 11/04/16 at 07:15; Status DC Vancomycin HCl (Vancomycin Inj) 1,000 mg STK-MED ONCE .ROUTE Last administered on 11/04/16 13:33; Start 11/04/16 at 13:18; Stop 11/04/16 at 13:19; Status DC Clindamycin Phosphate (Cleocin Inj) 900 mg STK-MED ONCE .ROUTE Last administered on 11/04/16 13:24; Start 11/04/16 at 13:19; Stop 11/04/16 at 13:20 ; Status DC Vancomycin HCl 500 mg 500 mg STK-MED ONCE .ROUTE Last administered on 13:33; Start 11/04/16 at 13:19; Stop 11/04/16 at 13:20; Status DC Ampicillin Sodium 2000 mg/Sodium Chloride 100 ml @ 400 mls/hr Q4H IV ; Start at 20:00; Status Cancel Ampicillin Sodium/ Sodium Chloride (Ampicillin Inj/ NS Inj) 100 ml @ 300 mls/ hr Q4H IV Last administered on 11/12/16 11:05; Start 11/04/16 at 20:00; Stop 11/12/16 at 13:22; Status DC Miscellaneous Information SPECIFIC LAB TO BE DRAWN:VANCO TROUGH DATE TO BE DR... ONCE ONCE .XX Last administered on 11/05/16 13:00; Start 11/05/16 at 12 :45; Stop 11/05/16 at 12:46; Status DC Dexmedetomidine HCl (Precedex Inj) 50 ml @ 0 mls/hr TITRATE IV ; Start 11/05/16 at 12:00; Stop 11/05/16 at 12:58; Status DC Nicotine (Habitrol 21 Mg Patch.24 Hr) 1 patch DAILY T-DERMAL Last administered on 11/17/16 08:17; Start 11/05/16 at 12:00; Stop 11/18/16 at 09:05; Status DC Miscellaneous Information 1 DAILY T-DERMAL Last administered on 11/17/16 08:17 ; Start 11/06/16 at 09:00; Stop 11/18/16 at 09:19; Status DC Thiamine HCl (Thiamine Inj) 100 mg DAILY IM Last administered on 11/07/16 10: 39; Start 11/05/16 at 12:00; Stop 11/07/16 at 11:36; Status DC Haloperidol Lactate (Haldol Inj) 5 mg Q4H PRN IV agitation Last administered on 11/08/16 23:53; Start 11/05/16 at 12:00 Heparin Sodium (Porcine) (Heparin Inj) 5,000 units Q8HR SQ Last administered on 11/22/16 13:57; Start 11/05/16 at 14:00 Hydromorphone HCl 0.5 mg 0.5 mg Q3H PRN IV PUSH pain 6-10 or not taking po Last administered on 11/14/16 10:38; Start 11/05/16 at 12:00; Stop 11/14/16 at 10:58; Status DC Dexmedetomidine HCl 200 mcg/ Sodium Chloride 52 ml @ 0 mls/hr TITRATE IV Last administered on 11/07/16 06:53; Start 11/05/16 at 13:00; Stop 11/08/16 at 06:56 ; Status DC Vancomycin HCl/ Sodium Chloride (Vancomycin Inj/ NS 500 ml Inj) 515 ml @ 257.5 mls/ hr Q12H IV Last administered on 11/15/16 11:37; Start 11/06/16 at 01:00; Stop 11/15/16 at 12:01; Status DC Miscellaneous Information SPECIFIC LAB TO BE LOUIE... ONCE ONCE .XX Last administered on 11/07/16 00:45; Start 11/07/16 at 00:45; Stop 11/07/16 at 00:46 ; Status DC Cefazolin Sodium (Ancef Inj) 3,000 mg STK-MED ONCE .ROUTE Last administered on 11/06/16 17:57; Start 11/06/16 at 16:35; Stop 11/06/16 at 16:36; Status DC Lidocaine HCl (Xylocaine 1% Inj (50 ml)) 50 ml STK-MED ONCE .ROUTE ; Start 11/06 at 16:35; Stop 11/06/16 at 16:36; Status DC Fentanyl Citrate (fentaNYL INJ) 250 mcg STK-MED ONCE .ROUTE ; Start 11/06/16 at 19:31; Stop 11/06/16 at 19:32; Status DC Fentanyl Citrate (fentaNYL INJ) 200 mcg STK-MED ONCE .ROUTE ; Start 11/06/16 at 19:32; Stop 11/06/16 at 19:33; Status DC Miscellaneous Information SPECIFIC LAB TO BE DRAWN:VANCOMYCIN TROUGH DATE TO... ONCE ONCE .XX Last administered on 11/08/16 23:53; Start 11/09/16 at 00:45; Stop 11/09/16 at 00:46; Status DC Oxycodone HCl (Roxicodone) 5 mg Q4H PRN PO pain 1-5 Last administered on 17:36; Start 11/07/16 at 11:30; Stop 11/22/16 at 10:21; Status DC Diazepam (Valium) 5 mg Taper DAILY PO Last administered on 11/15/16 11:37; Start 11/07/16 at 12:00; Stop 11/15/16 at 11:59; Status DC Quetiapine Fumarate (SEROquel) 50 mg Q8H PO Last administered on 11/22/16 11:10 ; Start 11/07/16 at 12:00 Thiamine HCl (Vitamin B1) 100 mg DAILY PO Last administered on 11/22/16 08:59; Start 11/08/16 at 09:00 Albuterol/ Ipratropium (Duoneb Neb) 1 ampule Q2HR NEB PRN NEB SOB/WHEEZING Last administered on 11/17/16 08:00; Start 11/07/16 at 18:15 Pantoprazole Sodium 40 mg 40 mg Q12H IV PUSH Last administered on 11/17/16 20: 49; Start 11/07/16 at 20:00; Stop 11/18/16 at 09:05; Status DC Potassium Chloride/Dextrose/ Sod Cl (D5-NS + KCl 20 Meq Inj) 1,000 ml @ 84 mls/ hr [id number] IV Last administered on 11/10/16 20:39; Start 11/07/16 at 19:30; Stop 11/11/16 at 10:06; Status DC Cefazolin Sodium (Ancef Inj) 3,000 mg STK-MED ONCE .ROUTE Last administered on 11/08/16 17:44; Start 11/08/16 at 16:28; Stop 11/08/16 at 16:29; Status DC Sugammadex Sodium (Bridion Inj) 200 mg STK-MED ONCE IV PUSH ; Start 11/08/16 at 16:56; Stop 11/08/16 at 16:57; Status DC Ketamine HCl (Ketalar Inj) 500 mg STK-MED ONCE .ROUTE ; Start 11/08/16 at 17:12 ; Stop 11/08/16 at 17:13; Status DC Meperidine HCl (*DEMEROL INJ PERIprocedural ONLY) 25 mg STK-MED ONCE .ROUTE Last administered on 11/08/16 18:46; Start 11/08/16 at 18:46; Stop 11/08/16 at 18:47; Status DC Fentanyl Citrate (fentaNYL INJ) 250 mcg STK-MED ONCE .ROUTE ; Start 11/08/16 at 18:48; Stop 11/08/16 at 18:49; Status DC Fentanyl Citrate (fentaNYL INJ) 250 mcg STK-MED ONCE .ROUTE ; Start 11/08/16 at 18:50; Stop 11/08/16 at 18:51; Status DC Miscellaneous Information ALL NURSING DEPARTME... UNSCH PRN .XX SEE LABEL COMMENTS; Start 11/08/16 at 18:40; Stop 11/09/16 at 18:39; Status DC Potassium Bicarb/ Potassium Chloride (K-Lyte Cl Eff) 50 meq ONCE ONCE PO Last administered on 11/09/16 10:01; Start 11/09/16 at 09:30; Stop 11/09/16 at 09:31; Status DC Propofol 140 mg 140 mg STK-MED ONCE IV ; Start 11/10/16 at 11:26; Stop 11/10/16 at 14:43; Status DC Magnesium Sulfate/ Dextrose (Magnesium Sulfate 1 Gm Premix) 100 ml @ 100 mls/ hr ONCE ONCE IV Last administered on 11/11/16 10:43; Start 11/11/16 at 11:00 ; Stop 11/11/16 at 11:59; Status DC Potassium Chloride (KCl) 30 meq ONCE ONCE PO Last administered on 11/11/16 10 :41; Start 11/11/16 at 10:15; Stop 11/11/16 at 10:16; Status DC Furosemide (Lasix) 40 mg ONCE ONCE PO Last administered on 11/11/16 10:59; Start 11/11/16 at 10:15; Stop 11/11/16 at 10:16; Status DC Albumin Human 12.5 gm 12.5 gm Q12H IV Last administered on 11/20/16 21:44; Start 11/11/16 at 10:15; Stop 11/21/16 at 09:18; Status DC Cefazolin Sodium/ Dextrose (Ancef 2 Gm Premix) 50 ml @ 150 mls/hr Q8HR IV Last administered on 11/15/16 21:12; Start 11/12/16 at 14:15; Stop 11/15/16 at 23:55; Status DC Miscellaneous Information SPECIFIC LAB TO BE DRAWN:VANCOMYCIN TROUGH DATE TO... ONCE ONCE .XX Last administered on 11/15/16 00:47; Start 11/15/16 at 00:45; Stop 11/15/16 at 00:46; Status DC Hydromorphone HCl (Dilaudid Pf Inj) 0.2 mg Q3H PRN IV PUSH BREAKTHROUGH PAIN Last administered on 11/15/16 14:04; Start 11/14/16 at 12:00; Stop 11/15/16 at 14:54; Status DC Oxycodone HCl 10 mg 10 mg Q4H PRN PO PAIN SCALE 6 TO 10 Last administered on 05:54; Start 11/14/16 at 11:00; Stop 11/22/16 at 10:21; Status DC Vancomycin HCl/ Sodium Chloride (Vancomycin Inj/ NS 500 ml Inj) 515 ml @ 257.5 mls/ hr Q18H IV Last administered on 11/16/16 04:42; Start 11/16/16 at 05:00; Stop 11/16/16 at 16:08; Status DC Miscellaneous Information SPECIFIC LAB TO BE DRAWN:VANCO TROUGH DATE TO BE ONCE ONCE .XX Last administered on 11/17/16 16:45; Start 11/17/16 at 16: 45; Stop 11/17/16 at 16:46; Status DC Hydromorphone HCl (Dilaudid Pf Inj) 0.5 mg Q3H PRN IV PUSH BREAKTHROUGH PAIN Last administered on 11/18/16 02:35; Start 11/15/16 at 15:00; Stop 11/18/16 at 09 :05; Status DC Acetaminophen (Tylenol) 650 mg Q6H PRN PO FEVER > 100.5 Last administered on 13:10; Start 11/15/16 at 17:15 Sodium Hypochlorite 50 ml 50 ml BID TOPICAL Last administered on 11/22/16 09:01 ; Start 11/16/16 at 21:00 Cefepime HCl 2000 mg/Sodium Chloride 100 ml @ 200 mls/hr Q8H IV Last administered on 11/22/16 00:53; Start 11/16/16 at 18:00; Stop 11/22/16 at 08:55; Status DC Pharmacy Profile Note 0 ml @ 0 mls/hr UNSCH OTHER ; Start 11/16/16 at 16:15; Stop 11/20/16 at 09:13; Status DC Vancomycin HCl/ Sodium Chloride (Vancomycin Inj/ NS 500 ml Inj) 515 ml @ 257.5 mls/ hr Q18H IV Last administered on 11/19/16 04:36; Start 11/16/16 at 23:00; Stop 11/19/16 at 09:31; Status DC Lorazepam (Ativan Inj) 0.5 mg Q4H PRN IV PUSH SEVERE AGITATION; Start 11/17/16 at 10:15; Stop 11/18/16 at 09:05; Status DC Miscellaneous Information SPECIFIC LAB TO BE DRAWN:VANCO TROUGH DATE TO BE ONCE ONCE .XX Last administered on 11/19/16 04:11; Start 11/19/16 at 04: 45; Stop 11/19/16 at 04:46; Status DC Hydromorphone HCl (Dilaudid Pf Inj) 0.5 mg Q12H PRN IV PUSH BREAKTHROUGH PAIN; Start 11/18/16 at 21:00; Stop 11/18/16 at 21:00; Status DC Nicotine (Habitrol 14 Mg Patch.24 Hr) 1 patch DAILY T-DERMAL Last administered on 11/22/16 09:01; Start 11/18/16 at 09:00; Stop 12/02/16 at 08:59 Miscellaneous Information 1 DAILY T-DERMAL Last administered on 11/22/16 09:00 ; Start 11/18/16 at 09:00 Pantoprazole Sodium (Protonix) 40 mg Q12HR PO Last administered on 11/22/16 08: 59; Start 11/18/16 at 09:00 Lactobacillus Acidophilus (Lactinex) 1 tab TID PO Last administered on 17:07; Start 11/18/16 at 13:00 Hydromorphone HCl (Dilaudid Pf Inj) 0.5 mg Q12HR PRN IV PUSH prior to dressing change Last administered on 11/22/16 03:31; Start 11/18/16 at 13:15; Stop at 09:44; Status DC Tamsulosin HCl 0.4 mg 0.4 mg HS PO Last administered on 11/21/16 21:05; Start 11/18/16 at 21:00 Vancomycin HCl/ Sodium Chloride (Vancomycin Inj/ NS 250 ml Inj) 262.5 ml @ 250 mls/hr Q18H IV Last administered on 11/19/16 23:26; Start 11/19/16 at 23:00; Stop 11/20/16 at 09:13; Status DC Miscellaneous Information SPECIFIC LAB TO BE LOUIE... ONCE ONCE .XX ; Start at 04:45; Stop 11/22/16 at 04:46; Status Cancel Sodium Chloride (NS 250 ml Inj) 250 ml @ 15 mls/hr ONCE ONCE IV Last administered on 11/19/16 14:10; Start 11/19/16 at 10:15; Stop 11/20/16 at 02:54; Status DC Furosemide (Lasix Inj) 20 mg ONCE ONCE IV PUSH Last administered on 11/19/16 16:46; Start 11/19/16 at 10:15; Stop 11/19/16 at 10:54; Status DC Metronidazole (Flagyl) 500 mg Q8H PO Last administered on 11/22/16 17:07; Start 11/19/16 at 17:00 Oxycodone HCl (Roxicodone) 5 mg Q6H PRN PO pain 1-5; Start 11/22/16 at 11:00 Oxycodone HCl (Roxicodone) 10 mg Q6H PRN PO PAIN SCALE 6 TO 10 Last administered on 11/22/16 17:07; Start 11/22/16 at 11:00 Propofol (Diprivan 200 Mg/20 ml Inj) 200 mg STK-MED ONCE IV ; Start 11/02/16 at 12:00; Stop 11/22/16 at 15:21; Status DC Phenylephrine HCl 1000 mcg 1,000 mcg STK-MED ONCE IV ; Start 11/02/16 at 12:00; Stop 11/22/16 at 15:21; Status DC Lactated Ringer's 1,000 ml @ As Directed STK-MED ONCE IV ; Start 11/02/16 at 12 :00; Stop 11/22/16 at 15:21; Status DC Sodium Chloride (NS 250 ml Inj) 250 ml @ As Directed STK-MED ONCE IV ; Start at 12:00; Stop 11/22/16 at 15:21; Status DC A/P Problem List: (1) Sepsis ICD Code: A41.9 Status: Resolved (2) Necrotizing fasciitis ICD Code: M72.6 Status: Acute (3) Hyponatremia ICD Code: E87.1 Status: Resolved (4) Iron deficiency anemia ICD Code: D50.9 Status: Acute (5) Blood in stool ICD Code: K92.1 Status: Acute (6) Hypokalemia ICD Code: E87.6 Status: Resolved (7) Alcohol withdrawal ICD Code: F10.239 Status: Resolved Assessment and Plan Necrotizing fasciitis: - Status post septic shock. Wound is healing well. - Cultures growing group A strep and MRSA. Status post debridement with wound VAC placement. Surgery removed wound VAC today and stated to continue with wet- to-dry dressing. --s/p treatment with cefepime. C. difficile colitis -On Flagyl started on 11/19/16. Per infectious disease complete 14 days worth last day should be 716. Anemia: Secondary to chronic illness, malnutrition, GI bleeding. -Status post 2 units PRBCs on 11/03/16 and 11/19/16. Improved. Monitor H&H. Repeat Hemoccult 1 negative -Resolved. Esophagitis and duodenitis with small ulcer. - Pathology shows gastric chronic inflammation and acute inflammatory exudate in the esophagus. - Continue PPI. Antireflux mechanisms discussed with the patient. Avoid NSAIDs Alcohol dependence/withdrawal, acute delirium/agitation: -Resolved. No signs of alcohol withdrawal. -On Seroquel. Hypokalemia: - Improved. DVT prophylaxis: SCDs Discharge Planning Agent is medically table for discharge but has been refused by multiple [facility]. Case management is working on placement. Problem Qualifiers (1) Sepsis: Qualified Code: A41.9 - Sepsis, due to unspecified organism Sarah Okeefe MD Nov 22, 2016 17:25
[2016-11-22 20:00] VITALS: BP 131/77; PULSE 82; RESP 20; TEMP 97.8; O2SAT 95
[2016-11-22] MEDS: ACETAMINOPHEN 325 MG TAB PO PRN (20:27)
[2016-11-22] MEDS: TAMSULOSIN HCL 0.4 MG CAP PO SCH (20:27)
[2016-11-22] MEDS ORDERED: HYDROmorphone HCL PF 1 MG/ML VIAL IV PUSH ONE (22:00)
[2016-11-23] VITALS: BP 111/70; PULSE 89; RESP 20; TEMP 97.9; O2SAT 96
[2016-11-23] MEDS: metroNIDAZOLE 500 MG TAB PO SCH ×3 (00:40→16:06)
[2016-11-23] MEDS: QUEtiapine FUMARATE 25 MG TAB PO SCH ×3 (04:49→20:40)
[2016-11-23] MEDS: HEPARIN SODIUM - SQ 10,000 UNITS/ML VIAL SQ SCH ×3 (05:41→21:08)
[2016-11-23] MEDS: NICOTINE 14 MG/24 HR PATCH T-DERMAL SCH (07:58)
[2016-11-23] MEDS: LACTOBACILLUS ACIDOPHILUS TAB PO SCH ×3 (07:58→16:06)
[2016-11-23] MEDS: PANTOPRAZOLE SOD 40 MG DELAYED RELEASE TAB PO SCH ×2 (07:59→20:40)
[2016-11-23] MEDS: SODIUM HYPOCHLORITE 0.25% 500 ML BTL TOPICAL SCH ×3 (07:59→21:00)
[2016-11-23] MEDS: THIAMINE HCL 100 MG TAB PO SCH (07:59)
[2016-11-23] MEDS: REMOVE OLD PATCH T-DERMAL SCH (07:59)
[2016-11-23 08:00] VITALS: BP 108/63; PULSE 81; RESP 16; TEMP 95.6; O2SAT 94
[2016-11-23] MEDS: SODIUM CHLORIDE 0.9% FLUSH 5 ML FLUSH IVF SCH ×2 (08:00→20:41)
--- NOTE | 2016-11-23 10:27 | HHI.PR ---
Subjective Remarks Follow-up for placement Patient found sitting in bed very comfortably eating his breakfast. Patient asking for increase pain medication. Otherwise no other complaints. when I told patient that pain medication should decrease and not increase especially after treatment patient stated "fuck you." Objective Vitals Vital Signs Date Time Temp Pulse Resp B/P Pulse Ox O2 Delivery O2 Flow Rate FiO2 11/23/16 08:00 95.6 81 16 108/63 94 11/23/16 00:00 97.9 89 20 111/70 96 11/22/16 20:00 97.8 82 20 131/77 95 11/22/16 16:00 96.7 81 16 116/74 93 11/22/16 12:00 97.2 82 18 108/72 95 I/O 11/22/16 11/22/16 11/22/16 11/23/16 11/23/16 11/23/16 06:59 14:59 22:59 06:59 14:59 22:59 Intake Total 100 ml 1800 ml 360 ml 240 ml Output Total 3225 ml 1075 ml 1150 ml 0 ml Balance 100 ml -1425 ml -715 ml -1150 ml 240 ml Intake Oral 1800 ml 360 ml 240 ml IV Total 100 ml 0 ml Output Urine Total 3225 ml 1075 ml 1150 ml 0 ml # Bowel Movements 1 1 Result Diagram: 11/22/16 0441 11/21/16 0434 Imaging Last Impressions Chest CT 11/17/16 0000 Signed Impressions: Service Date/Time: Thursday, November 17, 2016 08:52 - CONCLUSION: Patchy basilar airspace disease and atelectasis. Coronary artery calcification. Small right pleural effusion. Saeed Daniels MD Chest X-Ray 11/16/16 0000 Signed Impressions: Service Date/Time: Wednesday, November 16, 2016 17:13 - CONCLUSION: Apparent new cavitary lesion right midlung when compared to 11/05/16. Doug Palmer MD FACR Lower Extremity CT 11/02/16 0000 Signed Impressions: Service Date/Time: Wednesday, November 02, 2016 12:36 - CONCLUSION: Cellulitis without defined abscess. Small joint effusion. Doug Palmer MD FACR Objective Remarks GENERAL: in NAD SKIN: Warm and dry. Left flexion medically bandage in place. CARDIOVASCULAR: Regular rate and rhythm without murmurs, gallops, or rubs. RESPIRATORY: Breath sounds equal bilaterally. No accessory muscle use. GASTROINTESTINAL: Abdomen soft, non-tender, nondistended. MUSCULOSKELETAL: No cyanosis, or edema. BACK: Nontender without obvious deformity. No CVA tenderness. Procedures Multiple incision and debridement of left lower extremity wound EGD Medications and IVs Current Medications Vancomycin HCl 1 mg/Sodium Chloride 250 ml @ 250 mls/hr ONCE STAT IV Last administered on 11/02/16 12:40; Start 11/02/16 at 11:09; Stop 11/02/16 at 13:45 ; Status DC Piperacillin Sod/ Tazobactam Sod 100 ml @ 200 mls/hr ONCE STAT IV Last administered on 11/02/16 11:22; Start 11/02/16 at 11:09; Stop 11/02/16 at 13:45 ; Status DC Sodium Chloride 1,000 ml @ 1,000 mls/hr Q1H ONCE IV Last administered on 11:22; Start 11/02/16 at 11:09; Stop 11/02/16 at 13:45; Status DC Sodium Chloride 1,000 ml @ 1,000 mls/hr Q1H ONCE IV Last administered on 12:02; Start 11/02/16 at 11:09; Stop 11/02/16 at 13:45; Status DC Sodium Chloride 400 ml @ 1,000 mls/hr Q24M ONCE IV Last administered on 12:40; Start 11/02/16 at 11:09; Stop 11/02/16 at 13:45; Status DC Sodium Chloride (NS 250 ml Inj) 250 ml @ 15 mls/hr ONCE ONCE IV Last administered on 11/02/16 14:50; Start 11/02/16 at 12:00; Stop 11/03/16 at 04:39 ; Status DC Morphine Sulfate (Morphine Inj) 4 mg ONCE ONCE IV PUSH Last administered on 12:03; Start 11/02/16 at 12:00; Stop 11/02/16 at 13:45; Status DC Iohexol (Omnipaque 350 Inj) 93 ml STK-MED ONCE IV Last administered on 13:07; Start 11/02/16 at 13:07; Stop 11/02/16 at 13:08; Status DC Lidocaine HCl (Xylocaine 1% Inj (50 ml)) 50 ml STK-MED ONCE .ROUTE ; Start 11/02 at 13:52; Stop 11/02/16 at 13:53; Status DC Fentanyl Citrate (fentaNYL INJ) 250 mcg STK-MED ONCE .ROUTE ; Start 11/02/16 at 14:06; Stop 11/02/16 at 14:07; Status DC Fentanyl Citrate 250 mcg 250 mcg STK-MED ONCE .ROUTE ; Start 11/02/16 at 15:49; Stop 11/02/16 at 15:50; Status DC Potassium Chloride/Dextrose/ Sod Cl (D5-NS + KCl 20 Meq Inj) 1,000 ml @ 75 mls/ hr [id number] IV Last administered on 11/07/16 05:16; Start 11/02/16 at 17:26; Stop 11/07/16 at 11:34; Status DC IV Flush (NS Flush) 2 ml UNSCH PRN IVF FLUSH AFTER USING IV ACCESS; Start 11/02 at 17:30 IV Flush (NS Flush) 2 ml BID IVF Last administered on 11/23/16 08:00; Start at 21:00 Acetaminophen/ Hydrocodone Bitart (Farina 5-325 Mg) 1 tab Q4H PRN PO PAIN SCALE 1 TO 5; Start 11/02/16 at 17:30; Stop 11/05/16 at 11:35; Status DC Acetaminophen/ Hydrocodone Bitart (Farina 5-325 Mg) 2 tab Q4H PRN PO PAIN SCALE 6 TO 10 Last administered on 11/04/16 21:58; Start 11/02/16 at 17:30; Stop 11/05/16 at 11:34; Status DC Morphine Sulfate (Morphine Inj) 5 mg Q2H PRN IV PUSH BREAKTHROUGH PAIN Last administered on 11/05/16 11:30; Start 11/02/16 at 17:30; Stop 11/05/16 at 11:34 ; Status DC Ondansetron HCl (Zofran Inj) 4 mg Q4H PRN IV NAUSEA OR VOMITING Last administered on 11/20/16 13:51; Start 11/02/16 at 17:30 Diphenhydramine HCl 50 mg 50 mg Q6H PRN IVP ITCHING Last administered on 22:38; Start 11/02/16 at 17:30; Stop 11/05/16 at 11:34; Status DC Vancomycin HCl 1000 mg/Sodium Chloride 250 ml @ 250 mls/hr Q12H IV Last administered on 11/03/16 00:59; Start 11/03/16 at 01:00; Stop 11/03/16 at 05:34 ; Status DC Clindamycin Phosphate/Sodium Chloride (Cleocin Inj/NS Inj) 104 ml @ 200 mls/hr Q8H IV Last administered on 11/03/16 03:59; Start 11/02/16 at 20:00; Stop at 05:33; Status DC Miscellaneous Information (Post-op Orders (for Pharmacy)) STAT ONCE XX ; Start 11/02/16 at 17:30; Stop 11/02/16 at 18:51; Status DC Miscellaneous Information 1 ONCE ONCE XX ; Start 11/02/16 at 17:30; Stop at 17:42; Status DC Naloxone HCl (Narcan Inj) 0.4 mg UNSCH PRN IV RESPIRATORY RATE LESS THAN 10; Start 11/02/16 at 17:30 METAL BURNISHER Dosage Infused (Pha) 1 Q8HR .XX ; Start 11/02/16 at 22:00; Stop 11/05/16 at 11:38; Status DC Miscellaneous Information ALL NURSING DEPARTME... UNSCH PRN .XX SEE LABEL COMMENTS; Start 11/02/16 at 17:15; Stop 11/03/16 at 17:14; Status DC Sodium Chloride (NS 1000 ml Inj) 1,000 ml @ 0 mls/hr BOLUS ONCE IV Last administered on 11/02/16 22:26; Start 11/02/16 at 22:00; Stop 11/02/16 at 22:01 ; Status DC Fentanyl Citrate (fentaNYL INJ) 100 mcg STK-MED ONCE .ROUTE Last administered on 11/03/16 01:16; Start 11/03/16 at 01:16; Stop 11/03/16 at 01:17; Status DC Midazolam HCl (Versed Inj) 5 mg STK-MED ONCE .ROUTE Last administered on 01:16; Start 11/03/16 at 01:16; Stop 11/03/16 at 01:17; Status DC Lidocaine HCl 50 ml 50 ml STK-MED ONCE .ROUTE Last administered on 11/03/16 01 :21; Start 11/03/16 at 01:21; Stop 11/03/16 at 01:22; Status DC Sodium Chloride 1,000 ml @ 999 mls/hr Q1H1M IV Last administered on 11/03/16 04:01; Start 11/03/16 at 03:00; Stop 11/03/16 at 06:00; Status DC Sodium Chloride 3,000 ml @ 0 mls/hr BOLUS ONCE IV Last administered on 02:25; Start 11/03/16 at 02:25; Stop 11/03/16 at 05:27; Status DC Sodium Chloride 1,000 ml @ 0 mls/hr BOLUS ONCE IV Last administered on 04:00; Start 11/03/16 at 04:00; Stop 11/03/16 at 05:27; Status DC Piperacillin Sod/ Tazobactam Sod 100 ml @ 200 mls/hr Q6HR IV Last administered on 11/03/16 17:50; Start 11/03/16 at 06:00; Stop 11/03/16 at 23:27 ; Status DC Clindamycin Phosphate 600 mg/ Sodium Chloride 104 ml @ 208 mls/hr Q8H IV Last administered on 11/03/16 20:34; Start 11/03/16 at 12:00; Stop 11/03/16 at 23:27 ; Status DC Pharmacy Profile Note (Vancomycin Consult Pharmacy) 0 ml @ 0 mls/hr UNSCH OTHER ; Start 11/03/16 at 05:30; Stop 11/15/16 at 23:55; Status DC Fentanyl Citrate (fentaNYL INJ) 50 mcg NOW ONCE IV ; Start 11/03/16 at 04:00; Stop 11/03/16 at 05:27; Status DC Midazolam HCl 2 mg 2 mg NOW ONCE IV ; Start 11/03/16 at 04:00; Stop 11/03/16 at 05:27; Status DC Norepinephrine Bitartrate 250 ml @ 0 mls/hr TITRATE IV Last administered on 03:37; Start 11/03/16 at 05:30; Stop 11/08/16 at 06:56; Status DC Potassium Chloride 100 ml @ 50 mls/hr Q2H PRN IV For Potassium 2.8 - 3.2 mEq/ L Last administered on 11/09/16t 05:14; Start 11/03/16 at 05:30; Stop 11/10/16 at 15:16; Status DC Potassium Chloride (KCl 20 Meq Premix Inj) 100 ml @ 50 mls/hr Q2H PRN IV For Potassium 2.8 - 3.2 mEq/L Last administered on 11/10/16 14:33; Start 11/03/16 at 05:30; Stop 11/10/16 at 15:16; Status DC Potassium Bicarb/ Potassium Chloride 50 meq 50 meq UNSCH PRN PO For Potassium 3.3 - 3.5 mEq/L; Start 11/03/16 at 05:30; Stop 11/10/16 at 15:16; Status DC Potassium Chloride 100 ml @ 25 mls/hr UNSCH PRN IV For Potassium 3.3 - 3.5 mEq /L; Start 11/03/16 at 05:30; Stop 11/10/16 at 15:16; Status DC Potassium Chloride 100 ml @ 50 mls/hr Q2H PRN IV For Potassium 3.3 - 3.5 mEq/L ; Start 11/03/16 at 05:30; Stop 11/10/16 at 15:16; Status DC Magnesium Sulfate/ Sodium Chloride (Magnesium Sulfate Inj/NS Inj) 100 ml @ 50 mls/hr UNSCH PRN IV For Magnesium 0.9 - 1.1 mg/dL; Start 11/03/16 at 05:30; Stop 11/10/16 at 15:16; Status DC Magnesium Oxide 800 mg 800 mg UNSCH PRN PO For Magnesium 1.2 - 1.6 mg/dL; Start 11/03/16 at 05:30; Stop 11/10/16 at 15:17; Status DC Magnesium Sulfate/ Sodium Chloride (Magnesium Sulfate Inj/NS Inj) 100 ml @ 50 mls/hr UNSCH PRN IV For Magnesium 1.2 - 1.6 mg/dL; Start 11/03/16 at 05:30; Stop 11/10/16 at 15:17; Status DC Potassium Phosphate 2000 mg 2,000 mg Q4H PRN PO For Phosphorus < 2.5 mg/dL; Start 11/03/16 at 05:30; Stop 11/10/16 at 15:17; Status DC Sodium Phosphate/ Sodium Chloride (Sodium Phosphate Inj/NS 250 ml Inj) 250 ml @ 42 mls/hr UNSCH PRN IV For Phosphorus < 2.5 mg/dL; Start 11/03/16 at 05:30; Stop 11/10/16 at 15:17; Status DC Potassium Phosphate 2000 mg 2,000 mg UNSCH PRN PO/TUBE SEE LABEL COMMENTS; Start 11/03/16 at 05:30; Stop 11/10/16 at 15:17; Status DC Potassium Phosphate 30 mmol/ Sodium Chloride 260 ml @ 42 mls/hr UNSCH PRN IV SEE LABEL COMMENTS; Start 11/03/16 at 05:30; Stop 11/10/16 at 15:17; Status DC Calcium Gluconate 2 gm/Sodium Chloride 120 ml @ 120 mls/hr ONCE ONCE IV Last administered on 11/03/16 06:08; Start 11/03/16 at 05:45; Stop 11/03/16 at 06:44 ; Status DC Sodium Chloride 250 ml @ 15 mls/hr ONCE ONCE IV Last administered on 06:30; Start 11/03/16 at 06:30; Stop 11/03/16 at 23:09; Status DC Vasopressin 40 units/Dextrose 100 ml @ 4.5 mls/hr [id number] IV Last administered on 11/04/16 21:59; Start 11/03/16 at 08:00; Stop 11/05/16 at 11:24 ; Status DC Vancomycin HCl/ Sodium Chloride (Vancomycin Inj/ NS 250 ml Inj) 262.5 ml @ 250 mls/hr Q12H IV Last administered on 11/05/16 14:06; Start 11/03/16 at 13:00; Stop 11/05/16 at 14:18; Status DC Miscellaneous Information SPECIFIC LAB TO BE DRAWN:VANCO TROUGH DATE TO... ONCE ONCE .XX ; Start 11/04/16 at 12:45; Stop 11/04/16 at 12:46; Status DC Folic Acid (Folate) 1 mg DAILY PO Last administered on 11/08/16 08:47; Start 11/04/16 at 09:00; Stop 11/09/16 at 08:59; Status DC Thiamine HCl (Vitamin B1) 100 mg DAILY PO ; Start 11/04/16 at 09:00; Stop at 11:34; Status DC Multivitamins/ Minerals Therapeutic (Theragran M Tab) 1 tab DAILY PO ; Start at 09:00; Stop 11/05/16 at 11:34; Status DC Flumazenil (Romazicon Inj) 0.2 mg Q1M PRN IV PUSH SEE LABEL COMMENTS; Start at 14:00; Stop 11/17/16 at 10:04; Status DC Lorazepam (Ativan) 1 mg Q4H PRN PO CIWA 8 - 10; Start 11/03/16 at 14:00; Stop 11/17/16 at 10:03; Status DC Lorazepam (Ativan Inj) 1 mg Q4H PRN IV PUSH CIWA 8 - 10 Last administered on 02:47; Start 11/03/16 at 14:00; Stop 11/17/16 at 10:03; Status DC Lorazepam (Ativan) 2 mg Q2H PRN PO CIWA 11-14; Start 11/03/16 at 14:00; Stop at 10:03; Status DC Lorazepam (Ativan Inj) 2 mg Q2H PRN IV PUSH CIWA 11-14 Last administered on 09:59; Start 11/03/16 at 14:00; Stop 11/17/16 at 10:03; Status DC Lorazepam (Ativan Inj) 2 mg Q1H PRN IV PUSH CIWA 15-20 Last administered on 00:07; Start 11/03/16 at 14:00; Stop 11/17/16 at 10:03; Status DC Lorazepam (Ativan Inj) 2 mg Q15M PRN IV PUSH CIWA > 20 Last administered on 15:25; Start 11/03/16 at 14:00; Stop 11/17/16 at 10:03; Status DC Miscellaneous Information Patient in critical care unit? Ass... [id number] .XX ; Start 11/03/16 at 16:45 Mupirocin (Bactroban Nasal 2% Oint) 1 applic BID NASAL Last administered on 11/17 20:49; Start 11/03/16 at 21:00; Stop 11/18/16 at 09:05; Status DC Chlorhexidine Gluconate (Chlorhexidine 2% Cloth) 3 pack DAILY@04 TOPICAL Last administered on 11/08/16 04:00; Start 11/04/16 at 04:00; Stop 11/08/16 at 04:01 ; Status DC Chlorhexidine Gluconate 3 pack 3 pack UNSCH PRN TOPICAL HYGIENIC CARE; Start at 17:00; Stop 11/08/16 at 16:45; Status DC Ampicillin Sodium/ Sulbactam Sodium 3 gm/Sodium Chloride 100 ml @ 200 mls/hr Q6H IV Last administered on 11/04/16 13:02; Start 11/04/16 at 00:00; Stop at 18:02; Status DC Clindamycin Phosphate/Sodium Chloride (Cleocin Inj/NS Inj) 106 ml @ 212 mls/hr Q8H IV Last administered on 11/09/16 13:34; Start 11/04/16 at 05:00; Stop at 16:49; Status DC Cefazolin Sodium (Ancef Inj) 3,000 mg STK-MED ONCE .ROUTE ; Start 11/04/16 at 07 :13; Stop 11/04/16 at 07:14; Status DC Lidocaine HCl (Xylocaine 1% Inj (50 ml)) 50 ml STK-MED ONCE .ROUTE ; Start 11/04 at 07:14; Stop 11/04/16 at 07:15; Status DC Vancomycin HCl (Vancomycin Inj) 1,000 mg STK-MED ONCE .ROUTE Last administered on 11/04/16 13:33; Start 11/04/16 at 13:18; Stop 11/04/16 at 13:19; Status DC Clindamycin Phosphate (Cleocin Inj) 900 mg STK-MED ONCE .ROUTE Last administered on 11/04/16 13:24; Start 11/04/16 at 13:19; Stop 11/04/16 at 13:20 ; Status DC Vancomycin HCl 500 mg 500 mg STK-MED ONCE .ROUTE Last administered on 13:33; Start 11/04/16 at 13:19; Stop 11/04/16 at 13:20; Status DC Ampicillin Sodium 2000 mg/Sodium Chloride 100 ml @ 400 mls/hr Q4H IV ; Start at 20:00; Status Cancel Ampicillin Sodium/ Sodium Chloride (Ampicillin Inj/ NS Inj) 100 ml @ 300 mls/ hr Q4H IV Last administered on 11/12/16 11:05; Start 11/04/16 at 20:00; Stop 11/12/16 at 13:22; Status DC Miscellaneous Information SPECIFIC LAB TO BE DRAWN:VANCO TROUGH DATE TO BE DR... ONCE ONCE .XX Last administered on 11/05/16 13:00; Start 11/05/16 at 12 :45; Stop 11/05/16 at 12:46; Status DC Dexmedetomidine HCl (Precedex Inj) 50 ml @ 0 mls/hr TITRATE IV ; Start 11/05/16 at 12:00; Stop 11/05/16 at 12:58; Status DC Nicotine (Habitrol 21 Mg Patch.24 Hr) 1 patch DAILY T-DERMAL Last administered on 11/17/16 08:17; Start 11/05/16 at 12:00; Stop 11/18/16 at 09:05; Status DC Miscellaneous Information 1 DAILY T-DERMAL Last administered on 11/17/16 08:17 ; Start 11/06/16 at 09:00; Stop 11/18/16 at 09:19; Status DC Thiamine HCl (Thiamine Inj) 100 mg DAILY IM Last administered on 11/07/16 10: 39; Start 11/05/16 at 12:00; Stop 11/07/16 at 11:36; Status DC Haloperidol Lactate (Haldol Inj) 5 mg Q4H PRN IV agitation Last administered on 11/08/16 23:53; Start 11/05/16 at 12:00 Heparin Sodium (Porcine) (Heparin Inj) 5,000 units Q8HR SQ Last administered on 11/23/16 05:41; Start 11/05/16 at 14:00 Hydromorphone HCl 0.5 mg 0.5 mg Q3H PRN IV PUSH pain 6-10 or not taking po Last administered on 11/14/16 10:38; Start 11/05/16 at 12:00; Stop 11/14/16 at 10:58; Status DC Dexmedetomidine HCl 200 mcg/ Sodium Chloride 52 ml @ 0 mls/hr TITRATE IV Last administered on 11/07/16 06:53; Start 11/05/16 at 13:00; Stop 11/08/16 at 06:56 ; Status DC Vancomycin HCl/ Sodium Chloride (Vancomycin Inj/ NS 500 ml Inj) 515 ml @ 257.5 mls/ hr Q12H IV Last administered on 11/15/16 11:37; Start 11/06/16 at 01:00; Stop 11/15/16 at 12:01; Status DC Miscellaneous Information SPECIFIC LAB TO BE LOUIE... ONCE ONCE .XX Last administered on 11/07/16 00:45; Start 11/07/16 at 00:45; Stop 11/07/16 at 00:46 ; Status DC Cefazolin Sodium (Ancef Inj) 3,000 mg STK-MED ONCE .ROUTE Last administered on 11/06/16 17:57; Start 11/06/16 at 16:35; Stop 11/06/16 at 16:36; Status DC Lidocaine HCl (Xylocaine 1% Inj (50 ml)) 50 ml STK-MED ONCE .ROUTE ; Start 11/06 at 16:35; Stop 11/06/16 at 16:36; Status DC Fentanyl Citrate (fentaNYL INJ) 250 mcg STK-MED ONCE .ROUTE ; Start 11/06/16 at 19:31; Stop 11/06/16 at 19:32; Status DC Fentanyl Citrate (fentaNYL INJ) 200 mcg STK-MED ONCE .ROUTE ; Start 11/06/16 at 19:32; Stop 11/06/16 at 19:33; Status DC Miscellaneous Information SPECIFIC LAB TO BE DRAWN:VANCOMYCIN TROUGH DATE TO... ONCE ONCE .XX Last administered on 11/08/16 23:53; Start 11/09/16 at 00:45; Stop 11/09/16 at 00:46; Status DC Oxycodone HCl (Roxicodone) 5 mg Q4H PRN PO pain 1-5 Last administered on 17:36; Start 11/07/16 at 11:30; Stop 11/22/16 at 10:21; Status DC Diazepam (Valium) 5 mg Taper DAILY PO Last administered on 11/15/16 11:37; Start 11/07/16 at 12:00; Stop 11/15/16 at 11:59; Status DC Quetiapine Fumarate (SEROquel) 50 mg Q8H PO Last administered on 11/23/16 04:49 ; Start 11/07/16 at 12:00 Thiamine HCl (Vitamin B1) 100 mg DAILY PO Last administered on 11/23/16 07:59; Start 11/08/16 at 09:00 Albuterol/ Ipratropium (Duoneb Neb) 1 ampule Q2HR NEB PRN NEB SOB/WHEEZING Last administered on 11/17/16 08:00; Start 11/07/16 at 18:15 Pantoprazole Sodium 40 mg 40 mg Q12H IV PUSH Last administered on 11/17/16 20: 49; Start 11/07/16 at 20:00; Stop 11/18/16 at 09:05; Status DC Potassium Chloride/Dextrose/ Sod Cl (D5-NS + KCl 20 Meq Inj) 1,000 ml @ 84 mls/ hr [id number] IV Last administered on 11/10/16 20:39; Start 11/07/16 at 19:30; Stop 11/11/16 at 10:06; Status DC Cefazolin Sodium (Ancef Inj) 3,000 mg STK-MED ONCE .ROUTE Last administered on 11/08/16 17:44; Start 11/08/16 at 16:28; Stop 11/08/16 at 16:29; Status DC Sugammadex Sodium (Bridion Inj) 200 mg STK-MED ONCE IV PUSH ; Start 11/08/16 at 16:56; Stop 11/08/16 at 16:57; Status DC Ketamine HCl (Ketalar Inj) 500 mg STK-MED ONCE .ROUTE ; Start 11/08/16 at 17:12 ; Stop 11/08/16 at 17:13; Status DC Meperidine HCl (*DEMEROL INJ PERIprocedural ONLY) 25 mg STK-MED ONCE .ROUTE Last administered on 11/08/16 18:46; Start 11/08/16 at 18:46; Stop 11/08/16 at 18:47; Status DC Fentanyl Citrate (fentaNYL INJ) 250 mcg STK-MED ONCE .ROUTE ; Start 11/08/16 at 18:48; Stop 11/08/16 at 18:49; Status DC Fentanyl Citrate (fentaNYL INJ) 250 mcg STK-MED ONCE .ROUTE ; Start 11/08/16 at 18:50; Stop 11/08/16 at 18:51; Status DC Miscellaneous Information ALL NURSING DEPARTME... UNSCH PRN .XX SEE LABEL COMMENTS; Start 11/08/16 at 18:40; Stop 11/09/16 at 18:39; Status DC Potassium Bicarb/ Potassium Chloride (K-Lyte Cl Eff) 50 meq ONCE ONCE PO Last administered on 11/09/16 10:01; Start 11/09/16 at 09:30; Stop 11/09/16 at 09:31; Status DC Propofol 140 mg 140 mg STK-MED ONCE IV ; Start 11/10/16 at 11:26; Stop 11/10/16 at 14:43; Status DC Magnesium Sulfate/ Dextrose (Magnesium Sulfate 1 Gm Premix) 100 ml @ 100 mls/ hr ONCE ONCE IV Last administered on 11/11/16 10:43; Start 11/11/16 at 11:00 ; Stop 11/11/16 at 11:59; Status DC Potassium Chloride (KCl) 30 meq ONCE ONCE PO Last administered on 11/11/16 10 :41; Start 11/11/16 at 10:15; Stop 11/11/16 at 10:16; Status DC Furosemide (Lasix) 40 mg ONCE ONCE PO Last administered on 11/11/16 10:59; Start 11/11/16 at 10:15; Stop 11/11/16 at 10:16; Status DC Albumin Human 12.5 gm 12.5 gm Q12H IV Last administered on 11/20/16 21:44; Start 11/11/16 at 10:15; Stop 11/21/16 at 09:18; Status DC Cefazolin Sodium/ Dextrose (Ancef 2 Gm Premix) 50 ml @ 150 mls/hr Q8HR IV Last administered on 11/15/16 21:12; Start 11/12/16 at 14:15; Stop 11/15/16 at 23:55; Status DC Miscellaneous Information SPECIFIC LAB TO BE DRAWN:VANCOMYCIN TROUGH DATE TO... ONCE ONCE .XX Last administered on 11/15/16 00:47; Start 11/15/16 at 00:45; Stop 11/15/16 at 00:46; Status DC Hydromorphone HCl (Dilaudid Pf Inj) 0.2 mg Q3H PRN IV PUSH BREAKTHROUGH PAIN Last administered on 11/15/16 14:04; Start 11/14/16 at 12:00; Stop 11/15/16 at 14:54; Status DC Oxycodone HCl 10 mg 10 mg Q4H PRN PO PAIN SCALE 6 TO 10 Last administered on 05:54; Start 11/14/16 at 11:00; Stop 11/22/16 at 10:21; Status DC Vancomycin HCl/ Sodium Chloride (Vancomycin Inj/ NS 500 ml Inj) 515 ml @ 257.5 mls/ hr Q18H IV Last administered on 11/16/16 04:42; Start 11/16/16 at 05:00; Stop 11/16/16 at 16:08; Status DC Miscellaneous Information SPECIFIC LAB TO BE DRAWN:VANCO TROUGH DATE TO BE DR... ONCE ONCE .XX Last administered on 11/17/16 16:45; Start 11/17/16 at 16: 45; Stop 11/17/16 at 16:46; Status DC Hydromorphone HCl (Dilaudid Pf Inj) 0.5 mg Q3H PRN IV PUSH BREAKTHROUGH PAIN Last administered on 11/18/16 02:35; Start 11/15/16 at 15:00; Stop 11/18/16 at 09 :05; Status DC Acetaminophen (Tylenol) 650 mg Q6H PRN PO FEVER > 100.5 Last administered on 20:27; Start 11/15/16 at 17:15 Sodium Hypochlorite 50 ml 50 ml BID TOPICAL Last administered on 11/23/16 07:59 ; Start 11/16/16 at 21:00 Cefepime HCl 2000 mg/Sodium Chloride 100 ml @ 200 mls/hr Q8H IV Last administered on 11/22/16 00:53; Start 11/16/16 at 18:00; Stop 11/22/16 at 08:55; Status DC Pharmacy Profile Note 0 ml @ 0 mls/hr UNSCH OTHER ; Start 11/16/16 at 16:15; Stop 11/20/16 at 09:13; Status DC Vancomycin HCl/ Sodium Chloride (Vancomycin Inj/ NS 500 ml Inj) 515 ml @ 257.5 mls/ hr Q18H IV Last administered on 11/19/16 04:36; Start 11/16/16 at 23:00; Stop 11/19/16 at 09:31; Status DC Lorazepam (Ativan Inj) 0.5 mg Q4H PRN IV PUSH SEVERE AGITATION; Start 11/17/16 at 10:15; Stop 11/18/16 at 09:05; Status DC Miscellaneous Information SPECIFIC LAB TO BE DRAWN:VANCO TROUGH DATE TO BE DR... ONCE ONCE .XX Last administered on 11/19/16 04:11; Start 11/19/16 at 04: 45; Stop 11/19/16 at 04:46; Status DC Hydromorphone HCl (Dilaudid Pf Inj) 0.5 mg Q12H PRN IV PUSH BREAKTHROUGH PAIN; Start 11/18/16 at 21:00; Stop 11/18/16 at 21:00; Status DC Nicotine (Habitrol 14 Mg Patch.24 Hr) 1 patch DAILY T-DERMAL Last administered on 11/23/16 07:58; Start 11/18/16 at 09:00; Stop 12/02/16 at 08:59 Miscellaneous Information 1 DAILY T-DERMAL Last administered on 11/23/16 07:59 ; Start 11/18/16 at 09:00 Pantoprazole Sodium (Protonix) 40 mg Q12HR PO Last administered on 11/23/16 07: 59; Start 11/18/16 at 09:00 Lactobacillus Acidophilus (Lactinex) 1 tab TID PO Last administered on 07:58; Start 11/18/16 at 13:00 Hydromorphone HCl (Dilaudid Pf Inj) 0.5 mg Q12HR PRN IV PUSH prior to dressing change Last administered on 11/22/16 03:31; Start 11/18/16 at 13:15; Stop at 09:44; Status DC Tamsulosin HCl 0.4 mg 0.4 mg HS PO Last administered on 11/22/16 20:27; Start 11/18/16 at 21:00 Vancomycin HCl/ Sodium Chloride (Vancomycin Inj/ NS 250 ml Inj) 262.5 ml @ 250 mls/hr Q18H IV Last administered on 11/19/16 23:26; Start 11/19/16 at 23:00; Stop 11/20/16 at 09:13; Status DC Miscellaneous Information SPECIFIC LAB TO BE ... ONCE ONCE .XX ; Start at 04:45; Stop 11/22/16 at 04:46; Status Cancel Sodium Chloride (NS 250 ml Inj) 250 ml @ 15 mls/hr ONCE ONCE IV Last administered on 11/19/16 14:10; Start 11/19/16 at 10:15; Stop 11/20/16 at 02:54; Status DC Furosemide (Lasix Inj) 20 mg ONCE ONCE IV PUSH Last administered on 11/19/16 16:46; Start 11/19/16 at 10:15; Stop 11/19/16 at 10:54; Status DC Metronidazole (Flagyl) 500 mg Q8H PO Last administered on 11/23/16 07:58; Start 11/19/16 at 17:00 Oxycodone HCl (Roxicodone) 5 mg Q6H PRN PO pain 1-5; Start 11/22/16 at 11:00 Oxycodone HCl (Roxicodone) 10 mg Q6H PRN PO PAIN SCALE 6 TO 10 Last administered on 11/23/16 04:50; Start 11/22/16 at 11:00 Propofol (Diprivan 200 Mg/20 ml Inj) 200 mg STK-MED ONCE IV ; Start 11/02/16 at 12:00; Stop 11/22/16 at 15:21; Status DC Phenylephrine HCl 1000 mcg 1,000 mcg STK-MED ONCE IV ; Start 11/02/16 at 12:00; Stop 11/22/16 at 15:21; Status DC Lactated Ringer's 1,000 ml @ As Directed STK-MED ONCE IV ; Start 11/02/16 at 12 :00; Stop 11/22/16 at 15:21; Status DC Sodium Chloride (NS 250 ml Inj) 250 ml @ As Directed STK-MED ONCE IV ; Start at 12:00; Stop 11/22/16 at 15:21; Status DC Hydromorphone HCl (Dilaudid Pf Inj) 0.5 mg ONCE ONCE IV PUSH Last administered on 11/22/16 21:29; Start 11/22/16 at 22:00; Stop 11/22/16 at 22:01; Status DC Gentamicin Sulfate (Gentamicin Inj) 240 mg STK-MED ONCE IRRIGATION Last administered on 11/02/16t 15:40; Start 11/02/16 at 15:40; Stop 11/23/16 at 10:00 ; Status DC A/P Problem List: (1) Sepsis ICD Code: A41.9 Status: Resolved (2) Necrotizing fasciitis ICD Code: M72.6 Status: Acute (3) Hyponatremia ICD Code: E87.1 Status: Resolved (4) Iron deficiency anemia ICD Code: D50.9 Status: Acute (5) Blood in stool ICD Code: K92.1 Status: Acute (6) Hypokalemia ICD Code: E87.6 Status: Resolved (7) Alcohol withdrawal ICD Code: F10.239 Status: Resolved Assessment and Plan Necrotizing fasciitis: - Status post septic shock. Wound is healing well. - Cultures growing group A strep and MRSA. Status post debridement with wound VAC placement. Surgery removed wound VAC today and stated to continue with wet- to-dry dressing. --s/p treatment with cefepime. C. difficile colitis -On Flagyl started on 11/19/16. Per infectious disease complete 14 days worth last day should be 12/02. Anemia: Secondary to chronic illness, malnutrition, GI bleeding. -Status post 2 units PRBCs on 11/03/16 and 11/19/16. Improved. Monitor H&H. Repeat Hemoccult 1 negative -Resolved. Esophagitis and duodenitis with small ulcer. - Pathology shows gastric chronic inflammation and acute inflammatory exudate in the esophagus. - Continue PPI. Antireflux mechanisms discussed with the patient. Avoid NSAIDs Alcohol dependence/withdrawal, acute delirium/agitation: -Resolved. No signs of alcohol withdrawal. -On Seroquel. Hypokalemia: - Improved. DVT prophylaxis: SCDs Discharge Planning Patient is medically table for discharge but has been refused by multiple SNF. Case management is working on placement. Problem Qualifiers (1) Sepsis: Qualified Code: A41.9 - Sepsis, due to unspecified organism Sarah Okeefe MD Nov 23, 2016 10:27
[2016-11-23 12:00] VITALS: BP 108/65; PULSE 84; RESP 16; TEMP 96.7; O2SAT 94
[2016-11-23 16:00] VITALS: BP 107/63; PULSE 87; RESP 16; TEMP 97.2; O2SAT 96
[2016-11-23 20:00] VITALS: BP 111/67; PULSE 80; RESP 20; TEMP 97.6; O2SAT 96
[2016-11-23] MEDS: TAMSULOSIN HCL 0.4 MG CAP PO SCH (20:40)
[2016-11-24] VITALS: BP 108/69; PULSE 88; RESP 20; TEMP 97.6; O2SAT 94
[2016-11-24] MEDS: metroNIDAZOLE 500 MG TAB PO SCH ×3 (01:00→15:39)
[2016-11-24] MEDS: HEPARIN SODIUM - SQ 10,000 UNITS/ML VIAL SQ SCH ×2 (04:59→15:15)
[2016-11-24] MEDS: QUEtiapine FUMARATE 25 MG TAB PO SCH ×2 (04:59→15:15)
[2016-11-24 08:00] VITALS: BP 106/58; PULSE 84; RESP 18; TEMP 96.5; O2SAT 94
--- NOTE | 2016-11-24 08:58 | HHI.PR ---
Subjective Remarks Follow-up for infected wound Patient stated that he feels "awful." When I asked him to explain that he stated that he feels achy all over and has pain when he walks. He stated that he has not had any pain medication for days. He also stated that he's been vomiting. When I spoke to his nurse she stated no episodes of emesis. Deny abdominal pain. Patient then requested increase dosage of pain meds. Objective Vitals Vital Signs Date Time Temp Pulse Resp B/P Pulse Ox O2 Delivery O2 Flow Rate FiO2 11/24/16 08:00 96.5 84 18 106/58 94 11/23/16 21:40 18 11/23/16 20:00 97.6 80 20 111/67 96 11/23/16 16:00 97.2 87 16 107/63 96 11/23/16 12:00 96.7 84 16 108/65 94 I/O 11/23/16 11/23/16 11/23/16 11/24/16 11/24/16 11/24/16 07:00 15:00 23:00 07:00 15:00 23:00 Intake Total 240 ml 340 ml 360 ml 240 ml Output Total 1150 ml 800 ml 1375 ml 725 ml Balance -910 ml -460 ml -1015 ml -485 ml Intake Oral 240 ml 340 ml 360 ml 240 ml Output Urine Total 1150 ml 800 ml 1375 ml 725 ml # Bowel Movements 1 Result Diagram: 11/22/16 0441 11/21/16 0434 Objective Remarks GENERAL: in NAD and laying in bed comfortably. SKIN: Warm and dry. Left flexion medically bandage in place. CARDIOVASCULAR: Regular rate and rhythm without murmurs, gallops, or rubs. RESPIRATORY: Breath sounds equal bilaterally. No accessory muscle use. GASTROINTESTINAL: Abdomen soft, non-tender, nondistended. MUSCULOSKELETAL: No cyanosis, or edema. BACK: Nontender without obvious deformity. No CVA tenderness. Procedures Multiple incision and debridement of left lower extremity wound EGD Medications and IVs Current Medications Vancomycin HCl 1 mg/Sodium Chloride 250 ml @ 250 mls/hr ONCE STAT IV Last administered on 11/02/16t 12:40; Start 11/02/16 at 11:09; Stop 11/02/16 at 13:45 ; Status DC Piperacillin Sod/ Tazobactam Sod 100 ml @ 200 mls/hr ONCE STAT IV Last administered on 11/02/16 11:22; Start 11/02/16 at 11:09; Stop 11/02/16 at 13:45 ; Status DC Sodium Chloride 1,000 ml @ 1,000 mls/hr Q1H ONCE IV Last administered on 11:22; Start 11/02/16 at 11:09; Stop 11/02/16 at 13:45; Status DC Sodium Chloride 1,000 ml @ 1,000 mls/hr Q1H ONCE IV Last administered on 12:02; Start 11/02/16 at 11:09; Stop 11/02/16 at 13:45; Status DC Sodium Chloride 400 ml @ 1,000 mls/hr Q24M ONCE IV Last administered on 12:40; Start 11/02/16 at 11:09; Stop 11/02/16 at 13:45; Status DC Sodium Chloride (NS 250 ml Inj) 250 ml @ 15 mls/hr ONCE ONCE IV Last administered on 11/02/16 14:50; Start 11/02/16 at 12:00; Stop 11/03/16 at 04:39 ; Status DC Morphine Sulfate (Morphine Inj) 4 mg ONCE ONCE IV PUSH Last administered on 12:03; Start 11/02/16 at 12:00; Stop 11/02/16 at 13:45; Status DC Iohexol (Omnipaque 350 Inj) 93 ml STK-MED ONCE IV Last administered on 13:07; Start 11/02/16 at 13:07; Stop 11/02/16 at 13:08; Status DC Lidocaine HCl (Xylocaine 1% Inj (50 ml)) 50 ml STK-MED ONCE .ROUTE ; Start 11/02 at 13:52; Stop 11/02/16 at 13:53; Status DC Fentanyl Citrate (fentaNYL INJ) 250 mcg STK-MED ONCE .ROUTE ; Start 11/02/16 at 14:06; Stop 11/02/16 at 14:07; Status DC Fentanyl Citrate 250 mcg 250 mcg STK-MED ONCE .ROUTE ; Start 11/02/16 at 15:49; Stop 11/02/16 at 15:50; Status DC Potassium Chloride/Dextrose/ Sod Cl (D5-NS + KCl 20 Meq Inj) 1,000 ml @ 75 mls/ hr [id number] IV Last administered on 11/07/16 05:16; Start 11/02/16 at 17:26; Stop 11/07/16 at 11:34; Status DC IV Flush (NS Flush) 2 ml UNSCH PRN IVF FLUSH AFTER USING IV ACCESS; Start 11/02 at 17:30 IV Flush (NS Flush) 2 ml BID IVF Last administered on 11/23/16 20:41; Start at 21:00 Acetaminophen/ Hydrocodone Bitart ([place] 5-325 Mg) 1 tab Q4H PRN PO PAIN SCALE 1 TO 5; Start 11/02/16 at 17:30; Stop 11/05/16 at 11:35; Status DC Acetaminophen/ Hydrocodone Bitart ([place] 5-325 Mg) 2 tab Q4H PRN PO PAIN SCALE 6 TO 10 Last administered on 11/04/16 21:58; Start 11/02/16 at 17:30; Stop 11/05/16 at 11:34; Status DC Morphine Sulfate (Morphine Inj) 5 mg Q2H PRN IV PUSH BREAKTHROUGH PAIN Last administered on 11/05/16 11:30; Start 11/02/16 at 17:30; Stop 11/05/16 at 11:34 ; Status DC Ondansetron HCl (Zofran Inj) 4 mg Q4H PRN IV NAUSEA OR VOMITING Last administered on 11/20/16 13:51; Start 11/02/16 at 17:30 Diphenhydramine HCl 50 mg 50 mg Q6H PRN IVP ITCHING Last administered on 22:38; Start 11/02/16 at 17:30; Stop 11/05/16 at 11:34; Status DC Vancomycin HCl 1000 mg/Sodium Chloride 250 ml @ 250 mls/hr Q12H IV Last administered on 11/03/16 00:59; Start 11/03/16 at 01:00; Stop 11/03/16 at 05:34 ; Status DC Clindamycin Phosphate/Sodium Chloride (Cleocin Inj/NS Inj) 104 ml @ 200 mls/hr Q8H IV Last administered on 6/17/17at 03:59; Start 11/02/16 at 20:00; Stop at 05:33; Status DC Miscellaneous Information (Post-op Orders (for Pharmacy)) STAT ONCE XX ; Start 11/02/16 at 17:30; Stop 11/02/16 at 18:51; Status DC Miscellaneous Information 1 ONCE ONCE XX ; Start 11/02/16 at 17:30; Stop at 17:42; Status DC Naloxone HCl (Narcan Inj) 0.4 mg UNSCH PRN IV RESPIRATORY RATE LESS THAN 10; Start 11/02/16 at 17:30 [employer] Dosage Infused (Pha) 1 Q8HR .XX ; Start 11/02/16 at 22:00; Stop 11/05/16 at 11:38; Status DC Miscellaneous Information ALL NURSING DEPARTME... UNSCH PRN .XX SEE LABEL COMMENTS; Start 11/02/16 at 17:15; Stop 11/03/16 at 17:14; Status DC Sodium Chloride (NS 1000 ml Inj) 1,000 ml @ 0 mls/hr BOLUS ONCE IV Last administered on 11/02/16 22:26; Start 11/02/16 at 22:00; Stop 11/02/16 at 22:01 ; Status DC Fentanyl Citrate (fentaNYL INJ) 100 mcg STK-MED ONCE .ROUTE Last administered on 11/03/16 01:16; Start 11/03/16 at 01:16; Stop 11/03/16 at 01:17; Status DC Midazolam HCl (Versed Inj) 5 mg STK-MED ONCE .ROUTE Last administered on 01:16; Start 11/03/16 at 01:16; Stop 11/03/16 at 01:17; Status DC Lidocaine HCl 50 ml 50 ml STK-MED ONCE .ROUTE Last administered on 11/03/16 01 :21; Start 11/03/16 at 01:21; Stop 11/03/16 at 01:22; Status DC Sodium Chloride 1,000 ml @ 999 mls/hr Q1H1M IV Last administered on 11/03/16 04:01; Start 11/03/16 at 03:00; Stop 11/03/16 at 06:00; Status DC Sodium Chloride 3,000 ml @ 0 mls/hr BOLUS ONCE IV Last administered on 02:25; Start 11/03/16 at 02:25; Stop 11/03/16 at 05:27; Status DC Sodium Chloride 1,000 ml @ 0 mls/hr BOLUS ONCE IV Last administered on 04:00; Start 11/03/16 at 04:00; Stop 11/03/16 at 05:27; Status DC Piperacillin Sod/ Tazobactam Sod 100 ml @ 200 mls/hr Q6HR IV Last administered on 11/03/16 17:50; Start 11/03/16 at 06:00; Stop 11/03/16 at 23:27 ; Status DC Clindamycin Phosphate 600 mg/ Sodium Chloride 104 ml @ 208 mls/hr Q8H IV Last administered on 11/03/16 20:34; Start 11/03/16 at 12:00; Stop 11/03/16 at 23:27 ; Status DC Pharmacy Profile Note (Vancomycin Consult Pharmacy) 0 ml @ 0 mls/hr UNSCH OTHER ; Start 11/03/16 at 05:30; Stop 11/15/16 at 23:55; Status DC Fentanyl Citrate (fentaNYL INJ) 50 mcg NOW ONCE IV ; Start 11/03/16 at 04:00; Stop 11/03/16 at 05:27; Status DC Midazolam HCl 2 mg 2 mg NOW ONCE IV ; Start 11/03/16 at 04:00; Stop 11/03/16 at 05:27; Status DC Norepinephrine Bitartrate 250 ml @ 0 mls/hr TITRATE IV Last administered on 03:37; Start 11/03/16 at 05:30; Stop 11/08/16 at 06:56; Status DC Potassium Chloride 100 ml @ 50 mls/hr Q2H PRN IV For Potassium 2.8 - 3.2 mEq/ L Last administered on 11/09/16 05:14; Start 11/03/16 at 05:30; Stop 11/10/16 at 15:16; Status DC Potassium Chloride (KCl 20 Meq Premix Inj) 100 ml @ 50 mls/hr Q2H PRN IV For Potassium 2.8 - 3.2 mEq/L Last administered on 11/10/16 14:33; Start 11/03/16 at 05:30; Stop 11/10/16 at 15:16; Status DC Potassium Bicarb/ Potassium Chloride 50 meq 50 meq UNSCH PRN PO For Potassium 3.3 - 3.5 mEq/L; Start 11/03/16 at 05:30; Stop 11/10/16 at 15:16; Status DC Potassium Chloride 100 ml @ 25 mls/hr UNSCH PRN IV For Potassium 3.3 - 3.5 mEq /L; Start 11/03/16 at 05:30; Stop 11/10/16 at 15:16; Status DC Potassium Chloride 100 ml @ 50 mls/hr Q2H PRN IV For Potassium 3.3 - 3.5 mEq/L ; Start 11/03/16 at 05:30; Stop 11/10/16 at 15:16; Status DC Magnesium Sulfate/ Sodium Chloride (Magnesium Sulfate Inj/NS Inj) 100 ml @ 50 mls/hr UNSCH PRN IV For Magnesium 0.9 - 1.1 mg/dL; Start 11/03/16 at 05:30; Stop 11/10/16 at 15:16; Status DC Magnesium Oxide 800 mg 800 mg UNSCH PRN PO For Magnesium 1.2 - 1.6 mg/dL; Start 11/03/16 at 05:30; Stop 11/10/16 at 15:17; Status DC Magnesium Sulfate/ Sodium Chloride (Magnesium Sulfate Inj/NS Inj) 100 ml @ 50 mls/hr UNSCH PRN IV For Magnesium 1.2 - 1.6 mg/dL; Start 11/03/16 at 05:30; Stop 11/10/16 at 15:17; Status DC Potassium Phosphate 2000 mg 2,000 mg Q4H PRN PO For Phosphorus < 2.5 mg/dL; Start 11/03/16 at 05:30; Stop 11/10/16 at 15:17; Status DC Sodium Phosphate/ Sodium Chloride (Sodium Phosphate Inj/NS 250 ml Inj) 250 ml @ 42 mls/hr UNSCH PRN IV For Phosphorus < 2.5 mg/dL; Start 11/03/16 at 05:30; Stop 11/10/16 at 15:17; Status DC Potassium Phosphate 2000 mg 2,000 mg UNSCH PRN PO/TUBE SEE LABEL COMMENTS; Start 11/03/16 at 05:30; Stop 11/10/16 at 15:17; Status DC Potassium Phosphate 30 mmol/ Sodium Chloride 260 ml @ 42 mls/hr UNSCH PRN IV SEE LABEL COMMENTS; Start 11/03/16 at 05:30; Stop 11/10/16 at 15:17; Status DC Calcium Gluconate 2 gm/Sodium Chloride 120 ml @ 120 mls/hr ONCE ONCE IV Last administered on 11/03/16 06:08; Start 11/03/16 at 05:45; Stop 11/03/16 at 06:44 ; Status DC Sodium Chloride 250 ml @ 15 mls/hr ONCE ONCE IV Last administered on 06:30; Start 11/03/16 at 06:30; Stop 11/03/16 at 23:09; Status DC Vasopressin 40 units/Dextrose 100 ml @ 4.5 mls/hr [id number] IV Last administered on 11/04/16 21:59; Start 11/03/16 at 08:00; Stop 11/05/16 at 11:24 ; Status DC Vancomycin HCl/ Sodium Chloride (Vancomycin Inj/ NS 250 ml Inj) 262.5 ml @ 250 mls/hr Q12H IV Last administered on 11/05/16 14:06; Start 11/03/16 at 13:00; Stop 11/05/16 at 14:18; Status DC Miscellaneous Information SPECIFIC LAB TO BE DRAWN:VANCO TROUGH DATE TO... ONCE ONCE .XX ; Start 11/04/16 at 12:45; Stop 11/04/16 at 12:46; Status DC Folic Acid (Folate) 1 mg DAILY PO Last administered on 11/08/16 08:47; Start 11/04/16 at 09:00; Stop 11/09/16 at 08:59; Status DC Thiamine HCl (Vitamin B1) 100 mg DAILY PO ; Start 11/04/16 at 09:00; Stop at 11:34; Status DC Multivitamins/ Minerals Therapeutic (Theragran M Tab) 1 tab DAILY PO ; Start at 09:00; Stop 11/05/16 at 11:34; Status DC Flumazenil (Romazicon Inj) 0.2 mg Q1M PRN IV PUSH SEE LABEL COMMENTS; Start at 14:00; Stop 11/17/16 at 10:04; Status DC Lorazepam (Ativan) 1 mg Q4H PRN PO CIWA 8 - 10; Start 11/03/16 at 14:00; Stop 11/17/16 at 10:03; Status DC Lorazepam (Ativan Inj) 1 mg Q4H PRN IV PUSH CIWA 8 - 10 Last administered on 02:47; Start 11/03/16 at 14:00; Stop 11/17/16 at 10:03; Status DC Lorazepam (Ativan) 2 mg Q2H PRN PO CIWA 11-14; Start 11/03/16 at 14:00; Stop at 10:03; Status DC Lorazepam (Ativan Inj) 2 mg Q2H PRN IV PUSH CIWA 11-14 Last administered on 09:59; Start 11/03/16 at 14:00; Stop 11/17/16 at 10:03; Status DC Lorazepam (Ativan Inj) 2 mg Q1H PRN IV PUSH CIWA 15-20 Last administered on 00:07; Start 11/03/16 at 14:00; Stop 11/17/16 at 10:03; Status DC Lorazepam (Ativan Inj) 2 mg Q15M PRN IV PUSH CIWA > 20 Last administered on 15:25; Start 11/03/16 at 14:00; Stop 11/17/16 at 10:03; Status DC Miscellaneous Information Patient in critical care unit? Ass... [id number] .XX ; Start 11/03/16 at 16:45 Mupirocin (Bactroban Nasal 2% Oint) 1 applic BID NASAL Last administered on 11/17 20:49; Start 11/03/16 at 21:00; Stop 11/18/16 at 09:05; Status DC Chlorhexidine Gluconate (Chlorhexidine 2% Cloth) 3 pack DAILY@04 TOPICAL Last administered on 11/08/16 04:00; Start 11/04/16 at 04:00; Stop 11/08/16 at 04:01 ; Status DC Chlorhexidine Gluconate 3 pack 3 pack UNSCH PRN TOPICAL HYGIENIC CARE; Start at 17:00; Stop 11/08/16 at 16:45; Status DC Ampicillin Sodium/ Sulbactam Sodium 3 gm/Sodium Chloride 100 ml @ 200 mls/hr Q6H IV Last administered on 11/04/16 13:02; Start 11/04/16 at 00:00; Stop at 18:02; Status DC Clindamycin Phosphate/Sodium Chloride (Cleocin Inj/NS Inj) 106 ml @ 212 mls/hr Q8H IV Last administered on 11/09/16 13:34; Start 11/04/16 at 05:00; Stop at 16:49; Status DC Cefazolin Sodium (Ancef Inj) 3,000 mg STK-MED ONCE .ROUTE ; Start 11/04/16 at 07 :13; Stop 11/04/16 at 07:14; Status DC Lidocaine HCl (Xylocaine 1% Inj (50 ml)) 50 ml STK-MED ONCE .ROUTE ; Start 11/04 at 07:14; Stop 11/04/16 at 07:15; Status DC Vancomycin HCl (Vancomycin Inj) 1,000 mg STK-MED ONCE .ROUTE Last administered on 11/04/16 13:33; Start 11/04/16 at 13:18; Stop 11/04/16 at 13:19; Status DC Clindamycin Phosphate (Cleocin Inj) 900 mg STK-MED ONCE .ROUTE Last administered on 11/04/16 13:24; Start 11/04/16 at 13:19; Stop 11/04/16 at 13:20 ; Status DC Vancomycin HCl 500 mg 500 mg STK-MED ONCE .ROUTE Last administered on 13:33; Start 11/04/16 at 13:19; Stop 11/04/16 at 13:20; Status DC Ampicillin Sodium 2000 mg/Sodium Chloride 100 ml @ 400 mls/hr Q4H IV ; Start at 20:00; Status Cancel Ampicillin Sodium/ Sodium Chloride (Ampicillin Inj/ NS Inj) 100 ml @ 300 mls/ hr Q4H IV Last administered on 11/12/16 11:05; Start 11/04/16 at 20:00; Stop 11/12/16 at 13:22; Status DC Miscellaneous Information SPECIFIC LAB TO BE DRAWN:VANCO TROUGH DATE TO BE DR... ONCE ONCE .XX Last administered on 11/05/16 13:00; Start 11/05/16 at 12 :45; Stop 11/05/16 at 12:46; Status DC Dexmedetomidine HCl (Precedex Inj) 50 ml @ 0 mls/hr TITRATE IV ; Start 11/05/16 at 12:00; Stop 11/05/16 at 12:58; Status DC Nicotine (Habitrol 21 Mg Patch.24 Hr) 1 patch DAILY T-DERMAL Last administered on 11/17/16 08:17; Start 11/05/16 at 12:00; Stop 11/18/16 at 09:05; Status DC Miscellaneous Information 1 DAILY T-DERMAL Last administered on 11/17/16 08:17 ; Start 11/06/16 at 09:00; Stop 11/18/16 at 09:19; Status DC Thiamine HCl (Thiamine Inj) 100 mg DAILY IM Last administered on 11/07/16 10: 39; Start 11/05/16 at 12:00; Stop 11/07/16 at 11:36; Status DC Haloperidol Lactate (Haldol Inj) 5 mg Q4H PRN IV agitation Last administered on 11/08/16 23:53; Start 11/05/16 at 12:00 Heparin Sodium (Porcine) (Heparin Inj) 5,000 units Q8HR SQ Last administered on 11/24/16 04:59; Start 11/05/16 at 14:00 Hydromorphone HCl 0.5 mg 0.5 mg Q3H PRN IV PUSH pain 6-10 or not taking po Last administered on 11/14/16 10:38; Start 11/05/16 at 12:00; Stop 11/14/16 at 10:58; Status DC Dexmedetomidine HCl 200 mcg/ Sodium Chloride 52 ml @ 0 mls/hr TITRATE IV Last administered on 11/07/16 06:53; Start 11/05/16 at 13:00; Stop 11/08/16 at 06:56 ; Status DC Vancomycin HCl/ Sodium Chloride (Vancomycin Inj/ NS 500 ml Inj) 515 ml @ 257.5 mls/ hr Q12H IV Last administered on 11/15/16 11:37; Start 11/06/16 at 01:00; Stop 11/15/16 at 12:01; Status DC Miscellaneous Information SPECIFIC LAB TO BE ... ONCE ONCE .XX Last administered on 11/07/16 00:45; Start 11/07/16 at 00:45; Stop 11/07/16 at 00:46 ; Status DC Cefazolin Sodium (Ancef Inj) 3,000 mg STK-MED ONCE .ROUTE Last administered on 11/06/16 17:57; Start 11/06/16 at 16:35; Stop 11/06/16 at 16:36; Status DC Lidocaine HCl (Xylocaine 1% Inj (50 ml)) 50 ml STK-MED ONCE .ROUTE ; Start 11/06 at 16:35; Stop 11/06/16 at 16:36; Status DC Fentanyl Citrate (fentaNYL INJ) 250 mcg STK-MED ONCE .ROUTE ; Start 11/06/16 at 19:31; Stop 11/06/16 at 19:32; Status DC Fentanyl Citrate (fentaNYL INJ) 200 mcg STK-MED ONCE .ROUTE ; Start 11/06/16 at 19:32; Stop 11/06/16 at 19:33; Status DC Miscellaneous Information SPECIFIC LAB TO BE DRAWN:VANCOMYCIN TROUGH DATE TO... ONCE ONCE .XX Last administered on 11/08/16 23:53; Start 11/09/16 at 00:45; Stop 11/09/16 at 00:46; Status DC Oxycodone HCl (Roxicodone) 5 mg Q4H PRN PO pain 1-5 Last administered on 17:36; Start 11/07/16 at 11:30; Stop 11/22/16 at 10:21; Status DC Diazepam (Valium) 5 mg Taper DAILY PO Last administered on 11/15/16 11:37; Start 11/07/16 at 12:00; Stop 11/15/16 at 11:59; Status DC Quetiapine Fumarate (SEROquel) 50 mg Q8H PO Last administered on 11/24/16 04:59 ; Start 11/07/16 at 12:00 Thiamine HCl (Vitamin B1) 100 mg DAILY PO Last administered on 11/23/16 07:59; Start 11/08/16 at 09:00 Albuterol/ Ipratropium (Duoneb Neb) 1 ampule Q2HR NEB PRN NEB SOB/WHEEZING Last administered on 11/17/16 08:00; Start 11/07/16 at 18:15 Pantoprazole Sodium 40 mg 40 mg Q12H IV PUSH Last administered on 11/17/16 20: 49; Start 11/07/16 at 20:00; Stop 11/18/16 at 09:05; Status DC Potassium Chloride/Dextrose/ Sod Cl (D5-NS + KCl 20 Meq Inj) 1,000 ml @ 84 mls/ hr [id number] IV Last administered on 11/10/16 20:39; Start 11/07/16 at 19:30; Stop 11/11/16 at 10:06; Status DC Cefazolin Sodium (Ancef Inj) 3,000 mg STK-MED ONCE .ROUTE Last administered on 11/08/16 17:44; Start 11/08/16 at 16:28; Stop 11/08/16 at 16:29; Status DC Sugammadex Sodium (Bridion Inj) 200 mg STK-MED ONCE IV PUSH ; Start 11/08/16 at 16:56; Stop 11/08/16 at 16:57; Status DC Ketamine HCl (Ketalar Inj) 500 mg STK-MED ONCE .ROUTE ; Start 11/08/16 at 17:12 ; Stop 11/08/16 at 17:13; Status DC Meperidine HCl (*DEMEROL INJ PERIprocedural ONLY) 25 mg STK-MED ONCE .ROUTE Last administered on 11/08/16 18:46; Start 11/08/16 at 18:46; Stop 11/08/16 at 18:47; Status DC Fentanyl Citrate (fentaNYL INJ) 250 mcg STK-MED ONCE .ROUTE ; Start 11/08/16 at 18:48; Stop 11/08/16 at 18:49; Status DC Fentanyl Citrate (fentaNYL INJ) 250 mcg STK-MED ONCE .ROUTE ; Start 11/08/16 at 18:50; Stop 11/08/16 at 18:51; Status DC Miscellaneous Information ALL NURSING DEPARTME... UNSCH PRN .XX SEE LABEL COMMENTS; Start 11/08/16 at 18:40; Stop 11/09/16 at 18:39; Status DC Potassium Bicarb/ Potassium Chloride (K-Lyte Cl Eff) 50 meq ONCE ONCE PO Last administered on 11/09/16 10:01; Start 11/09/16 at 09:30; Stop 11/09/16 at 09:31; Status DC Propofol 140 mg 140 mg STK-MED ONCE IV ; Start 11/10/16 at 11:26; Stop 11/10/16 at 14:43; Status DC Magnesium Sulfate/ Dextrose (Magnesium Sulfate 1 Gm Premix) 100 ml @ 100 mls/ hr ONCE ONCE IV Last administered on 11/11/16 10:43; Start 11/11/16 at 11:00 ; Stop 11/11/16 at 11:59; Status DC Potassium Chloride (KCl) 30 meq ONCE ONCE PO Last administered on 11/11/16 10 :41; Start 11/11/16 at 10:15; Stop 11/11/16 at 10:16; Status DC Furosemide (Lasix) 40 mg ONCE ONCE PO Last administered on 11/11/16 10:59; Start 11/11/16 at 10:15; Stop 11/11/16 at 10:16; Status DC Albumin Human 12.5 gm 12.5 gm Q12H IV Last administered on 11/20/16 21:44; Start 11/11/16 at 10:15; Stop 11/21/16 at 09:18; Status DC Cefazolin Sodium/ Dextrose (Ancef 2 Gm Premix) 50 ml @ 150 mls/hr Q8HR IV Last administered on 11/15/16 21:12; Start 11/12/16 at 14:15; Stop 11/15/16 at 23:55; Status DC Miscellaneous Information SPECIFIC LAB TO BE DRAWN:VANCOMYCIN TROUGH DATE TO... ONCE ONCE .XX Last administered on 11/15/16 00:47; Start 11/15/16 at 00:45; Stop 11/15/16 at 00:46; Status DC Hydromorphone HCl (Dilaudid Pf Inj) 0.2 mg Q3H PRN IV PUSH BREAKTHROUGH PAIN Last administered on 11/15/16 14:04; Start 11/14/16 at 12:00; Stop 11/15/16 at 14:54; Status DC Oxycodone HCl 10 mg 10 mg Q4H PRN PO PAIN SCALE 6 TO 10 Last administered on 05:54; Start 11/14/16 at 11:00; Stop 11/22/16 at 10:21; Status DC Vancomycin HCl/ Sodium Chloride (Vancomycin Inj/ NS 500 ml Inj) 515 ml @ 257.5 mls/ hr Q18H IV Last administered on 11/16/16 04:42; Start 11/16/16 at 05:00; Stop 11/16/16 at 16:08; Status DC Miscellaneous Information SPECIFIC LAB TO BE DRAWN:VANCO TROUGH DATE TO BE ONCE ONCE .XX Last administered on 11/17/16 16:45; Start 11/17/16 at 16: 45; Stop 11/17/16 at 16:46; Status DC Hydromorphone HCl (Dilaudid Pf Inj) 0.5 mg Q3H PRN IV PUSH BREAKTHROUGH PAIN Last administered on 11/18/16 02:35; Start 11/15/16 at 15:00; Stop 11/18/16 at 09 :05; Status DC Acetaminophen (Tylenol) 650 mg Q6H PRN PO FEVER > 100.5 Last administered on 20:27; Start 11/15/16 at 17:15 Sodium Hypochlorite 50 ml 50 ml BID TOPICAL Last administered on 11/23/16 07:59 ; Start 11/16/16 at 21:00 Cefepime HCl 2000 mg/Sodium Chloride 100 ml @ 200 mls/hr Q8H IV Last administered on 11/22/16 00:53; Start 11/16/16 at 18:00; Stop 11/22/16 at 08:55; Status DC Pharmacy Profile Note 0 ml @ 0 mls/hr UNSCH OTHER ; Start 11/16/16 at 16:15; Stop 11/20/16 at 09:13; Status DC Vancomycin HCl/ Sodium Chloride (Vancomycin Inj/ NS 500 ml Inj) 515 ml @ 257.5 mls/ hr Q18H IV Last administered on 11/19/16 04:36; Start 11/16/16 at 23:00; Stop 11/19/16 at 09:31; Status DC Lorazepam (Ativan Inj) 0.5 mg Q4H PRN IV PUSH SEVERE AGITATION; Start 11/17/16 at 10:15; Stop 11/18/16 at 09:05; Status DC Miscellaneous Information SPECIFIC LAB TO BE DRAWN:VANCO TROUGH DATE TO BE ONCE ONCE .XX Last administered on 11/19/16 04:11; Start 11/19/16 at 04: 45; Stop 11/19/16 at 04:46; Status DC Hydromorphone HCl (Dilaudid Pf Inj) 0.5 mg Q12H PRN IV PUSH BREAKTHROUGH PAIN; Start 11/18/16 at 21:00; Stop 11/18/16 at 21:00; Status DC Nicotine (Habitrol 14 Mg Patch.24 Hr) 1 patch DAILY T-DERMAL Last administered on 11/23/16 07:58; Start 11/18/16 at 09:00; Stop 12/02/16 at 08:59 Miscellaneous Information 1 DAILY T-DERMAL Last administered on 11/23/16 07:59 ; Start 11/18/16 at 09:00 Pantoprazole Sodium (Protonix) 40 mg Q12HR PO Last administered on 11/23/16 20: 40; Start 11/18/16 at 09:00 Lactobacillus Acidophilus (Lactinex) 1 tab TID PO Last administered on 16:06; Start 11/18/16 at 13:00 Hydromorphone HCl (Dilaudid Pf Inj) 0.5 mg Q12HR PRN IV PUSH prior to dressing change Last administered on 11/22/16 03:31; Start 11/18/16 at 13:15; Stop at 09:44; Status DC Tamsulosin HCl 0.4 mg 0.4 mg HS PO Last administered on 11/23/16 20:40; Start 11/18/16 at 21:00 Vancomycin HCl/ Sodium Chloride (Vancomycin Inj/ NS 250 ml Inj) 262.5 ml @ 250 mls/hr Q18H IV Last administered on 11/19/16 23:26; Start 11/19/16 at 23:00; Stop 11/20/16 at 09:13; Status DC Miscellaneous Information SPECIFIC LAB TO BE LOUIE... ONCE ONCE .XX ; Start at 04:45; Stop 11/22/16 at 04:46; Status Cancel Sodium Chloride (NS 250 ml Inj) 250 ml @ 15 mls/hr ONCE ONCE IV Last administered on 11/19/16 14:10; Start 11/19/16 at 10:15; Stop 11/20/16 at 02:54; Status DC Furosemide (Lasix Inj) 20 mg ONCE ONCE IV PUSH Last administered on 11/19/16 16:46; Start 11/19/16 at 10:15; Stop 11/19/16 at 10:54; Status DC Metronidazole (Flagyl) 500 mg Q8H PO Last administered on 11/24/16 01:00; Start 11/19/16 at 17:00 Oxycodone HCl (Roxicodone) 5 mg Q6H PRN PO pain 1-5; Start 11/22/16 at 11:00 Oxycodone HCl (Roxicodone) 10 mg Q6H PRN PO PAIN SCALE 6 TO 10 Last administered on 11/24/16 02:45; Start 11/22/16 at 11:00 Propofol (Diprivan 200 Mg/20 ml Inj) 200 mg STK-MED ONCE IV ; Start 11/02/16 at 12:00; Stop 11/22/16 at 15:21; Status DC Phenylephrine HCl 1000 mcg 1,000 mcg STK-MED ONCE IV ; Start 11/02/16 at 12:00; Stop 11/22/16 at 15:21; Status DC Lactated Ringer's 1,000 ml @ As Directed STK-MED ONCE IV ; Start 11/02/16 at 12 :00; Stop 11/22/16 at 15:21; Status DC Sodium Chloride (NS 250 ml Inj) 250 ml @ As Directed STK-MED ONCE IV ; Start at 12:00; Stop 11/22/16 at 15:21; Status DC Hydromorphone HCl (Dilaudid Pf Inj) 0.5 mg ONCE ONCE IV PUSH Last administered on 11/22/16 21:29; Start 11/22/16 at 22:00; Stop 11/22/16 at 22:01; Status DC Gentamicin Sulfate (Gentamicin Inj) 240 mg STK-MED ONCE IRRIGATION Last administered on 11/02/16 15:40; Start 11/02/16 at 15:40; Stop 11/23/16 at 10:00 ; Status DC A/P Problem List: (1) Sepsis ICD Code: A41.9 Status: Resolved (2) Necrotizing fasciitis ICD Code: M72.6 Status: Acute (3) Hyponatremia ICD Code: E87.1 Status: Resolved (4) Iron deficiency anemia ICD Code: D50.9 Status: Acute (5) Blood in stool ICD Code: K92.1 Status: Acute (6) Hypokalemia ICD Code: E87.6 Status: Resolved (7) Alcohol withdrawal ICD Code: F10.239 Status: Resolved Assessment and Plan Necrotizing fasciitis: - Status post septic shock. Wound is healing well. - Cultures growing group A strep and MRSA. Status post debridement with wound VAC placement. Surgery removed wound VAC today and stated to continue with wet- to-dry dressing. --s/p treatment with cefepime. C. difficile colitis -On Flagyl started on 11/19/16. Per infectious disease complete 14 days worth last day should be 12/02. Anemia: Secondary to chronic illness, malnutrition, GI bleeding. -Status post 2 units PRBCs on 11/03/16 and 11/19/16. Improved. Monitor H&H. Repeat Hemoccult 1 negative -Resolved. Esophagitis and duodenitis with small ulcer. - Pathology shows gastric chronic inflammation and acute inflammatory exudate in the esophagus. - Continue PPI. Antireflux mechanisms discussed with the patient. Avoid NSAIDs Alcohol dependence/withdrawal, acute delirium/agitation: -Resolved. No signs of alcohol withdrawal. -On Seroquel. Hypokalemia: - Improved. Opioid dependence -Patient shows signs of opioid dependence. He is complaining of multiple symptoms in order to obtain opioids. Patient stated he is vomiting all time. Nursing staff stated no episode of vomiting. Patient looks very comfortable during examined at the bedside. Most likely complaints are due to secondary gain. DVT prophylaxis: SCDs Discharge Planning Patient is medically table for discharge but has been refused by multiple SNF. Case management is working on placement. Problem Qualifiers (1) Sepsis: Qualified Code: A41.9 - Sepsis, due to unspecified organism Sarah Okeefe MD Nov 24, 2016 08:58
[2016-11-24] MEDS: REMOVE OLD PATCH T-DERMAL SCH (09:00)
[2016-11-24] MEDS: SODIUM CHLORIDE 0.9% FLUSH 5 ML FLUSH IVF SCH (09:00)
[2016-11-24] MEDS: NICOTINE 14 MG/24 HR PATCH T-DERMAL SCH (10:54)
[2016-11-24] MEDS: THIAMINE HCL 100 MG TAB PO SCH (10:54)
[2016-11-24] MEDS: PANTOPRAZOLE SOD 40 MG DELAYED RELEASE TAB PO SCH (10:54)
[2016-11-24] MEDS: LACTOBACILLUS ACIDOPHILUS TAB PO SCH ×2 (10:55→15:16)
[2016-11-24] MEDS: SODIUM HYPOCHLORITE 0.25% 500 ML BTL TOPICAL SCH (15:17)
== END 2016-11-24 16:37 | DRG 853 ==
LOC: NEPC 10:22 → NEDA 13:24 → N07A 18:45 → N03B 22:54 → N07A 11-10 16:07 → UNDODISIN 11-24 13:30
PROVIDERS: ADMIT Family Medicine; ATTEND Family Medicine
PROC: 0JDP0ZZ Extraction of Left Lower Leg Subcutaneous Tissue and Fascia, Open Approach (ICD-10-PCS; 2016-11-02)
PROC: 0JDM0ZZ Extraction of Left Upper Leg Subcutaneous Tissue and Fascia, Open Approach (ICD-10-PCS; 2016-11-02)
PROC: 30233N1 Transfusion of Nonautologous Red Blood Cells into Peripheral Vein, Percutaneous Approach (ICD-10-PCS; 2016-11-02)
PROC: 0JDM0ZZ Extraction of Left Upper Leg Subcutaneous Tissue and Fascia, Open Approach (ICD-10-PCS; 2016-11-04)
PROC: 0JBP0ZZ Excision of Left Lower Leg Subcutaneous Tissue and Fascia, Open Approach (ICD-10-PCS; principal; 2016-11-04 12:43)
PROC: 0JDM0ZZ Extraction of Left Upper Leg Subcutaneous Tissue and Fascia, Open Approach (ICD-10-PCS; 2016-11-06)
PROC: 0JDP0ZZ Extraction of Left Lower Leg Subcutaneous Tissue and Fascia, Open Approach (ICD-10-PCS; 2016-11-06)
PROC: 0JDP0ZZ Extraction of Left Lower Leg Subcutaneous Tissue and Fascia, Open Approach (ICD-10-PCS; 2016-11-08)
PROC: 0DB58ZX Excision of Esophagus, Via Natural or Artificial Opening Endoscopic, Diagnostic (ICD-10-PCS; 2016-11-10)
PROC: 0DB68ZX Excision of Stomach, Via Natural or Artificial Opening Endoscopic, Diagnostic (ICD-10-PCS; 2016-11-10)
DX: A41.02 Sepsis due to Methicillin resistant Staphylococcus aureus (principal); M72.6 Necrotizing fasciitis; R65.21 Severe sepsis with septic shock; F10.231 Alcohol dependence with withdrawal delirium; A04.7 Enterocolitis due to Clostridium difficile; K26.9 Duodenal ulcer, unspecified as acute or chronic, without hemorrhage or perforation; E87.1 Hypo-osmolality and hyponatremia; E44.0 Moderate protein-calorie malnutrition; T81.30XA Disruption of wound, unspecified, initial encounter; D62 Acute posthemorrhagic anemia; E46 Unspecified protein-calorie malnutrition; R44.3 Hallucinations, unspecified; K22.10 Ulcer of esophagus without bleeding; J98.11 Atelectasis; F11.20 Opioid dependence, uncomplicated; A40.0 Sepsis due to streptococcus, group A; D63.8 Anemia in other chronic diseases classified elsewhere; I25.2 Old myocardial infarction; M19.041 Primary osteoarthritis, right hand; M17.11 Unilateral primary osteoarthritis, right knee; N49.3 Fournier gangrene; R73.03 Prediabetes; J45.909 Unspecified asthma, uncomplicated; K29.80 Duodenitis without bleeding; D72.823 Leukemoid reaction; E87.6 Hypokalemia; K29.70 Gastritis, unspecified, without bleeding; D50.9 Iron deficiency anemia, unspecified; R09.02 Hypoxemia; D53.9 Nutritional anemia, unspecified; F41.9 Anxiety disorder, unspecified; F17.200 Nicotine dependence, unspecified, uncomplicated; Z22.322 Carrier or suspected carrier of Methicillin resistant Staphylococcus aureus; Z59.0 Homelessness; Z78.1 Physical restraint status; Z85.05 Personal history of malignant neoplasm of liver; Z85.72 Personal history of non-Hodgkin lymphomas; Z86.19 Personal history of other infectious and parasitic diseases; Z87.11 Personal history of peptic ulcer disease; Z92.21 Personal history of antineoplastic chemotherapy; Z92.3 Personal history of irradiation
CPT/HCPCS: 36430; 36556; 71010; 71250; 73701; 76937; 80048; 80053; 80069; 80202; 81001; 82040; 82272; 82533; 82550; 83605; 83735; 84100; 84132; 84134; 84155; 84484; 85007; 85014; 85018; 85025; 85027; 85384; 85610; 85730; 86403; 86850; 86900; 86901; 86920; 87040; 87070; 87147; 87186; 87205; 87493; 87641; 88305; 88312; 93005; 94150; 94640; 94664; 96361; 96365; 96375; C9113; J0290; J0295; J0610; J0690; J0692; J1170; J1200; J1580; J1630; J1644; J1940; J2060; J2175; J2250; J2270; J2370; J2405; J2543; J2710; J3010; J3370; J3411; J3475; J3480; J7030; J7040; J7050; J7120; P9016; P9047; Q9967